=== PATIENT | female | born 1950 | race Caucasian/White ===

== ENCOUNTER 2016-11-13 12:29 | Inpatient (IN) | payer OTHER, SELFPAY ==
[~2016-11-13] VITALS: Ht 157.5 cm; Wt 51.4 kg
[2016-11-13] MEDS ORDERED: MIRALAX *UNIT DOSE* 17GM PACKET PO PRN (12:45)
[2016-11-13] MEDS ORDERED: FLEET ENEMA PR PRN (12:45)
[2016-11-13] MEDS ORDERED: MOM 30ML SUSPENSION UDC PO PRN (12:45)
[2016-11-13] MEDS ORDERED: MEROPENEM INJ 500 MG in D5W MINI-BAG PLUS 100 ML IV SCH (14:30)
[2016-11-13] MEDS ORDERED: ALBUTEROL SULFATE 2.5 MG/0.5 ML INH NEB SOLN NEB PRN (15:45)
[2016-11-13 15:50] VITALS: BP 108/61
[2016-11-13] MEDS ORDERED: POTASSIUM CHL PWD 20 MEQ PACKET PO SCH (16:00)
[2016-11-13 16:38] LABS: INR 1.35
[2016-11-13] MEDS ORDERED: WARFARIN SOD 3 MG TAB PO SCH (17:00)
[2016-11-13] MEDS ORDERED: WARFARIN SOD 5 MG TAB PO SCH (17:00)
[2016-11-13] MEDS: SODIUM CHLORIDE 0.9% INJ 10 ML SYR IV SCH (18:00)
[2016-11-13] MEDS ORDERED: WARF-58 PO (18:14)
[2016-11-13] MEDS ORDERED: TAPA5TAB PO (18:14)
[2016-11-13] MEDS ORDERED: TYLE325T5 PO (18:14)
[2016-11-13] MEDS ORDERED: HYDR12CA PO (18:14)
[2016-11-13] MEDS ORDERED: PROT40IN4 IV (18:14)
[2016-11-13] MEDS ORDERED: MERO1INJ IV (18:14)
[2016-11-13] MEDS ORDERED: IPRASOL4 INH (18:14)
[2016-11-13] MEDS ORDERED: ATOR40TA PO (18:14)
[2016-11-13] MEDS ORDERED: POTA20TA PO ×2 (18:14)
[2016-11-13] MEDS ORDERED: LISI10TA4 PO (18:14)
[2016-11-13] MEDS ORDERED: LIDO5DIS36 TOP (18:14)
[2016-11-13] MEDS ORDERED: AMLO10TA2 PO (18:14)
[2016-11-13] MEDS ORDERED: ENOX60IN3 SC (18:14)
[2016-11-13] MEDS ORDERED: META48.53 PO (18:14)
[2016-11-13] MEDS ORDERED: VANC1INJ38 IV (18:14)
[2016-11-13] MEDS ORDERED: QUET1TAB7 PO (18:14)
[2016-11-13] MEDS ORDERED: CARV25TA PO (18:14)
[2016-11-13] MEDS ORDERED: ALPR0.5T3 PO (18:16)
[2016-11-13] MEDS ORDERED: ACET30TAB PO (18:16)
[2016-11-13] MEDS: CARVedilol 12.5 MG TAB PO SCH (18:50)
[2016-11-13] MEDS: ACETAMINOPHEN TAB 650MG DOSE (2X325MG) PO PRN (19:56)
[2016-11-13 20:00] VITALS: BP 110/55
[2016-11-13] MEDS: MEROPENEM INJ 2 GM in NS 100 ML IV SCH (20:58)
[2016-11-13] MEDS: SODIUM CHLORIDE 0.9% INJ 10 ML SYR IV PRN (20:58)
[2016-11-13] MEDS: POTASSIUM CHL PWD 20 MEQ PACKET PO SCH (20:59)
[2016-11-13] MEDS: DOCUSATE SODIUM 100 MG CAP PO SCH (20:59)
[2016-11-13] MEDS: hydroCHLOROthiazide 12.5 MG CAPSULE PO SCH (20:59)
[2016-11-13] MEDS: traZODone 100 MG TAB PO SCH (20:59)
[2016-11-13] MEDS: **NOTE PATIENT COMMENT** MISC XX SCH (21:00)
--- NOTE | 2016-11-13 21:07 | PHACANCOPD ---
PHARMACY VANCOMYCIN DOSING Pt Demographics Demographics Patient Age:66 , Weight:51.700 , Gender: female Adjusted Body Weight Date: 11/13/16, Adjusted Body Weight: Kg Events Past 24 Hours Events Past 24 Hours: NO: Dialysis, Diuretic Therapy, Change in CrCl, Fever, Elevation in WBC, Pending Diagnostics, Pending Procedures, Other Vancomycin Vancomycin indication: meningitis Vancomycin Target Ranges: 15-20 mcg/ml Vancomycin Load Y/N: No Load Dose Date Time Vancomycin Load Dose: Date: Time: Vancomycin Dose Date: 11/13/16. Current Vancomycin Dose: [750mg iv q12h] Intermittent Dosing?: No Labs Labs 11/13 SCr = 0.7 per [facility] 11/12 trough @ 2300 = 16.3 per [facility] Creatinine Clearance Date:11/13/16. Creatinine Clearance: [38]. Assessment and Plan Maintaining Current Dose?: Yes Reason for dose change: No Dose Change Pharmacist Note Pharmacist Note Date: 11/13/16. Pharmacist note: Patient was previously established on 750 mg q12h @ [facility]. A therapeutic trough of 16.3 was drawn on 11/12. Continue current dosing and follow up with a trough 11/14 @ 2300. Monitor renal function and adjust dose as needed JARROD HILARIO PHARMACY November 13, 2016 21:07
[2016-11-13] MEDS ORDERED: D5W MINI IV SCH (22:30)
[2016-11-13] MEDS ORDERED: MEROPENEM IV SCH (22:30)
[2016-11-13] MEDS: IPRATROPIUM 0.5MG/ALBUTEROL 2.5MG INH SOL UD 3ML (DUONEB)(J7620) NEB SCH (23:09)
[2016-11-14] MEDS: VANCOMYCIN HCL 750 MG, VIAL MATE ADAPTER 1 EACH in D5W 250 ML IV SCH ×2 (00:08→12:02)
[2016-11-14] MEDS: SODIUM CHLORIDE 0.9% INJ 10 ML SYR IV PRN ×3 (00:12→21:03)
--- NOTE | 2016-11-14 00:48 | PMRHPE ---
DATE OF ADMISSION: 11/13/2016 CHIEF COMPLAINT: Intraventricular hemorrhage/cerebral vascular accident complicated by hydrocephalus and possible cerebral spinal fluid infection. HISTORY OF THE PRESENT ILLNESS: The patient is an 66-year-old white female, right-handed, who on 10/20/2016 was having what felt like gastrointestinal (GI) symptoms of nausea and vomiting in the evening. This continued to progress and patient was taken to [facility] where she was found to be unresponsive and dyspneic and treated with DuoNebs, Solu-Medrol, Narcan. Her blood pressure was 210/100 and she was also treated with labetalol intravenous (IV) and IV Lasix. CT of the head showed intraventricular hemorrhage and her INR was 2.0 and patient given vitamin K intramuscular (IM) and two units of fresh frozen plasma to try and stop the bleeding. She was transferred to [facility] for a higher level of care and neurosurgical management and was placed on nicardipine drip which reduced blood pressure systolically to less than 140. She was received in the emergency room at [facility] and began treatment there. Patient was further assessed and felt to be hyperthyroid and had her [place] Thyroid stopped and felt to have some hydrocephalus and a ventriculoperitoneal (FUR STORAGE CLERK) shunt was placed to decompress the ventricles by neurosurgery. This was removed after a few days but it was felt that the patient may have, based on spinal tap, an infection of the cerebrospinal fluid and she has gone through two course of IV antibiotics. She is currently on day 2 with vancomycin 750 mg every 12 hours and IV Merrem, though different levels of treatment have been reported in the records and by patient's daughter who is a nurse from this rehabilitation unit. The doses range from 500 mg every 8 hours to 2 grams every 8 hours IV through her peripherally inserted central catheter (PICC) line. Patient also was felt to have pulmonary edema complicating her chronic obstructive pulmonary disease (COPD). Patient has been stabilized and in the last 2 days has started to reverse the moderately dense quadriparesis and very dense aphasia, both expressive and receptive, now having a number of automatic speech phrases but not being particularly effective in speech and this is markedly making following directions in therapy difficult. However, patient has proceeded to the point that she is able to walk greater than 10 feet with assistance and feed herself with setup to moderate independence but tends to mod to max in most activities of daily living (ADLs) mobility which is an improvement in the last week from being essentially total assist in ADLs. Patient, therefore, is transferred to the acute rehabilitation unit for a trial of intensive neurorehabilitation of her cerebrovascular accident secondary to a cerebral hemorrhage of the ventricular system and hydrocephalus with possible infection of the cerebral spinal fluid including in the ventricular system. PAST MEDICAL HISTORY: Includes coronary artery disease with peripheral vascular disease, coronary hypertension, hyperlipidemia, congestive heart failure, carotid stenosis bilaterally, status post mitral valve replacement for valvular disease, along with now hemorrhagic stroke. Patient also with COPD, hyperthyroidism, also hypokalemia and new onset atrial fibrillation with rapid ventricular response and anemia secondary to blood loss. PAST SURGICAL HISTORY: Includes coronary artery bypass graft (CABG) plus mitral valve replacement, FUR STORAGE CLERK shunt placement and then removal. FAMILY HISTORY: Atherosclerotic cardiovascular disease including hypertension, hyperlipidemia, prior CVAs. SOCIAL HISTORY: Patient lives with her in [place], [place]. She has multiple daughters and other children living in the area including her daughter who is a nurse on the acute rehabilitation unit. Patient has never smoked, never used tobacco, is a non-drinker of alcohol and has no illicit drug use history and is not working. MEDICATIONS ON ADMISSION: - Protonix - multivitamin - amlodipine . - atorvastatin - hydrochlorothiazide - lisinopril - Tapazole - meropenem - Colace - K-Katy - Coreg - Coumadin - DuoNeb - potassium chloride - albuterol nebulizer - vancomycin 750 mg every 12 hours - MiraLAX - Fleets enema as needed - Milk of Magnesia as needed - Tylenol as needed - codeine for pain ALLERGIES: PROPOXYPHENE which was an adverse causing confusion. REVIEW OF SYSTEMS: Not obtainable from the patient tonight due to her dense aphasia. PHYSICAL EXAMINATION: The patient is a below average height, about 113 pound, late middle aged white female with a healing FUR STORAGE CLERK surgery shunt site to the slightly left of midline in the parietal region, who is alert and very aware of activity going on around her and appears to be in mild to very mild distress from her chronic back pain. Patient seen in bed after transferring here today. At the time of the examination patient was having dinner and only generated a few automatic speech phrases and showed marked difficulty understanding verbal commands and to some degree with physical demonstrations of activity. VITAL SIGNS: Temperature is 97.9, blood pressure 108/61 with pulse 74, respirations 18. Pulse oximetry 95% on room air. HEENT: Has an eschar over the incision site in the left upper parietal lobe and the very short hair cut of the entire head. There is no facial droop. Normal wrinkling is seen around the eyes and in the forehead. Muscles of facial expression are functioning well. Patient is conjugate and patient tracks in all edwards. Speech is clear without any dysarthria when it is generated. NECK: Shows some tender points but it is overall supple with no palpable masses and a midline normal thyroid. No goiter being perceived. Patient is able to move all four extremities and tone is within normal limits and appears to have functional range of motion on this brief exam. LUNGS: Clear in all edwards to auscultation. CORONARY: Showing a regular rate and rhythm with normal S1 and S2 and 2/4 radial pulses. No irregular beats, murmurs, or gallops were appreciated during the examination, though there is probably low grade click with mitral valve opening and closing. Profusion is good into the fingertips and legs. There is good limb warmth in bilateral upper and lower extremities. ABDOMEN: Benign with normal bowel sounds in all quadrants. NEUROLOGICALLY: Patient is as noted above. Light touch appears to be grossly intact, however, due to poor communication is not able to test it or vibration appropriately at this time and patient not gotten up and tried on balance or ambulation. These will be assessed with therapy tomorrow. No initial laboratory data is available. Please see chart for specifics on the anemia, hyperthyroidism, and cerebral spinal fluid analysis which does not show neutrophils but rather lymphocytes in the most recent one. Patient has brought her CT and MRI scans, and we will try and get these into the chart. ASSESSMENT/PLAN: 1. Rehabilitation of cerebrovascular accident secondary to intraventricular hemorrhage with blocking of cerebrospinal fluid (CSF) and secondary hydrocephalus, status post temporary FUR STORAGE CLERK shunt drainage with possible complication of infection of the cerebrospinal fluid of the ventricular system. Patient with reasonable endurance and alertness as shown, willingness and ability to participate and tolerate therapy, physical therapy, occupational therapy and speech therapy and is very far from her baseline and is likely to have significant improvement due to the pressure caused ischemia and damage with the cerebrovascular accident. Therefore, I do feel patient is likely to benefit to a trial of neurorehabilitation with physical, occupational, and speech therapy. She has made significant progress in swallowing and today was upgraded, per nursing report, by speech to mechanical soft with thin liquids from pureed with thickened liquids. 2. Atherosclerotic cardiovascular disease including coronary artery disease, status post CABG, congestive heart failure, hypertension, hyperlipidemia and arrhythmia in the form of atrial fibrillation with rapid ventricular response which is new for this patient. We will go ahead and continue her antihypertensive and rate control medications, as well as antilipid medications and continue to monitor vital signs. Medicine consult has been sent to assist with this management. 3. Deep venous thrombosis (DVT) prevention as well as embolic events from mechanical heart valve. Patient currently on Coumadin. We will go ahead and monitor prothrombin time, INR and continue the 3 mg of Coumadin per day along with Lovenox. However, it is unclear why patient was on a extremely high 60 mg every 12 hours of Lovenox. I will bring it back into our hospital normal range of 40 mg every 12 hours and have the patient use thromboembolism deterrent (ROBBIN) hose and focus on getting patient up and ambulatory to prevent DVT formation. 4. Anemia. We will go ahead and follow with CBCs and we will adjust nutrients as appropriate, starting with multivitamin. 5. Hyperthyroidism. We will go ahead and continue patient on the methimazole 5 mg daily and will get a thyroid panel and consider endocrine consultation depending on her results. However, will look mainly towards doing this as an outpatient if this appears stable during the acute rehabilitation admission. 6. COPD. We will go ahead and continue her with her DuoNebs and as needed albuterol nebulizer and monitor pulse oximetry and use oxygen as needed. However , at this time patient is doing well being 95% on room air with a respiratory rate of 18. 7. CSF infection. I have consulted Dr. Benoit who has already seen the patient and she will be conferring with her infectious disease counterpart down at [facility] to review and adjust medications as appropriate and also to direct an investigation as needed into to type and source of infection. POST-ADMISSION PHYSICIAN EVALUATION: Patient is doing as well or better than was evident in the pre-admission screen and appears to have reached a point where she is making significant response 20 some days after the insult by the bleed and development of hydrocephalus to recovering the cells of the central nervous system. This was showing up with increasing higher level function such as some speech and what appears to be better understanding than conveyed in the notes, as well as better strength and skills in mobility and ADLs in the most recent therapy notes. Therefore, I do see patient as benefiting from and is very likely to benefit from ongoing acute intensive rehabilitation including physical, occupational, and speech therapy. I do feel that she will be able to participate in at least 3 hours of therapy per day amongst these disciplines coming to the 3 hours per day in total. I anticipate that the patient with her supportive family will be able to transition to home with her and family support with transition then to home care or outpatient therapies. I feel her prognosis is fair to good. I estimate her length of stay to be 18-21 days, to be adjusted depending on level of progress in the various disciplines being monitored during team rounds. Time spent in chart review, history and physical and documentation was greater than 70 minutes. GUDELIA
[2016-11-14] MEDS: MEROPENEM INJ 2 GM in NS 100 ML IV SCH ×3 (04:41→20:02)
[2016-11-14] MEDS: SODIUM CHLORIDE 0.9% INJ 10 ML SYR IV SCH ×2 (05:31→17:39)
[2016-11-14 06:00] VITALS: BP 136/71
[2016-11-14] MEDS: ACETAMINOPHEN TAB 650MG DOSE (2X325MG) PO PRN ×2 (06:16→13:16)
[2016-11-14 06:51] LABS: BASO % 0.3 % (0.0-1.0); EOS # 0.2 K/mm3 (0.0-0.50); LARGE UNSTAINED CELL # 0.1 K/mm3 (0.0-0.4); LARGE UNSTAINED CELL % 1.5 % (0.0-4.0); LYMPH % 19.5 % (24.0-44.0); MEAN CORPUSCULAR HEMOGLOBIN 32.8 pg (27.0-33.0); MEAN CORPUSCULAR HGB CONC 32.2 g/dl (32.0-36.5); MEAN CORPUSCULAR VOLUME 101.7 fl (80.0-96.0); MONO # 0.3 K/mm3 (0.0-0.8); NEUTROPHILS # 3.5 K/mm3 (1.8-7.7); NEUTROPHILS % 68.7 % (36.0-66.0); PLATELET COUNT, AUTOMATED 150 k/mm3 (150-450); RED CELL DISTRIBUTION WIDTH 15.6 % (11.5-14.5); WHITE BLOOD COUNT 5.1 K/mm3 (4.0-10.0)
[2016-11-14 06:55] LABS: INR 1.41
[2016-11-14] MEDS: IPRATROPIUM 0.5MG/ALBUTEROL 2.5MG INH SOL UD 3ML (DUONEB)(J7620) NEB SCH ×3 (07:17→23:59)
[2016-11-14 07:20] LABS: ALBUMIN 2.5 GM/DL (3.2-5.2); ALBUMIN/GLOBULIN RATIO 0.63 (1.00-1.93); ALKALINE PHOSPHATASE 89 U/L (45-117); ALT/SGPT 24 U/L (12-78); ANION GAP 6 MEQ/L (8-16); AST/SGOT 20 U/L (15-37); BILIRUBIN,TOTAL 0.5 MG/DL (0.2-1.0); BLOOD UREA NITROGEN 19 MG/DL (7-18); CALCIUM LEVEL 8.9 MG/DL (8.8-10.2); CARBON DIOXIDE LEVEL 28 MEQ/L (21-32); CHLORIDE LEVEL 106 MEQ/L (98-107); GLOMERULAR FILTRATION RATE > 60.0 (>45); GLUCOSE, FASTING 94 MG/DL (80-110); POTASSIUM SERUM 4.2 MEQ/L (3.5-5.1); SODIUM LEVEL 140 MEQ/L (136-145); T UPTAKE 39 % (30-39); THYROXINE (T4) 10.6 UG/DL (4.5-12.0); TOTAL PROTEIN 6.5 GM/DL (6.4-8.2)
[2016-11-14] MEDS: LIDOCAINE 5% (LIDODERM) PATCH TD SCH (09:00)
[2016-11-14] MEDS ORDERED: CARVedilol 12.5 MG TAB PO SCH (09:00)
[2016-11-14] MEDS: POTASSIUM CHL PWD 20 MEQ PACKET PO SCH ×2 (09:41→20:02)
[2016-11-14] MEDS: CARVedilol 12.5 MG TAB PO SCH ×2 (09:41→17:37)
[2016-11-14] MEDS: DOCUSATE SODIUM 100 MG CAP PO SCH ×2 (09:42→20:02)
[2016-11-14] MEDS: MULTIVITAMINS/MINERALS THERAP 1 TAB PO SCH (09:43)
[2016-11-14] MEDS: PANTOPRAZOLE 40MG TAB (PROTONIX) PO SCH (09:43)
[2016-11-14] MEDS: amLODIPine 10 MG TAB PO SCH (09:44)
[2016-11-14] MEDS: LISINOPRIL 10 MG TAB PO SCH (09:44)
[2016-11-14] MEDS: ATORVASTATIN 20 MG TAB PO SCH (09:45)
--- NOTE | 2016-11-14 11:29 | IPNPDOC ---
File Conversion Operator Progress Note DATE OF SERVICE: 11/14/16 DATE OF ADMISSION: November 13, 2016 at 15:36 INPATIENT REHABILITATION ADMISSION DAY: #1 SUBJECTIVE: Patient is a 66-year-old white female with cerebrovascular accident with intraventricular hemorrhage, dense aphasia and quadriparesis. Patient remains fairly movement does not appear to be in significant distress. She does respond with some automatic phrases. ALLERGIES: See Below MEDICATIONS: Reviewed, see below. OBJECTIVE: VITAL SIGNS: Please see below. PHYSICAL EXAMINATION: GENERAL: Slightly overweight male aged white female with short cropped hair and a healing left parietal incision site that is noninflamed and not draining. HEENT: As above with normal facial symmetry. CARDIOVASCULAR: Regular rate and rhythm with normal S1-S2. LUNGS: I'll feels clear to auscultation. ABDOMEN: Mildly obese with normal bowel sounds in all quadrants and no significant tenderness. NEUROLOGICAL: Patient is alert but unable to come first other than the occasional phrase. Patient is using all extremities but if not propped tense to turn to the side in bed. SKIN: Grossly intact except for some ecchymoses from prior IV and blood draw sites as well as the TABLE GAMES MANAGER shunt site which has an escar. LABORATORY DATA: Reviewed. Please see below. MICROBIOLOGY: Please see below. IMAGING: No new imaging. DVT prophylaxis ordered?: Patient on Lovenox and Coumadin with INR today of 1.41 that is increased from arrival yesterday. I will order 3.75 mg at 1700 hrs. for 3 days and continue daily INRs. Hospitalist be called if INR exceeds 3.0 this week end. ASSESSMENT AND PLAN: 1. Rehabilitation of extensive CVA with interventricular hemorrhage: Patient starring evaluation with physical therapy occupational therapy and speech therapy today. Review of her records show an overall trend in the last 48 hours to some significant increase in function which we will get baseline on today and start to track as patient participates in therapies. We'll look to formalize discharge anticipated date when teammates on Thursday. For now I am anticipating an 18-21 day stay. 2. DVT prophylaxis: Progressing patient's gaiting is going to be one of the most beneficial treatments but for now we'll continue the Lovenox 40 mg every 12 and continue anticoagulation with Coumadin as well as use of ROBBIN hose. When INR reaches 2.0 then Lovenox should be discontinued. 3. Possible CSF infection: Patient under review by Dr. Benoit who will adjust medications and assess as appropriate. 4. Anemia: We'll continue to watch CBCs and blood pressure especially as patient is on both Lovenox and Coumadin. TIME SPENT: Chart Review, examination and documentation greater than 25 minutes. Allergies Coded Allergies: Propoxyphene (Verified Allergy, Unknown, 11/13/16) Vital Signs Vital Signs Date Time Temp Pulse Resp B/P (MAP) Pulse Ox O2 Delivery O2 Flow Rate FiO2 11/14/16 09:44 118/74 11/14/16 09:44 82 11/14/16 09:15 Room Air 11/14/16 06:00 98.0 18 96 Laboratory Data CBC/BMP Laboratory Tests 11/14/16 06:40 Red Blood Count 2.77 L, Mean Corpuscular Volume 101.7 H, Mean Corpuscular Hemoglobin 32.8, Mean Corpuscular Hemoglobin Concent 32.2, Red Cell Distribution Width 15.6 H, Neutrophils (%) (Auto) 68.7 H, Lymphocytes (%) (Auto ) 19.5 L, Monocytes (%) (Auto) 6.0 H, Eosinophils (%) (Auto) 4.0 H, Basophils (% ) (Auto) 0.3, Neutrophils # (Auto) 3.5, Lymphocytes # (Auto) 1.0 L, Monocytes # (Auto) 0.3, Eosinophils # (Auto) 0.2, Basophils # (Auto) 0.0, Calcium Level 8.9 , Aspartate Amino Transf (AST/SGOT) 20, Alanine Aminotransferase (ALT/SGPT) 24, Alkaline Phosphatase 89, Total Bilirubin 0.5, Total Protein 6.5, Albumin 2.5 L Labs 24H Laboratory Tests 2 11/13/16 16:20: Prothrombin Time 16.8H, Prothromb Time International Ratio 1.35 11/14/16 06:40: Prothrombin Time 17.4H, Prothromb Time International Ratio 1.41, White Blood Count 5.1, Red Blood Count 2.77L, Hemoglobin 9.1L, Hematocrit 28.2L, Mean Corpuscular Volume 101.7H, Mean Corpuscular Hemoglobin 32.8, Mean Corpuscular Hemoglobin Concent 32.2, Red Cell Distribution Width 15.6H, Platelet Count 150, Neutrophils (%) (Auto) 68.7H, Lymphocytes (%) (Auto) 19.5L, Monocytes (%) (Auto ) 6.0H, Eosinophils (%) (Auto) 4.0H, Basophils (%) (Auto) 0.3, Neutrophils # ( Auto) 3.5, Lymphocytes # (Auto) 1.0L, Monocytes # (Auto) 0.3, Eosinophils # ( Auto) 0.2, Basophils # (Auto) 0.0, Large Unclassified Cells % 1.5, Large Unclassified Cells # 0.1, Anion Gap 6L, Glomerular Filtration Rate > 60.0, Blood Urea Nitrogen 19H, Creatinine 0.80, Sodium Level 140, Potassium Level 4.2 , Chloride Level 106, Carbon Dioxide Level 28, Calcium Level 8.9, Aspartate Amino Transf (AST/SGOT) 20, Alanine Aminotransferase (ALT/SGPT) 24, Alkaline Phosphatase 89, Total Bilirubin 0.5, Total Protein 6.5, Albumin 2.5L, C- Reactive Protein, Quantitative 2.53H, Albumin/Globulin Ratio 0.63L, Thyroid Stimulating Hormone (TSH) < 0.005L, Free Thyroxine Index 4.1, Thyroxine (T4) 10.6, Triiodothyronine (T3) Uptake 39 Current Medications Current Medications Current Medications Acetaminophen (Tylenol Tab) 650 mg Q4HP PRN PO MILD PAIN (PS 1-4) Last administered on 11/14/16 06:16; Start 11/13/16 at 12:45; Stop 12/13/16 at 12:44 Albuterol Sulfate (Proventil Neb) 2.5 mg Q2HP PRN NEB SOB/WHEEZING; Start 11/13 at 15:45; Stop 12/13/16 at 15:44 Albuterol/ Ipratropium (Duoneb (Ipr 0.5mg/Alb 2.5mg)) 3 ml RQ8H NEB Last administered on 11/14/16 07:17; Start 11/13/16 at 16:00; Stop 12/13/16 at 15:59 Amlodipine Besylate (Norvasc) 10 mg DAILY PO Last administered on 11/14/16 09: 44; Start 11/14/16 at 09:00; Stop 12/14/16 at 08:59 Atorvastatin Calcium (Lipitor) 40 mg DAILY PO Last administered on 5/19/17at 09 :45; Start 11/14/16 at 09:00; Stop 12/14/16 at 08:59 Carvedilol (COReg) 25 mg BIDWM PO Last administered on 11/14/16 09:41; Start 11/13/16 at 18:00; Stop 12/14/16 at 08:59 Carvedilol (COReg) 25 mg DAILY PO ; Start 11/14/16 at 09:00; Stop 11/14/16 at 09 :00; Status DC Codeine Sulfate (Codeine Sulfate) 30 mg Q4HP PRN PO PAIN SCALE 6-10; Start at 17:00; Stop 11/20/16 at 16:59 Docusate Sodium (Colace) 100 mg BID PO Last administered on 11/14/16 09:42; Start 11/13/16 at 21:00; Stop 12/13/16 at 20:59 Heparin Sodium (Heparin (Flush)) 200 units ASDIRECTED PRN IV SEE LABEL COMMENTS Last administered on 11/14/16 00:12; Start 11/13/16 at 17:00; Stop at 16:59 Heparin Sodium (Heparin (Flush)) 200 units PICC IV Last administered on 05:31; Start 11/13/16 at 18:00; Stop 12/13/16 at 17:59 Home Med (Med Rec Complete!) ASDIRECTED XX ; Start 11/13/16 at 18:30; Stop at 18:30; Status DC Hydrochlorothiazide (Hydrodiuril) 12.5 mg DAILY@2100 PO Last administered on 20:59; Start 11/13/16 at 21:00; Stop 12/13/16 at 20:59 Lidocaine (Lidoderm Patch) 1 patch DAILY TD Last administered on 11/14/16 09: 00; Start 11/14/16 at 09:00; Stop 12/14/16 at 08:59 Lisinopril (Prinivil) 10 mg DAILY PO Last administered on 11/14/16 09:44; Start 11/14/16 at 09:00; Stop 12/14/16 at 08:59 Magnesium Hydroxide (Milk Of Magnesia) 30 ml DAILYPRN PRN PO CONSTIPATION; Start 11/13/16 at 12:45; Stop 12/13/16 at 12:44 Meropenem 1000 mg/ Dextrose 100 ml @ 200 mls/hr Q8H IV ; Start 11/13/16 at 22: 30; Stop 11/13/16 at 22:30; Status DC Meropenem 2 gm/ Sodium Chloride 100 ml @ 200 mls/hr Q8H IV Last administered on 11/14/16 04:41; Start 11/13/16 at 20:00; Stop 11/20/16 at 19:59 Meropenem 500 mg/ Dextrose 100 ml @ 200 mls/hr Q8H IV ; Start 11/13/16 at 14:30 ; Stop 11/13/16 at 16:07; Status DC Methimazole (Tapazole) 5 mg DAILY PO Last administered on 11/14/16 09:42; Start 11/14/16 at 09:00; Stop 12/14/16 at 08:59 Multivitamins (Theragram-M) 1 tab DAILY PO Last administered on 11/14/16 09:43 ; Start 11/14/16 at 09:00; Stop 12/14/16 at 08:59 Non-Formulary Medication ( See Comment Field Below ) REMOVE LIDODERM PATCH DAILY@21 XX ; Start 11/13/16 at 21:00; Stop 12/13/16 at 20:59 Pantoprazole Sodium (Protonix) 40 mg DAILY PO Last administered on 11/14/16 09 :43; Start 11/14/16 at 09:00; Stop 12/14/16 at 08:59 Polyethylene Glycol (Miralax) 1 pkt DAILY PRN PO CONSTIPATION; Start 11/13/16 at 12:45; Stop 12/13/16 at 12:44 Potassium Chloride (K-Katy 20 Meq Powder Packet) 20 meq BID PO Last administered on 11/14/16 09:41; Start 11/13/16 at 21:00; Stop 11/17/16 at 06:00 Potassium Chloride (K-Katy 20 Meq Powder Packet) 20 meq RQ8H PO ; Start 11/13/16 at 16:00; Stop 11/13/16 at 16:07; Status DC Sodium Biphosphate/ Sodium Phosphate (Fleet Enema) 1 ea DAILYPRN PRN DC CONSTIPATION; Start 11/13/16 at 12:45; Stop 12/13/16 at 12:44 Sodium Chloride (Saline Lock Flush) 10 ml ASDIRECTED PRN IV SEE LABEL COMMENTS Last administered on 11/14/16 00:12; Start 11/13/16 at 17:00; Stop 12/13/16 at 16:59 Sodium Chloride (Saline Lock Flush) 10 ml PICC IV Last administered on 05:31; Start 11/13/16 at 18:00; Stop 12/13/16 at 17:59 Trazodone HCl (Desyrel) 100 mg QHS PO Last administered on 11/13/16 20:59; Start 11/13/16 at 21:00; Stop 12/13/16 at 20:59 Vancomycin HCl 750 mg/IV Miscellaneous Supplies 1 each/ Dextrose 275 ml @ 275 mls/hr Q12H IV Last administered on 11/14/16 00:08; Start 11/14/16 at 00:00; Stop 11/21/16 at 00:00 Warfarin Sodium (Coumadin) 3 mg 1T@17 PO ; Start 11/13/16 at 17:00; Stop at 17:01; Status Cancel Warfarin Sodium (Coumadin) 3 mg DAILY@17 PO Last administered on 11/13/16 19: 56; Start 11/13/16 at 17:00; Stop 11/13/16 at 23:59; Status DC XIOMARA CAMARENA MD November 14, 2016 11:29
--- NOTE | 2016-11-14 11:30 | CR.PDOC ---
[facility] Consultation Consultation CONSULTATION REPORT FOR: Dr Sow REASON FOR CONSULTATION: Medical Management DATE OF VISIT: 11/14/16 ATTENDING: Dr. Macias PCP: Dr Jean HPI: 66year old F had been having N/V 10/20/16. She presented to [facility] and found to be unresponsive and dyspneic. CT indicated intraventricular hemorrhage. Initial BP 210/100. INR was noted to be 2.0. Pt was administered VitK, FFP and transferred to [facility]. Thyroid supplement was d/cd related to hyperthyroidism. ASSIGNMENT MANAGER shunt placement related to hydrocephalus as per Neurosurgery. Pt was also treated there for infection of CSF. Pt transferred to [facility] ARU 11/13/16 and noted to have residual quadriplegia and aphasia. No acute medical concerns today. Denies any fevers, chills, Headache, Chest Pain, Shortness of breath, cough, palpitations, abdominal pain, N/V/D or changes in bowel or bladder habits. PMHx: CAD/CABG x 1. Followed by [facility] cardiology VHD/MVR Mechanical [facility] #[id number]. Coumadin managed as oupt by PCP. COPD CHF. TTE per at [facility] Cardiology. H/O Pulm edema admission [facility] 10/13. hypothyroid PVD/B/L Carotid stenosis HTN HLD anemia secondary to blood loss Afib with RVR. (EKG [facility] Afib) depression anxiety OA/chronic LBP PSHX: CABG x 1/MVR 2007 ASSIGNMENT MANAGER shunt placement 10/21/16, removal of shunt 11/05/16 [facility] hysterectomy SOCHX: Resides in: [facility] Marital Status: Tobacco use: denies ETOH: denies Illicit Drugs: Denies FAMHX: Mother: heart disease Father: Lung CA Siblings: 1 brother MVA, 1 brother throat Ca Children: Alive, well Unexpected deaths due to medical reasons: None. ROS: Pt provided limited history but denies pain, CP, SOB, abdominal pain, urinary complaints. Most of history is provided by her . PE: GEN: 66yoF, appears stated age. No acute distress. Alert, responds to questions with shaking her head. HEENT: Normocephalic, atraumatic. Healing surgical site left side of head. Pupils are equal, round, and reactive to light. Extraocular movements are intact. No nystagmus appreciated. Sclera are nonicteric. Conjunctiva without injection. Nose midline. No facial asymmetry. Moist mucous membranes. Dentition fair. Pharynx pink and moist, no cobblestoning. Neck supple, trachea midline. No lymphadenopathy or thyromegaly appreciated. CHEST: Regular rate and rhythm, +S1, +S2. [place] prosthetic closure noted. LUNGS: Clear to auscultation bilaterally. No wheezes, rales, or rhonchi. Breathing appears symmetric and easy. No accessory muscle use. ABD: Round, soft, non-tender, non-distended. +Bowel sounds throughout. No rebound or guarding. No costovertebral angle tenderness. EXT: Pulses 2+ bilaterally dorsalis pedis and radial. No lower extremity edema appreciated. SKIN: Sigurd, dry, warm. Capillary refill <2sec. No rashes. NEURO: Alert, aphasic. Moving UEs and LEs, but difficulty following commands for strength testing. CT 11/09/16 [facility]. Stable appearance. CSF culture 10/26 no growth CSF from EVD no growth. LP 11/10 CSF no growth EEG 10/21, 10/30, 11/11 and EEG monitoring 10/31-11/02. Generalized slowing, no epileptiform activity. No antiepileptics. A&P:66year old F had been having N/V 10/20/16. She presented to [facility] and found to be unresponsive and dyspneic. CT indicated intraventricular hemorrhage. Initial BP 210/100. INR was noted to be 2.0. Pt was administered VitK, FFP and transferred to [facility]. Thyroid supplement was d/cd related to hyperthyroidism. ASSIGNMENT MANAGER shunt placement related to hydrocephalus as per Neurosurgery. Pt was also treated there for infection of CSF. Pt transferred to [facility] ARU 11/13/16 and noted to have residual quadriplegia and aphasia. Pt is admitted to ARU as per Dr Sow. 1. CVA secondary to intraventricular hemorrhage. ARU as per Dr Sow. PT/OT/ST as per Dr Sow. Mechanical soft diet. Pain control/Bowel care. Bleeding/Fall/ Aspiration precautions. Plan for F/U with Neurosurgery [facility] [address] prior. 2. Hydrocephalus/S/P temporary ASSIGNMENT MANAGER shunt. 3. Possible CSF infection. Treated with antibiotics at [facility] as per ID for possible ventriculitis. Afebrile/no leukocytosis. Dr Benoit consulted for further management and recommendations. IV Vanco dosing as per Pharmacy. IV Meropenem. CRP pending. 4. CAD/CABG x 1. Coreg 25mg BID. 5. HTN/CHF. BP 108-136. Lisinopril 10mg daily/Norvasc 10mg daily/HCTZ12.5mg daily/KCL. 6. VHD/MVR Mechanical. Coumadin 3 mg yesterday. INR 1.41. Continue with daily INR. Goal INR 2.5-3.5. Coumadin 3.75 mg daily. Lovenox bridging 50mg SQ Q12 until INR is therapeutic. 7. HLD. Lipitor. 8. Afib. Coreg for rate control. Coumadin, INR 1.41. Update EKG pending. 9. Blood loss anemia. Follow CBC. 10. Hyperthyroidism. supplement on hold. Currently on Methimazole. F/U TFTs requested. Plan for outpt f/u with Endocrine 4 wks with TFT prior. 12. COPD. Nebs as needed. DVT prophylaxis. Coumadin/Lovenox as above. Thank you for your consultation. We will continue to follow along with you. Vital Signs/I&O Vital Signs Date Time Temp Pulse Resp B/P (MAP) Pulse Ox O2 Delivery O2 Flow Rate FiO2 11/14/16 09:44 118/74 11/14/16 09:44 82 11/14/16 06:00 98.0 18 96 Room Air I&O- Last 24 Hours up to 6 AM 11/14/16 06:00 Intake Total 765 ml Output Total 0 ml Balance 765 ml Laboratory Data Labs 24H Laboratory Tests 2 11/13/16 16:20: Prothrombin Time 16.8H, Prothromb Time International Ratio 1.35 11/14/16 06:40: Prothrombin Time 17.4H, Prothromb Time International Ratio 1.41, White Blood Count 5.1, Red Blood Count 2.77L, Hemoglobin 9.1L, Hematocrit 28.2L, Mean Corpuscular Volume 101.7H, Mean Corpuscular Hemoglobin 32.8, Mean Corpuscular Hemoglobin Concent 32.2, Red Cell Distribution Width 15.6H, Platelet Count 150, Neutrophils (%) (Auto) 68.7H, Lymphocytes (%) (Auto) 19.5L, Monocytes (%) (Auto ) 6.0H, Eosinophils (%) (Auto) 4.0H, Basophils (%) (Auto) 0.3, Neutrophils # ( Auto) 3.5, Lymphocytes # (Auto) 1.0L, Monocytes # (Auto) 0.3, Eosinophils # ( Auto) 0.2, Basophils # (Auto) 0.0, Large Unclassified Cells % 1.5, Large Unclassified Cells # 0.1, Anion Gap 6L, Glomerular Filtration Rate > 60.0, Blood Urea Nitrogen 19H, Creatinine 0.80, Sodium Level 140, Potassium Level 4.2 , Chloride Level 106, Carbon Dioxide Level 28, Calcium Level 8.9, Aspartate Amino Transf (AST/SGOT) 20, Alanine Aminotransferase (ALT/SGPT) 24, Alkaline Phosphatase 89, Total Bilirubin 0.5, Total Protein 6.5, Albumin 2.5L, C- Reactive Protein, Quantitative 2.53H, Albumin/Globulin Ratio 0.63L, Thyroid Stimulating Hormone (TSH) < 0.005L, Free Thyroxine Index 4.1, Thyroxine (T4) 10.6, Triiodothyronine (T3) Uptake 39 CBC/BMP Laboratory Tests 11/14/16 06:40 Red Blood Count 2.77 L, Mean Corpuscular Volume 101.7 H, Mean Corpuscular Hemoglobin 32.8, Mean Corpuscular Hemoglobin Concent 32.2, Red Cell Distribution Width 15.6 H, Neutrophils (%) (Auto) 68.7 H, Lymphocytes (%) (Auto ) 19.5 L, Monocytes (%) (Auto) 6.0 H, Eosinophils (%) (Auto) 4.0 H, Basophils (% ) (Auto) 0.3, Neutrophils # (Auto) 3.5, Lymphocytes # (Auto) 1.0 L, Monocytes # (Auto) 0.3, Eosinophils # (Auto) 0.2, Basophils # (Auto) 0.0, Calcium Level 8.9 , Aspartate Amino Transf (AST/SGOT) 20, Alanine Aminotransferase (ALT/SGPT) 24, Alkaline Phosphatase 89, Total Bilirubin 0.5, Total Protein 6.5, Albumin 2.5 L Allergies Coded Allergies: Propoxyphene (Verified Allergy, Unknown, 11/13/16) Home Medications Scheduled (Vancomycin 750-0.9 mg/150Ml-%) 1 Inj Inj, 1 INJ IV DAILY, (Reported) Albuterol/Ipratropium (Ipratropium Vansant/Albut 0.5-2.5 (3) mg/3Ml) 1 Benjamín Benjamín, 1 BENJAMÍN INH Q8H, (Reported) Amlodipine Besylate (Amlodipine Besylate) 10 Mg Tab, 10 MG PO DAILY, (Reported) Atorvastatin Calcium (Atorvastatin Calcium) 40 Mg Tab, 40 MG PO DAILY, (Reported ) Carvedilol (Carvedilol) 25 Mg Tab, 25 MG PO BID, (Reported) Enoxaparin Sodium (Enoxaparin Sodium) 60 Mg/0.6 Ml Inj, 50 MG SC BID, (Reported) Hydrochlorothiazide (Hydrochlorothiazide) 12.5 Mg Cap, 12.5 MG PO QHS, (Reported ) Lidocaine (Lidoderm) 5 % Dis, 1 PATCH TOP DAILY, (Reported) Lisinopril (Lisinopril) 10 Mg Tab, 10 MG PO DAILY, (Reported) Meropenem (Meropenem) 1 Gm Inj, 2 GM IV Q8H, (Reported) Methimazole (Tapazole) 5 Mg Tab, 5 MG PO DAILY, (Reported) Pantoprazole Sodium (Protonix IV) 40 Mg Inj, 40 MG IV DAILY, (Reported) Potassium Chloride (Klor-Con M20) 20 Meq Tabcr, 40 MEQ PO DAILY, (Reported) Potassium Chloride (Klor-Con M20) 20 Meq Tabcr, 20 MEQ PO QHS, (Reported) Psyllium (Metamucil Original Textur) 48.57 % Pow, 1 PKT PO BID, (Reported) Quetiapine Fumerate (Quetiapine Fumarate) 25 Mg Tab, 25 MG PO QHS, (Reported) Warfarin Sod (Warfarin Sodium) 3 Mg Tab, 3 MG PO QPM, (Reported) Scheduled PRN Acetaminophen (Tylenol) 325 Mg Tab, 650 MG PO Q6H PRN for PAIN / FEVER, ( Reported) Acetaminophen/Codeine (Tylenol/Codeine #3) Tab, 2 TAB PO Q6H PRN for PAIN, ( Reported) Alprazolam (Alprazolam) 0.5 Mg Tab, 0.5 MG PO TID PRN for ANXIETY, (Reported) Sahra Sahu November 14, 2016 11:30
--- NOTE | 2016-11-14 12:20 | ECGEPIP ---
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
[2016-11-14] MEDS: ENOXAPARIN 60 MG/0.6 ML SYR (J1650) SC SCH ×2 (13:17→23:51)
[2016-11-14 14:15] VITALS: BP 105/55
--- NOTE | 2016-11-14 16:11 | CR ---
DATE OF CONSULTATION: 11/13/2016 REASON FOR CONSULTATION: Asked to consult by Dr. Sow for followup of hospital-acquired ventriculitis. Mrs. Dubon is a 66-year-old female who had an intraventricular hemorrhage on October 21, admitted to [facility] for management of intraparenchymal hemorrhage. The patient was transferred to us on November 13 for rehabilitation. She had a left frontal external ventricular drain (EVD) placed for secondary hydrocephalus. She developed fevers and was noted to have increased white cells and cerebrospinal (CSF) fluid and was treated with vancomycin and cefepime due to concern for ventriculitis. She had been on 2 weeks of that treatment, and then the plan was to remove the EVD, but they had repeated the tap to make sure that there was no more evidence of infection and evaluate the opening pressure. At that point the nucleated white cells in her CSF were 2476 with 16% lymphocytes, 21% monocytes, 12% neutrophils, and a total protein of 98, glucose of 63. CSF panel on November 10 was negative. The cultures were negative. Was switched from cefepime to meropenem in spite of negative culture, and the plan was to continue with post antibiotics for a total of 2 weeks with a start date being November 11. The patient seems to be doing well. She does not have any headache. She has significant expressive aphasia. Her daughter is an RN at the bedside. The patient has not had any recent fever. She denies any nausea, vomiting, or diarrhea. PAST MEDICAL HISTORY: Significant for: 1. Mitral valve replacement, a mechanical valve. 2. Congestive heart failure. 3. Atrial fibrillation. She is on chronic Coumadin. EKG shows left bundle branch block. Brain natriuretic peptide (BNP) was 139 at [facility]. 4. Hyperlipidemia. 5. Hemorrhagic stroke. 6. Hydrocephalus, status post external ventriculoperitoneal (NURSE PRACTITIONER ADULT) shunt, which was removed on November 11. 7. Hospital-acquired ventriculitis, on vancomycin and meropenem for total of 2 weeks, which should end on November 25. 6. Hyperthyroidism. PAST SURGICAL HISTORY: 1. Coronary artery bypass graft (CABG). 2. Mitral valve replacement. 3. NURSE PRACTITIONER ADULT shunt placement and removal. FAMILY HISTORY: Atherosclerotic heart disease, hypertension, prior cerebrovascular accident (CVA). SOCIAL HISTORY: She lives with her in [place], [place], [place]. She has six children. One of them is a nurse in acute rehabilitation. She never smoked. Does not drink or use drugs. MEDICATIONS: - Protonix 40 mg by mouth daily - multivitamin one by mouth tablet daily - Norvasc 10 mg by mouth daily - Lipitor 40 mg by mouth daily - lisinopril 10 mg daily - methimazole 5 mg by mouth daily - Lidoderm patch - vancomycin 750 mg every 12 hours - meropenem 2 grams IV every 8 hours - Colace 100 mg by mouth twice a day - hydrochlorothiazide 12.5 mg by mouth daily - potassium 20 mEq by mouth twice a day - trazodone 100 mg by mouth at bedtime - Coreg 25 mg twice a day - codeine 30 mg as needed for pain - albuterol nebulizers as needed - MiraLax one packet daily as needed for constipation. ALLERGIES: PROPOXYPHENE. LABORATORY DATA: White count 5.1, hemoglobin 9.1, hematocrit 28.2, MCV 101.7, platelets 150, 68% neutrophils, 19% lymphocytes, 6% monocytes. Sodium 140, potassium 4.2, chloride 106, bicarbonate 28, BUN 19, creatinine 0.8, glucose 94, calcium 8.9. AST 20, ALT 24, total protein 6.5, albumin 2.5. TSH less than 0.005 with a free T4 of 4.1 and a total T4 of 10.6. No imaging studies have been done recently. Review of previous imaging done in [place]: Chest x-ray shows persistent left lower lobe patchy opacities, likely secondary to air-space disease or atelectasis. CT scan shows the intraventricular hemorrhage and scattered subarachnoid hemorrhages. PHYSICAL EXAMINATION: Temperature is 97.9, pulse 108/61, oxygen saturation 95% on room air, pulse 74, respirations 18. HEAD: She has a small scab on top of her head. Very short hair. There is no facial droop. Patient is smiling, trying to talk. She is able to say a couple words, like "it's cold." NECK: Supple. No jugular venous distention (JVD). No bruits. LUNGS: Clear. No wheezes, rales, or rhonchi. HEART: Normal S1, S2 with a grade 2/6 systolic murmur. Click heard of prosthetic valve. ABDOMEN: Soft, nontender. No hepatosplenomegaly. EXTREMITIES: No clubbing, cyanosis, or edema. NEUROLOGIC: Not done. The patient has expressive aphasia. Seems to be able to move all extremities but with difficulty with some weakness. Extraocular movements are intact, and there is facial symmetry. SKIN: No rashes. Warm. IMPRESSION: This is a pleasant 66-year-old female with a history of atrial fibrillation, mitral valve replacement, on Coumadin, hyperlipidemia, congestive heart failure who had an intraventricular hemorrhage. Had a external ventriculoperitoneal (NURSE PRACTITIONER ADULT) shunt placed with [id number] ventriculitis. The patient had a course of vancomycin and cefepime, and the repeat cerebrospinal fluid (CSF) analysis, even though patient had been on antibiotics, did show increasing white cells with a total of 2476 white cells but predominance of lymphocytes. Cultures were negative. The patient was seen by infectious disease in [facility], Dr. Cheryl Walker, who recommended to treat her with another 2 weeks of vancomycin and meropenem. The patient will be continued on that regimen. PLAN: 1. Continue IV vancomycin 750 mg every 12 hours. Vancomycin level will be monitored by pharmacy. Keep vancomycin trough between 15-20. 2. Continue IV meropenem at the dose of 2 grams IV every 8 hours. Will monitor for fever. If there is fever or worsening headache, please obtain CT of the head.
[2016-11-14] MEDS: WARFARIN SOD 7.5 MG TAB PO SCH (17:38)
[2016-11-14 20:00] VITALS: BP 108/58
[2016-11-14] MEDS: hydroCHLOROthiazide 12.5 MG CAPSULE PO SCH (20:02)
[2016-11-14] MEDS: traZODone 100 MG TAB PO SCH (20:02)
[2016-11-14] MEDS: **NOTE PATIENT COMMENT** MISC XX SCH (20:02)
--- NOTE | 2016-11-14 23:50 | PHACANCOPD ---
PHARMACY VANCOMYCIN DOSING Pt Demographics Demographics Patient Age:66 , Weight:51.200 , Gender: female Adjusted Body Weight Vancomycin Vancomycin indication: meningitis Vancomycin Target Ranges: 15-20 mcg/ml Vancomycin Load Y/N: No Load Dose Date Time Vancomycin Load Dose: Date: Time: Vancomycin Dose Date: 11/14/16. CHANGE Current Vancomycin Dose TO : [750mg IV q18h START 6AM ] Intermittent Dosing?: No Labs Creatinine Clearance Date:11/14/16. Creatinine Clearance: [>40ml/min]. Assessment and Plan Maintaining Current Dose?: No Reason for dose change: Trough too high Pharmacist Note Pharmacist Note Date: 11/14/16. Pharm.D. note: Patient was previously established on 750 mg q12h @ [facility]. A therapeutic trough of 16.3 was drawn on 11/12. TODAY, FOLLOWING 2 DOSES OF VANCO AT [facility], HER TROUGH = 24.3 mcg/ml WE WILL REDUCE HER FREQUENCY TO 750MG VANCO IV Q18H STARTING AT 6AM 11/15/16 Crow[ROMULO, Pharm.D. [facility] November 14, 2016 23:50
[2016-11-15] MEDS: MEROPENEM INJ 2 GM in NS 100 ML IV SCH ×3 (03:31→20:59)
[2016-11-15] MEDS: SODIUM CHLORIDE 0.9% INJ 10 ML SYR IV PRN ×3 (04:30→21:58)
[2016-11-15] MEDS: VANCOMYCIN HCL 750 MG, VIAL MATE ADAPTER 1 EACH in D5W 250 ML IV SCH (05:38)
[2016-11-15 05:50] VITALS: BP 132/68
[2016-11-15 06:44] LABS: BASO % 0.3 % (0.0-1.0); EOS # 0.2 K/mm3 (0.0-0.50); EOS % 3.3 % (0.0-3.0); LARGE UNSTAINED CELL # 0.1 K/mm3 (0.0-0.4); LARGE UNSTAINED CELL % 1.6 % (0.0-4.0); LYMPH # 0.9 K/mm3 (1.5-4.5); LYMPH % 16.5 % (24.0-44.0); MEAN CORPUSCULAR HEMOGLOBIN 31.9 pg (27.0-33.0); MEAN CORPUSCULAR VOLUME 99.7 fl (80.0-96.0); MONO # 0.3 K/mm3 (0.0-0.8); MONO % 5.8 % (0.0-5.0); NEUTROPHILS # 3.7 K/mm3 (1.8-7.7); NEUTROPHILS % 72.4 % (36.0-66.0); PLATELET COUNT, AUTOMATED 155 k/mm3 (150-450); RED CELL DISTRIBUTION WIDTH 16.1 % (11.5-14.5); WHITE BLOOD COUNT 5.1 K/mm3 (4.0-10.0)
[2016-11-15 06:48] LABS: INR 1.62
[2016-11-15] MEDS: SODIUM CHLORIDE 0.9% INJ 10 ML SYR IV SCH ×2 (07:01→12:32)
[2016-11-15] MEDS: IPRATROPIUM 0.5MG/ALBUTEROL 2.5MG INH SOL UD 3ML (DUONEB)(J7620) NEB SCH ×2 (08:23→15:12)
[2016-11-15] MEDS: amLODIPine 10 MG TAB PO SCH (09:26)
[2016-11-15] MEDS: PANTOPRAZOLE 40MG TAB (PROTONIX) PO SCH (09:26)
[2016-11-15] MEDS: CARVedilol 12.5 MG TAB PO SCH ×2 (09:27→18:00)
[2016-11-15] MEDS: ATORVASTATIN 20 MG TAB PO SCH (09:27)
[2016-11-15] MEDS: MULTIVITAMINS/MINERALS THERAP 1 TAB PO SCH (09:27)
[2016-11-15] MEDS: POTASSIUM CHL PWD 20 MEQ PACKET PO SCH ×2 (09:28→20:57)
[2016-11-15] MEDS: LISINOPRIL 10 MG TAB PO SCH (09:28)
[2016-11-15] MEDS: DOCUSATE SODIUM 100 MG CAP PO SCH ×2 (09:28→20:59)
[2016-11-15] MEDS: ENOXAPARIN 60 MG/0.6 ML SYR (J1650) SC SCH ×2 (09:38→21:58)
[2016-11-15] MEDS: LIDOCAINE 5% (LIDODERM) PATCH TD SCH (09:38)
[2016-11-15 14:00] VITALS: BP 140/70
[2016-11-15] MEDS: WARFARIN SOD 7.5 MG TAB PO SCH (16:33)
[2016-11-15] MEDS: CODEINE SULFATE 30 MG TAB PO PRN (16:34)
[2016-11-15 20:26] VITALS: BP 122/78
[2016-11-15] MEDS: traZODone 100 MG TAB PO SCH (20:57)
[2016-11-15] MEDS: hydroCHLOROthiazide 12.5 MG CAPSULE PO SCH (20:57)
[2016-11-15] MEDS: **NOTE PATIENT COMMENT** MISC XX SCH (21:00)
[2016-11-16] MEDS: VANCOMYCIN HCL 750 MG, VIAL MATE ADAPTER 1 EACH in D5W 250 ML IV SCH ×2 (00:18→17:49)
[2016-11-16] MEDS: SODIUM CHLORIDE 0.9% INJ 10 ML SYR IV PRN ×2 (01:43→14:04)
[2016-11-16] MEDS: MEROPENEM INJ 2 GM in NS 100 ML IV SCH ×3 (04:42→19:42)
[2016-11-16] MEDS: SODIUM CHLORIDE 0.9% INJ 10 ML SYR IV SCH ×2 (04:43→17:49)
[2016-11-16 06:00] VITALS: BP 108/68
[2016-11-16 07:56] LABS: BASO % 0.3 % (0.0-1.0); EOS # 0.2 K/mm3 (0.0-0.50); EOS % 4.3 % (0.0-3.0); LARGE UNSTAINED CELL # 0.2 K/mm3 (0.0-0.4); LARGE UNSTAINED CELL % 3.1 % (0.0-4.0); LYMPH % 18.5 % (24.0-44.0); MEAN CORPUSCULAR HEMOGLOBIN 32.5 pg (27.0-33.0); MEAN CORPUSCULAR HGB CONC 32.1 g/dl (32.0-36.5); MEAN CORPUSCULAR VOLUME 101.3 fl (80.0-96.0); MONO # 0.4 K/mm3 (0.0-0.8); MONO % 7.9 % (0.0-5.0); NEUTROPHILS # 3.5 K/mm3 (1.8-7.7); NEUTROPHILS % 65.9 % (36.0-66.0); PLATELET COUNT, AUTOMATED 171 k/mm3 (150-450); RED CELL DISTRIBUTION WIDTH 15.7 % (11.5-14.5); WHITE BLOOD COUNT 5.3 K/mm3 (4.0-10.0)
[2016-11-16 08:04] LABS: INR 1.99
[2016-11-16] MEDS: CARVedilol 12.5 MG TAB PO SCH ×2 (08:33→18:00)
[2016-11-16] MEDS: IPRATROPIUM 0.5MG/ALBUTEROL 2.5MG INH SOL UD 3ML (DUONEB)(J7620) NEB SCH ×4 (08:40→22:31)
[2016-11-16] MEDS: ATORVASTATIN 20 MG TAB PO SCH (09:10)
[2016-11-16] MEDS: LIDOCAINE 5% (LIDODERM) PATCH TD SCH (09:11)
[2016-11-16] MEDS: PANTOPRAZOLE 40MG TAB (PROTONIX) PO SCH (09:11)
[2016-11-16] MEDS: DOCUSATE SODIUM 100 MG CAP PO SCH ×2 (09:11→20:00)
[2016-11-16] MEDS: POTASSIUM CHL PWD 20 MEQ PACKET PO SCH ×2 (09:11→20:00)
[2016-11-16] MEDS: MULTIVITAMINS/MINERALS THERAP 1 TAB PO SCH (09:11)
[2016-11-16] MEDS: LISINOPRIL 10 MG TAB PO SCH (09:12)
[2016-11-16] MEDS: amLODIPine 10 MG TAB PO SCH (09:12)
[2016-11-16] MEDS: ENOXAPARIN 60 MG/0.6 ML SYR (J1650) SC SCH (12:04)
[2016-11-16 14:00] VITALS: BP 98/50
[2016-11-16] MEDS: METOCLOPRAMIDE INJ 10MG/2ML VIAL (J2765) IV PRN (14:03)
[2016-11-16] MEDS: WARFARIN SOD 7.5 MG TAB PO SCH (17:46)
[2016-11-16] MEDS: hydroCHLOROthiazide 12.5 MG CAPSULE PO SCH (18:15)
[2016-11-16 20:00] VITALS: BP 123/57
[2016-11-16] MEDS: **NOTE PATIENT COMMENT** MISC XX SCH (20:00)
[2016-11-16] MEDS: traZODone 100 MG TAB PO SCH (20:00)
[2016-11-17] MEDS: MEROPENEM INJ 2 GM in NS 100 ML IV SCH ×3 (04:38→20:52)
[2016-11-17] MEDS: SODIUM CHLORIDE 0.9% INJ 10 ML SYR IV SCH ×2 (04:39→17:48)
[2016-11-17 06:00] VITALS: BP 126/69
[2016-11-17] MEDS: IPRATROPIUM 0.5MG/ALBUTEROL 2.5MG INH SOL UD 3ML (DUONEB)(J7620) NEB SCH ×3 (08:00→21:00)
[2016-11-17] MEDS: SODIUM CHLORIDE 0.9% INJ 10 ML SYR IV PRN ×3 (08:26→20:52)
[2016-11-17] MEDS: METOCLOPRAMIDE INJ 10MG/2ML VIAL (J2765) IV PRN (08:26)
[2016-11-17] MEDS: amLODIPine 10 MG TAB PO SCH (09:00)
[2016-11-17] MEDS: LISINOPRIL 10 MG TAB PO SCH (09:00)
[2016-11-17 09:30] LABS: INR 2.32
[2016-11-17] MEDS: LIDOCAINE 5% (LIDODERM) PATCH TD SCH (09:34)
[2016-11-17] MEDS: ATORVASTATIN 20 MG TAB PO SCH (09:36)
[2016-11-17] MEDS: CARVedilol 12.5 MG TAB PO SCH ×2 (09:36→17:45)
[2016-11-17] MEDS: DOCUSATE SODIUM 100 MG CAP PO SCH ×2 (09:37→21:29)
[2016-11-17] MEDS: PANTOPRAZOLE 40MG TAB (PROTONIX) PO SCH (09:38)
[2016-11-17] MEDS: MULTIVITAMINS/MINERALS THERAP 1 TAB PO SCH (09:39)
[2016-11-17 09:47] LABS: BASO % 0.3 % (0.0-1.0); EOS # 0.2 K/mm3 (0.0-0.50); EOS % 4.5 % (0.0-3.0); LARGE UNSTAINED CELL # 0.1 K/mm3 (0.0-0.4); LARGE UNSTAINED CELL % 2.6 % (0.0-4.0); LYMPH # 0.7 K/mm3 (1.5-4.5); LYMPH % 17.9 % (24.0-44.0); MEAN CORPUSCULAR HEMOGLOBIN 33.3 pg (27.0-33.0); MEAN CORPUSCULAR HGB CONC 33.1 g/dl (32.0-36.5); MEAN CORPUSCULAR VOLUME 100.4 fl (80.0-96.0); MONO # 0.3 K/mm3 (0.0-0.8); MONO % 7.4 % (0.0-5.0); NEUTROPHILS # 2.5 K/mm3 (1.8-7.7); NEUTROPHILS % 67.2 % (36.0-66.0); PLATELET COUNT, AUTOMATED 173 k/mm3 (150-450); RED CELL DISTRIBUTION WIDTH 15.8 % (11.5-14.5); WHITE BLOOD COUNT 3.7 K/mm3 (4.0-10.0)
--- NOTE | 2016-11-17 10:04 | IPNPDOC ---
[facility] Progress Note DATE OF SERVICE: 11/17/16 DATE OF ADMISSION: November 13, 2016 at 15:36 INPATIENT REHABILITATION ADMISSION DAY: #4 SUBJECTIVE: Patient is a 66-year-old white female with CVA/interventricular hemorrhage with left neglect, left hemiparesis, dense aphasia and multiple cardiac related conditions. Patient still under treatment for presumed intraventricular infection. Vancomycin has been adjusted to every 18 hours from every 12 patient doing better on trough levels. Patient unable to list her complaints says no to being asked about pain nausea and other problems. However patient with GI distress through the weekend has been started on IV Reglan. ALLERGIES: See Below MEDICATIONS: Reviewed, see below. OBJECTIVE: VITAL SIGNS: Please see below. PHYSICAL EXAMINATION: GENERAL: Short elderly white female is alert and only able to tell me that she is in a hospital beyond her name recognition. She is not oriented to time nor fully oriented to situation. She is trying to be compliant with the staff. However she also has trouble following gestures. I was able to get her to reach up and grab my fingers with her right arm but she could not process using her left arm to do the same. She does have a mild facial droop to the left. I am unable to get her to extend her tongue is see if it deviates. HEENT: Left upper parietal incision continues to heal without drainage or inflammation. CARDIOVASCULAR: Regular rate and rhythm with 2 out 4 radial pulses. LUNGS: All edwards are clear patient. ABDOMEN: Obese, nontender with normal bowel sounds in all quadrants. NEUROLOGICAL: As above able to follow some directions with right upper and lower extremity but much more difficulty using the left upper and lower extremity. She will track into all edwards with her extraocular motions intact. But tends to prefer straight ahead to right gaze though she will look to the left. SKIN: Prior IV and blood draw ecchymoses are clearing. [employer] shunt site is as described above. LABORATORY DATA: Reviewed. Please see below. MICROBIOLOGY: Please see below. IMAGING: No imaging done. DVT prophylaxis ordered?: Patient continues with Lovenox 15 mg every 12 hours and on Coumadin 3.75 mg at 5 PM. Her INR has been rising smoothly and is at 2.32 today. Target brain remains 2.5-3.5 due to mitral valve and multiple cardiac problems including first-degree heart block with left bundle branch block. ASSESSMENT AND PLAN: 1. CVA: Patient cooperative with therapies and tolerating 3 hours per day through the weekend. Communications remains a significant factor in training. Speech-language pathology to continue along with physical and occupational therapy. ELOS is 18 to 21 days. Patient with little progress this weekend, now needing more assist in feeding vs. prior reports of functional level. 2. Atherosclerotic cardiovascular disease including valve replacement: DVT prophylaxis and CVA prophylaxis continue with Lovenox bridging to Coumadin. In light of the smooth climb and INR on Coumadin 3.75 mg per day I will go ahead and continue this for the next few days while tracking INR levels. Of concern is a slight decrease in hemoglobin and hematocrit to a 8.6 and 26.9% yesterday. Today's results show 9.2 and 27.8%on CBC. We will need to continue to watch this moderate anemia as it does add stress to her congestive heart failure. Blood pressure however remains fairly well controlled. 3. Ventriculitis/meningitis: Patient continuing on IV antibiotics with Dr. Benoit to monitor and adjust as needed. C-reactive protein is elevated. TIME SPENT: Chart Review, examination and documentation greater than 35 minutes. Allergies Coded Allergies: Propoxyphene (Verified Allergy, Unknown, 11/13/16) Vital Signs Vital Signs Date Time Temp Pulse Resp B/P (MAP) Pulse Ox O2 Delivery O2 Flow Rate FiO2 11/17/16 09:36 78 112/72 11/17/16 06:00 98.1 20 96 Room Air Laboratory Data Labs 24H Laboratory Tests 2 11/17/16 08:50: Prothrombin Time 25.5H, Prothromb Time International Ratio 2.32 Current Medications Current Medications Current Medications Acetaminophen (Tylenol Tab) 650 mg Q4HP PRN PO MILD PAIN (PS 1-4) Last administered on 11/14/16 13:16; Start 11/13/16 at 12:45; Stop 12/13/16 at 12:44 Albuterol Sulfate (Proventil Neb) 2.5 mg Q2HP PRN NEB SOB/WHEEZING Last administered on 11/16/16 22:31; Start 11/13/16 at 15:45; Stop 12/13/16 at 15:44 Albuterol/ Ipratropium (Duoneb (Ipr 0.5mg/Alb 2.5mg)) 3 ml RQ8H NEB Last administered on 11/16/16 15:41; Start 11/13/16 at 16:00; Stop 12/13/16 at 15:59 Amlodipine Besylate (Norvasc) 10 mg DAILY PO Last administered on 11/16/16 09: 12; Start 11/14/16 at 09:00; Stop 12/14/16 at 08:59 Atorvastatin Calcium (Lipitor) 40 mg DAILY PO Last administered on 11/17/16 09 :36; Start 11/14/16 at 09:00; Stop 12/14/16 at 08:59 Carvedilol (COReg) 25 mg BIDWM PO Last administered on 11/17/16 09:36; Start 11/13/16 at 18:00; Stop 12/14/16 at 08:59 Carvedilol (COReg) 25 mg DAILY PO ; Start 11/14/16 at 09:00; Stop 11/14/16 at 09 :00; Status DC Codeine Sulfate (Codeine Sulfate) 30 mg Q4HP PRN PO PAIN SCALE 6-10 Last administered on 11/15/16 16:34; Start 11/13/16 at 17:00; Stop 11/20/16 at 16:59 Docusate Sodium (Colace) 100 mg BID PO Last administered on 11/17/16 09:37; Start 11/13/16 at 21:00; Stop 12/13/16 at 20:59 Enoxaparin Sodium (Lovenox) 50 mg Q12H SC Last administered on 11/17/16 00:00 ; Start 11/14/16 at 11:00; Stop 11/19/16 at 10:59 Heparin Sodium (Heparin (Flush)) 200 units ASDIRECTED PRN IV SEE LABEL COMMENTS Last administered on 11/17/16 08:37; Start 11/13/16 at 17:00; Stop at 16:59 Heparin Sodium (Heparin (Flush)) 200 units PICC IV Last administered on 04:38; Start 11/13/16 at 18:00; Stop 12/13/16 at 17:59 Home Med (Med Rec Complete!) ASDIRECTED XX ; Start 11/13/16 at 18:30; Stop at 18:30; Status DC Hydrochlorothiazide (Hydrodiuril) 12.5 mg DAILY@2100 PO Last administered on 20:57; Start 11/13/16 at 21:00; Stop 12/13/16 at 20:59 Lidocaine (Lidoderm Patch) 1 patch DAILY TD Last administered on 11/17/16 09: 34; Start 11/14/16 at 09:00; Stop 12/14/16 at 08:59 Lisinopril (Prinivil) 10 mg DAILY PO Last administered on 11/16/16 09:12; Start 11/14/16 at 09:00; Stop 12/14/16 at 08:59 Magnesium Hydroxide (Milk Of Magnesia) 30 ml DAILYPRN PRN PO CONSTIPATION Last administered on 11/15/16 16:33; Start 11/13/16 at 12:45; Stop 12/13/16 at 12:44 Meropenem 1000 mg/ Dextrose 100 ml @ 200 mls/hr Q8H IV ; Start 11/13/16 at 22: 30; Stop 11/13/16 at 22:30; Status DC Meropenem 2 gm/ Sodium Chloride 100 ml @ 200 mls/hr Q8H IV Last administered on 11/17/16 04:38; Start 11/13/16 at 20:00; Stop 11/20/16 at 19:59 Meropenem 500 mg/ Dextrose 100 ml @ 200 mls/hr Q8H IV ; Start 11/13/16 at 14:30 ; Stop 11/13/16 at 16:07; Status DC Methimazole (Tapazole) 5 mg DAILY PO Last administered on 11/17/16 09:39; Start 11/14/16 at 09:00; Stop 12/14/16 at 08:59 Metoclopramide HCl (REGLAN INJection) 10 mg Q6HP PRN IV NAUSEA OR VOMITING Last administered on 11/17/16 08:26; Start 11/16/16 at 13:00; Stop 12/16/16 at 12:59 Multivitamins (Theragram-M) 1 tab DAILY PO Last administered on 11/17/16 09:39 ; Start 11/14/16 at 09:00; Stop 12/14/16 at 08:59 Non-Formulary Medication ( See Comment Field Below ) REMOVE LIDODERM PATCH DAILY@21 XX Last administered on 11/16/16 20:00; Start 11/13/16 at 21:00; Stop 12/13/16 at 20:59 Pantoprazole Sodium (Protonix) 40 mg DAILY PO Last administered on 11/17/16 09 :38; Start 11/14/16 at 09:00; Stop 12/14/16 at 08:59 Polyethylene Glycol (Miralax) 1 pkt DAILY PRN PO CONSTIPATION; Start 11/13/16 at 12:45; Stop 12/13/16 at 12:44 Potassium Chloride (K-Katy 20 Meq Powder Packet) 20 meq BID PO Last administered on 11/16/16 20:00; Start 11/13/16 at 21:00; Stop 11/17/16 at 06:00 ; Status DC Potassium Chloride (K-Katy 20 Meq Powder Packet) 20 meq RQ8H PO ; Start 11/13/16 at 16:00; Stop 11/13/16 at 16:07; Status DC Sodium Biphosphate/ Sodium Phosphate (Fleet Enema) 1 ea DAILYPRN PRN [place] CONSTIPATION; Start 11/13/16 at 12:45; Stop 12/13/16 at 12:44 Sodium Chloride (Saline Lock Flush) 10 ml ASDIRECTED PRN IV SEE LABEL COMMENTS Last administered on 11/17/16 08:26; Start 11/13/16 at 17:00; Stop 12/13/16 at 16:59 Sodium Chloride (Saline Lock Flush) 10 ml PICC IV Last administered on 04:39; Start 11/13/16 at 18:00; Stop 12/13/16 at 17:59 Trazodone HCl (Desyrel) 100 mg QHS PO Last administered on 11/16/16 20:00; Start 11/13/16 at 21:00; Stop 12/13/16 at 20:59 Vancomycin HCl 750 mg/IV Miscellaneous Supplies 1 each/ Dextrose 275 ml @ 275 mls/hr Q12H IV Last administered on 11/14/16 12:02; Start 11/14/16 at 00:00; Stop 11/14/16 at 23:43; Status DC Vancomycin HCl 750 mg/IV Miscellaneous Supplies 1 each/ Dextrose 275 ml @ 275 mls/hr Q18H IV Last administered on 5/21/17at 17:49; Start 11/15/16 at 06:00; Stop 11/22/16 at 05:59 Warfarin Sodium (Coumadin) 3 mg 1T@17 PO ; Start 11/13/16 at 17:00; Stop at 17:01; Status Cancel Warfarin Sodium (Coumadin) 3 mg DAILY@17 PO Last administered on 11/13/16t 19: 56; Start 11/13/16 at 17:00; Stop 11/13/16 at 23:59; Status DC Warfarin Sodium (Coumadin) 3.75 mg DAILY@17 PO Last administered on 11/16/16t 17:46; Start 11/14/16 at 17:00; Stop 11/16/16 at 23:55; Status DC Warfarin Sodium (Coumadin) 3.75 mg DAILY@17 PO ; Start 11/17/16 at 17:00; Stop 11/20/16 at 06:00 XIOMARA CAMARENA MD November 17, 2016 10:04
[2016-11-17] MEDS: ENOXAPARIN 60 MG/0.6 ML SYR (J1650) SC SCH ×3 (11:58→22:13)
--- NOTE | 2016-11-17 12:02 | IPNPDOC ---
Subjective Date Seen The patient was seen on 11/17/16. Subjective Chief Complaint/HPI The patient is a 66-year-old female admitted with a reason for visit of ICH. Events since last encounter Pt is resting in bed. Denies pain, nausea, abdominal pain, CP, SOB. Reglan IV was ordered over W/E but Pt has not used this. Objective Physical Examination General Exam: Positive: Alert Eye Exam: Positive: PERRLA Chest Exam: Positive: Clear to auscultation, Normal air movement Heart Exam: Positive: Rate Normal, Regular Rhythm, Normal S1, Normal S2, Negative: Murmurs, Rubs Extremity Exam: Positive: Normal pulses, Negative: Clubbing, Cyanosis, Edema Skin Exam: Positive: Nl turgor and temperature Assessment /Plan Problems (1) CVA (cerebrovascular accident due to intracerebral hemorrhage) Status: Acute Problem Text: * ARU as per Dr Sow. PT/OT/ST as per Dr Sow. Mechanical soft diet. Pain control/Bowel care. Bleeding/Fall/Aspiration precautions. Plan for F/U with Neurosurgery [facility] [address] prior. * Possible CSF infection. Treated with antibiotics at [facility] as per ID for possible ventriculitis. Afebrile/no leukocytosis. Dr Benoit consulted for further management and recommendations. IV Vanco dosing as per Pharmacy. IV Meropenem. CRP 2.53. Dr Benoit following. (2) CAD (coronary artery disease) of artery bypass graft Status: Chronic Response to Treatment: Stable Problem Text: * Coreg/statin (3) Hyperthyroidism Status: Acute Problem Text: * Currently on Methimazole. * Plan for outpt f/u with Endocrine 4 wks with TFT prior. (4) Anemia Status: Acute Problem Text: * Hgb 9.2, trend upward. (5) S/P mitral valve replacement Status: Chronic Response to Treatment: Stable Problem Text: * Mechanical MVR * Coumadin 3.75mg daily. * INR 2.31, gradually increasing. Continue with daily INR. Goal INR 2.5-3.5. Coumadin 3.75 mg daily. Lovenox bridging 50mg SQ Q12 until INR is therapeutic. (6) Afib Status: Chronic Response to Treatment: Stable Problem Text: * EKG 11/14 SINUS RHYTHM WITH SINUS ARRHYTHMIA WITH FIRST DEGREE AV BLOCK MARKED LEFT AXIS DEVIATION LEFT BUNDLE BRANCH BLOCK NO PRIOR * Coreg 25mg BID. * Coumadin as above. (7) HTN (hypertension) Problem Text: * Lisinopril 10mg daily/Norvasc 10mg daily/HCTZ12.5mg daily/KCL. (8) HLD (hyperlipidemia) Problem Text: * Lipitor Plan/VTE VTE Prophylaxis Ordered?: Yes (on Coumadin/Lovenox) VS, I&O, 24H, Fishbone Vital Signs/I&O Vital Signs Date Time Temp Pulse Resp B/P (MAP) Pulse Ox O2 Delivery O2 Flow Rate FiO2 11/17/16 09:36 78 112/72 11/17/16 06:00 98.1 20 96 Room Air I&O- Last 24 Hours up to 6 AM 11/17/16 06:00 Intake Total 1140 ml Balance 1140 ml Laboratory Data 24H LABS Laboratory Tests 2 11/17/16 08:50: White Blood Count 3.7L, Red Blood Count 2.76L, Hemoglobin 9.2L, Hematocrit 27.8L , Mean Corpuscular Volume 100.4H, Mean Corpuscular Hemoglobin 33.3H, Mean Corpuscular Hemoglobin Concent 33.1, Red Cell Distribution Width 15.8H, Platelet Count 173, Neutrophils (%) (Auto) 67.2H, Lymphocytes (%) (Auto) 17.9L, Monocytes (%) (Auto) 7.4H, Eosinophils (%) (Auto) 4.5H, Basophils (%) (Auto) 0.3 , Neutrophils # (Auto) 2.5, Lymphocytes # (Auto) 0.7L, Monocytes # (Auto) 0.3, Eosinophils # (Auto) 0.2, Basophils # (Auto) 0.0, Large Unclassified Cells % 2.6 , Large Unclassified Cells # 0.1, Prothrombin Time 25.5H, Prothromb Time International Ratio 2.32 11/17/16 10:58: Vancomycin Level Trough 21.5H CBC/BMP Laboratory Tests 11/17/16 08:50 Red Blood Count 2.76 L, Mean Corpuscular Volume 100.4 H, Mean Corpuscular Hemoglobin 33.3 H, Mean Corpuscular Hemoglobin Concent 33.1, Red Cell Distribution Width 15.8 H, Neutrophils (%) (Auto) 67.2 H, Lymphocytes (%) (Auto ) 17.9 L, Monocytes (%) (Auto) 7.4 H, Eosinophils (%) (Auto) 4.5 H, Basophils (% ) (Auto) 0.3, Neutrophils # (Auto) 2.5, Lymphocytes # (Auto) 0.7 L, Monocytes # (Auto) 0.3, Eosinophils # (Auto) 0.2, Basophils # (Auto) 0.0 Sahra Sahu November 17, 2016 12:02
[2016-11-17 13:24] LABS: ANION GAP 8 MEQ/L (8-16); BLOOD UREA NITROGEN 22 MG/DL (7-18); CALCIUM LEVEL 8.9 MG/DL (8.8-10.2); CARBON DIOXIDE LEVEL 27 MEQ/L (21-32); CHLORIDE LEVEL 103 MEQ/L (98-107); CREATININE FOR GFR 0.92 MG/DL (0.55-1.02); GLOMERULAR FILTRATION RATE > 60.0 (>45); GLUCOSE, FASTING 100 MG/DL (80-110); POTASSIUM SERUM 3.7 MEQ/L (3.5-5.1); SODIUM LEVEL 138 MEQ/L (136-145)
[2016-11-17 14:00] VITALS: BP 96/72
--- NOTE | 2016-11-17 14:06 | PHACANCOPD ---
PHARMACY VANCOMYCIN DOSING Pt Demographics Demographics Patient Age:66 , Weight:51.500 , Gender: female Adjusted Body Weight Events Past 24 Hours Events Past 24 Hours: YES: Change in CrCl, NO: Dialysis, Diuretic Therapy, Fever, Elevation in WBC, Pending Diagnostics , Pending Procedures, Other Vancomycin Vancomycin indication: meningitis Vancomycin Target Ranges: 15-20 mcg/ml Vancomycin Load Y/N: No Load Dose Date Time Vancomycin Load Dose: Date: Time: Vancomycin Dose 11/17/16: Held noon dose, rescheduled 750mg IV q18h @1800 Date: 11/14/16. CHANGE Current Vancomycin Dose TO : [750mg IV q18h START 6AM ] Intermittent Dosing?: No Labs Labs Vital Signs Label Value Date Time Patient Temperature 98.0 degrees F 11/16/16 2000 Temperature Source Temporal 11/16/16 2000 Patient Temperature 98.1 degrees F 11/17/16 0600 Temperature Source Temporal 11/17/16 0600 Item Value Date Time White Blood Count 5.3 K/mm3 11/16/16 0748 White Blood Count 5.1 K/mm3 11/15/16 0617 White Blood Count 3.7 K/mm3 L 11/17/16 0850 Creatinine 0.80 MG/DL 11/14/16 0640 Creatinine 0.92 MG/DL 11/17/16 1058 Vancomycin Level Trough 24.3 UG/ML H 11/14/16 2301 Vancomycin Level Trough 21.5 UG/ML H 11/17/16 1058 Creatinine Clearance Date:11/14/16. Creatinine Clearance: [>40ml/min]. Assessment and Plan Maintaining Current Dose?: Yes Reason for dose change: Trough too high Pharmacist Note Pharmacist Note 11/17/16: Trough level =21.5 drawn @1100 before next dose due at noon. Patient's trough still elevated so noon dose held and will restart Vanco 750mg IV q18h @ 1800 which is 24 hrs since last dose given. Pt's Scr remains stable and we will continue to monitor Scr and troughs and adjust Vanco dose as needed. Date: 11/14/16. Pharm.D. note: Patient was previously established on 750 mg q12h @ [facility]. A therapeutic trough of 16.3 was drawn on 11/12. TODAY, FOLLOWING 2 DOSES OF VANCO AT [facility], HER TROUGH = 24.3 mcg/ml WE WILL REDUCE HER FREQUENCY TO 750MG VANCO IV Q18H STARTING AT 6AM 11/15/16 Crow[Ethan SEBASTIAN. MARCELINO [facility]ONE [facility] November 17, 2016 13:55
[2016-11-17] MEDS ORDERED: WARFARIN SOD 7.5 MG TAB PO SCH (17:00)
[2016-11-17] MEDS: VANCOMYCIN HCL 750 MG, VIAL MATE ADAPTER 1 EACH in D5W 250 ML IV SCH (17:43)
[2016-11-17 20:00] VITALS: BP 127/56
[2016-11-17 21:29] VITALS: BP 128/60
[2016-11-17] MEDS: hydroCHLOROthiazide 12.5 MG CAPSULE PO SCH (21:29)
[2016-11-17] MEDS: traZODone 100 MG TAB PO SCH (21:29)
[2016-11-17] MEDS: **NOTE PATIENT COMMENT** MISC XX SCH (21:35)
[2016-11-18] MEDS: MEROPENEM INJ 2 GM in NS 100 ML IV SCH ×3 (04:01→21:33)
[2016-11-18] MEDS: SODIUM CHLORIDE 0.9% INJ 10 ML SYR IV SCH ×2 (05:15→17:53)
[2016-11-18 06:00] VITALS: BP 135/68
[2016-11-18 07:31] LABS: MEAN CORPUSCULAR HEMOGLOBIN 32.1 pg (27.0-33.0); MEAN CORPUSCULAR HGB CONC 32.8 g/dl (32.0-36.5); MEAN CORPUSCULAR VOLUME 98.1 fl (80.0-96.0); RED CELL DISTRIBUTION WIDTH 16.3 % (11.5-14.5); WHITE BLOOD COUNT 3.6 K/mm3 (4.0-10.0)
[2016-11-18] MEDS: METOCLOPRAMIDE INJ 10MG/2ML VIAL (J2765) IV PRN ×2 (07:35→13:57)
[2016-11-18] MEDS: SODIUM CHLORIDE 0.9% INJ 10 ML SYR IV PRN ×2 (07:36→21:34)
[2016-11-18 07:39] LABS: INR 2.61
[2016-11-18 07:40] LABS: ALBUMIN 2.6 GM/DL (3.2-5.2); ALBUMIN/GLOBULIN RATIO 0.72 (1.00-1.93); ALKALINE PHOSPHATASE 94 U/L (45-117); ALT/SGPT 40 U/L (12-78); ANION GAP 7 MEQ/L (8-16); AST/SGOT 27 U/L (15-37); BILIRUBIN,TOTAL 0.4 MG/DL (0.2-1.0); BLOOD UREA NITROGEN 20 MG/DL (7-18); CALCIUM LEVEL 8.4 MG/DL (8.8-10.2); CARBON DIOXIDE LEVEL 29 MEQ/L (21-32); CHLORIDE LEVEL 102 MEQ/L (98-107); GLOMERULAR FILTRATION RATE > 60.0 (>45); GLUCOSE, FASTING 95 MG/DL (80-110); POTASSIUM SERUM 3.2 MEQ/L (3.5-5.1); SODIUM LEVEL 138 MEQ/L (136-145); TOTAL PROTEIN 6.2 GM/DL (6.4-8.2)
[2016-11-18] MEDS: LIDOCAINE 5% (LIDODERM) PATCH TD SCH (09:10)
[2016-11-18] MEDS: PANTOPRAZOLE 40MG TAB (PROTONIX) PO SCH (09:11)
[2016-11-18] MEDS: amLODIPine 10 MG TAB PO SCH (09:11)
[2016-11-18] MEDS: DOCUSATE SODIUM 100 MG CAP PO SCH ×2 (09:11→21:32)
[2016-11-18] MEDS: CARVedilol 12.5 MG TAB PO SCH ×2 (09:11→17:53)
[2016-11-18] MEDS: ATORVASTATIN 20 MG TAB PO SCH (09:11)
[2016-11-18] MEDS: MULTIVITAMINS/MINERALS THERAP 1 TAB PO SCH (09:11)
[2016-11-18] MEDS: LISINOPRIL 10 MG TAB PO SCH (09:12)
[2016-11-18] MEDS: IPRATROPIUM 0.5MG/ALBUTEROL 2.5MG INH SOL UD 3ML (DUONEB)(J7620) NEB SCH ×3 (09:25→23:12)
[2016-11-18 10:01] LABS: YEAST LIKE CELL URINE AUTO MODERATE
[2016-11-18] MEDS: hydroCHLOROthiazide 12.5 MG CAPSULE PO SCH (10:44)
--- NOTE | 2016-11-18 10:59 | IPNPDOC ---
Subjective Date Seen The patient was seen on 11/18/16. Subjective Chief Complaint/HPI The patient is a 66-year-old female admitted with a reason for visit of ICH. Events since last encounter Pt with some LBP. No LE pain. Pt with aphasia, limited hx. Pulmonary: Denies: Dyspnea, Cough, Pleuritic Chest Pain, Other Symptoms Cardiovascular: Denies: Chest Pain, Palpitations, Orthopnea, Paroxysmal Noc. Dyspnea, Lt Headedness Objective Physical Examination General Exam: Positive: Alert Eye Exam: Positive: PERRLA Chest Exam: Positive: Clear to auscultation, Normal air movement Heart Exam: Positive: Rate Normal, Regular Rhythm, Normal S1, Normal S2, Negative: Murmurs, Rubs Extremity Exam: Positive: Normal pulses, Negative: Clubbing, Cyanosis, Edema Skin Exam: Positive: Nl turgor and temperature Assessment /Plan Problems (1) CVA (cerebrovascular accident due to intracerebral hemorrhage) Status: Acute Problem Text: * ARU as per Dr Sow. PT/OT/ST as per Dr Sow. Mechanical soft diet. Pain control/Bowel care. Bleeding/Fall/Aspiration precautions. Plan for F/U with Neurosurgery [facility] [address]. * Possible CSF infection. Treated with antibiotics at [facility] as per ID for possible ventriculitis. Afebrile/no leukocytosis. Dr Benoit consulted for further management and recommendations. IV Vanco dosing as per Pharmacy. IV Meropenem. CRP 2.53. Dr Benoit following. (2) CAD (coronary artery disease) of artery bypass graft Status: Chronic Response to Treatment: Stable Problem Text: * Coreg/statin (3) Hyperthyroidism Status: Acute Problem Text: * Currently on Methimazole. * Plan for outpt f/u with Endocrine 4 wks with TFT prior. (4) Anemia Status: Acute Problem Text: * Hgb 8.6 * Add Fe studies, B12/folate to labs. (5) S/P mitral valve replacement Status: Chronic Response to Treatment: Stable Problem Text: * Mechanical MVR * Coumadin 3.75mg daily. * INR 2.61. Continue with daily INR. Goal INR 2.5-3.5. Coumadin 3 mg daily. * Lovenox bridging discontinued. * Monitor. (6) Afib Status: Chronic Response to Treatment: Stable Problem Text: * EKG 11/14 SINUS RHYTHM WITH SINUS ARRHYTHMIA WITH FIRST DEGREE AV BLOCK MARKED LEFT AXIS DEVIATION LEFT BUNDLE BRANCH BLOCK NO PRIOR * Coreg 25mg BID. * Coumadin as above. (7) HTN (hypertension) Problem Text: * Lisinopril 10mg daily/Norvasc 10mg daily/HCTZ12.5mg daily/KCL. * BP controlled. (8) HLD (hyperlipidemia) Problem Text: * Lipitor Plan/VTE VTE Prophylaxis Ordered?: Yes (on Coumadin/Lovenox) Disposition as per ARU VS, I&O, 24H, [facility] Vital Signs/I&O Vital Signs Date Time Temp Pulse Resp B/P (MAP) Pulse Ox O2 Delivery O2 Flow Rate FiO2 11/18/16 09:11 72 135/68 11/18/16 09:00 Room Air 11/18/16 06:00 98.9 18 97 I&O- Last 24 Hours up to 6 AM 11/18/16 06:00 Intake Total 760 ml Output Total 0 ml Balance 760 ml Laboratory Data 24H LABS Laboratory Tests 2 11/17/16 10:58: Anion Gap 8, Glomerular Filtration Rate > 60.0, Blood Urea Nitrogen 22H, Creatinine 0.92, Sodium Level 138, Potassium Level 3.7, Chloride Level 103, Carbon Dioxide Level 27, Calcium Level 8.9, Vancomycin Level Trough 21.5H 11/18/16 06:47: Anion Gap 7L, Glomerular Filtration Rate > 60.0, Blood Urea Nitrogen 20H, Creatinine 0.80, Sodium Level 138, Potassium Level 3.2L, Chloride Level 102, Carbon Dioxide Level 29, Calcium Level 8.4L, Prothrombin Time 28.0H, Prothromb Time International Ratio 2.61, Aspartate Amino Transf (AST/SGOT) 27, Alanine Aminotransferase (ALT/SGPT) 40, Alkaline Phosphatase 94, Total Bilirubin 0.4, Total Protein 6.2L, Albumin 2.6L, Albumin/Globulin Ratio 0.72L 11/18/16 09:18: Urine Appearance CLEAR, Urine Color YELLOW, Urine pH 7.0, Urine Specific [place] 1.011, Urine Protein 1+H, Urine Glucose (UA) NEGATIVE, Urine Ketones TRACEH, Urine Urobilinogen 0.2, Urine Bilirubin NEGATIVE, Urine Leukocyte Esterase NEGATIVE, Urine Blood NEGATIVE, Urine Nitrite NEGATIVE, Urine WBC (Auto ) 1, Urine RBC (Auto) 0, Urine Hyaline Casts (Auto) 0, Urine Bacteria (Auto) NEGATIVE, Urine Squamous Epithelial Cells 0, Urine Yeast-Like Cells (Auto) MODERATEH, Urine Sperm (Auto) CBC/BMP Laboratory Tests 11/17/16 10:58 Calcium Level 8.9 11/18/16 06:47 Calcium Level 8.4 L, Red Blood Count 2.67 L, Mean Corpuscular Volume 98.1 H, Mean Corpuscular Hemoglobin 32.1, Mean Corpuscular Hemoglobin Concent 32.8, Red Cell Distribution Width 16.3 H, Aspartate Amino Transf (AST/SGOT) 27, Alanine Aminotransferase (ALT/SGPT) 40, Alkaline Phosphatase 94, Total Bilirubin 0.4, Total Protein 6.2 L, Albumin 2.6 L Sahra Sahu November 18, 2016 10:58
--- NOTE | 2016-11-18 11:38 | IPNPDOC ---
Settlement Technician Progress Note DATE OF SERVICE: 11/18/16 DATE OF ADMISSION: November 13, 2016 at 15:36 INPATIENT REHABILITATION ADMISSION DAY: #5 SUBJECTIVE: Patient is a 66-year-old white female with intraventricular hemorrhage/CVA with hydrocephalus that has been treated with a temporary BOARDING KENNEL OR CATTERY OPERATOR shunt and possible ventriculitis/meningitis under treatment with vancomycin and Merren IV antibiotics. Patient was able to do small pills by mouth today but is not showing me automatic speech when I talked to her today. Patient having urinary incontinence that seems to worsen. ALLERGIES: See Below MEDICATIONS: Reviewed, see below. OBJECTIVE: VITAL SIGNS: Please see below. PHYSICAL EXAMINATION: GENERAL: Patient appears tired trying to fall back asleep not responding to my attempts to arouse other than to open her eyes and then try and go back to sleep. She is not generating a automatic speech today. While she participated in OT the therapist's notes and verbalizations were decreased. HEENT: Normocephalic/atraumatic with healing left parietal BOARDING KENNEL OR CATTERY OPERATOR shunt site with eschar over the wound. CARDIOVASCULAR: Regular rate and rhythm with normal S1 and S2 and 2 out 4 radial pulses. LUNGS: [place] are clear to auscultation. ABDOMEN: Mildly distended with the little gas but normal bowel sounds in all quadrants. NEUROLOGICAL: Patient not able to give any response to orientation questions or even to respond back with automatic speech as she has returned my of seen her before. She does continue to have good movement with all extremities spontaneously but difficulties under verbal direction. Toes are downgoing on plantar stimulation. SKIN: Ecchymoses are clearing and eschars continues to heal at satellite project site monitor. LABORATORY DATA: Reviewed. Please see below. MICROBIOLOGY: Please see below. IMAGING: No new imaging. DVT prophylaxis ordered?: INR 2.6 today so we will reduce Coumadin to 3 mg daily at 1700 hours and stop Lovenox. ASSESSMENT AND PLAN: 1. Rehabilitation of intraventricular hemorrhage/CVA: While patient did participate in morning therapy she is becoming less verbal and in light of also the amount of urinary incontinence I will be getting a CT of the brain to look at whether her hydrocephalus is reacumulating. 2. Possible UTI: UA shows only 1 white blood cell some yeast with some protein and ketones but no leukoesterase or bacteria. It does not appear the patient has a UTI and therefore the consideration of hydrocephalus causing the increasing urinary incontinence is most likely. 3. Ventriculitis: Patient continues on IV antibiotic regimen. CT head may show if a lesions are present. TIME SPENT: Chart Review, examination and documentation greater than 25 minutes. Allergies Coded Allergies: Propoxyphene (Verified Allergy, Unknown, 11/13/16) Vital Signs Vital Signs Date Time Temp Pulse Resp B/P (MAP) Pulse Ox O2 Delivery O2 Flow Rate FiO2 11/18/16 09:11 72 135/68 11/18/16 09:00 Room Air 11/18/16 06:00 98.9 18 97 Laboratory Data CBC/BMP Laboratory Tests 11/18/16 06:47 Red Blood Count 2.67 L, Mean Corpuscular Volume 98.1 H, Mean Corpuscular Hemoglobin 32.1, Mean Corpuscular Hemoglobin Concent 32.8, Red Cell Distribution Width 16.3 H, Calcium Level 8.4 L, Aspartate Amino Transf (AST/SGOT ) 27, Alanine Aminotransferase (ALT/SGPT) 40, Alkaline Phosphatase 94, Total Bilirubin 0.4, Total Protein 6.2 L, Albumin 2.6 L Labs 24H Laboratory Tests 2 11/18/16 06:47: Prothrombin Time 28.0H, Prothromb Time International Ratio 2.61, Anion Gap 7L, Glomerular Filtration Rate > 60.0, Blood Urea Nitrogen 20H, Creatinine 0.80, Sodium Level 138, Potassium Level 3.2L, Chloride Level 102, Carbon Dioxide Level 29, Calcium Level 8.4L, Aspartate Amino Transf (AST/SGOT) 27, Alanine Aminotransferase (ALT/SGPT) 40, Alkaline Phosphatase 94, Total Bilirubin 0.4, Total Protein 6.2L, Albumin 2.6L, Albumin/Globulin Ratio 0.72L 11/18/16 09:18: Urine Appearance CLEAR, Urine Color YELLOW, Urine pH 7.0, Urine Specific [place] 1.011, Urine Protein 1+H, Urine Glucose (UA) NEGATIVE, Urine Ketones TRACEH, Urine Urobilinogen 0.2, Urine Bilirubin NEGATIVE, Urine Leukocyte Esterase NEGATIVE, Urine Blood NEGATIVE, Urine Nitrite NEGATIVE, Urine WBC (Auto ) 1, Urine RBC (Auto) 0, Urine Hyaline Casts (Auto) 0, Urine Bacteria (Auto) NEGATIVE, Urine Squamous Epithelial Cells 0, Urine Yeast-Like Cells (Auto) MODERATEH, Urine Sperm (Auto) Current Medications Current Medications Current Medications Acetaminophen (Tylenol Tab) 650 mg Q4HP PRN PO MILD PAIN (PS 1-4) Last administered on 11/14/16 13:16; Start 11/13/16 at 12:45; Stop 12/13/16 at 12:44 Albuterol Sulfate (Proventil Neb) 2.5 mg Q2HP PRN NEB SOB/WHEEZING Last administered on 11/16/16 22:31; Start 11/13/16 at 15:45; Stop 12/13/16 at 15:44 Albuterol/ Ipratropium (Duoneb (Ipr 0.5mg/Alb 2.5mg)) 3 ml RQ8H NEB Last administered on 11/18/16 09:25; Start 11/13/16 at 16:00; Stop 12/13/16 at 15:59 Amlodipine Besylate (Norvasc) 10 mg DAILY PO Last administered on 11/18/16 09: 11; Start 11/14/16 at 09:00; Stop 12/14/16 at 08:59 Atorvastatin Calcium (Lipitor) 40 mg DAILY PO Last administered on 11/18/16 09 :11; Start 11/14/16 at 09:00; Stop 12/14/16 at 08:59 Carvedilol (COReg) 25 mg BIDWM PO Last administered on 11/18/16 09:11; Start 11/13/16 at 18:00; Stop 12/14/16 at 08:59 Carvedilol (COReg) 25 mg DAILY PO ; Start 11/14/16 at 09:00; Stop 11/14/16 at 09 :00; Status DC Codeine Sulfate (Codeine Sulfate) 30 mg Q4HP PRN PO PAIN SCALE 6-10 Last administered on 11/15/16 16:34; Start 11/13/16 at 17:00; Stop 11/20/16 at 16:59 Docusate Sodium (Colace) 100 mg BID PO Last administered on 11/18/16 09:11; Start 11/13/16 at 21:00; Stop 12/13/16 at 20:59 Enoxaparin Sodium (Lovenox) 50 mg Q12H SC Last administered on 11/17/16 22:13 ; Start 11/14/16 at 11:00; Stop 11/18/16 at 10:25; Status DC Heparin Sodium (Heparin (Flush)) 200 units ASDIRECTED PRN IV SEE LABEL COMMENTS Last administered on 11/18/16 07:36; Start 11/13/16 at 17:00; Stop at 16:59 Heparin Sodium (Heparin (Flush)) 200 units PICC IV Last administered on 05:15; Start 11/13/16 at 18:00; Stop 12/13/16 at 17:59 Home Med (Med Rec Complete!) ASDIRECTED XX ; Start 11/13/16 at 18:30; Stop at 18:30; Status DC Hydrochlorothiazide (Hydrodiuril) 12.5 mg DAILY PO Last administered on 10:44; Start 11/18/16 at 09:00; Stop 12/18/16 at 08:59 Hydrochlorothiazide (Hydrodiuril) 12.5 mg DAILY@2100 PO Last administered on 21:29; Start 11/13/16 at 21:00; Stop 11/18/16 at 10:28; Status DC Lidocaine (Lidoderm Patch) 1 patch DAILY TD Last administered on 11/18/16 09: 10; Start 11/14/16 at 09:00; Stop 12/14/16 at 08:59 Lisinopril (Prinivil) 10 mg DAILY PO Last administered on 11/18/16 09:12; Start 11/14/16 at 09:00; Stop 12/14/16 at 08:59 Magnesium Hydroxide (Milk Of Magnesia) 30 ml DAILYPRN PRN PO CONSTIPATION Last administered on 11/15/16 16:33; Start 11/13/16 at 12:45; Stop 12/13/16 at 12:44 Meropenem 1000 mg/ Dextrose 100 ml @ 200 mls/hr Q8H IV ; Start 11/13/16 at 22: 30; Stop 11/13/16 at 22:30; Status DC Meropenem 2 gm/ Sodium Chloride 100 ml @ 200 mls/hr Q8H IV Last administered on 11/18/16 04:01; Start 11/13/16 at 20:00; Stop 11/18/16 at 07:53; Status DC Meropenem 2 gm/ Sodium Chloride 100 ml @ 200 mls/hr Q8H IV ; Start 11/18/16 at 13:00; Stop 11/25/16 at 12:59 Meropenem 500 mg/ Dextrose 100 ml @ 200 mls/hr Q8H IV ; Start 11/13/16 at 14:30 ; Stop 11/13/16 at 16:07; Status DC Methimazole (Tapazole) 5 mg DAILY PO Last administered on 11/18/16 09:11; Start 11/14/16 at 09:00; Stop 12/14/16 at 08:59 Metoclopramide HCl (REGLAN INJection) 10 mg Q6HP PRN IV NAUSEA OR VOMITING Last administered on 11/18/16 07:35; Start 11/16/16 at 13:00; Stop 12/16/16 at 12:59 Multivitamins (Theragram-M) 1 tab DAILY PO Last administered on 11/18/16 09:11 ; Start 11/14/16 at 09:00; Stop 12/14/16 at 08:59 Non-Formulary Medication ( See Comment Field Below ) REMOVE LIDODERM PATCH DAILY@21 XX Last administered on 11/17/16 21:35; Start 11/13/16 at 21:00; Stop 12/13/16 at 20:59 Pantoprazole Sodium (Protonix) 40 mg DAILY PO Last administered on 11/18/16 09 :11; Start 11/14/16 at 09:00; Stop 12/14/16 at 08:59 Polyethylene Glycol (Miralax) 1 pkt DAILY PRN PO CONSTIPATION; Start 11/13/16 at 12:45; Stop 12/13/16 at 12:44 Potassium Chloride (K-Katy 20 Meq Powder Packet) 20 meq BID PO Last administered on 11/16/16 20:00; Start 11/13/16 at 21:00; Stop 11/17/16 at 06:00 ; Status DC Potassium Chloride (K-Katy 20 Meq Powder Packet) 20 meq RQ8H PO ; Start 11/13/16 at 16:00; Stop 11/13/16 at 16:07; Status DC Sodium Biphosphate/ Sodium Phosphate (Fleet Enema) 1 ea DAILYPRN PRN MA CONSTIPATION Last administered on 11/17/16 10:34; Start 11/13/16 at 12:45; Stop 12/13/16 at 12:44 Sodium Chloride (Saline Lock Flush) 10 ml ASDIRECTED PRN IV SEE LABEL COMMENTS Last administered on 11/18/16 07:36; Start 11/13/16 at 17:00; Stop 12/13/16 at 16:59 Sodium Chloride (Saline Lock Flush) 10 ml PICC IV Last administered on 05:15; Start 11/13/16 at 18:00; Stop 12/13/16 at 17:59 Trazodone HCl (Desyrel) 100 mg QHS PO Last administered on 11/17/16 21:29; Start 11/13/16 at 21:00; Stop 12/13/16 at 20:59 Vancomycin HCl 750 mg/IV Miscellaneous Supplies 1 each/ Dextrose 275 ml @ 275 mls/hr Q12H IV Last administered on 11/14/16 12:02; Start 11/14/16 at 00:00; Stop 11/14/16 at 23:43; Status DC Vancomycin HCl 750 mg/IV Miscellaneous Supplies 1 each/ Dextrose 275 ml @ 275 mls/hr Q18H IV Last administered on 11/16/16 17:49; Start 11/15/16 at 06:00; Stop 11/17/16 at 13:50; Status DC Vancomycin HCl 750 mg/IV Miscellaneous Supplies 1 each/ Dextrose 275 ml @ 275 mls/hr Q18H IV Last administered on 11/17/16 17:43; Start 11/17/16 at 18:00; Stop 11/24/16 at 17:59 Warfarin Sodium (Coumadin) 3 mg 1T@17 PO ; Start 11/13/16 at 17:00; Stop at 17:01; Status Cancel Warfarin Sodium (Coumadin) 3 mg DAILY@17 PO Last administered on 11/13/16 19: 56; Start 11/13/16 at 17:00; Stop 11/13/16 at 23:59; Status DC Warfarin Sodium (Coumadin) 3 mg DAILY@17 PO ; Start 11/18/16 at 17:00; Stop at 06:00 Warfarin Sodium (Coumadin) 3.75 mg DAILY@17 PO Last administered on 11/16/16 17:46; Start 11/14/16 at 17:00; Stop 11/16/16 at 23:55; Status DC Warfarin Sodium (Coumadin) 3.75 mg DAILY@17 PO Last administered on 11/17/16t 17:46; Start 11/17/16 at 17:00; Stop 11/18/16 at 10:25; Status DC XIOMARA CAMARENA MD November 18, 2016 11:38
[2016-11-18] MEDS: VANCOMYCIN HCL 750 MG, VIAL MATE ADAPTER 1 EACH in D5W 250 ML IV SCH (12:09)
[2016-11-18 12:46] LABS: PERCENT SATURATION 24.6 % (13.2-37.4)
[2016-11-18 12:47] LABS: FOLATE 13.1 NG/ML (>5.4)
[2016-11-18 14:00] VITALS: BP 103/55
--- NOTE | 2016-11-18 14:34 | REP ---
CT HEAD WITHOUT CONTRAST: HISTORY: Urinary incontinence. Comparison: 11/09/2016 Areas of decreased attenuation are present in the periventricular white matter. This represent small vessel ischemic disease. There is no intraparenchymal hemorrhage, mass or midline shift. There is moderate dilatation of the ventricular system that is slightly increased compared to the previous study. There is a decrease in the amount of intraventricular hemorrhage with a small amount remaining in the third ventricle. There is dilatation of the cortical sulci consistent with mild volume loss. There is no extracerebral collection. The visualized sinuses are clear. IMPRESSION: 1. Small vessel ischemic disease. 2. Moderate hydrocephalus slightly increased compared to the previous study. There has been a decrease in the amount of intraventricular hemorrhage with a small amount of residual hemorrhage present in the third ventricle. 3 Mild volume loss. Signed by Shade Li MD 11/18/2016 05:02 P
[2016-11-18] MEDS: CODEINE SULFATE 30 MG TAB PO PRN ×2 (15:36→21:33)
[2016-11-18] MEDS ORDERED: WARFARIN SOD 3 MG TAB PO SCH (17:00)
[2016-11-18 20:00] VITALS: BP 132/60
[2016-11-18] MEDS: **NOTE PATIENT COMMENT** MISC XX SCH (21:00)
[2016-11-18] MEDS: traZODone 100 MG TAB PO SCH (21:32)
[2016-11-19] MEDS: MEROPENEM INJ 2 GM in NS 100 ML IV SCH ×2 (05:20→13:13)
[2016-11-19 06:00] VITALS: BP 134/62
[2016-11-19] MEDS: VANCOMYCIN HCL 750 MG, VIAL MATE ADAPTER 1 EACH in D5W 250 ML IV SCH (06:35)
[2016-11-19] MEDS: SODIUM CHLORIDE 0.9% INJ 10 ML SYR IV SCH ×2 (06:35→17:30)
[2016-11-19 07:01] LABS: MEAN CORPUSCULAR HEMOGLOBIN 32.9 pg (27.0-33.0); MEAN CORPUSCULAR HGB CONC 33.8 g/dl (32.0-36.5); MEAN CORPUSCULAR VOLUME 97.5 fl (80.0-96.0); RED CELL DISTRIBUTION WIDTH 15.7 % (11.5-14.5); WHITE BLOOD COUNT 3.2 K/mm3 (4.0-10.0)
[2016-11-19 07:08] LABS: INR 2.39
[2016-11-19] MEDS: METOCLOPRAMIDE INJ 10MG/2ML VIAL (J2765) IV PRN (08:23)
[2016-11-19] MEDS: IPRATROPIUM 0.5MG/ALBUTEROL 2.5MG INH SOL UD 3ML (DUONEB)(J7620) NEB SCH ×2 (08:47→16:28)
[2016-11-19] MEDS ORDERED: ENOXAPARIN 100MG/1ML SYRINGE (J1650) SC SCH (09:00)
[2016-11-19] MEDS ORDERED: AcetaZOLAMIDE 250 MG TAB PO SCH (09:00)
[2016-11-19] MEDS: ATORVASTATIN 20 MG TAB PO SCH (09:11)
[2016-11-19] MEDS: PANTOPRAZOLE 40MG TAB (PROTONIX) PO SCH (09:13)
[2016-11-19] MEDS: MULTIVITAMINS/MINERALS THERAP 1 TAB PO SCH (09:13)
[2016-11-19] MEDS: amLODIPine 10 MG TAB PO SCH (09:13)
[2016-11-19] MEDS: LISINOPRIL 10 MG TAB PO SCH (09:14)
[2016-11-19] MEDS: hydroCHLOROthiazide 12.5 MG CAPSULE PO SCH (09:14)
[2016-11-19] MEDS: DOCUSATE SODIUM 100 MG CAP PO SCH (09:14)
[2016-11-19] MEDS: LIDOCAINE 5% (LIDODERM) PATCH TD SCH (09:15)
[2016-11-19] MEDS: CARVedilol 12.5 MG TAB PO SCH ×2 (09:15→17:29)
[2016-11-19 10:44] LABS: ANION GAP 7 MEQ/L (8-16); BLOOD UREA NITROGEN 18 MG/DL (7-18); CALCIUM LEVEL 8.7 MG/DL (8.8-10.2); CARBON DIOXIDE LEVEL 31 MEQ/L (21-32); CHLORIDE LEVEL 101 MEQ/L (98-107); CREATININE FOR GFR 0.75 MG/DL (0.55-1.02); GLOMERULAR FILTRATION RATE > 60.0 (>45); GLUCOSE, FASTING 93 MG/DL (80-110); POTASSIUM SERUM 3.1 MEQ/L (3.5-5.1); SODIUM LEVEL 139 MEQ/L (136-145)
--- NOTE | 2016-11-19 11:31 | IPNPDOC ---
Subjective Date Seen The patient was seen on 11/19/16. Subjective Chief Complaint/HPI The patient is a 66-year-old female admitted with a reason for visit of ICH. Events since last encounter Pt is less responsive to questions and has been noted to be more lethargic today. Had N/V x 2 this AM per dtr. Also was noted to have urinary incontinence. CT brain was requested and neurosurgical Clt requested. Pt not reliably answering questions at this time. Objective Physical Examination General Exam: Positive: Alert (opens eyes to voice. ) Eye Exam: Positive: PERRLA Chest Exam: Positive: Clear to auscultation, Normal air movement Heart Exam: Positive: Rate Normal, Regular Rhythm, Normal S1, Normal S2, Negative: Murmurs, Rubs Extremity Exam: Positive: Normal pulses, Negative: Clubbing, Cyanosis, Edema Skin Exam: Positive: Nl turgor and temperature Psych Exam: Positive: Other (Pt not answering questions today. Noted to be lethargic. ) Assessment /Plan Problems (1) CVA (cerebrovascular accident due to intracerebral hemorrhage) Status: Acute Problem Text: * ARU as per Dr Sow. PT/OT/ST as per Dr Sow. Mechanical soft diet. Pain control/Bowel care. Bleeding/Fall/Aspiration precautions. Plan for F/U with Neurosurgery [facility] [address]. * Possible CSF infection. Treated with antibiotics at [facility] as per ID for possible ventriculitis. Afebrile/no leukocytosis. Dr Benoit consulted for further management and recommendations. IV Vanco dosing as per Pharmacy. IV Meropenem. CRP 2.53. Dr Benoit following. CRP today pending. (2) CAD (coronary artery disease) of artery bypass graft Status: Chronic Response to Treatment: Stable Problem Text: * Coreg/statin (3) Hyperthyroidism Status: Acute Problem Text: * Currently on Methimazole. * Plan for outpt f/u with Endocrine 4 wks with TFT prior. (4) Anemia Status: Acute Problem Text: * Hgb 8.6 * Add Fe studies, B12/folate to labs. (5) S/P mitral valve replacement Status: Chronic Response to Treatment: Stable Problem Text: * Mechanical MVR * Coumadin held today. * INR 2.39. Continue with daily INR. Goal INR 2.5-3.5. Coumadin on hold. * Lovenox bridging restarted. * Monitor. (6) Afib Status: Chronic Response to Treatment: Stable Problem Text: * EKG 11/14 SINUS RHYTHM WITH SINUS ARRHYTHMIA WITH FIRST DEGREE AV BLOCK MARKED LEFT AXIS DEVIATION LEFT BUNDLE BRANCH BLOCK NO PRIOR * Coreg 25mg BID. * Coumadin as above. (7) HTN (hypertension) Problem Text: * Lisinopril 10mg daily/Norvasc 10mg daily/HCTZ12.5mg daily/KCL. * BP controlled. (8) HLD (hyperlipidemia) Problem Text: * Lipitor (9) Hypokalemia Problem Text: * KCL 40meq x 1 now. (10) Hydrocephalus Problem Text: * GAS DESULFURIZER shunt placement 10/21/16, removal of shunt 11/05/16 [facility] * CT Small vessel ischemic disease. Moderate hydrocephalus slightly increased compared to the previous study. There has been a decrease in the amount of intraventricular hemorrhage with a small amount of residual hemorrhage present in the third ventricle. Mild volume loss. * Neurosurgery Clt requested and planning to proceed with Spinal tap, Hold Coumadin, Lovenox bridging. * Pt with persistent N/V, (11) Cerebral ventriculitis Problem Text: * Pt is completing treatment for possible CSF infection. Treated with antibiotics at [facility] as per ID for possible ventriculitis. Afebrile/no leukocytosis. * Dr Benoit following for further management and recommendations. * IV Vanco dosing as per Pharmacy. IV Meropenem. * CRP 2.53. CRP today pending Plan/VTE VTE Prophylaxis Ordered?: Yes (on Coumadin/Lovenox) VS, I&O, 24H, Fishbone Vital Signs/I&O Vital Signs Date Time Temp Pulse Resp B/P (MAP) Pulse Ox O2 Delivery O2 Flow Rate FiO2 11/19/16 09:13 72 132/82 11/19/16 07:45 Room Air 11/19/16 06:00 98.4 18 94 I&O- Last 24 Hours up to 6 AM 11/19/16 06:00 Intake Total 500 ml Output Total 1060 ml Balance -560 ml Laboratory Data 24H LABS Laboratory Tests 2 11/18/16 11:32: Iron Level 61, Total Iron Binding Capacity 248L, Transferrin % Saturation 24.6, Ferritin 172, Vitamin B12 Level 437, Folate 13.1 11/19/16 06:29: Anion Gap 7L, Glomerular Filtration Rate > 60.0, Blood Urea Nitrogen 18, Creatinine 0.75, Sodium Level 139, Potassium Level 3.1L, Chloride Level 101, Carbon Dioxide Level 31, Calcium Level 8.7L 11/19/16 06:33: Prothrombin Time 26.1H, Prothromb Time International Ratio 2.39 CBC/BMP Laboratory Tests 11/19/16 06:29 Calcium Level 8.7 L 11/19/16 06:33 Red Blood Count 2.67 L, Mean Corpuscular Volume 97.5 H, Mean Corpuscular Hemoglobin 32.9, Mean Corpuscular Hemoglobin Concent 33.8, Red Cell Distribution Width 15.7 H Sahra Sahu November 19, 2016 11:31
[2016-11-19] MEDS ORDERED: POTASSIUM CHLORIDE 10 MEQ SR TABLET PO ONE (11:45)
[2016-11-19] MEDS ORDERED: KCL 10MEQ IN 100ML SWI (KRUN) 10 MEQ in APPROPRIATE DILUENT 1 EA IV ONE ×2 (11:45)
--- NOTE | 2016-11-19 13:10 | IPNPDOC ---
[employer] Progress Note DATE OF SERVICE: 11/19/16 DATE OF ADMISSION: November 13, 2016 at 15:36 INPATIENT REHABILITATION ADMISSION DAY: #6 SUBJECTIVE: Patient is a 66-year-old female with interventricular hemorrhage/ CVA complicated by hydrocephalus and possible ventriculitis under treatment with IV vancomycin and MERREN. Patient with nausea of this morning and one episode of emesis. She had been noted by nursing to still be at lower level of communications with them. Patient not able to give complaints. ALLERGIES: See Below MEDICATIONS: Reviewed, see below. OBJECTIVE: VITAL SIGNS: Please see below. PHYSICAL EXAMINATION: GENERAL: Showed elderly white female who is alert and oriented to person, all her children's names and being out of hospital. She is not able to specify town or which hospital. She is not able to choose it being the month of October out of 4 different months offered. Patient does appear bit nauseous but in no musculoskeletal distress. 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 CARDIOVASCULAR: Regular rate and rhythm with normal S1 and S2 and 2/4 bilateral radial pulses. LUNGS: All edwards clear to auscultation. ABDOMEN: Abdomen is nontender with normal bowel sounds in all quadrants. NEUROLOGICAL: Patient showing more spontaneous speech today then yesterday but not as much as several days ago. He continues to have more problems trying to follow commands with her left body then her right but still will gaze to all sides of the room. LABORATORY DATA: Reviewed. Please see below. MICROBIOLOGY: Please see below. IMAGING: CT scan shows mild increase in hydrocephalus compared to scans done at [facility]. DVT prophylaxis ordered?: INR 2.39 today. ASSESSMENT AND PLAN: 1. Rehabilitation of CVAs and interventricular hemorrhage: At this time I will continue physical, occupational and speech therapies but main concern is patient 's recent downturn and apparent increase in hydrocephalus. 2. Hydrocephalus: Dr. Noble has evaluated the patient and we will stop the Coumadin and bridge with Lovenox until a spinal tap can be done if the family is in agreement. At this time I will not be using a vitamin K treatment to reverse the Coumadin as patient following the spinal tap and possible replacement of the AIRCRAFT LANDING GEAR INSPECTOR shunt will need to be anticoagulated with Coumadin again due to her heart valves. So, and order for tonight has been canceled but we will continue to follow pro-time and INRs and restart Lovenox 1 mg/kg every 12 hours to bridge and coagulation until INR is sufficiently reduced to allow Dr. Noble to proceed with the family's consent in this patient who currently is not confident to understand and make medical decisions for herself with an orientation less than 2 and dense aphasia. 3. Ventriculitis: I discussed the above problems with Dr Lang Benoit. She feels that we need to complete the current course of antibiotics but she will be ordering some tests and cultures on the CSF fluid to look for alternative types of infection which may be going on. TIME SPENT: Chart Review, examination and documentation required greater than 25 minutes. Allergies Coded Allergies: Propoxyphene (Verified Allergy, Unknown, 11/13/16) Vital Signs Vital Signs Date Time Temp Pulse Resp B/P (MAP) Pulse Ox O2 Delivery O2 Flow Rate FiO2 11/19/16 09:13 72 132/82 11/19/16 07:45 Room Air 11/19/16 06:00 98.4 18 94 Laboratory Data CBC/BMP Laboratory Tests 11/19/16 06:29 Calcium Level 8.7 L 11/19/16 06:33 Red Blood Count 2.67 L, Mean Corpuscular Volume 97.5 H, Mean Corpuscular Hemoglobin 32.9, Mean Corpuscular Hemoglobin Concent 33.8, Red Cell Distribution Width 15.7 H Labs 24H Laboratory Tests 2 11/19/16 06:29: Anion Gap 7L, Glomerular Filtration Rate > 60.0, Blood Urea Nitrogen 18, Creatinine 0.75, Sodium Level 139, Potassium Level 3.1L, Chloride Level 101, Carbon Dioxide Level 31, Calcium Level 8.7L, C-Reactive Protein, Quantitative 0.31H 11/19/16 06:33: Prothrombin Time 26.1H, Prothromb Time International Ratio 2.39 Current Medications Current Medications Current Medications Acetaminophen (Tylenol Tab) 650 mg Q4HP PRN PO MILD PAIN (PS 1-4) Last administered on 11/14/16 13:16; Start 11/13/16 at 12:45; Stop 12/13/16 at 12:44 Albuterol Sulfate (Proventil Neb) 2.5 mg Q2HP PRN NEB SOB/WHEEZING Last administered on 11/16/16 22:31; Start 11/13/16 at 15:45; Stop 12/13/16 at 15:44 Albuterol/ Ipratropium (Duoneb (Ipr 0.5mg/Alb 2.5mg)) 3 ml RQ8H NEB Last administered on 11/19/16 08:47; Start 11/13/16 at 16:00; Stop 12/13/16 at 15:59 Amlodipine Besylate (Norvasc) 10 mg DAILY PO Last administered on 11/19/16 09: 13; Start 11/14/16 at 09:00; Stop 12/14/16 at 08:59 Atorvastatin Calcium (Lipitor) 40 mg DAILY PO Last administered on 11/19/16 09 :11; Start 11/14/16 at 09:00; Stop 12/14/16 at 08:59 Carvedilol (COReg) 25 mg BIDWM PO Last administered on 11/19/16 09:15; Start 11/13/16 at 18:00; Stop 12/14/16 at 08:59 Carvedilol (COReg) 25 mg DAILY PO ; Start 11/14/16 at 09:00; Stop 11/14/16 at 09 :00; Status DC Codeine Sulfate (Codeine Sulfate) 30 mg Q4HP PRN PO PAIN SCALE 6-10 Last administered on 11/18/16 21:33; Start 11/13/16 at 17:00; Stop 11/20/16 at 16:59 Docusate Sodium (Colace) 100 mg BID PO Last administered on 11/19/16 09:14; Start 11/13/16 at 21:00; Stop 12/13/16 at 20:59 Enoxaparin Sodium (Lovenox) 50 mg Q12H SC Last administered on 11/17/16 22:13 ; Start 11/14/16 at 11:00; Stop 11/18/16 at 10:25; Status DC Enoxaparin Sodium (Lovenox) 50 mg Q12H SC Last administered on 11/19/16 11:50 ; Start 11/19/16 at 09:00; Stop 11/24/16 at 08:59 Heparin Sodium (Heparin (Flush)) 200 units ASDIRECTED PRN IV SEE LABEL COMMENTS Last administered on 11/18/16 21:34; Start 11/13/16 at 17:00; Stop at 16:59 Heparin Sodium (Heparin (Flush)) 200 units PICC IV Last administered on 06:35; Start 11/13/16 at 18:00; Stop 12/13/16 at 17:59 Home Med (Med Rec Complete!) ASDIRECTED XX ; Start 11/13/16 at 18:30; Stop at 18:30; Status DC Hydrochlorothiazide (Hydrodiuril) 12.5 mg DAILY PO Last administered on 09:14; Start 11/18/16 at 09:00; Stop 12/18/16 at 08:59 Hydrochlorothiazide (Hydrodiuril) 12.5 mg DAILY@2100 PO Last administered on 21:29; Start 11/13/16 at 21:00; Stop 11/18/16 at 10:28; Status DC Lidocaine (Lidoderm Patch) 1 patch DAILY TD Last administered on 11/19/16 09: 15; Start 11/14/16 at 09:00; Stop 12/14/16 at 08:59 Lisinopril (Prinivil) 10 mg DAILY PO Last administered on 11/19/16 09:14; Start 11/14/16 at 09:00; Stop 12/14/16 at 08:59 Magnesium Hydroxide (Milk Of Magnesia) 30 ml DAILYPRN PRN PO CONSTIPATION Last administered on 11/15/16 16:33; Start 11/13/16 at 12:45; Stop 12/13/16 at 12:44 Meropenem 1000 mg/ Dextrose 100 ml @ 200 mls/hr Q8H IV ; Start 11/13/16 at 22: 30; Stop 11/13/16 at 22:30; Status DC Meropenem 2 gm/ Sodium Chloride 100 ml @ 200 mls/hr Q8H IV Last administered on 11/18/16 04:01; Start 11/13/16 at 20:00; Stop 11/18/16 at 07:53; Status DC Meropenem 2 gm/ Sodium Chloride 100 ml @ 200 mls/hr Q8H IV Last administered on 11/19/16 05:20; Start 11/18/16 at 13:00; Stop 11/25/16 at 12:59 Meropenem 500 mg/ Dextrose 100 ml @ 200 mls/hr Q8H IV ; Start 11/13/16 at 14:30 ; Stop 11/13/16 at 16:07; Status DC Methimazole (Tapazole) 5 mg DAILY PO Last administered on 11/19/16 09:13; Start 11/14/16 at 09:00; Stop 12/14/16 at 08:59 Metoclopramide HCl (REGLAN INJection) 10 mg Q6HP PRN IV NAUSEA OR VOMITING Last administered on 11/19/16 08:23; Start 11/16/16 at 13:00; Stop 12/16/16 at 12:59 Multivitamins (Theragram-M) 1 tab DAILY PO Last administered on 11/19/16 09:13 ; Start 11/14/16 at 09:00; Stop 12/14/16 at 08:59 Non-Formulary Medication ( See Comment Field Below ) REMOVE LIDODERM PATCH DAILY@21 XX Last administered on 11/18/16 21:00; Start 11/13/16 at 21:00; Stop 12/13/16 at 20:59 Pantoprazole Sodium (Protonix) 40 mg DAILY PO Last administered on 11/19/16 09 :13; Start 11/14/16 at 09:00; Stop 12/14/16 at 08:59 Polyethylene Glycol (Miralax) 1 pkt DAILY PRN PO CONSTIPATION; Start 11/13/16 at 12:45; Stop 12/13/16 at 12:44 Potassium Chloride (K-Katy 20 Meq Powder Packet) 20 meq BID PO Last administered on 11/16/16 20:00; Start 11/13/16 at 21:00; Stop 11/17/16 at 06:00 ; Status DC Potassium Chloride (K-Katy 20 Meq Powder Packet) 20 meq RQ8H PO ; Start 11/13/16 at 16:00; Stop 11/13/16 at 16:07; Status DC Sodium Biphosphate/ Sodium Phosphate (Fleet Enema) 1 ea DAILYPRN PRN MA CONSTIPATION Last administered on 11/17/16 10:34; Start 11/13/16 at 12:45; Stop 12/13/16 at 12:44 Sodium Chloride (Saline Lock Flush) 10 ml ASDIRECTED PRN IV SEE LABEL COMMENTS Last administered on 11/18/16 21:34; Start 11/13/16 at 17:00; Stop 12/13/16 at 16:59 Sodium Chloride (Saline Lock Flush) 10 ml PICC IV Last administered on 06:35; Start 11/13/16 at 18:00; Stop 12/13/16 at 17:59 Trazodone HCl (Desyrel) 100 mg QHS PO Last administered on 11/18/16 21:32; Start 11/13/16 at 21:00; Stop 12/13/16 at 20:59 Vancomycin HCl 750 mg/IV Miscellaneous Supplies 1 each/ Dextrose 275 ml @ 275 mls/hr Q12H IV Last administered on 11/14/16 12:02; Start 11/14/16 at 00:00; Stop 11/14/16 at 23:43; Status DC Vancomycin HCl 750 mg/IV Miscellaneous Supplies 1 each/ Dextrose 275 ml @ 275 mls/hr Q18H IV Last administered on 11/16/16 17:49; Start 11/15/16 at 06:00; Stop 11/17/16 at 13:50; Status DC Vancomycin HCl 750 mg/IV Miscellaneous Supplies 1 each/ Dextrose 275 ml @ 275 mls/hr Q18H IV Last administered on 11/19/16 06:35; Start 11/17/16 at 18:00; Stop 11/24/16 at 17:59 Warfarin Sodium (Coumadin) 3 mg 1T@17 PO ; Start 11/13/16 at 17:00; Stop at 17:01; Status Cancel Warfarin Sodium (Coumadin) 3 mg DAILY@17 PO Last administered on 11/13/16 19: 56; Start 11/13/16 at 17:00; Stop 11/13/16 at 23:59; Status DC Warfarin Sodium (Coumadin) 3 mg DAILY@17 PO Last administered on 11/18/16 17: 52; Start 11/18/16 at 17:00; Stop 11/19/16 at 10:15; Status DC Warfarin Sodium (Coumadin) 3.75 mg DAILY@17 PO Last administered on 11/16/16 17:46; Start 11/14/16 at 17:00; Stop 11/16/16 at 23:55; Status DC Warfarin Sodium (Coumadin) 3.75 mg DAILY@17 PO Last administered on 11/17/16t 17:46; Start 11/17/16 at 17:00; Stop 11/18/16 at 10:25; Status DC XIOMARA CAMARENA MD November 19, 2016 13:10
[2016-11-19] MEDS: SODIUM CHLORIDE 0.9% INJ 10 ML SYR IV PRN (13:14)
[2016-11-19 14:00] VITALS: BP 138/70
[2016-11-19] MEDS ORDERED: ONDANSETRON 4MG/2ML VIAL (J2405) IV PRN (14:30)
[2016-11-19 17:29] VITALS: BP 140/80
[2016-11-19] MEDS ORDERED: HEPARIN DRIP 25,000 UNITS in APPROPRIATE DILUENT 1 EA IV SCH (19:09)
[2016-11-19] MEDS ORDERED: HEPARIN SOD (PORCINE) 5000 UNITS/ML VIAL IV PRN (19:15)
--- NOTE | 2016-11-20 08:22 | PMRNOTEPD ---
PMR Note 11/20/16 Patient transferred last night to PCU for close monitoring due to recurrence of hydrocephalus. This is an interrupted stay for rehabilitation to address what appears to be a progressive collection of fluid in the ventricles. Patient with extensive cardiac disease including recently discovered atrial fibrillation with rapid ventricular response as well as mechanical heart valve needs to be transition carefully from Coumadin with heparin bridging to allow drainage of excess cerebral spinal fluid. XIOMARA CAMARENA MD November 20, 2016 08:22
--- NOTE | 2016-11-21 23:29 | PMRDS ---
DATE OF ADMISSION: 11/13/2016 DATE OF DISCHARGE: 11/19/2016 DISCHARGE DIAGNOSES: 1. Expanding hydrocephalus. 2. Rehabilitation of intraventricular hemorrhage/cerebrovascular accident (CVA) with secondary hydrocephalus and dense aphasia, left hemiparesis, left neglect and generalized weakness. 3. Atherosclerotic cardiovascular disease including coronary artery disease status post coronary artery bypass grafting. 4. Congestive heart failure. 5. Hypertension. 6. Hyperlipidemia. 7. Newly discovered atrial fibrillation with rapid ventricular response. 8. Anemia. 9. Hyperthyroidism. 10. Chronic obstructive pulmonary disease (COPD). 11. Suspected ventriculitis. Patient admitted to the rehabilitation unit on 11/13/2016 and started a program of physical, occupational, speech language pathology evaluations and treatment, along with rehabilitation nursing and physiatry, trying to increase patient's overall ability to communicate and perform activities of daily living (ADLs) and mobility safely; however, after initial improvements, patient started showing decreasing speech, having less frequent automatic speech and more lethargy. Also, developed nausea and had progression of urinary incontinence. CT scan was then performed to compare against prior CTs and it was interpreted as some increase in hydrocephalus and Dr. Noble, from neurosurgery, was consulted. After review between the medicine consult team, Dr. Ellen Benoit, patient's infectious disease consult, and physiatry, a course of treatment was laid out; however, patient was felt not to be doing well and was felt to be able to be better managed and more quickly have her anticoagulation due to the mechanical mitral valve and deep venous thrombosis (DVT) prophylaxis reversed, and was transferred to the progressive care unit (PCU) by Dr. Fung. DIAGNOSTIC DATA: Includes the CT head, noted above. LABORATORY DATA: Incudes the INR, which, going into discharge was at 2.39 and Coumadin was discontinued in preparation for tapping the hydrocephalus. MEDICATIONS AT TIME OF TRANSFER: - Zofran - Micro-K Extend Tab - Lovenox 50 mg every 12 hours - Diamox 500 mg twice a day - meropenem 2 grams every 8 hours for ventriculitis - hydrochlorothiazide 12.5 mg daily - vancomycin 750 mg every 18 hours - Reglan 10 mg IV as needed for nausea or vomiting - pantoprazole 40 mg by mouth daily - multivitamin one daily - Norvasc 10 mg by mouth daily - atorvastatin 40 mg by mouth daily - lisinopril 10 mg daily - Tapazole 5 mg daily - Lidoderm patch for low back pain 12 out of every 24 hours - Colace 100 mg twice a day - heparin flushes for the Peripherally inserted central catheter (PICC) line COMPLICATIONS: Progressive but low increase in hydrocephalus with increasing lethargy, nausea, vomiting, and decreasing communication to increasing aphasia. DISCHARGE PLAN: Patient discharged to progressive care unit (PCU) to be transitioned off of anticoagulants to allow for fluid drainage from the hydrocephalus and possible ventriculoperitoneal (CAR FERRY MASTER) shunt. TIME SPENT ON DISCHARGE: Less than 30 minutes.
== END 2016-11-19 19:15 | disposition short-term general hospital (02) | DRG 56 ==
LOC: M PM&R 15:36
PROVIDERS: ADMIT Physical Medicine & Rehabilitation; ATTEND Physical Medicine & Rehabilitation
DX: I69.154 Hemiplegia and hemiparesis following nontraumatic intracerebral hemorrhage affecting left non-dominant side (principal); G04.90 Encephalitis and encephalomyelitis, unspecified; D62 Acute posthemorrhagic anemia; G91.0 Communicating hydrocephalus; J81.1 Chronic pulmonary edema; I69.120 Aphasia following nontraumatic intracerebral hemorrhage; I25.10 Atherosclerotic heart disease of native coronary artery without angina pectoris; I73.9 Peripheral vascular disease, unspecified; I10 Essential (primary) hypertension; E78.5 Hyperlipidemia, unspecified; I50.9 Heart failure, unspecified; R32 Unspecified urinary incontinence; I65.23 Occlusion and stenosis of bilateral carotid arteries; J44.9 Chronic obstructive pulmonary disease, unspecified; E05.90 Thyrotoxicosis, unspecified without thyrotoxic crisis or storm; E66.9 Obesity, unspecified; E87.6 Hypokalemia; M54.5 Low back pain; I48.2 Chronic atrial fibrillation; Z95.1 Presence of aortocoronary bypass graft; Z95.2 Presence of prosthetic heart valve; Z79.01 Long term (current) use of anticoagulants; Z79.899 Other long term (current) drug therapy; Z88.8 Allergy status to other drugs, medicaments and biological substances

== ENCOUNTER 2016-11-19 18:26 | Inpatient (IN) | payer OTHER, MEDICAID, MEDICARE ==
[~2016-11-19] VITALS: Ht 157.5 cm; Wt 48.1 kg
[~2016-11-19 18:26] MED LIST: ACET30TAB PO; ALPR0.5T3 PO; AMLO10TA2 PO; ATOR40TA75 PO; CARV25TA PO; ENOX60IN3 SC; HYDR12CA PO; IPRASOL4 INH; LIDO5DIS41 TOP; LISI10TA4 PO; MERO1INJ IV; META48.53 PO; POTA20TA PO; PROT40IN4 IV; QUET1TAB7 PO; TAPA5TAB PO; TYLE325T5 PO; VANC1INJ38 IV; WARF-58 PO
[2016-11-19] MEDS ORDERED: MOM 30ML SUSPENSION UDC PO PRN (19:15)
[2016-11-19] MEDS ORDERED: ALBUTEROL SULFATE 2.5 MG/0.5 ML INH NEB SOLN INH PRN (19:15)
[2016-11-19 20:00] VITALS: BP 126/60
[2016-11-19] MEDS ORDERED: AcetaZOLAMIDE 500MG INJECTION (J1120) IV ONE (20:00)
[2016-11-19] MEDS: MEROPENEM INJ 2 GM in NS 100 ML IV SCH (20:56)
[2016-11-19 21:00] VITALS: BP 119/56
[2016-11-19] MEDS ORDERED: HEPARIN DRIP 25,000 UNITS in APPROPRIATE DILUENT 1 EA IV SCH (21:00)
[2016-11-19] MEDS: **NOTE PATIENT COMMENT** MISC XX SCH (21:00)
[2016-11-19] MEDS ORDERED: HEPARIN SOD (PORCINE) 5000 UNITS/ML VIAL IV PRN (21:00)
--- NOTE | 2016-11-19 21:16 | HPE ---
DATE OF ADMISSION: 11/19/2016 PROVIDERS: Dr. Noble, Dr. Jean, Dr. Sow, Dr. Benoit, and followed by [facility] Cardiology. SUMMARY OF PRESENTATION: This is a 66-year-old who presented to , was unresponsive and dyspneic at the end of September. Had a CT with anterior ventricular hemorrhage and transferred to [facility]. A PROGRESSIVE CARE MANAGER shunt was placed. It was thought to have been infected. It was removed. The patient was transferred to the [facility] acute rehabilitation unit on 11/13/2016. She was followed by Dr. Benoit. She was not having headaches. She was not having nausea and vomiting. Part of her initial presentation requiring the shunt was severe headache. She was seen by Dr. Noble today as she developed headache, nausea and vomiting. She had imaging studies done yesterday, which showed moderate hydrocephalus, increased compared with the previous study and some volume loss. Plan was to pursue a lumbar puncture for diagnostic and therapeutic purposed. Unfortunately, she has a mechanical valve and is anticoagulated. It was thought to be progression of her neurologic potential symptoms. It was such a pace that we could allow the INR to drift downward and do a lumbar puncture at that point. Unfortunately, the nausea and vomiting has increased and discussion over the course of the day today, Dr. Noble and I have come to the agreement that the patient should be transferred to the intensive care unit (ICU). The patient is currently being transferred to the ICU. PAST MEDICAL HISTORY: Notable for: 1. Mitral valve replacement of the mechanical valve. 2. Congestive heart failure. 3. Atrial fibrillation. 4. Left bundle branch block. 5. Hyperlipidemia. 6. History of hemorrhagic stroke. 7. Hydrocephalus status post external ventriculoperitoneal shunt, which was removed on 11/11/2016. 8. Hospital acquired ventriculitis, on vancomycin and meropenem. 9. Hypothyroidism. PAST SURGICAL HISTORY: Apart from previously stated is notable for: 1. Coronary artery bypass graft (CABG). 2. Mitral valve replacement. 3. PROGRESSIVE CARE MANAGER shunt placement and removal. FAMILY HISTORY: Notable for heart disease and hypertension. SOCIAL HISTORY: She lives with her in [place], [place]. She has six children, one is a nurse that I talked today at bedside. HOME MEDICATIONS: Not pertinent at this point. HOSPITAL MEDICATIONS: - Zofran - Lovenox full dose - Diamox 500 mg twice a day, which was started today - meropenem 2 grams IV every 8 hours - hydrochlorothiazide 12.5 mg daily - vancomycin 650 mg every 18 hours intravenously - Protonix 40 mg - multivitamin - Norvasc 10 mg by mouth daily - atorvastatin 40 mg daily - Lisinopril 10 mg by mouth daily - methimazole 5 mg by mouth daily - Lidocaine patch topically daily - Colace 100 mg by mouth twice a day - trazodone 100 mg by mouth at night - Lidoderm patch - Coreg 25 mg by mouth twice a day with meals - heparin through the IV for flushes - codeine as needed for pain - DuoNeb - albuterol - MiraLAX - Fleet enema - milk of magnesia - Tylenol REVIEW OF SYSTEMS: Not meaningfully obtainable from this patient. FAMILY HISTORY: Notable for her mother of heart disease, father of lung cancer. PHYSICAL EXAMINATION: Most recent temperature 98.6, pulse 68, respiratory rate 20, blood pressure 138/70, 94% on room air. She is awake, answering simple questions. She has a continuous sort of nodding motion to her head, coarse in nature. She knows that she is in the hospital. She seems to think that she is in [facility]. She knows the president is José Luis Diamond. She does not know the month or the year. Head is normocephalic. Pupils are equal, round and reactive, anicteric. Tympanic membranes not injected. Nasal septum is midline. Mucous membranes are moist. Tongue is midline. NECK: Supple. LUNGS: Breathing is symmetrical and rested. HEART: Distant sounding. There is a mechanical click. Radial pulses are 2+. Strength is 4+ on the right and 5+ on the left upper extremity. ABDOMEN: Soft, doughy, nontender. There are hyperactive bowel sounds. EXTREMITIES: No lower extremity edema. She is moving both legs. Strength appears grossly symmetrical. LABORATORY DATA: Most recent white count is 2.2, hemoglobin 8.8, platelets 191. INR is 2.39. Potassium is 3.1, creatinine 0.7. ASSESSMENT: As follows: This is a 66-year-old with complicated medical course who has developed hydrocephalus and will be transferred to the intensive care unit (ICU) for at least a two midnight hospital stay. PLAN: 1. The patient has had intracerebral hemorrhage and resulting CVA and neurologic deficits. She has never recovered her baseline. There is concern at this point that she is developing increasing intracranial pressure, would like to pursue a lumbar puncture. At the moment, we are going to wait for INR to trend downward. I will start her on heparin drip this evening, and I will hold her Coumadin. If necessary, we could reverse the Coumadin, but that comes with increased risk of stroke, which would further complicate the patient's course. 2. The patient has ventriculitis and is being followed by Dr. Benoit with meropenem and vancomycin. That will continue. Repeat a C-reactive protein. 3. The patient has a history of coronary artery disease, status post bypass grafting. 4. The patient has hypothyroidism, currently on methimazole. We will repeat thyroid function tests currently due to her change in status. 5. The patient has anemia. Hemoglobin and hematocrit are stable. We will follow clinically. 6. The patient is status post mitral valve replacement. INR is trending downward. 7. The patient has atrial fibrillation. We will continue with Coreg with old parameters. 8. The patient has hypertension. At this moment, we are going to hold Norvasc, Lisinopril, as we are switching to Diamox. 9. The patient has hyperlipidemia. Continue statin drug. 10. Deep vein thrombosis (DVT) prophylaxis at this point is full dose anticoagulation. Case was discussed with the patient's daughter at bedside, who is her healthcare proxy.
[2016-11-19 22:00] VITALS: BP 120/55
[2016-11-19 23:00] VITALS: BP 131/61
[2016-11-19] MEDS: IPRATROPIUM 0.5MG/ALBUTEROL 2.5MG INH SOL UD 3ML (DUONEB)(J7620) NEB SCH (23:21)
[2016-11-20] VITALS (7 sets, daily range): BP systolic 89–130; BP diastolic 47–60
[2016-11-20] MEDS: VANCOMYCIN HCL 750 MG, VIAL MATE ADAPTER 1 EACH in D5W 250 ML IV SCH ×2 (00:30→17:45)
--- NOTE | 2016-11-20 00:31 | PHACANCOPD ---
PHARMACY VANCOMYCIN DOSING Pt Demographics Demographics Patient Age:66 , Weight:51.400 , Gender: female Adjusted Body Weight Date: 11/20/16, Adjusted Body Weight: Kg Events Past 24 Hours Events Past 24 Hours: NO: Dialysis, Diuretic Therapy, Change in CrCl, Fever, Elevation in WBC, Pending Diagnostics, Pending Procedures, Other Vancomycin Vancomycin Target Ranges: 15-20 mcg/ml Vancomycin Load Y/N: No Load Dose Date Time Vancomycin Load Dose: Date: Time: Vancomycin Dose Date: 11/20/16. Current Vancomycin Dose: [750MG Q18H] Intermittent Dosing?: No Labs Labs Item Value Date Time Vancomycin Level Trough 20.1 UG/ML H 11/19/162322 Creatinine Clearance Date:11/20/16. Creatinine Clearance: [20.1]. Assessment and Plan Maintaining Current Dose?: Yes Reason for dose change: No Dose Change Pharmacist Note Pharmacist Note Date: 11/20/16. Pharmacist note:Trough of 20.1 is based on a 17 hour interval. Trough is acceptable. Will continue current dosing. Will continue to monitor and make adjustments as needed. ANA CRISTINA [facility] November 20, 2016 00:31
--- NOTE | 2016-11-20 01:13 | IPN ---
DATE: 11/19/2016 Nayla was getting more lethargic today. She was not following as much commands, and she was having a lot of vomiting. Head CT showed increased hydrocephalus. Dr. Noble was consulted, and he is planning to do a lumbar puncture to decompress and relieve some of the cerebrospinal fluid (CSF) fluid. There was question whether her antibiotics needed to be discontinued to see if she was still infected. The course of her treatment was supposed to be 14 days of intravenous (IV) antibiotic with end of therapy being September 26. I advised Dr. Sow that the antibiotic needed to be continued, and what we would follow would be her cell count and total protein. Cultures on November 11 from [facility] were negative anyway. Temperature is 97.4, pulse 65, respirations 20, blood pressure 126/60, oxygen saturation 95% on 2 liters. HEART: Normal S1, S2 with a mechanical valve with a prosthetic click heard. Systolic ejection murmur best heard at the right upper sternal border. LUNGS: Clear. No wheezes or rhonchi. ABDOMEN: Soft, nontender. EXTREMITIES: No edema. She is weak. She is not able to sit up on her own. She can answer yes and no appropriately and is able to verbalize some words. LABORATORY DATA: White count is 3.2, hemoglobin 8.8, hematocrit 26, platelets 191. Sodium 139, potassium 3.1, chloride 101, bicarbonate 31, BUN 18, creatinine 0.75, glucose 93, calcium 8.7, CRP 0.31. IMAGING STUDIES: Head CT shows a moderate hydrocephalus, right base, compared to previous study. There is a decrease in intraventricular hemorrhage with a small amount of residual hemorrhage present in the 3rd ventricle, mild volume loss, and small-vessel disease. IMPRESSION: 1. Intracerebral hemorrhage with secondary hydrocephalus, which has increased, and therefore patient probably will need a ventriculoperitoneal (GEOPHYSICAL OPERATOR) shunt or an external ventricular device. A lumbar puncture will be attempted once her INR has decreased. 2. Prosthetic mechanical valve, on anticoagulation. 3. Nosocomial ventriculitis, on IV vancomycin 750 mg every 24 hour and meropenem 2 grams IV every 8 hours with end of therapy being November 26. 4. Leukopenia should be monitored, as it probably is a side effect of meropenem. PLAN: Transfer to the intensive care unit (ICU) for better monitoring. Do not discontinue antibiotic until November 26. If not a lumbar puncture done, please send a cell count, Gram stain, culture, fungal smear and culture, total protein, and glucose.
[2016-11-20] MEDS: MEROPENEM INJ 2 GM in NS 100 ML IV SCH ×3 (05:07→21:20)
[2016-11-20 06:16] LABS: BASO % 0.6 % (0.0-1.0); EOS # 0.2 K/mm3 (0.0-0.50); EOS % 4.6 % (0.0-3.0); LARGE UNSTAINED CELL # 0.1 K/mm3 (0.0-0.4); LYMPH # 0.7 K/mm3 (1.5-4.5); LYMPH % 16.7 % (24.0-44.0); MEAN CORPUSCULAR HEMOGLOBIN 32.8 pg (27.0-33.0); MEAN CORPUSCULAR HGB CONC 32.9 g/dl (32.0-36.5); MEAN CORPUSCULAR VOLUME 99.7 fl (80.0-96.0); MONO # 0.3 K/mm3 (0.0-0.8); MONO % 8.1 % (0.0-5.0); NEUTROPHILS # 2.3 K/mm3 (1.8-7.7); PLATELET COUNT, AUTOMATED 214 k/mm3 (150-450); WHITE BLOOD COUNT 3.5 K/mm3 (4.0-10.0)
[2016-11-20 06:21] LABS: BLOOD UREA NITROGEN 15 MG/DL (7-18); CREATININE FOR GFR 0.78 MG/DL (0.55-1.02); GLOMERULAR FILTRATION RATE > 60.0 (>45); GLUCOSE, FASTING 96 MG/DL (80-110)
[2016-11-20 06:22] LABS: ALBUMIN 2.8 GM/DL (3.2-5.2); ALBUMIN/GLOBULIN RATIO 0.93 (1.00-1.93); ALKALINE PHOSPHATASE 89 U/L (45-117); ALT/SGPT 35 U/L (12-78); ANION GAP 7 MEQ/L (8-16); AST/SGOT 24 U/L (15-37); BILIRUBIN,TOTAL 0.3 MG/DL (0.2-1.0); CALCIUM LEVEL 8.6 MG/DL (8.8-10.2); CARBON DIOXIDE LEVEL 28 MEQ/L (21-32); CHLORIDE LEVEL 102 MEQ/L (98-107); POTASSIUM SERUM 2.9 MEQ/L (3.5-5.1); SODIUM LEVEL 137 MEQ/L (136-145); TOTAL PROTEIN 5.8 GM/DL (6.4-8.2)
[2016-11-20 06:25] LABS: INR 2.76
[2016-11-20] MEDS ORDERED: POTASSIUM CHLORIDE 10% LIQ 20 MEQ/15 ML UDC PO ONE (07:30)
[2016-11-20] MEDS: IPRATROPIUM 0.5MG/ALBUTEROL 2.5MG INH SOL UD 3ML (DUONEB)(J7620) NEB SCH ×4 (07:38→19:32)
--- NOTE | 2016-11-20 08:21 | PMRNOTEPD ---
PMR Note 11/20/16 Patient transferred last night to PCU for close monitoring due to recurrence of hydrocephalus. This is an interrupted stay for rehabilitation to address what appears to be a progressive collection of fluid in the ventricles. Patient with extensive cardiac disease including recently discovered atrial fibrillation with rapid ventricular response as well as mechanical heart valve needs to be transition carefully from Coumadin with heparin bridging to allow drainage of excess cerebral spinal fluid. XIOMARA CAMARENA MD November 20, 2016 08:21
[2016-11-20] MEDS: PANTOPRAZOLE 40MG TAB (PROTONIX) PO SCH (08:30)
[2016-11-20] MEDS: LIDOCAINE 5% (LIDODERM) PATCH TD SCH (08:31)
[2016-11-20] MEDS: AcetaZOLAMIDE 250 MG TAB PO SCH ×2 (08:31→21:21)
[2016-11-20 11:21] LABS: FREE T4 1.58 NG/DL (0.76-1.46)
--- NOTE | 2016-11-20 14:41 | ECGEPIP ---
Stationary ECG Study [facility] Test Date: 2016-11-20 Pat Name: MELLY DEL RIO Department: Room: [place] [address] Gender: F Glass Breaker: PRISCILA : 1950 Requested By: MARY ANN Go Order Number: [id number] Reading MD: Riaz Coello Measurements Intervals [place] Rate: 65 P: 74 GA: 218 QRS: -48 QRSD: 169 T: -28 QT: 451 QTc: 472 Interpretive Statements SINUS RHYTHM WITH FIRST DEGREE AV BLOCK LA conduction disturbance MARKED LEFT AXIS DEVIATION LEFT BUNDLE BRANCH BLOCK Probable LVH No change from 11/14/16. Electronically Signed On 11-20-2016 14:41:32 EDT by Riaz Coello
--- NOTE | 2016-11-20 17:19 | IPNPDOC ---
Subjective Date Seen The patient was seen on 11/20/16. Subjective Chief Complaint/HPI The patient is a 66-year-old female admitted with a reason for visit of ICH. Events since last encounter Patient not incredibly interactive- no issues noted by staff overnight, tolerating diet, no vomiting Has been following commands Not able to recall the President's name General: Reports: ROS Unobtainable Objective Physical Examination General Exam: Positive: Alert, No Acute Distress Eye Exam: Negative: Sclera icteric Chest Exam: Positive: Diminished, Negative: Rales, Rhonchi, Wheezing Heart Exam: Positive: Rate Normal, Normal S1, Normal S2 Abdomen Exam: Positive: Normal bowel sounds, Soft, Negative: Tenderness Assessment /Plan Problems (1) Hydrocephalus Status: Acute Problem Specific Plan: Consult Specialist Problem Text: I discussed in person with Dr. Noble. Appreciate his note and management Plan to let inr drift down as able, although inr increased today- will bridge with heparin depending on clinical course, may need to reverse prior to LP (2) Cerebral ventriculitis Status: Acute Problem Specific Plan: Consult Specialist Problem Text: Being followed by Dr. Benoit, s/p healthcare associated infection (3) Hydrocephalus Status: Acute (4) CAD (coronary artery disease) of artery bypass graft Status: Chronic (5) Hyperthyroidism Status: Acute Problem Text: repeat TFTs still suggest hyperthyroidism continue tapazole (6) Anemia Status: Acute (7) DVT prophylaxis (8) S/P mitral valve replacement Status: Chronic (9) HTN (hypertension) Status: Chronic (10) HLD (hyperlipidemia) Status: Chronic (11) Afib Status: Chronic Plan/VTE VTE Prophylaxis Ordered?: Yes VS, I&O, 24H, [facility] Vital Signs/I&O Vital Signs Date Time Temp Pulse Resp B/P (MAP) Pulse Ox O2 Delivery O2 Flow Rate FiO2 11/20/16 07:59 95 Room Air 11/20/16 07:23 1.0 11/20/16 04:00 98.6 69 20 130/59 (82) I&O- Last 24 Hours up to 6 AM 11/20/16 06:00 Intake Total 474 ml Output Total 0 ml Balance 474 ml Laboratory Data 24H LABS Laboratory Tests 2 11/19/16 23:23: Vancomycin Level Trough 20.1H 11/20/16 02:03: Prothrombin Time 29.2H, Prothromb Time International Ratio 2.76, Activated Partial Thromboplast Time 188.4*H 11/20/16 05:22: White Blood Count 3.5L, Red Blood Count 2.80L, Hemoglobin 9.2L, Hematocrit 27.9L , Mean Corpuscular Volume 99.7H, Mean Corpuscular Hemoglobin 32.8, Mean Corpuscular Hemoglobin Concent 32.9, Red Cell Distribution Width 16.0H, Platelet Count 214, Neutrophils (%) (Auto) 67.0H, Lymphocytes (%) (Auto) 16.7L, Monocytes (%) (Auto) 8.1H, Eosinophils (%) (Auto) 4.6H, Basophils (%) (Auto) 0.6 , Neutrophils # (Auto) 2.3, Lymphocytes # (Auto) 0.7L, Monocytes # (Auto) 0.3, Eosinophils # (Auto) 0.2, Basophils # (Auto) 0.0, Large Unclassified Cells % 3.0 , Large Unclassified Cells # 0.1, Anion Gap 7L, Glomerular Filtration Rate > 60.0, Blood Urea Nitrogen 15, Creatinine 0.78, Sodium Level 137, Potassium Level 2.9*L, Chloride Level 102, Carbon Dioxide Level 28, Calcium Level 8.6L, Aspartate Amino Transf (AST/SGOT) 24, Alanine Aminotransferase (ALT/SGPT) 35, Alkaline Phosphatase 89, Total Bilirubin 0.3, Total Protein 5.8L, Albumin 2.8L, C-Reactive Protein, Quantitative < 0.30, Albumin/Globulin Ratio 0.93L, Prealbumin 17.7L 11/20/16 10:24: Thyroid Stimulating Hormone (TSH) < 0.005L, Free Thyroxine 1.58H 11/20/16 10:30: Activated Partial Thromboplast Time 71.0H CBC/BMP Laboratory Tests 11/20/16 05:22 Red Blood Count 2.80 L, Mean Corpuscular Volume 99.7 H, Mean Corpuscular Hemoglobin 32.8, Mean Corpuscular Hemoglobin Concent 32.9, Red Cell Distribution Width 16.0 H, Neutrophils (%) (Auto) 67.0 H, Lymphocytes (%) (Auto ) 16.7 L, Monocytes (%) (Auto) 8.1 H, Eosinophils (%) (Auto) 4.6 H, Basophils (% ) (Auto) 0.6, Neutrophils # (Auto) 2.3, Lymphocytes # (Auto) 0.7 L, Monocytes # (Auto) 0.3, Eosinophils # (Auto) 0.2, Basophils # (Auto) 0.0, Calcium Level 8.6 L, Aspartate Amino Transf (AST/SGOT) 24, Alanine Aminotransferase (ALT/SGPT) 35 , Alkaline Phosphatase 89, Total Bilirubin 0.3, Total Protein 5.8 L, Albumin 2.8 L MARY ANN GONZALEZ MD November 20, 2016 17:19
--- NOTE | 2016-11-20 20:18 | IPN ---
DATE: 11/20/2016 Nayla was seen in the ICU today. She is not as interactive as she had been in rehabilitation unit. She is afebrile. Temperature is 98.6, pulse 69, respirations 20 blood pressure 130/59, oxygen saturation 95% on room air. Heart: Normal S1, S2 with a click. Prosthetic valve. Systolic ejection murmur 2/6. Lungs are clear. No wheezes, rales or rhonchi. Abdomen is soft, nontender. Extremities: No edema. The patient is not able to sit on her own. She has weak upper and lower extremities. She does not follow commands and she does answer yes or no appropriately, but has not said anything else. IMPRESSION: 1. Worsening hydrocephalus. The patient is scheduled to have a lumbar puncture after INR is less than 2 to decrease the hydrocephalus. Whether the patient could have a permanent ventriculoperitoneal (MANAGER EXPORT) shunt will depend on results of cell count and culture. Hospital-acquired ventriculitis based on white cell count was over 2000, predominance of lymphocytes, cultures have always been negative. I have gotten the records from [facility] and no culture has ever been positive. The patient is on IV meropenem and vancomycin until 11/26/2016, with the end of therapy date. 2. Hyperthyroidism, recently diagnosed, on methimazole. PLAN: Continue IV antibiotics until 11/26/2016. Monitor complete blood count (CBC). The patient has mild leukopenia on meropenem and the patient will be scheduled for lumbar puncture when her INR is less than 2. Please send for cell count, total protein, glucose, bacterial culture as well as fungal smear and culture. LABORATORY DATA: White count is 3.5, hemoglobin 9.2, hematocrit 27.9, platelets 214. Sodium 137, potassium 2.9, chloride 102, bicarbonate 28, BUN 15, creatinine 0.78, AST 24, ALT 35, CRP less than 0.3, total protein 5.8, albumin 2.8, TSH less than 0.005 and free T4 1.58.
[2016-11-20] MEDS: **NOTE PATIENT COMMENT** MISC XX SCH (21:00)
[2016-11-20] MEDS: ATORVASTATIN 20 MG TAB PO SCH (21:21)
[2016-11-21] VITALS (32 sets, daily range): BP systolic 90–160; BP diastolic 49–74
[2016-11-21 04:57] LABS: BASO % 0.4 % (0.0-1.0); EOS # 0.2 K/mm3 (0.0-0.50); EOS % 4.7 % (0.0-3.0); LARGE UNSTAINED CELL # 0.1 K/mm3 (0.0-0.4); LARGE UNSTAINED CELL % 3.1 % (0.0-4.0); LYMPH # 0.8 K/mm3 (1.5-4.5); LYMPH % 18.6 % (24.0-44.0); MEAN CORPUSCULAR HEMOGLOBIN 33.1 pg (27.0-33.0); MEAN CORPUSCULAR HGB CONC 33.2 g/dl (32.0-36.5); MEAN CORPUSCULAR VOLUME 99.9 fl (80.0-96.0); MONO # 0.3 K/mm3 (0.0-0.8); MONO % 8.1 % (0.0-5.0); NEUTROPHILS # 2.3 K/mm3 (1.8-7.7); NEUTROPHILS % 65.1 % (36.0-66.0); PLATELET COUNT, AUTOMATED 212 k/mm3 (150-450); RED CELL DISTRIBUTION WIDTH 16.3 % (11.5-14.5); WHITE BLOOD COUNT 3.5 K/mm3 (4.0-10.0)
[2016-11-21] MEDS: MEROPENEM INJ 2 GM in NS 100 ML IV SCH ×3 (04:57→22:33)
[2016-11-21 05:03] LABS: INR 2.58
[2016-11-21 05:16] LABS: ALBUMIN 2.5 GM/DL (3.2-5.2); ALBUMIN/GLOBULIN RATIO 0.74 (1.00-1.93); ALKALINE PHOSPHATASE 88 U/L (45-117); ALT/SGPT 31 U/L (12-78); ANION GAP 8 MEQ/L (8-16); AST/SGOT 19 U/L (15-37); BILIRUBIN,TOTAL 0.3 MG/DL (0.2-1.0); BLOOD UREA NITROGEN 18 MG/DL (7-18); CALCIUM LEVEL 8.7 MG/DL (8.8-10.2); CARBON DIOXIDE LEVEL 24 MEQ/L (21-32); CHLORIDE LEVEL 107 MEQ/L (98-107); CREATININE FOR GFR 0.86 MG/DL (0.55-1.02); GLOMERULAR FILTRATION RATE > 60.0 (>45); GLUCOSE, FASTING 94 MG/DL (80-110); POTASSIUM SERUM 3.2 MEQ/L (3.5-5.1); SODIUM LEVEL 139 MEQ/L (136-145); TOTAL PROTEIN 5.9 GM/DL (6.4-8.2)
[2016-11-21] MEDS: IPRATROPIUM 0.5MG/ALBUTEROL 2.5MG INH SOL UD 3ML (DUONEB)(J7620) NEB SCH ×4 (07:26→19:31)
[2016-11-21] MEDS: LIDOCAINE 5% (LIDODERM) PATCH TD SCH (08:45)
[2016-11-21] MEDS: PANTOPRAZOLE 40MG TAB (PROTONIX) PO SCH (08:46)
[2016-11-21] MEDS: AcetaZOLAMIDE 250 MG TAB PO SCH ×2 (08:46→21:00)
--- NOTE | 2016-11-21 08:57 | PHACANCOPD ---
PHARMACY VANCOMYCIN DOSING Pt Demographics Demographics Patient Age:66 , Weight:53.000 , Gender: female Adjusted Body Weight Date: 11/20/16, Adjusted Body Weight: Kg Vancomycin Vancomycin Target Ranges: 15-20 mcg/ml Vancomycin Load Y/N: No Load Dose Date Time Vancomycin Load Dose: Date: Time: Vancomycin Dose Date: 11/20/16. Current Vancomycin Dose: [750MG Q18H] Intermittent Dosing?: No Labs Creatinine Clearance Date:11/20/16. Creatinine Clearance: [20.1]. Assessment and Plan Maintaining Current Dose?: Yes Reason for dose change: No Dose Change Pharmacist Note Pharmacist Note 11/21/16: A vancomycin trough has been scheduled for tomorrow, 11/22/16, at 0500. Scr is stable. We will continue to monitor and make further adjustments if needed. Date: 11/20/16. Pharmacist note:Trough of 20.1 is based on a 17 hour interval. Trough is acceptable. Will continue current dosing. Will continue to monitor and make adjustments as needed. CONSUELO SOUSA PHARMACY November 21, 2016 08:57
[2016-11-21] MEDS: VANCOMYCIN HCL 750 MG, VIAL MATE ADAPTER 1 EACH in D5W 250 ML IV SCH (11:21)
--- NOTE | 2016-11-21 13:17 | IPN ---
DATE: 11/21/2016 Ms. Dubon seems to be doing well. She is stable. She is in the intensive care unit (ICU). She is scheduled for lumbar puncture today. She remains afebrile. She is able to repeat after me whatever I ask her to repeat but she is not able to read on her own, "Get Well Soon" from her mathis, but she will repeat it. She is able to elevate her arms when I show her how to do it but then not follow commands spontaneously. LABORATORY DATA White count is 3.5, hemoglobin 9.3, hematocrit 28.1, platelets 212, 65% neutrophils. Sodium 139, potassium 3.2, chloride 107, bicarbonate 24, BUN 18, creatinine 0.86, glucose 94, calcium 8.7. Liver profile normal. Albumin 2.5. Vancomycin trough on 11/19 was 20.1. PHYSICAL EXAMINATION: HEART: Normal S1, S2 with a systolic ejection murmur, click of the valve was unchanged. LUNGS: Clear. No wheezes or rhonchi. ABDOMEN: Soft, nontender. EXTREMITIES: No edema. The patient is able to elevate her arms. Weakness. She has expressive aphasia. She is alert. She can repeat [facility] after me but is not able to tell me where she is. VITAL SIGNS: Temperature is 97.8, pulse 65, respirations 16. IMPRESSION: 1. 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 Cultures were negative at [facility]. We will continue treatment course based on [facility] recommendations. 2. Worsening hydrocephalus. Lumbar puncture will be done today. INR is 2.58. Please send for cell count, total protein glucose, and fungal.
--- NOTE | 2016-11-21 15:51 | IPNPDOC ---
Subjective Date Seen The patient was seen on 11/21/16. Subjective Chief Complaint/HPI The patient is a 66-year-old female admitted with a reason for visit of ICH. Events since last encounter Not particularly verbal this am- does not know president, not sure where she is , no complaint of pain, has taken some diet General: Reports: ROS Unobtainable Objective Physical Examination General Exam: Positive: No Acute Distress Eye Exam: Negative: Sclera icteric Chest Exam: Positive: Diminished, Negative: Rales, Rhonchi, Wheezing Heart Exam: Positive: Rate Normal, Normal S1, Normal S2 Abdomen Exam: Positive: Normal bowel sounds, Soft, Negative: Tenderness Assessment /Plan Problems (1) Hydrocephalus Status: Acute Problem Specific Plan: Consult Specialist Problem Text: I discussed with Dr. Noble. tau amyloid ordered Appreciate his note and management We are going to reverse inr today with ffp, and pursue LP as her mental status has trended downward. Will remove a goal of 40 ml of csf, goal closing pressure of 10. I also discussed with Dr. Gonzalez who will be our proceduralist. I discussed last evening the risks and benefits of LP with daughter/hcp. (2) Cerebral ventriculitis Status: Acute Problem Specific Plan: Consult Specialist Problem Text: Being followed by Dr. Benoit. We discussed in person today, CSF tests ordered per her advice s/p healthcare associated infection (3) Hydrocephalus Status: Acute (4) CAD (coronary artery disease) of artery bypass graft Status: Chronic (5) Hyperthyroidism Status: Acute Problem Text: repeat TFTs still suggest hyperthyroidism continue tapazole could be affecting her mental status (6) Anemia Status: Acute (7) DVT prophylaxis (8) S/P mitral valve replacement Status: Chronic Problem Text: reversing inr, will start heparin or lovenox after procedure (9) HTN (hypertension) Status: Chronic (10) HLD (hyperlipidemia) Status: Chronic (11) Afib Status: Chronic Plan/VTE VTE Prophylaxis Ordered?: Yes VS, I&O, 24H, Fishbone Vital Signs/I&O Vital Signs Date Time Temp Pulse Resp B/P (MAP) Pulse Ox O2 Delivery O2 Flow Rate FiO2 11/21/16 15:15 97.0 76 16 130/63 (85) 96 Room Air 11/20/16 07:23 1.0 I&O- Last 24 Hours up to 6 AM 11/21/16 06:00 Intake Total 1256 ml Balance 1256 ml Laboratory Data 24H LABS Laboratory Tests 2 11/21/16 04:45: White Blood Count 3.5L, Red Blood Count 2.81L, Hemoglobin 9.3L, Hematocrit 28.1L , Mean Corpuscular Volume 99.9H, Mean Corpuscular Hemoglobin 33.1H, Mean Corpuscular Hemoglobin Concent 33.2, Red Cell Distribution Width 16.3H, Platelet Count 212, Neutrophils (%) (Auto) 65.1, Lymphocytes (%) (Auto) 18.6L, Monocytes (%) (Auto) 8.1H, Eosinophils (%) (Auto) 4.7H, Basophils (%) (Auto) 0.4 , Neutrophils # (Auto) 2.3, Lymphocytes # (Auto) 0.8L, Monocytes # (Auto) 0.3, Eosinophils # (Auto) 0.2, Basophils # (Auto) 0.0, Large Unclassified Cells % 3.1 , Large Unclassified Cells # 0.1, Prothrombin Time 27.7H, Prothromb Time International Ratio 2.58, Anion Gap 8, Glomerular Filtration Rate > 60.0, Blood Urea Nitrogen 18, Creatinine 0.86, Sodium Level 139, Potassium Level 3.2L, Chloride Level 107, Carbon Dioxide Level 24, Calcium Level 8.7L, Aspartate Amino Transf (AST/SGOT) 19, Alanine Aminotransferase (ALT/SGPT) 31, Alkaline Phosphatase 88, Total Bilirubin 0.3, Total Protein 5.9L, Albumin 2.5L, Albumin/ Globulin Ratio 0.74L CBC/BMP Laboratory Tests 11/21/16 04:45 Red Blood Count 2.81 L, Mean Corpuscular Volume 99.9 H, Mean Corpuscular Hemoglobin 33.1 H, Mean Corpuscular Hemoglobin Concent 33.2, Red Cell Distribution Width 16.3 H, Neutrophils (%) (Auto) 65.1, Lymphocytes (%) (Auto) 18.6 L, Monocytes (%) (Auto) 8.1 H, Eosinophils (%) (Auto) 4.7 H, Basophils (%) (Auto) 0.4, Neutrophils # (Auto) 2.3, Lymphocytes # (Auto) 0.8 L, Monocytes # ( Auto) 0.3, Eosinophils # (Auto) 0.2, Basophils # (Auto) 0.0, Calcium Level 8.7 L , Aspartate Amino Transf (AST/SGOT) 19, Alanine Aminotransferase (ALT/SGPT) 31, Alkaline Phosphatase 88, Total Bilirubin 0.3, Total Protein 5.9 L, Albumin 2.5 L MARY ANN GONZALEZ MD November 21, 2016 15:51
[2016-11-21 17:44] LABS: INR 1.56
[2016-11-21] MEDS ORDERED: LORazepam 2 MG/ML VIAL (J2060) As Ordered ONE (18:14)
--- NOTE | 2016-11-21 18:29 | EEG ---
DATE OF PROCEDURE: 11/20/2016 REFERRING PHYSICIAN: Dr. Fausto Fung DIAGNOSIS: Intracerebral hemorrhage. EEG# [id number]. INTERPRETATION: The patient was noted to be in mostly drowsy states during this EEG. Background rhythm consisted of 5-6 Hz, theta activity measuring 15-40 microvolts in amplitude. Left greater than right temporal and frontal delta activity was noted. No clear sleep stages were identified. Hyperventilation could not be performed. Photic stimulation remained unremarkable. EKG revealed normal sinus rhythm. No clear epileptiform abnormalities were seen. No clinical or electrographic seizures were recorded. CONCLUSION: This EEG in drowsy state is abnormal due to presence of generalized slowing and disorganization consistent with nonspecific diffuse cerebral dysfunction such as seen in encephalopathy due to multiple potential causes including toxic, metabolic, infectious, autoimmune, or multifocal structural abnormalities. Left greater than right temporal and frontal delta activity was noted consistent with focal cortical structural or functional abnormality. No epileptiform abnormalities were seen. Clinical correlation is recommended.
[2016-11-21] MEDS ORDERED: LORazepam 2 MG/ML VIAL (J2060) IV STA (18:43)
[2016-11-21] MEDS ORDERED: HEPARIN SOD (PORCINE) 5000 UNITS/ML VIAL IV PRN (19:15)
[2016-11-21 19:27] LABS: RBC CSF AUTO 441 /mm3 (0-0); WBC CSF AUTO 23 /mm3 (0-10)
[2016-11-21 19:28] LABS: RBC CSF AUTO 145 /mm3 (0-0); WBC CSF AUTO 20 /mm3 (0-10)
[2016-11-21 19:29] LABS: APPEARANCE, CSF CLEAR (CLEAR); COLOR, CSF PINK (COLORLESS); CSF TUBE# CELL CNT TUBE 1
[2016-11-21 19:30] LABS: APPEARANCE, CSF CLEAR (CLEAR); COLOR, CSF PINK (COLORLESS); CSF DIFF IF INDICATED? YES (NO); CSF TUBE# CELL CNT TUBE 4
[2016-11-21 19:30] LABS: CSF DIFF IF INDICATED? YES (NO)
[2016-11-21 19:31] LABS: CSF DILUENT LOT # 6621
[2016-11-21 19:31] LABS: CSF DILUENT LOT # 6221
[2016-11-21 19:36] LABS: GLUCOSE CSF 56 MG/DL (40-75)
[2016-11-21] MEDS: HEPARIN DRIP 25,000 UNITS in APPROPRIATE DILUENT 1 EA IV SCH (19:49)
[2016-11-21] MEDS: **NOTE PATIENT COMMENT** MISC XX SCH (21:00)
[2016-11-21] MEDS: ATORVASTATIN 20 MG TAB PO SCH (21:00)
[2016-11-21] MEDS ORDERED: WARFARIN SOD 4 MG TAB PO ONE (21:00)
--- NOTE | 2016-11-21 22:40 | REPUSA ---
CT of the head Clinical history: mental status changes. Protocol: Multiple axial CT images obtained with 5 mm slice thickness were obtained through the head without administration of contrast. Comparison: 11/18/2016. Findings: The ventricles and sulci are symmetric but prominent in size bilaterally. There are periven tricular areas of low attenuation throughout the deep white matter. There is no evidence of acute hem orrhage or infarct. There is no midline shift, mass effect, or extra-axial fluid collection. The osse ous structures are unremarkable. The visualized paranasal sinuses and mastoid air cells are clear. Impression: No acute hemorrhage or infarct. Findings are consistent with moderate age-related atrophy and chronic small vessel ischemic disease.
--- NOTE | 2016-11-21 23:25 | RO ---
DATE OF PROCEDURE: 11/21/2016 PREPROCEDURE DIAGNOSIS: Hydrocephalus, nausea and headache. POSTPROCEDURE DIAGNOSIS: Hydrocephalus, nausea, vomiting and headache. PROCEDURE: Diagnostic lumbar puncture. SURGEON/PHYSICIAN PERFORMING PROCEDURE: Dr. Maria A Gonzalez GRAD[employer] 7 AND 8 TEACHER: Dr. Beckie Pearce ANESTHESIA: 1% local lidocaine. SEDATION: 2 mg IV of Ativan VENTILATION: Oxygen via nasal cannula. ESTIMATED BLOOD LOSS: Minimal. The patient was given two units of fresh frozen plasma; international normalized ratio (INR) was measured to be 1.56 prior to the procedure. DESCRIPTION OF PROCEDURE: Patient was placed in the left lateral decubitus position with knees bent toward the abdomen and neck flexion towards the chest in position. Spinous process between L4-L5 was palpated and site was cleaned with Betadine three times, covered in the sterile usual manner. 1% local lidocaine was first given superficial, then deep. 2 mg of Ativan IV push was also given. A 20-gauge needle, which is smaller than the usually 18-gauge needle, was used checking for cerebrospinal fluid (CSF) return every millimeter, the needle was advanced slowly and CSF fluid was obtained. Opening pressure was measured at 11 cm, fluid was obtained measuring for CSF pressure after every tube of fluids, a total of around 7-8 milliliters of CSF fluids was taken. Closing pressure measured between 6-7 cm of water. Needle was removed. Given the low CSF pressure, no further fluid removal was obtained. Needle was removed, dressing was placed. The patient tolerated the procedure with no complications. During the process, Dr. Pearce was holding the pipette for measuring CSF fluid pressure.
[2016-11-22] VITALS (15 sets, daily range): BP systolic 94–148; BP diastolic 51–89
[2016-11-22] MEDS: MEROPENEM INJ 2 GM in NS 100 ML IV SCH ×3 (05:00→20:10)
[2016-11-22 05:21] LABS: BASO % 0.6 % (0.0-1.0); EOS # 0.2 K/mm3 (0.0-0.50); EOS % 4.8 % (0.0-3.0); LARGE UNSTAINED CELL # 0.1 K/mm3 (0.0-0.4); LARGE UNSTAINED CELL % 2.9 % (0.0-4.0); LYMPH # 0.6 K/mm3 (1.5-4.5); LYMPH % 16.7 % (24.0-44.0); MEAN CORPUSCULAR HEMOGLOBIN 32.8 pg (27.0-33.0); MEAN CORPUSCULAR VOLUME 99.4 fl (80.0-96.0); MONO # 0.3 K/mm3 (0.0-0.8); MONO % 7.2 % (0.0-5.0); NEUTROPHILS # 2.4 K/mm3 (1.8-7.7); NEUTROPHILS % 67.8 % (36.0-66.0); PLATELET COUNT, AUTOMATED 209 k/mm3 (150-450); RED CELL DISTRIBUTION WIDTH 16.2 % (11.5-14.5); WHITE BLOOD COUNT 3.5 K/mm3 (4.0-10.0)
[2016-11-22 05:33] LABS: INR 1.6
[2016-11-22 05:36] LABS: ALBUMIN 2.8 GM/DL (3.2-5.2); ALBUMIN/GLOBULIN RATIO 0.82 (1.00-1.93); ALKALINE PHOSPHATASE 91 U/L (45-117); ALT/SGPT 28 U/L (12-78); ANION GAP 8 MEQ/L (8-16); AST/SGOT 18 U/L (15-37); BILIRUBIN,TOTAL 0.4 MG/DL (0.2-1.0); BLOOD UREA NITROGEN 16 MG/DL (7-18); CALCIUM LEVEL 8.5 MG/DL (8.8-10.2); CARBON DIOXIDE LEVEL 25 MEQ/L (21-32); CHLORIDE LEVEL 108 MEQ/L (98-107); CREATININE FOR GFR 0.73 MG/DL (0.55-1.02); GLOMERULAR FILTRATION RATE > 60.0 (>45); GLUCOSE, FASTING 90 MG/DL (80-110); POTASSIUM SERUM 2.8 MEQ/L (3.5-5.1); SODIUM LEVEL 141 MEQ/L (136-145); TOTAL PROTEIN 6.2 GM/DL (6.4-8.2)
[2016-11-22] MEDS: VANCOMYCIN HCL 750 MG, VIAL MATE ADAPTER 1 EACH in D5W 250 ML IV SCH ×2 (06:00→08:17)
--- NOTE | 2016-11-22 06:16 | PHACANCOPD ---
PHARMACY VANCOMYCIN DOSING Pt Demographics Demographics Patient Age:66 , Weight:52.500 , Gender: female Adjusted Body Weight Date: 11/20/16, Adjusted Body Weight: Kg Events Past 24 Hours Events Past 24 Hours: NO: Dialysis, Diuretic Therapy, Change in CrCl, Fever, Elevation in WBC, Pending Diagnostics, Pending Procedures, Other Vancomycin Vancomycin Target Ranges: 15-20 mcg/ml Vancomycin Load Y/N: No Load Dose Date Time Vancomycin Load Dose: Date: Time: Vancomycin Dose Date: 11/22/16. Current Vancomycin Dose: [750MG Q24H] Intermittent Dosing?: No Labs Labs Item Value Date Time White Blood Count 3.5 K/mm3 L 11/22/16 0506 Creatinine 0.73 MG/DL 11/22/16 0506 Vancomycin Level Trough 21.8 UG/ML H 11/22/16 0506 Vital Signs Label Value Date Time Patient Temperature 98.8 degrees F 11/22/16 0401 Temperature Source Temporal 11/22/16 0401 Micro Microbiology 11/21/16 Fungal Smear, Received Pending 11/21/16 Fungal Culture, Received Pending 11/21/16 Gram Stain - Preliminary, Resulted 11/21/16 CSF Culture, Resulted Pending Creatinine Clearance Date:11/22/16. Creatinine Clearance: [37]. Pending Labs Trough - @0800 Assessment and Plan Maintaining Current Dose?: No Reason for dose change: Trough too high Pharmacist Note Pharmacist Note Date: 11/22/16. Pharmacist note:Trough of 21.8 is above target range. Dose reduced to 750mg q24h (0900). Trough ordered for 11/24 @0800. Will continue to monitor and make adjustments as needed. ANA CRISTINA HILL PHARMAC[facility] November 22, 2016 06:16
[2016-11-22] MEDS: KCL 20MEQ IN 100ML SWI (KRUN) 20 MEQ in APPROPRIATE DILUENT 1 EA IV SCH ×8 (06:18→22:33)
[2016-11-22] MEDS: IPRATROPIUM 0.5MG/ALBUTEROL 2.5MG INH SOL UD 3ML (DUONEB)(J7620) NEB SCH ×4 (07:33→19:17)
[2016-11-22] MEDS: AcetaZOLAMIDE 250 MG TAB PO SCH ×2 (08:16→20:09)
[2016-11-22] MEDS: LIDOCAINE 5% (LIDODERM) PATCH TD SCH (08:16)
[2016-11-22] MEDS: PANTOPRAZOLE 40MG TAB (PROTONIX) PO SCH (08:16)
[2016-11-22] MEDS: ACETAMINOPHEN TAB 650MG DOSE (2X325MG) PO PRN (10:37)
--- NOTE | 2016-11-22 10:52 | IPNPDOC ---
Subjective Date Seen The patient was seen on 11/22/16. Subjective Chief Complaint/HPI The patient is a 66-year-old female admitted with a reason for visit of ICH. Events since last encounter somewhat interactive - the president today is "[place]". No complaints of pain, nurses point out rash that developed overnight- have not note itching, facial swelling or breathing troubles General: Reports: ROS Unobtainable Objective Physical Examination General Exam: Positive: Cooperative, No Acute Distress Eye Exam: Negative: Sclera icteric ENT Exam: Positive: Mucous membr. moist/pink Chest Exam: Positive: Diminished, Negative: Rales, Rhonchi, Wheezing Heart Exam: Positive: Rate Normal, Normal S1, Normal S2 Abdomen Exam: Positive: Normal bowel sounds, Soft, Negative: Tenderness Skin Exam: Positive: Rash (faintly red, blanching, truncal, sparing palms and soles, not raised) Assessment /Plan Problems (1) Hydrocephalus Status: Acute Problem Specific Plan: Consult Specialist Problem Text: I discussed with Dr. Noble. unable to obtain tau amyloid due to small volume of fluid obtained Appreciate his note and management LP consistent with resolving infection, await cultures (2) Cerebral ventriculitis Status: Acute Problem Specific Plan: Consult Specialist Problem Text: Being followed by Dr. Benoit. We discussed in today, CSF tests ordered per her advice s/p healthcare associated infection Has rash- will use benadryl, before using steroids, rash is not petechial, platelet level normal I discussed with daughter at bedside (3) Hydrocephalus Status: Acute (4) CAD (coronary artery disease) of artery bypass graft Status: Chronic (5) Hyperthyroidism Status: Acute Problem Text: repeat TFTs still suggest hyperthyroidism continue tapazole could be affecting her mental status (6) Anemia Status: Acute (7) DVT prophylaxis (8) S/P mitral valve replacement Status: Chronic Problem Text: restarted coumadin, on heparin drip inr sub-therapeutic (9) HTN (hypertension) Status: Chronic (10) HLD (hyperlipidemia) Status: Chronic (11) Afib Status: Chronic Plan/VTE VTE Prophylaxis Ordered?: Yes VS, I&O, 24H, Fishbone Vital Signs/I&O Vital Signs Date Time Temp Pulse Resp B/P (MAP) Pulse Ox O2 Delivery O2 Flow Rate FiO2 11/22/16 08:01 98.7 83 18 146/82 (103) 96 Room Air 11/20/16 07:23 1.0 I&O- Last 24 Hours up to 6 AM 11/22/16 06:00 Intake Total 1427 ml Balance 1427 ml Laboratory Data 24H LABS Laboratory Tests 2 11/21/16 16:52: Prothrombin Time 18.8H, Prothromb Time International Ratio 1.56, Activated Partial Thromboplast Time 37.7H 11/21/16 18:44: CSF Appearance CLEAR, CSF Color PINKH, CSF WBC 20H, CSF RBC 145H, CSF Cell Count Tube # TUBE 4, CSF Neutrophils % 1.0H, CSF Lymphocytes % 92.0H, CSF Monocytes % 6.0H, CSF Eosinophils % 1.0H 11/21/16 18:46: CSF Appearance CLEAR, CSF Color PINKH, CSF WBC 23H, CSF RBC 441H, CSF Cell Count Tube # TUBE 1, CSF Neutrophils % 6.0H, CSF Lymphocytes % 86.0H, CSF Monocytes % 8.0H, CSF Eosinophils % 0.0, CSF Glucose (Tube 1) TUBE 2, CSF Total Protein (Tube 1) TUBE 2, CSF Glucose 56, CSF Total Protein 51.4H 11/22/16 00:58: Activated Partial Thromboplast Time 58.2H 11/22/16 05:05: Prothrombin Time 19.1H, Prothromb Time International Ratio 1.60, Activated Partial Thromboplast Time 73.0H 11/22/16 05:06: White Blood Count 3.5L, Red Blood Count 2.70L, Hemoglobin 8.8L, Hematocrit 26.8L , Mean Corpuscular Volume 99.4H, Mean Corpuscular Hemoglobin 32.8, Mean Corpuscular Hemoglobin Concent 33.0, Red Cell Distribution Width 16.2H, Platelet Count 209, Neutrophils (%) (Auto) 67.8H, Lymphocytes (%) (Auto) 16.7L, Monocytes (%) (Auto) 7.2H, Eosinophils (%) (Auto) 4.8H, Basophils (%) (Auto) 0.6 , Neutrophils # (Auto) 2.4, Lymphocytes # (Auto) 0.6L, Monocytes # (Auto) 0.3, Eosinophils # (Auto) 0.2, Basophils # (Auto) 0.0, Large Unclassified Cells % 2.9 , Large Unclassified Cells # 0.1, Anion Gap 8, Glomerular Filtration Rate > 60.0 , Blood Urea Nitrogen 16, Creatinine 0.73, Sodium Level 141, Potassium Level 2.8 *L, Chloride Level 108H, Carbon Dioxide Level 25, Calcium Level 8.5L, Aspartate Amino Transf (AST/SGOT) 18, Alanine Aminotransferase (ALT/SGPT) 28, Alkaline Phosphatase 91, Total Bilirubin 0.4, Total Protein 6.2L, Albumin 2.8L, Magnesium Level 2.0, Albumin/Globulin Ratio 0.82L, Vancomycin Level Trough 21.8H CBC/BMP Laboratory Tests 11/22/16 05:06 Red Blood Count 2.70 L, Mean Corpuscular Volume 99.4 H, Mean Corpuscular Hemoglobin 32.8, Mean Corpuscular Hemoglobin Concent 33.0, Red Cell Distribution Width 16.2 H, Neutrophils (%) (Auto) 67.8 H, Lymphocytes (%) (Auto ) 16.7 L, Monocytes (%) (Auto) 7.2 H, Eosinophils (%) (Auto) 4.8 H, Basophils (% ) (Auto) 0.6, Neutrophils # (Auto) 2.4, Lymphocytes # (Auto) 0.6 L, Monocytes # (Auto) 0.3, Eosinophils # (Auto) 0.2, Basophils # (Auto) 0.0, Calcium Level 8.5 L, Aspartate Amino Transf (AST/SGOT) 18, Alanine Aminotransferase (ALT/SGPT) 28 , Alkaline Phosphatase 91, Total Bilirubin 0.4, Total Protein 6.2 L, Albumin 2.8 L Microbiology Microbiology 11/21/16 Fungal Smear, Received Pending 11/21/16 Fungal Culture, Received Pending 11/21/16 Gram Stain - Preliminary, Resulted 11/21/16 CSF Culture, Resulted Pending MARY ANN GONZALEZ MD November 22, 2016 10:52
[2016-11-22] MEDS: diphenhydrAMINE INJ 50MG/ML VIAL (J1200) IV PRN ×2 (11:16→20:14)
[2016-11-22 13:11] LABS: INR 1.63
[2016-11-22] MEDS ORDERED: WARFARIN SOD 4 MG TAB PO SCH (17:00)
[2016-11-22] MEDS: ATORVASTATIN 20 MG TAB PO SCH (20:09)
[2016-11-22 20:40] LABS: ALBUMIN 2.8 GM/DL (3.2-5.2); ALKALINE PHOSPHATASE 92 U/L (45-117); ALT/SGPT 32 U/L (12-78); ANION GAP 7 MEQ/L (8-16); AST/SGOT 16 U/L (15-37); BILIRUBIN,TOTAL 0.4 MG/DL (0.2-1.0); BLOOD UREA NITROGEN 21 MG/DL (7-18); CALCIUM LEVEL 8.3 MG/DL (8.8-10.2); CARBON DIOXIDE LEVEL 24 MEQ/L (21-32); CHLORIDE LEVEL 110 MEQ/L (98-107); CREATININE FOR GFR 0.82 MG/DL (0.55-1.02); GLOMERULAR FILTRATION RATE > 60.0 (>45); GLUCOSE, FASTING 104 MG/DL (80-110); POTASSIUM SERUM 3.1 MEQ/L (3.5-5.1); SODIUM LEVEL 141 MEQ/L (136-145); TOTAL PROTEIN 5.9 GM/DL (6.4-8.2)
[2016-11-22] MEDS: **NOTE PATIENT COMMENT** MISC XX SCH (21:00)
[2016-11-23] VITALS: BP 117/59
[2016-11-23 02:00] VITALS: BP 147/75
[2016-11-23 03:50] LABS: BASO % 0.5 % (0.0-1.0); EOS # 0.2 K/mm3 (0.0-0.50); EOS % 3.4 % (0.0-3.0); LARGE UNSTAINED CELL # 0.1 K/mm3 (0.0-0.4); LARGE UNSTAINED CELL % 2.1 % (0.0-4.0); LYMPH # 0.9 K/mm3 (1.5-4.5); LYMPH % 14.7 % (24.0-44.0); MEAN CORPUSCULAR HEMOGLOBIN 32.8 pg (27.0-33.0); MEAN CORPUSCULAR HGB CONC 32.7 g/dl (32.0-36.5); MEAN CORPUSCULAR VOLUME 100.1 fl (80.0-96.0); MONO # 0.3 K/mm3 (0.0-0.8); MONO % 5.5 % (0.0-5.0); NEUTROPHILS # 3.8 K/mm3 (1.8-7.7); NEUTROPHILS % 73.8 % (36.0-66.0); PLATELET COUNT, AUTOMATED 212 k/mm3 (150-450); RED CELL DISTRIBUTION WIDTH 16.8 % (11.5-14.5); WHITE BLOOD COUNT 5.1 K/mm3 (4.0-10.0)
[2016-11-23 04:00] VITALS: BP 139/60
[2016-11-23 04:09] LABS: ALBUMIN 2.9 GM/DL (3.2-5.2); ALBUMIN/GLOBULIN RATIO 0.81 (1.00-1.93); ALKALINE PHOSPHATASE 90 U/L (45-117); ALT/SGPT 25 U/L (12-78); ANION GAP 6 MEQ/L (8-16); AST/SGOT 16 U/L (15-37); BILIRUBIN,TOTAL 0.5 MG/DL (0.2-1.0); BLOOD UREA NITROGEN 17 MG/DL (7-18); CALCIUM LEVEL 8.8 MG/DL (8.8-10.2); CARBON DIOXIDE LEVEL 23 MEQ/L (21-32); CHLORIDE LEVEL 112 MEQ/L (98-107); CREATININE FOR GFR 0.72 MG/DL (0.55-1.02); GLOMERULAR FILTRATION RATE > 60.0 (>45); GLUCOSE, FASTING 93 MG/DL (80-110); POTASSIUM SERUM 3.8 MEQ/L (3.5-5.1); SODIUM LEVEL 141 MEQ/L (136-145); TOTAL PROTEIN 6.5 GM/DL (6.4-8.2)
[2016-11-23 04:13] LABS: INR 1.5
[2016-11-23] MEDS: MEROPENEM INJ 2 GM in NS 100 ML IV SCH ×3 (04:54→21:19)
[2016-11-23] MEDS: IPRATROPIUM 0.5MG/ALBUTEROL 2.5MG INH SOL UD 3ML (DUONEB)(J7620) NEB SCH ×4 (07:09→19:28)
[2016-11-23 08:00] VITALS: BP 125/58
[2016-11-23] MEDS: LIDOCAINE 5% (LIDODERM) PATCH TD SCH (08:39)
[2016-11-23] MEDS: AcetaZOLAMIDE 250 MG TAB PO SCH ×2 (08:40→21:38)
[2016-11-23] MEDS: PANTOPRAZOLE 40MG TAB (PROTONIX) PO SCH (08:40)
[2016-11-23] MEDS: VANCOMYCIN HCL 750 MG, VIAL MATE ADAPTER 1 EACH in D5W 250 ML IV SCH (08:40)
[2016-11-23] MEDS: HEPARIN DRIP 25,000 UNITS in APPROPRIATE DILUENT 1 EA IV SCH (08:43)
--- NOTE | 2016-11-23 09:34 | IPNPDOC ---
Subjective Date Seen The patient was seen on 11/23/16. Subjective Chief Complaint/HPI The patient is a 66-year-old female admitted with a reason for visit of ICH. Events since last encounter Patient not particularly interact this morning - has waxing and waning verbal periods, no complaint of pain, has been taking some diet with assist General: Reports: ROS Unobtainable Objective Physical Examination General Exam: Positive: Cooperative, No Acute Distress Eye Exam: Negative: Sclera icteric ENT Exam: Positive: Mucous membr. moist/pink Chest Exam: Positive: Diminished, Negative: Wheezing Heart Exam: Positive: Rate Normal, Normal S1, Normal S2 Abdomen Exam: Positive: Normal bowel sounds, Soft, Negative: Tenderness Skin Exam: Positive: Rash (fading red, blanching, truncal, sparing palms and soles, not raised) Assessment /Plan Problems (1) Hydrocephalus Status: Acute Problem Specific Plan: Consult Specialist Problem Text: I discussed with Dr. Noble 11/22/16. unable to obtain tau amyloid due to small volume of fluid obtained Appreciate his management LP consistent with resolving infection, culture negative Will decrease frequency of neuro checks (2) Cerebral ventriculitis Status: Acute Problem Specific Plan: Consult Specialist Problem Text: Being followed by Dr. Benoit. We discussed in today, CSF tests ordered per her advice s/p healthcare associated infection Has rash- will use benadryl, before using steroids, rash is not petechial, platelet level normal- and improving I discussed with daughter at bedside 11/22/16 (3) Hydrocephalus Status: Acute Problem Specific Plan: Monitor Clinically (4) CAD (coronary artery disease) of artery bypass graft Status: Chronic (5) Hyperthyroidism Status: Acute Problem Text: repeat TFTs still suggest hyperthyroidism continue tapazole could be affecting her mental status (6) Anemia Status: Acute (7) DVT prophylaxis (8) S/P mitral valve replacement Status: Chronic Problem Text: restarted coumadin, on heparin drip inr sub-therapeutic (9) HTN (hypertension) Status: Chronic (10) HLD (hyperlipidemia) Status: Chronic (11) Afib Status: Chronic Plan/VTE VTE Prophylaxis Ordered?: Yes VS, I&O, 24H, Fishbone Vital Signs/I&O Vital Signs Date Time Temp Pulse Resp B/P (MAP) Pulse Ox O2 Delivery O2 Flow Rate FiO2 11/23/16 04:00 100.0 89 18 139/60 (86) 95 Room Air 11/20/16 07:23 1.0 I&O- Last 24 Hours up to 6 AM 11/23/16 05:59 Intake Total 1573 ml Balance 1573 ml Laboratory Data 24H LABS Laboratory Tests 2 11/22/16 12:53: Prothrombin Time 19.4H, Prothromb Time International Ratio 1.63, Activated Partial Thromboplast Time 48.2H 11/22/16 19:31: Activated Partial Thromboplast Time 171.1*H, Anion Gap 7L, Glomerular Filtration Rate > 60.0, Blood Urea Nitrogen 21H, Creatinine 0.82, Sodium Level 141, Potassium Level 3.1L, Chloride Level 110H, Carbon Dioxide Level 24, Calcium Level 8.3L, Aspartate Amino Transf (AST/SGOT) 16, Alanine Aminotransferase (ALT/SGPT) 32, Alkaline Phosphatase 92, Total Bilirubin 0.4, Total Protein 5.9L, Albumin 2.8L, Albumin/Globulin Ratio 0.90L 11/22/16 21:01: Activated Partial Thromboplast Time 137.9*H 11/23/16 03:34: Prothrombin Time 18.2H, Prothromb Time International Ratio 1.50, Activated Partial Thromboplast Time 71.1H, Anion Gap 6L, Glomerular Filtration Rate > 60.0 , Blood Urea Nitrogen 17, Creatinine 0.72, Sodium Level 141, Potassium Level 3.8 #, Chloride Level 112H, Carbon Dioxide Level 23, Calcium Level 8.8, Aspartate Amino Transf (AST/SGOT) 16, Alanine Aminotransferase (ALT/SGPT) 25, Alkaline Phosphatase 90, Total Bilirubin 0.5, Total Protein 6.5, Albumin 2.9L, Albumin/ Globulin Ratio 0.81L, White Blood Count 5.1, Red Blood Count 2.74L, Hemoglobin 9.0L, Hematocrit 27.5L, Mean Corpuscular Volume 100.1H, Mean Corpuscular Hemoglobin 32.8, Mean Corpuscular Hemoglobin Concent 32.7, Red Cell Distribution Width 16.8H, Platelet Count 212, Neutrophils (%) (Auto) 73.8H, Lymphocytes (%) (Auto) 14.7L, Monocytes (%) (Auto) 5.5H, Eosinophils (%) (Auto) 3.4H, Basophils (%) (Auto) 0.5, Neutrophils # (Auto) 3.8, Lymphocytes # (Auto) 0.9L, Monocytes # (Auto) 0.3, Eosinophils # (Auto) 0.2, Basophils # (Auto) 0.0, Large Unclassified Cells % 2.1, Large Unclassified Cells # 0.1 CBC/BMP Laboratory Tests 11/22/16 19:31 Calcium Level 8.3 L, Aspartate Amino Transf (AST/SGOT) 16, Alanine Aminotransferase (ALT/SGPT) 32, Alkaline Phosphatase 92, Total Bilirubin 0.4, Total Protein 5.9 L, Albumin 2.8 L 11/23/16 03:34 Calcium Level 8.8, Aspartate Amino Transf (AST/SGOT) 16, Alanine Aminotransferase (ALT/SGPT) 25, Alkaline Phosphatase 90, Total Bilirubin 0.5, Total Protein 6.5, Albumin 2.9 L, Red Blood Count 2.74 L, Mean Corpuscular Volume 100.1 H, Mean Corpuscular Hemoglobin 32.8, Mean Corpuscular Hemoglobin Concent 32.7, Red Cell Distribution Width 16.8 H, Neutrophils (%) (Auto) 73.8 H , Lymphocytes (%) (Auto) 14.7 L, Monocytes (%) (Auto) 5.5 H, Eosinophils (%) ( Auto) 3.4 H, Basophils (%) (Auto) 0.5, Neutrophils # (Auto) 3.8, Lymphocytes # ( Auto) 0.9 L, Monocytes # (Auto) 0.3, Eosinophils # (Auto) 0.2, Basophils # (Auto ) 0.0 Microbiology Microbiology 11/21/16 Fungal Smear, Received Pending 11/21/16 Fungal Culture, Received Pending 11/21/16 Gram Stain - Preliminary, Resulted 11/21/16 CSF Culture - Final, Resulted MARY ANN GONZALEZ MD November 23, 2016 09:34
[2016-11-23 12:00] VITALS: BP 107/56
[2016-11-23] MEDS ORDERED: LORazepam 2 MG/ML VIAL (J2060) IV STA (15:23)
[2016-11-23] MEDS: WARFARIN SOD 3 MG TAB PO SCH (17:59)
[2016-11-23 20:00] VITALS: BP 117/58
[2016-11-23] MEDS: **NOTE PATIENT COMMENT** MISC XX SCH (21:00)
[2016-11-23] MEDS: ATORVASTATIN 20 MG TAB PO SCH (21:39)
[2016-11-24] VITALS: BP 138/63
[2016-11-24 04:00] VITALS: BP 119/56
[2016-11-24 04:35] LABS: BASO % 0.7 % (0.0-1.0); EOS # 0.1 K/mm3 (0.0-0.50); EOS % 3.9 % (0.0-3.0); LARGE UNSTAINED CELL # 0.1 K/mm3 (0.0-0.4); LARGE UNSTAINED CELL % 3.6 % (0.0-4.0); LYMPH # 0.7 K/mm3 (1.5-4.5); LYMPH % 17.4 % (24.0-44.0); MEAN CORPUSCULAR HEMOGLOBIN 32.7 pg (27.0-33.0); MEAN CORPUSCULAR HGB CONC 32.5 g/dl (32.0-36.5); MEAN CORPUSCULAR VOLUME 100.7 fl (80.0-96.0); MONO # 0.2 K/mm3 (0.0-0.8); MONO % 7.1 % (0.0-5.0); NEUTROPHILS # 2.3 K/mm3 (1.8-7.7); NEUTROPHILS % 67.2 % (36.0-66.0); PLATELET COUNT, AUTOMATED 184 k/mm3 (150-450); RED CELL DISTRIBUTION WIDTH 17.1 % (11.5-14.5); WHITE BLOOD COUNT 3.4 K/mm3 (4.0-10.0)
[2016-11-24 04:41] LABS: INR 1.86
[2016-11-24 04:56] LABS: ALBUMIN 2.5 GM/DL (3.2-5.2); ALBUMIN/GLOBULIN RATIO 0.74 (1.00-1.93); ALKALINE PHOSPHATASE 82 U/L (45-117); ALT/SGPT 19 U/L (12-78); ANION GAP 7 MEQ/L (8-16); AST/SGOT 13 U/L (15-37); BILIRUBIN,TOTAL 0.4 MG/DL (0.2-1.0); BLOOD UREA NITROGEN 15 MG/DL (7-18); CALCIUM LEVEL 8.3 MG/DL (8.8-10.2); CARBON DIOXIDE LEVEL 23 MEQ/L (21-32); CHLORIDE LEVEL 112 MEQ/L (98-107); CREATININE FOR GFR 0.71 MG/DL (0.55-1.02); GLOMERULAR FILTRATION RATE > 60.0 (>45); GLUCOSE, FASTING 95 MG/DL (80-110); POTASSIUM SERUM 3.1 MEQ/L (3.5-5.1); SODIUM LEVEL 142 MEQ/L (136-145); TOTAL PROTEIN 5.9 GM/DL (6.4-8.2)
[2016-11-24] MEDS: MEROPENEM INJ 2 GM in NS 100 ML IV SCH ×3 (05:10→21:15)
[2016-11-24] MEDS: IPRATROPIUM 0.5MG/ALBUTEROL 2.5MG INH SOL UD 3ML (DUONEB)(J7620) NEB SCH ×4 (07:24→19:10)
[2016-11-24 08:00] VITALS: BP 127/60
[2016-11-24] MEDS ORDERED: KCL 20MEQ IN 100ML SWI (KRUN) 20 MEQ in APPROPRIATE DILUENT 1 EA IV ONE ×2 (08:00)
[2016-11-24] MEDS: LIDOCAINE 5% (LIDODERM) PATCH TD SCH (08:02)
[2016-11-24] MEDS: AcetaZOLAMIDE 250 MG TAB PO SCH ×2 (08:05→21:15)
[2016-11-24] MEDS: PANTOPRAZOLE 40MG TAB (PROTONIX) PO SCH (08:05)
[2016-11-24] MEDS: VANCOMYCIN HCL 750 MG, VIAL MATE ADAPTER 1 EACH in D5W 250 ML IV SCH (08:05)
[2016-11-24 12:00] VITALS: BP 119/56
--- NOTE | 2016-11-24 14:44 | IPNPDOC ---
Subjective Date Seen The patient was seen on 11/24/16. Subjective Chief Complaint/HPI The patient is a 66-year-old female admitted with a reason for visit of ICH. Events since last encounter waxing and waning mental status Intermittently aware of who the president is, tolerates diet with assistance no obvious distress or change according to staff General: Reports: ROS Unobtainable Objective Physical Examination General Exam: Positive: Cooperative, No Acute Distress, Negative: Alert Eye Exam: Negative: Sclera icteric ENT Exam: Positive: Mucous membr. moist/pink Chest Exam: Positive: Diminished, Negative: Wheezing Heart Exam: Positive: Rate Normal, Normal S1, Normal S2 Abdomen Exam: Positive: Normal bowel sounds, Soft, Negative: Tenderness Skin Exam: Negative: Rash Assessment /Plan Problems (1) Hydrocephalus Status: Acute Problem Specific Plan: Consult Specialist Problem Text: I discussed with Dr. Nolbe 11/22/16. unable to obtain tau amyloid due to small volume of fluid obtained Appreciate his management LP consistent with resolving infection, culture negative Will decrease frequency of neuro checks I discussed with Dr. Mclain, who will see in consult (2) Cerebral ventriculitis Status: Acute Problem Specific Plan: Consult Specialist Problem Text: Being followed by Dr. Benoit. We discussed in today, CSF tests ordered per her advice s/p healthcare associated infection Has rash- will use benadryl, before using steroids, rash is not petechial, platelet level normal- and improving I discussed with daughter in person 11/24/16 (3) Hydrocephalus Status: Acute Problem Specific Plan: Monitor Clinically (4) CAD (coronary artery disease) of artery bypass graft Status: Chronic (5) Hyperthyroidism Status: Acute Problem Text: repeat TFTs still suggest hyperthyroidism continue tapazole could be affecting her mental status (6) Anemia Status: Acute Problem Specific Plan: Repeat Labs Problem Text: developing, repeat labs (7) DVT prophylaxis (8) S/P mitral valve replacement Status: Chronic Problem Text: restarted coumadin at increased dosed from baseline, on heparin drip inr sub-therapeutic (9) HTN (hypertension) Status: Chronic (10) HLD (hyperlipidemia) Status: Chronic (11) Afib Status: Chronic Plan/VTE VTE Prophylaxis Ordered?: Yes VS, I&O, 24H, Fishbone Vital Signs/I&O Vital Signs Date Time Temp Pulse Resp B/P (MAP) Pulse Ox O2 Delivery O2 Flow Rate FiO2 11/24/16 12:00 98.5 82 18 119/56 (77) 98 Room Air 11/20/16 07:23 1.0 I&O- Last 24 Hours up to 6 AM 11/24/16 06:00 Intake Total 1041 ml Output Total 0 ml Balance 1041 ml Laboratory Data 24H LABS Laboratory Tests 2 11/24/16 04:10: White Blood Count 3.4L, Red Blood Count 2.43L, Hemoglobin 8.0L, Hematocrit 24.5L , Mean Corpuscular Volume 100.7H, Mean Corpuscular Hemoglobin 32.7, Mean Corpuscular Hemoglobin Concent 32.5, Red Cell Distribution Width 17.1H, Platelet Count 184, Neutrophils (%) (Auto) 67.2H, Lymphocytes (%) (Auto) 17.4L, Monocytes (%) (Auto) 7.1H, Eosinophils (%) (Auto) 3.9H, Basophils (%) (Auto) 0.7 , Neutrophils # (Auto) 2.3, Lymphocytes # (Auto) 0.7L, Monocytes # (Auto) 0.2, Eosinophils # (Auto) 0.1, Basophils # (Auto) 0.0, Large Unclassified Cells % 3.6 , Large Unclassified Cells # 0.1, Prothrombin Time 21.5H, Prothromb Time International Ratio 1.86, Activated Partial Thromboplast Time 131.3*H, Anion Gap 7L, Glomerular Filtration Rate > 60.0, Blood Urea Nitrogen 15, Creatinine 0.71, Sodium Level 142, Potassium Level 3.1L, Chloride Level 112H, Carbon Dioxide Level 23, Calcium Level 8.3L, Aspartate Amino Transf (AST/SGOT) 13L, Alanine Aminotransferase (ALT/SGPT) 19, Alkaline Phosphatase 82, Total Bilirubin 0.4, Total Protein 5.9L, Albumin 2.5L, Albumin/Globulin Ratio 0.74L 11/24/16 07:48: Vancomycin Level Trough 15.8 11/24/16 13:09: Activated Partial Thromboplast Time 67.6H CBC/BMP Laboratory Tests 11/24/16 04:10 Red Blood Count 2.43 L, Mean Corpuscular Volume 100.7 H, Mean Corpuscular Hemoglobin 32.7, Mean Corpuscular Hemoglobin Concent 32.5, Red Cell Distribution Width 17.1 H, Neutrophils (%) (Auto) 67.2 H, Lymphocytes (%) (Auto ) 17.4 L, Monocytes (%) (Auto) 7.1 H, Eosinophils (%) (Auto) 3.9 H, Basophils (% ) (Auto) 0.7, Neutrophils # (Auto) 2.3, Lymphocytes # (Auto) 0.7 L, Monocytes # (Auto) 0.2, Eosinophils # (Auto) 0.1, Basophils # (Auto) 0.0, Calcium Level 8.3 L, Aspartate Amino Transf (AST/SGOT) 13 L, Alanine Aminotransferase (ALT/SGPT) 19, Alkaline Phosphatase 82, Total Bilirubin 0.4, Total Protein 5.9 L, Albumin 2.5 L Microbiology Microbiology 11/21/16 Fungal Smear, Received Pending 11/21/16 Fungal Culture, Received Pending 11/21/16 Gram Stain - Final, Complete 11/21/16 CSF Culture - Final, Complete 11/23/16 Stool Occult Blood (PAPI) - Final, Complete MARY ANN GONZALEZ MD November 24, 2016 14:44
[2016-11-24 16:00] VITALS: BP 130/60
[2016-11-24] MEDS: WARFARIN SOD 3 MG TAB PO SCH (16:52)
[2016-11-24 20:00] VITALS: BP 118/59
[2016-11-24] MEDS: **NOTE PATIENT COMMENT** MISC XX SCH (21:00)
--- NOTE | 2016-11-24 21:12 | IPN ---
DATE: 11/24/2016 The patient is seen in the intensive care unit (ICU). She is more alert and at times would follow one step commands with confusion, would verbalize in one word phrases. Continues to show subtle right hemiparesis and her global aphasia continues to fluctuate. She has been afebrile. Laboratories noted. There are no new recommendations at this point. She remains borderline candidate for CSF diversion surgery once CSF remains sterile when she is off antibiotic for at least 72 hours, though preferably for a week.
[2016-11-24] MEDS: levETIRAcetam ORAL SOLUTION 500 MG/5 ML UDC PO SCH (21:15)
[2016-11-24] MEDS: ATORVASTATIN 20 MG TAB PO SCH (21:15)
[2016-11-25] VITALS (10 sets, daily range): BP systolic 105–135; BP diastolic 52–81
--- NOTE | 2016-11-25 00:11 | CR ---
DATE OF CONSULTATION: 11/24/2016 REQUESTING PROVIDER: Dr. Fausto Fung. REASON FOR CONSULTATION: Episodes of language dysfunction after intraventricular hemorrhage status post external ventricular drain (EVD) placement with infection and ventriculitis The patient is a 66-year-old female who initially presented to [facility] with unresponsiveness, found to have intraventricular extension, transferred to [facility] where she had a extraventricular drain placed. In the interval, the hemorrhage did resolve. The patient was found to have ventriculitis and was treated for an intraventricular infection. She remains on meropenem and vancomycin. She was at the rehabilitation floor at [facility] where she was having episodes of headache and nausea, vomiting. During the hospital stay the patient had cerebrospinal fluid (CSF) findings suggestive of improving and resolving intracerebral hemorrhage. The patient had a MRI of the brain without evidence of any ischemic stroke on 11/02/2016. Electroencephalogram (EEG) on 11/21/2016 revealed diffuse encephalopathy. The patient has significant atrophy of the brain as well as ventriculomegaly. The patient has not had any fluctuations in cognitive status over the last few days. For the most part, the patient is able to cooperate during examination, though she does appear to not follow commands at times. She sometimes stops responding to questions. She has waxing and waning cognitive functioning. She likely has an underlying baseline dementia. Her baseline cognitive status unknown at this time. The patient was thought to possibly be having seizures by treating neurosurgeon, Dr. Juanita Noble. Empirically, Keppra was started 500 mg by mouth twice a day. While on Keppra, there has been no change in her cognitive status. EEG is planned for tomorrow. Presently, the patient does not demonstrate any signs of an ongoing infection and will continue antibiotics at the discretion of infectious disease. The patient herself denies any headache, nausea, vomiting at present time. She denies any focal weakness of the arms or legs. After the EVD was placed, the patient was documented to have right-sided hemiparesis with dysphasia. PAST MEDICAL HISTORY: 1. Mitral valve replacement. 2. Congestive heart failure. 3. Atrial fibrillation on Coumadin. 4. Left bundle branch block. 5. Hyperlipidemia. 6. History of intraventricular hemorrhage. 7. Hydrocephalus status post external ventricular peritoneal shunt, removed on 11/11/2016. 8. Hospital-acquired ventriculitis, on vancomycin and hypothyroidism. 9. Hypothyroidism. PAST SURGICAL HISTORY: 1. Mitral valve replacement. 2. Ventriculoperitoneal shunt placement. 3. Removal of coronary artery bypass graft. FAMILY HISTORY: Noncontributory. SOCIAL HISTORY: The patient lives with her in [place], [place]. She has six children. She does not smoke or use illicit drugs. MEDICATIONS DURING THIS ADMISSION: - Diamox 500 mg by mouth twice a day - meropenem 2 grams IV every 8 hours - vancomycin 650 mg every 18 hours - Zofran - hydrochlorothiazide 12.5 mg - Protonix 40 mg by mouth daily - multivitamin by mouth daily - Norvasc 10 mg by mouth daily - atorvastatin 40 mg by mouth daily - lisinopril 10 mg by mouth daily - methimazole 5 mg by mouth daily - Lidocaine patch topically daily - Colace 100 mg by mouth twice a day - trazodone 100 mg by mouth at bedtime - Lidoderm patch - Coreg 25 mg by mouth twice a day - heparin through IV flush - codeine for pain as needed - DuoNeb - albuterol - MiraLax - Fleet enema - Milk of Magnesia - Tylenol as needed REVIEW OF SYSTEMS: A 14-point review of systems obtained is negative except as per history of present illness (HPI), although limited due to the patient's current cognitive status. FAMILY HISTORY: Noncontributory. PHYSICAL EXAMINATION: Temperature 98.9 degrees Fahrenheit, oxygenation 98% on room air, pulse rate 83, respiratory rate is 20, blood pressure 130/60. The patient is oriented to her name and hospital, but cannot state which particular hospital she is in. Pupils are 2.5 mm round, reactive to light. Extraocular movements are observed to be intact in all directions. Sensation V1, V2, V3 is intact to light touch. Facial symmetry is preserved on activation. Tongue is midline. Hearing subjectively equal to finger rub. Palate elevates symmetrically. Patient does not fully cooperate for coordination testing or strength testing, but she demonstrates equal movements of the arms and legs with adequate, at minimum, 4+ strength bilaterally. Deep tendon reflexes are 3 throughout with 4 at the left ankle, with nonsustained clonus. Babinski signs are absent. Positive Cui sign. Negative jaw jerk. Sensory is intact to light touch in all four extremities. Gait deferred. Patient demonstrates restlessness with constant movements of the upper extremities with repetitive deep breaths at times. This could be described as fidgeting. She is able to suppress the abnormal movements which resemble tics. ASSESSMENT: A 66-year-old female with probable baseline dementia with inability to speak fluently, often answering questions with one-word answers with preserved repetition. The patient is less likely to be having intermittent seizures, provoking her episodes of speech arrest. At times, she is able to repeat full sentences and answer questions describing names of objects and their function appropriately, and at time, she silently looks blankly at me after asking questions. As per nursing staff and treating physicians, this has been her baseline state since she has been in the intensive care unit (ICU). It is unclear if these findings are a result of the external ventricular drain (EVD) placement, which was placed in the left cerebral hemisphere. PLAN: 1. Continue with Keppra 500 mg liquid formation by mouth twice a day. 2. Obtain an electroencephalogram (EEG). 3. Continue treatment for ventriculitis as per infectious disease. 4. Recommend to have the patient speak and answer questions during the EEG ascertain any correlation with seizures and speech arrest.
[2016-11-25] MEDS ORDERED: HEPARIN 25,000 UNITS/250 ML D5W BAG (100 UNITS/ML) As Ordered ONE (03:49)
[2016-11-25] MEDS: HEPARIN DRIP 25,000 UNITS in APPROPRIATE DILUENT 1 EA IV SCH (03:55)
[2016-11-25 04:58] LABS: BASO % 0.7 % (0.0-1.0); EOS # 0.1 K/mm3 (0.0-0.50); EOS % 4.8 % (0.0-3.0); LARGE UNSTAINED CELL # 0.1 K/mm3 (0.0-0.4); LARGE UNSTAINED CELL % 3.7 % (0.0-4.0); LYMPH # 0.7 K/mm3 (1.5-4.5); LYMPH % 19.9 % (24.0-44.0); MEAN CORPUSCULAR HEMOGLOBIN 33.4 pg (27.0-33.0); MEAN CORPUSCULAR HGB CONC 33.3 g/dl (32.0-36.5); MEAN CORPUSCULAR VOLUME 100.2 fl (80.0-96.0); MONO # 0.2 K/mm3 (0.0-0.8); NEUTROPHILS # 1.9 K/mm3 (1.8-7.7); NEUTROPHILS % 63.9 % (36.0-66.0); PLATELET COUNT, AUTOMATED 183 k/mm3 (150-450); RED CELL DISTRIBUTION WIDTH 16.9 % (11.5-14.5)
[2016-11-25 05:06] LABS: INR 3.09
[2016-11-25] MEDS: MEROPENEM INJ 2 GM in NS 100 ML IV SCH ×3 (05:11→21:14)
[2016-11-25 05:16] LABS: ALBUMIN 2.5 GM/DL (3.2-5.2); ALBUMIN/GLOBULIN RATIO 0.76 (1.00-1.93); ALKALINE PHOSPHATASE 79 U/L (45-117); ALT/SGPT 20 U/L (12-78); ANION GAP 7 MEQ/L (8-16); AST/SGOT 13 U/L (15-37); BILIRUBIN,TOTAL 0.4 MG/DL (0.2-1.0); BLOOD UREA NITROGEN 17 MG/DL (7-18); CALCIUM LEVEL 8.5 MG/DL (8.8-10.2); CARBON DIOXIDE LEVEL 23 MEQ/L (21-32); CHLORIDE LEVEL 114 MEQ/L (98-107); CREATININE FOR GFR 0.68 MG/DL (0.55-1.02); GLOMERULAR FILTRATION RATE > 60.0 (>45); GLUCOSE, FASTING 95 MG/DL (80-110); POTASSIUM SERUM 3.2 MEQ/L (3.5-5.1); SODIUM LEVEL 144 MEQ/L (136-145); TOTAL PROTEIN 5.8 GM/DL (6.4-8.2)
[2016-11-25] MEDS: IPRATROPIUM 0.5MG/ALBUTEROL 2.5MG INH SOL UD 3ML (DUONEB)(J7620) NEB SCH ×4 (07:25→19:28)
[2016-11-25] MEDS ORDERED: POTASSIUM CHLORIDE 10 MEQ SR TABLET PO ONE (08:15)
[2016-11-25] MEDS: AcetaZOLAMIDE 250 MG TAB PO SCH ×2 (09:15→21:14)
[2016-11-25] MEDS: PANTOPRAZOLE 40MG TAB (PROTONIX) PO SCH (09:16)
[2016-11-25] MEDS: levETIRAcetam ORAL SOLUTION 500 MG/5 ML UDC PO SCH ×2 (09:16→21:14)
[2016-11-25] MEDS: VANCOMYCIN HCL 750 MG, VIAL MATE ADAPTER 1 EACH in D5W 250 ML IV SCH (09:16)
[2016-11-25] MEDS: LIDOCAINE 5% (LIDODERM) PATCH TD SCH (09:17)
--- NOTE | 2016-11-25 09:21 | REP ---
MR BRAIN WITHOUT CONTRAST: HISTORY: Mental status change. COMPARISON: CT 11/21/2016 The examination is incomplete as only axial T2-weighted images were obtained. Small areas of increased signal intensity on T2-weighted images are present in the cerebellum. These represent old infarctions. Areas of increased signal intensity on T2-weighted images are present in the periventricular and subcortical white matter. This represents small vessel ischemic disease. There is no intraparenchymal hemorrhage, mass or midline shift. There is dilatation of the ventricular system consistent with moderate hydrocephalus unchanged compared to the previous study. There is dilatation of the cortical sulci consistent with mild volume loss. There is no extracerebral collection. IMPRESSION: Incomplete examination demonstrating no intraparenchymal hemorrhage, mass, or midline shift. There is moderate hydrocephalus. An addendum will be added if the patient returns to complete the examination. Signed by Shade Li MD 11/25/2016 09:27 A
[2016-11-25] MEDS: PANTOPRAZOLE 40MG INJ (PROTONIX) (C9113) IV SCH (11:55)
--- NOTE | 2016-11-25 14:48 | IPNPDOC ---
Subjective Date Seen The patient was seen on 11/25/16. Subjective Chief Complaint/HPI The patient is a 66-year-old female admitted with a reason for visit of ICH. Other systems Unable to obtain 2/ patient's clinical condition Objective Physical Examination General Exam: Positive: Cooperative, No Acute Distress, Negative: Alert Eye Exam: Negative: Sclera icteric ENT Exam: Positive: Mucous membr. moist/pink Chest Exam: Positive: Diminished, Negative: Wheezing Heart Exam: Positive: Rate Normal, Normal S1, Normal S2 Abdomen Exam: Positive: Normal bowel sounds, Soft, Negative: Tenderness Skin Exam: Negative: Rash Assessment /Plan Problems (1) Hydrocephalus Status: Acute Response to Treatment: Stable Problem Specific Plan: Consult Specialist Problem Text: Patient's mentation, neurologic status has remained stable over the weekend as per reports from bedside nursing MRI of the Brain unable to be obtained over the weekend 07/31 patient's clinical condition I discussed with Dr. Noble 11/25/16--We will attempt to drain 30-40 cc's of CSF later this week LP consistent with resolving infection, culture negative-->Discussed with Dr. Benoit of ID, the patient is set to complete 14 days of IV Abx therapy tonight Dr. Mclain of neurology on board--appreciate his input Will follow up with Recommendations from [facility] pending LP drainage of 30-40cc' s and CSF studies later this week (2) Cerebral ventriculitis Status: Acute Response to Treatment: Improving Problem Specific Plan: Consult Specialist Problem Text: Being followed by Dr. Benoit-->We discussed the case today, patient set to complete 14 day trial of Vanco/Meropenem today Patient has been afebrile, with a normal WBC here (3) Hydrocephalus Status: Acute Problem Specific Plan: Monitor Clinically Problem Text: Will follow up with [facility] for possible CSF diversion procedure in the future pending clinical improvement. (4) CAD (coronary artery disease) of artery bypass graft Status: Chronic (5) Hyperthyroidism Status: Acute Problem Text: Continue Methimazole (6) Anemia Status: Acute Problem Specific Plan: Repeat Labs Problem Text: 1 Unit of PRBC's ordered Stool occult negative No overt source of bleeding identified (7) S/P mitral valve replacement Status: Chronic Problem Text: INR therapeutic, Cont Coumadin (8) HTN (hypertension) Status: Chronic (9) HLD (hyperlipidemia) Status: Chronic Problem Text: Cont Statin (10) Afib Status: Chronic Problem Text: Rate controlled, cont Coumadin (11) DVT prophylaxis Response to Treatment: Stable Problem Text: On Coumadin Plan/VTE VTE Prophylaxis Ordered?: Yes VS, I&O, 24H, Fishbone Vital Signs/I&O Vital Signs Date Time Temp Pulse Resp B/P (MAP) Pulse Ox O2 Delivery O2 Flow Rate FiO2 11/25/16 13:00 74 127/58 (81) 98 11/25/16 11:40 98.4 20 Room Air 11/20/16 07:23 1.0 I&O- Last 24 Hours up to 6 AM 11/25/16 06:00 Intake Total 709 ml Balance 709 ml Laboratory Data 24H LABS Laboratory Tests 2 11/24/16 19:12: Activated Partial Thromboplast Time 62.1H 11/25/16 02:31: Activated Partial Thromboplast Time 105.1H 11/25/16 04:42: White Blood Count 3.0L, Red Blood Count 2.44L, Hemoglobin 8.1L, Hematocrit 24.4L , Mean Corpuscular Volume 100.2H, Mean Corpuscular Hemoglobin 33.4H, Mean Corpuscular Hemoglobin Concent 33.3, Red Cell Distribution Width 16.9H, Platelet Count 183, Neutrophils (%) (Auto) 63.9, Lymphocytes (%) (Auto) 19.9L, Monocytes (%) (Auto) 7.0H, Eosinophils (%) (Auto) 4.8H, Basophils (%) (Auto) 0.7 , Neutrophils # (Auto) 1.9, Lymphocytes # (Auto) 0.7L, Monocytes # (Auto) 0.2, Eosinophils # (Auto) 0.1, Basophils # (Auto) 0.0, Large Unclassified Cells % 3.7 , Large Unclassified Cells # 0.1, Prothrombin Time 31.9H, Prothromb Time International Ratio 3.09, Anion Gap 7L, Glomerular Filtration Rate > 60.0, Blood Urea Nitrogen 17, Creatinine 0.68, Sodium Level 144, Potassium Level 3.2L , Chloride Level 114H, Carbon Dioxide Level 23, Calcium Level 8.5L, Aspartate Amino Transf (AST/SGOT) 13L, Alanine Aminotransferase (ALT/SGPT) 20, Alkaline Phosphatase 79, Total Bilirubin 0.4, Total Protein 5.8L, Albumin 2.5L, Albumin/ Globulin Ratio 0.76L 11/25/16 08:51: Activated Partial Thromboplast Time 60.4H CBC/BMP Laboratory Tests 11/25/16 04:42 Red Blood Count 2.44 L, Mean Corpuscular Volume 100.2 H, Mean Corpuscular Hemoglobin 33.4 H, Mean Corpuscular Hemoglobin Concent 33.3, Red Cell Distribution Width 16.9 H, Neutrophils (%) (Auto) 63.9, Lymphocytes (%) (Auto) 19.9 L, Monocytes (%) (Auto) 7.0 H, Eosinophils (%) (Auto) 4.8 H, Basophils (%) (Auto) 0.7, Neutrophils # (Auto) 1.9, Lymphocytes # (Auto) 0.7 L, Monocytes # ( Auto) 0.2, Eosinophils # (Auto) 0.1, Basophils # (Auto) 0.0, Calcium Level 8.5 L , Aspartate Amino Transf (AST/SGOT) 13 L, Alanine Aminotransferase (ALT/SGPT) 20 , Alkaline Phosphatase 79, Total Bilirubin 0.4, Total Protein 5.8 L, Albumin 2.5 L Microbiology Microbiology 11/21/16 Fungal Smear, Received Pending 11/21/16 Fungal Culture, Received Pending 11/21/16 Gram Stain - Final, Complete 11/21/16 CSF Culture - Final, Complete 11/23/16 Stool Occult Blood (PAPI) - Final, Complete ISABELLA KAY MD November 25, 2016 14:48
[2016-11-25] MEDS ORDERED: WARFARIN SOD 3 MG TAB PO SCH (17:00)
--- NOTE | 2016-11-25 17:54 | IPN ---
DATE: 11/25/2016 Nayla is still in the ICU. She is doing fairly well. She has a low grade temperature on 11/23/2016 of 100, but since then she has been afebrile. She has had no nausea, vomiting, diarrhea, headache. She is not very verbal but is able to say yes and no when asked questions. LABORATORY DATA: White count is 3, hemoglobin 8.1, hematocrit 24.4, platelets 183. Sodium 144, potassium 3.2, chloride 114, bicarbonate 23, BUN 17, creatinine 0.68, glucose 95, AST 13, ALT 20, albumin 2.5. Lumbar puncture done on 11/21/2016, had only 23 white cells, 441 red cells with 86% lymphocytes, 8% monocyte and total protein of 51, this is a marked improvement compared to lumbar puncture done in [place] on 11/11/2016. Cerebrospinal (CSF) Gram stain and culture were negative. Fungal smear and culture are pending. IMPRESSION: 1. Hospital-acquired ventriculitis status post external ventricular device that has been removed. The patient is supposed to finish treatment with IV vancomycin and meropenem on 11/25/2016, which tonight would be her last dose, these could be discontinued tomorrow. 2. 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 If the patient needs a ventriculoperitoneal (BEEF BONER) shunt would repeat lumbar puncture later this week, by Thursday or next Thursday, and if cerebrospinal (CSF) cell count continues to decrease and total protein is improved and culture is negative off antibiotics for 72 hours then the patient could have a BEEF BONER shunt.
[2016-11-25 19:15] LABS: MEAN CORPUSCULAR HEMOGLOBIN 32.5 pg (27.0-33.0); MEAN CORPUSCULAR HGB CONC 33.4 g/dl (32.0-36.5); MEAN CORPUSCULAR VOLUME 97.2 fl (80.0-96.0); RED CELL DISTRIBUTION WIDTH 16.8 % (11.5-14.5); WHITE BLOOD COUNT 3.4 K/mm3 (4.0-10.0)
[2016-11-25] MEDS: ACETAMINOPHEN TAB 650MG DOSE (2X325MG) PO PRN (19:20)
[2016-11-25] MEDS: **NOTE PATIENT COMMENT** MISC XX SCH (21:00)
[2016-11-25] MEDS: ATORVASTATIN 20 MG TAB PO SCH (21:14)
[2016-11-26] VITALS (32 sets, daily range): BP systolic 62–187; BP diastolic 39–81
[2016-11-26 04:43] LABS: BASO % 0.9 % (0.0-1.0); EOS # 0.2 K/mm3 (0.0-0.50); EOS % 5.6 % (0.0-3.0); LARGE UNSTAINED CELL # 0.1 K/mm3 (0.0-0.4); LARGE UNSTAINED CELL % 3.6 % (0.0-4.0); LYMPH # 0.7 K/mm3 (1.5-4.5); LYMPH % 19.8 % (24.0-44.0); MEAN CORPUSCULAR HGB CONC 32.8 g/dl (32.0-36.5); MEAN CORPUSCULAR VOLUME 97.6 fl (80.0-96.0); MONO # 0.2 K/mm3 (0.0-0.8); NEUTROPHILS # 1.8 K/mm3 (1.8-7.7); NEUTROPHILS % 62.1 % (36.0-66.0); PLATELET COUNT, AUTOMATED 165 k/mm3 (150-450); RED CELL DISTRIBUTION WIDTH 16.9 % (11.5-14.5)
[2016-11-26 04:44] LABS: ADD MORPHOLOGY? NO
[2016-11-26 04:46] LABS: INR 3.69
[2016-11-26 05:01] LABS: ALBUMIN 2.5 GM/DL (3.2-5.2); ALBUMIN/GLOBULIN RATIO 0.76 (1.00-1.93); ALKALINE PHOSPHATASE 88 U/L (45-117); ALT/SGPT 19 U/L (12-78); ANION GAP 9 MEQ/L (8-16); AST/SGOT 12 U/L (15-37); BILIRUBIN,TOTAL 0.5 MG/DL (0.2-1.0); BLOOD UREA NITROGEN 14 MG/DL (7-18); CALCIUM LEVEL 8.2 MG/DL (8.8-10.2); CARBON DIOXIDE LEVEL 20 MEQ/L (21-32); CHLORIDE LEVEL 116 MEQ/L (98-107); CREATININE FOR GFR 0.72 MG/DL (0.55-1.02); GLOMERULAR FILTRATION RATE > 60.0 (>45); GLUCOSE, FASTING 95 MG/DL (80-110); POTASSIUM SERUM 3.4 MEQ/L (3.5-5.1); SODIUM LEVEL 145 MEQ/L (136-145); TOTAL PROTEIN 5.8 GM/DL (6.4-8.2)
[2016-11-26] MEDS ORDERED: POTASSIUM CHLORIDE 10 MEQ SR TABLET PO ONE (07:30)
[2016-11-26] MEDS: levETIRAcetam ORAL SOLUTION 500 MG/5 ML UDC PO SCH ×2 (07:51→21:12)
[2016-11-26] MEDS: PANTOPRAZOLE 40MG INJ (PROTONIX) (C9113) IV SCH (07:51)
[2016-11-26] MEDS: AcetaZOLAMIDE 250 MG TAB PO SCH (07:52)
[2016-11-26] MEDS: LIDOCAINE 5% (LIDODERM) PATCH TD SCH (07:53)
[2016-11-26] MEDS: IPRATROPIUM 0.5MG/ALBUTEROL 2.5MG INH SOL UD 3ML (DUONEB)(J7620) NEB SCH ×4 (08:00→19:22)
[2016-11-26] MEDS ORDERED: PHYTONADIONE INJection 5 MG in NS 50 ML IV ONE ×2 (11:30→13:00)
--- NOTE | 2016-11-26 11:42 | IPNPDOC ---
Subjective Date Seen The patient was seen on 11/26/16. Subjective Chief Complaint/HPI The patient is a 66-year-old female admitted with a reason for visit of ICH. Other systems Unable to reliably assess secondary to patient's clinical condition. However denies any acute complaints at this time. Objective Physical Examination General Exam: Positive: Cooperative, No Acute Distress, Negative: Alert Eye Exam: Negative: Sclera icteric ENT Exam: Positive: Mucous membr. moist/pink Chest Exam: Positive: Diminished, Negative: Wheezing Heart Exam: Positive: Rate Normal, Normal S1, Normal S2 Abdomen Exam: Positive: Normal bowel sounds, Soft, Negative: Tenderness Extremity Exam: Negative: Tenderness, Swelling Skin Exam: Negative: Rash Assessment /Plan Problems (1) Hydrocephalus Status: Acute Response to Treatment: Stable Problem Specific Plan: Consult Specialist Problem Text: Patient's mentation, neurologic status has remained stable, and the patient is able to answer questions such as orientation to person, place, and date at this time MRI of the Brain unable to be fully obtained over the weekend 07/31 patient's clinical condition I discussed with Dr. Noble 11/25/16--We will attempt to drain 30-40 cc's of CSF on Thursday11/28/16 while the patient is off antibiotics LP consistent with resolving infection, culture negative from 11/21-->Discussed with Dr. Benoit of ID, the patient has completed 14 days of IV Abx therapy, will f /u CSF studies Dr. Steel of neurology on board--appreciate his input Will follow up with Recommendations from [facility] for possible CSF Diversion pending LP drainage of 30-40cc's and CSF studies later this week (2) Cerebral ventriculitis Status: Acute Response to Treatment: Improving Problem Specific Plan: Consult Specialist Problem Text: s/p completion of 14 days of IV Abx therapy Patient has been afebrile, with a normal WBC here Will repeat CSF studies on 11/28/16 ID on board (3) CAD (coronary artery disease) of artery bypass graft Status: Chronic (4) Hyperthyroidism Status: Acute Problem Text: Continue Methimazole (5) Anemia Status: Chronic Response to Treatment: Stable Problem Specific Plan: Repeat Labs Problem Text: s/p 1 Unit of PRBC's transfusion on 11/25/16 Stool occult negative No overt source of bleeding identified (6) S/P mitral valve replacement Status: Chronic Problem Text: INR supra-therapeutic at 3.7 today, Coumadin held Vitamin K ordered to reduce INR to below 2 to have procedure done on Tuesday 11/28 (7) HTN (hypertension) Status: Chronic (8) HLD (hyperlipidemia) Status: Chronic Problem Text: Cont Statin (9) Afib Status: Chronic Problem Text: Rate controlled, on Coumadin (INR supratherapeutic at this time, patient will be receiving Vit K today to reverse INR to <2 in order to have LP done on 11/28) (10) DVT prophylaxis Response to Treatment: Stable Problem Text: On Coumadin with INR supratherapeutic at this time Plan/VTE VTE Prophylaxis Ordered?: Yes VS, I&O, 24H, Fishbone Vital Signs/I&O Vital Signs Date Time Temp Pulse Resp B/P (MAP) Pulse Ox O2 Delivery O2 Flow Rate FiO2 11/26/16 11:12 76 11/26/16 08:00 98.7 18 127/67 (87) 96 Room Air 11/20/16 07:23 1.0 I&O- Last 24 Hours up to 6 AM 11/26/16 06:00 Intake Total 555 ml Output Total 0 ml Balance 555 ml Laboratory Data 24H LABS Laboratory Tests 2 11/26/16 04:24: White Blood Count 3.0L, Red Blood Count 3.10L, Hemoglobin 9.9L, Hematocrit 30.2L , Mean Corpuscular Volume 97.6H, Mean Corpuscular Hemoglobin 32.0, Mean Corpuscular Hemoglobin Concent 32.8, Red Cell Distribution Width 16.9H, Platelet Count 165, Neutrophils (%) (Auto) 62.1, Lymphocytes (%) (Auto) 19.8L, Monocytes (%) (Auto) 8.0H, Eosinophils (%) (Auto) 5.6H, Basophils (%) (Auto) 0.9 , Neutrophils # (Auto) 1.8, Lymphocytes # (Auto) 0.7L, Monocytes # (Auto) 0.2, Eosinophils # (Auto) 0.2, Basophils # (Auto) 0.0, Large Unclassified Cells % 3.6 , Large Unclassified Cells # 0.1, Prothrombin Time 36.6H, Prothromb Time International Ratio 3.69, Anion Gap 9, Glomerular Filtration Rate > 60.0, Blood Urea Nitrogen 14, Creatinine 0.72, Sodium Level 145, Potassium Level 3.4L, Chloride Level 116H, Carbon Dioxide Level 20L, Calcium Level 8.2L, Aspartate Amino Transf (AST/SGOT) 12L, Alanine Aminotransferase (ALT/SGPT) 19, Alkaline Phosphatase 88, Total Bilirubin 0.5, Total Protein 5.8L, Albumin 2.5L, Albumin/ Globulin Ratio 0.76L CBC/BMP Laboratory Tests 11/25/16 18:57 Red Blood Count 3.06 L, Mean Corpuscular Volume 97.2 H, Mean Corpuscular Hemoglobin 32.5, Mean Corpuscular Hemoglobin Concent 33.4, Red Cell Distribution Width 16.8 H 11/26/16 04:24 Red Blood Count 3.10 L, Mean Corpuscular Volume 97.6 H, Mean Corpuscular Hemoglobin 32.0, Mean Corpuscular Hemoglobin Concent 32.8, Red Cell Distribution Width 16.9 H, Neutrophils (%) (Auto) 62.1, Lymphocytes (%) (Auto) 19.8 L, Monocytes (%) (Auto) 8.0 H, Eosinophils (%) (Auto) 5.6 H, Basophils (%) (Auto) 0.9, Neutrophils # (Auto) 1.8, Lymphocytes # (Auto) 0.7 L, Monocytes # ( Auto) 0.2, Eosinophils # (Auto) 0.2, Basophils # (Auto) 0.0, Calcium Level 8.2 L , Aspartate Amino Transf (AST/SGOT) 12 L, Alanine Aminotransferase (ALT/SGPT) 19 , Alkaline Phosphatase 88, Total Bilirubin 0.5, Total Protein 5.8 L, Albumin 2.5 L Microbiology Microbiology 11/21/16 Fungal Smear, Received Pending 11/21/16 Fungal Culture, Received Pending 11/21/16 Gram Stain - Final, Complete 11/21/16 CSF Culture - Final, Complete 11/23/16 Stool Occult Blood (PAPI) - Final, Complete ISABELLA KAY MD November 26, 2016 11:42
[2016-11-26 13:44] LABS: ABG BASE EXCESS -10.6 (-2.0-2.0); ABG DEVICE NONREBREATH; ABG PARTIAL PRESSURE CO2 37.9 mmHg (35.0-45.0); ABG PARTIAL PRESSURE O2 365.2 mmHg (75.0-100.0); ABG TOTAL CO2 17.1 MEQ/L (23.0-31.0)
[2016-11-26] MEDS ORDERED: NOREPINEPHRINE 4 MG/4 ML AMP As Ordered ONE (13:46)
[2016-11-26 13:47] LABS: ABG pH (ARTERIAL) 7.242 UNITS (7.350-7.450)
[2016-11-26] MEDS ORDERED: NOREPINEPHRINE BITARTRATE 16 MG in D5W 500 ML IV SCH (14:15)
[2016-11-26] MEDS ORDERED: ATROPINE SULF 1MG/10ML SYRINGE (J0461) IV STA (14:16)
[2016-11-26] MEDS ORDERED: NOREPINEPHRINE BITARTRATE 8 MG in D5W 500 ML IV SCH ×2 (14:30→14:45)
--- NOTE | 2016-11-26 14:48 | IPNPDOC ---
Text Note Date of Service The patient was seen on 11/26/16. NOTE Max Cart Called at Approximately 1:06 pm The patient was noted to become unresponsive, bradycardic with a heart rate in the 40s, and hypoxic with an O2 Saturation in the 80s by the bedside nursing staff. The patient was found to be pulseless with electrical activity (Sinus Bradycardia), and ACLS protocol was initiated. The patient was given 1 round of Epinephrine and 2 doses of Atropine total and the patient did have a return of spontaneous circulation and breathing. The code lasted approximately 4 minutes. Please refer to the code sheet for further details. The patient did open her eyes and track with verbal stimuli, however did not follow any commands and remained non-verbal. The patient was given IVF Hydration and started on Levophed to achieve hemodynamic stability as the patient's blood pressures were recorded to be low. We will get a CT Scan of the Head to evaluate for any neurologic etiology as the patient does have a recent history of Intracranial Ventricular Hemorrhage, Hydrocephalus and is currently on Coumadin for a Mechanical Mitral Valve. I did update Dr. Noble about the aforementioned events, and he agrees with a CT Scan of the Head at this time. The patient's and daughter were updated in the waiting area by myself. VS,Harman, I+O VS, Harman, I+O Laboratory Tests 11/25/16 18:57 Red Blood Count 3.06 L, Mean Corpuscular Volume 97.2 H, Mean Corpuscular Hemoglobin 32.5, Mean Corpuscular Hemoglobin Concent 33.4, Red Cell Distribution Width 16.8 H 11/26/16 04:24 Red Blood Count 3.10 L, Mean Corpuscular Volume 97.6 H, Mean Corpuscular Hemoglobin 32.0, Mean Corpuscular Hemoglobin Concent 32.8, Red Cell Distribution Width 16.9 H, Neutrophils (%) (Auto) 62.1, Lymphocytes (%) (Auto) 19.8 L, Monocytes (%) (Auto) 8.0 H, Eosinophils (%) (Auto) 5.6 H, Basophils (%) (Auto) 0.9, Neutrophils # (Auto) 1.8, Lymphocytes # (Auto) 0.7 L, Monocytes # ( Auto) 0.2, Eosinophils # (Auto) 0.2, Basophils # (Auto) 0.0, Calcium Level 8.2 L , Aspartate Amino Transf (AST/SGOT) 12 L, Alanine Aminotransferase (ALT/SGPT) 19 , Alkaline Phosphatase 88, Total Bilirubin 0.5, Total Protein 5.8 L, Albumin 2.5 L Vital Signs Date Time Temp Pulse Resp B/P (MAP) Pulse Ox O2 Delivery O2 Flow Rate FiO2 11/26/16 11:47 97.8 77 18 118/72 (87) 98 Room Air 11/20/16 07:23 1.0 I&O- Last 24 Hours up to 6 AM 11/26/16 06:00 Intake Total 555 ml Output Total 0 ml Balance 555 ml ISABELLA KAY MD November 26, 2016 14:48
--- NOTE | 2016-11-26 15:06 | REP ---
CT HEAD WITHOUT CONTRAST: HISTORY: Intracranial hemorrhage. COMPARISON: 11/23/2016 Areas of decreased attentuation are present in the periventricular white matter. This represents small vessel ischemic disease. There is no intraparenchymal hemorrhage, mass, or midline shift. There is dilatation of the ventricular system consistent with moderate hydrocephalus, unchanged compared to the previous study. There is dilatation of the cortical sulci, consistent with mild volume loss. There is no extracerebral collection. The visualized sinuses are clear. IMPRESSION: 1. Small vessel ischemic disease. 2. Moderate hydrocephalus, unchanged compared to the previous study. 3. Mild volume loss. Signed by Shade Li MD 11/26/2016 03:19 P
--- NOTE | 2016-11-26 15:23 | REP ---
PORTABLE CHEST, ONE VIEW: HISTORY: Chest compression. COMPARISON: 11/02/2016 A diffuse increase in interstitial markings is present in the lungs. The cardiac silhouette is upper limits of normal in size. The pulmonary vasculature is normal in appearance. A PICC line is present in the superior vena cava. IMPRESSION: There is a diffuse increase in interstitial markings in the lungs. This may represent chronic interstitial fibrosis, however, interstitial edema or pneumonia cannot be excluded. Signed by Shade Li MD 11/26/2016 03:24 P
[2016-11-26 15:49] LABS: MEAN CORPUSCULAR HEMOGLOBIN 32.6 pg (27.0-33.0); MEAN CORPUSCULAR HGB CONC 33.1 g/dl (32.0-36.5); MEAN CORPUSCULAR VOLUME 98.4 fl (80.0-96.0); RED CELL DISTRIBUTION WIDTH 17.2 % (11.5-14.5); WHITE BLOOD COUNT 5.4 K/mm3 (4.0-10.0)
[2016-11-26 16:20] LABS: ALBUMIN 2.8 GM/DL (3.2-5.2); ALBUMIN/GLOBULIN RATIO 0.82 (1.00-1.93); ALKALINE PHOSPHATASE 136 U/L (45-117); ALT/SGPT 33 U/L (12-78); ANION GAP 9 MEQ/L (8-16); AST/SGOT 36 U/L (15-37); BILIRUBIN,TOTAL 0.5 MG/DL (0.2-1.0); BLOOD UREA NITROGEN 18 MG/DL (7-18); CARBON DIOXIDE LEVEL 18 MEQ/L (21-32); CHLORIDE LEVEL 118 MEQ/L (98-107); CREATININE FOR GFR 0.89 MG/DL (0.55-1.02); GLOMERULAR FILTRATION RATE > 60.0 (>45); GLUCOSE, FASTING 166 MG/DL (80-110); POTASSIUM SERUM 3.8 MEQ/L (3.5-5.1); SODIUM LEVEL 145 MEQ/L (136-145); TOTAL PROTEIN 6.2 GM/DL (6.4-8.2)
[2016-11-26] MEDS: ACETAMINOPHEN TAB 650MG DOSE (2X325MG) PO PRN (18:27)
[2016-11-26] MEDS: **NOTE PATIENT COMMENT** MISC XX SCH (21:00)
[2016-11-26] MEDS: ATORVASTATIN 20 MG TAB PO SCH (21:12)
--- NOTE | 2016-11-26 22:00 | IPN ---
DATE: 11/26/2016 Ms. Dubon was found to be unresponsive, bradycardic with a heart rate of 40 and hypoxic. She had pulseless electrical activity. Acute coronary syndrome (ACS) protocol was called at 1 o'clock this afternoon. When I saw her this afternoon she was awake, coughing, but not responsive. She would open her eyes. Her family is at the bedside, daughter and . Antibiotics were discontinued yesterday. Temperature was 97.8, pulse 77, respirations 18, blood pressure 118/72, oxygen saturation 98% on room air. Heart: Normal S1, S2, tachycardiac. Currently heart rate is 110. Holosystolic murmur, 3/6, at the left upper sternal border and diffusely. Abdomen is soft, nontender. Extremities: No edema. The patient opens her eyes when called by name but otherwise not responding. LABORATORY DATA: White count is 5.4, hemoglobin 10.5, hematocrit 31.8, platelets 156. Sodium 145, potassium 3.8, chloride 118, bicarbonate 18, BUN 18, creatinine 0.9, glucose 166. Heparin-induced antibodies are 0.318. Antibiotics were discontinued yesterday. She has finished a 14-day course of intravenous (IV) vancomycin and meropenem. IMPRESSION: 1. Nosocomial ventriculitis status post 2 weeks of IV vancomycin and meropenem. Repeat lumbar puncture (LP) was done on November 21. White count was 23 and total protein was 51, which is great improvement compared to a lumbar puncture done 10 days ago. 2. Communicating hydrocephalus. The patient had CT today that shows moderate hydrocephalus, unchanged from previous study. 3. Pulseless electrical activity. The patient coded today. Head CT does not show any change. I would obtain a followup echocardiogram, as I can hear her heart murmur seems to be louder. PLAN: Infectious disease will be signing off lumbar puncture. Followup for hydrocephalus and to make sure that ventriculitis has resolved. Could be done at a later time, maybe Thursday or next Thursday. The patient should be at least 3 days off antibiotics.
[2016-11-27] VITALS (17 sets, daily range): BP systolic 119–159; BP diastolic 56–74
[2016-11-27] MEDS ORDERED: EPINEPHrine 1MG/10ML SYRINGE 1.5IN ONE (01:20)
[2016-11-27] MEDS ORDERED: ATROPINE SULF 1MG/10ML SYRINGE (J0461) ONE (01:20)
[2016-11-27] MEDS ORDERED: NOREPINEPHRINE BITARTRATE 8 MG in D5W 500 ML IV SCH (03:00)
[2016-11-27] MEDS: NOREPINEPHRINE BITARTRATE 8 MG in D5W 500 ML IV SCH ×2 (03:00→16:20)
[2016-11-27 04:53] LABS: INR 1.66
[2016-11-27 05:03] LABS: ANION GAP 10 MEQ/L (8-16); BLOOD UREA NITROGEN 19 MG/DL (7-18); CALCIUM LEVEL 8.3 MG/DL (8.8-10.2); CARBON DIOXIDE LEVEL 20 MEQ/L (21-32); CHLORIDE LEVEL 118 MEQ/L (98-107); CREATININE FOR GFR 0.77 MG/DL (0.55-1.02); GLOMERULAR FILTRATION RATE > 60.0 (>45); GLUCOSE, FASTING 96 MG/DL (80-110); POTASSIUM SERUM 3.6 MEQ/L (3.5-5.1); SODIUM LEVEL 148 MEQ/L (136-145)
[2016-11-27 05:24] LABS: MEAN CORPUSCULAR HEMOGLOBIN 32.5 pg (27.0-33.0); MEAN CORPUSCULAR HGB CONC 32.5 g/dl (32.0-36.5); MEAN CORPUSCULAR VOLUME 99.8 fl (80.0-96.0); RED CELL DISTRIBUTION WIDTH 16.7 % (11.5-14.5); WHITE BLOOD COUNT 4.4 K/mm3 (4.0-10.0)
[2016-11-27] MEDS ORDERED: HEPARIN SOD (PORCINE) 5000 UNITS/ML VIAL IV PRN (07:45)
[2016-11-27] MEDS ORDERED: HEPARIN SOD (PORCINE) 5000 UNITS/ML VIAL IV ONE (07:45)
[2016-11-27] MEDS ORDERED: POTASSIUM CHLORIDE 10% LIQ 20 MEQ/15 ML UDC PO ONE (07:45)
--- NOTE | 2016-11-27 08:00 | IPN ---
DATE: 11/27/2016 Mrs. Dubon had, yesterday, a bradycardic event. Apparently, she just completed infusion of IV vitamin K when her called that she had a rash on her chest that was not obviously visible and there was some change in her breathing pattern and she became unresponsive and stopped breathing. Simultaneously she bradied down with heart rate into 30s and then had brief episodes of AV block. Very short cardiopulmonary resuscitation (CPR), she will promptly recovered and has not had any arrhythmias since. This morning she is somnolent but arousable. I was not able to establish any communication. Blood pressure 140/60, heart rate mostly in 70s and 80s. She is afebrile. Saturation 97% on room air. Her fluid balance yesterday was documented about a liter positive. There is no good documentation of output. Weight is 50.1 kg. She is somnolent but arousable. I was not able to establish any purposeful communication. Jugular venous pulse (JVP) is not elevated. Lungs are clear to auscultation with good air movement. Heart exam reveals regular rhythm with paradoxically splitting second heart sound. There are intact metallic sounds best heard in the apical position. There is a systolic ejection murmur heard over the base and there is also holosystolic murmur heard toward the apex not very loud. Abdomen is soft, nontender. There is no peripheral edema. I do not appreciate any skin lesions. LABORATORY: Hemoglobin 9.6, hematocrit 29, platelet count 157,000. Basic metabolic panel potassium 3.6, BUN 19, creatinine 0.8 and glucose 96. She had three sets of cardiac enzymes that have been essentially negative with minimal troponin elevation 0.16, 0.19 and 0.14 and her coagulation, her INR this morning is 1.7. ECG performed yesterday after the event reveals sinus rhythm with first-degree AV block and left bundle branch block which is known to be chronic. ASSESSMENT: Mrs. Dubon is a 66-year-old female who was admitted with infected ventricle peritoneal shunt that was eventually removed and has been receiving antibiotics. She was admitted for changes in mental status. It is not completely clear to me from the documentation as to why we think that this has occurred. As a complicating event, she had a brief episode of what was documented as pauses in electrical activity with associated bradycardia. She promptly recovered and has not had any episodes since. I am not certain how to explain the even. Bradycardic events often are not primary cardiac but rather either central, which is more likely in this setting or due to respiratory suppression. At this point, there has not been any recurrence overnight and consequently, I do not believe that it is a clear-cut indication for pacemaker placement as yet. Will continue monitoring the patient and will see how her situation evolves. If there should be another episode of bradycardia, then the pacemaker can be considered. Her echocardiogram is pending. She has a history of mitral valve replacement and supposedly coronary artery bypass surgery. Unfortunately, I do not have any records but by physical exam I suspect that there is going to be some degree of perivalvular insufficiency. I cannot imagine how it would be related to the event yesterday though.
[2016-11-27 08:11] LABS: MAGNESIUM LEVEL 2.2 MG/DL (1.8-2.4)
[2016-11-27] MEDS: IPRATROPIUM 0.5MG/ALBUTEROL 2.5MG INH SOL UD 3ML (DUONEB)(J7620) NEB SCH ×4 (08:11→19:13)
[2016-11-27] MEDS: PANTOPRAZOLE 40MG INJ (PROTONIX) (C9113) IV SCH (09:00)
[2016-11-27] MEDS: levETIRAcetam ORAL SOLUTION 500 MG/5 ML UDC PO SCH ×2 (09:05→20:24)
[2016-11-27] MEDS: LIDOCAINE 5% (LIDODERM) PATCH TD SCH (09:09)
[2016-11-27] MEDS: HEPARIN DRIP 25,000 UNITS in APPROPRIATE DILUENT 1 EA IV SCH (09:15)
--- NOTE | 2016-11-27 12:45 | IPNPDOC ---
Subjective Date Seen The patient was seen on 11/27/16. Subjective Chief Complaint/HPI The patient is a 66-year-old female admitted with a reason for visit of ICH. Other systems Unable to reliably obtain 2/2 baseline clinical condition Objective Physical Examination General Exam: Positive: Cooperative, No Acute Distress, Other (Patient able to recite name, birthdate, place, names of family members. Follows commands to move all extremities. Not conversational. Denies any acute complaints), Negative: Alert Eye Exam: Negative: Sclera icteric ENT Exam: Positive: Mucous membr. moist/pink Chest Exam: Positive: Diminished, Negative: Wheezing Heart Exam: Positive: Rate Normal, Normal S1, Normal S2 Abdomen Exam: Positive: Normal bowel sounds, Soft, Negative: Tenderness Extremity Exam: Negative: Tenderness, Swelling Skin Exam: Negative: Rash Assessment /Plan Plan/VTE VTE Prophylaxis Ordered?: Yes Plan s/p PEA Cardiac Arrest on 11/26 Preceding rhythm notable for PVC's and Bradycardia with a HR in 40s Code lasted ~4 mins, and patient received 1 dose of Epinephrine, 2 doses of Atropine and subsequently achieved ROSC CT Scan of the Head with no acute changes EKG with baseline Type 1 AV Block, LBBB No bradycardic events noted from overnight 2D ECHO pending PEA Cardiac Arrest of unclear Etiology, we have consulted Cardiology and I have discussed the case with Dr. Patel this morning The patient remains hemodynamically stable at this time We will continue to monitor on Telemetry for any further events Hydrocephalus Patient's mentation/neurologic status has returned back to its baseline prior to the PEA Cardiac Arrest event yesterday I discussed the above event with Dr. Noble yesterday--At this time we will hold off on obtaining an Lumbar Puncture until Thursday12/01/16 at which time we will attempt to drain 30-40 cc's of CSF, and send for Cell Count and studies. Will follow up with Recommendations from [facility] for possible CSF Diversion pending results of LP drainage of 30-40cc's and CSF studies next week Cerebral ventriculitis s/p completion of a total of 28 days of IV Abx therapy Patient has been afebrile, with a normal WBC here Will repeat CSF studies on 12/01/16 ID on board Hx of CAD (coronary artery disease) of artery bypass graft, Mitral and Aortic Mechanical Valve Replacement Coumadin on hold for now Will continue the patient on a Heparin gtt Hyperthyroidism Continue Methimazole Anemia, Stable s/p 1 Unit of PRBC's transfusion on 11/25/16 Stool occult negative No overt source of bleeding identified HTN, stable Not on any meds Hyperlipidemia Cont Statin DVT prophylaxis On Heparin gtt for now Disposition- patient hemodynamically stable, with no acute events noted overnight on telemetry. The patient's neurological status has returned back to its baseline prior to yesterday's unfortunate event. We will continue to monitor the patient on telemetry for now. Continue functional optimization with PT/OT. Repeat lumbar puncture with CSF studies tentatively rescheduled for . VS, I&O, 24H, Fishbone Vital Signs/I&O Vital Signs Date Time Temp Pulse Resp B/P (MAP) Pulse Ox O2 Delivery O2 Flow Rate FiO2 11/27/16 11:00 83 18 140/64 (89) 98 Room Air 11/27/16 08:00 98.6 11/27/16 03:00 2.0 100 I&O- Last 24 Hours up to 6 AM 11/27/16 06:00 Intake Total 1136.1 ml Balance 1136.1 ml Laboratory Data 24H LABS Laboratory Tests 2 11/26/16 13:42: Blood Gas Bicarbonate Standard 16.0L, Arterial Blood pH 7.242*L, Arterial Blood Partial Pressure CO2 37.9, Arterial Blood Partial Pressure O2 365.2H, Arterial Blood Total CO2 17.1L, Arterial Blood HCO3 16.0L, Arterial Blood Base Excess - 10.6L, Arterial Blood Oxygen Saturation 99.7H, Arterial Blood Gas Liter Flow 100 , Oxygen Delivery Device NONREBREATH 11/26/16 15:41: Anion Gap 9, Glomerular Filtration Rate > 60.0, Blood Urea Nitrogen 18, Creatinine 0.89, Sodium Level 145, Potassium Level 3.8, Chloride Level 118H, Carbon Dioxide Level 18L, Calcium Level 8.0L, Aspartate Amino Transf (AST/SGOT) 36, Alanine Aminotransferase (ALT/SGPT) 33, Total Creatine Kinase 38, Alkaline Phosphatase 136H, Total Bilirubin 0.5, Total Protein 6.2L, Albumin 2.8L, Creatine Kinase MB 1.5, Creatine Kinase MB Relative Index 3.94, Troponin I 0.16H , Albumin/Globulin Ratio 0.82L 11/26/16 21:39: Total Creatine Kinase 33, Creatine Kinase MB 2.1, Creatine Kinase MB Relative Index 6.36H, Troponin I 0.19H 11/27/16 04:30: Anion Gap 10, Glomerular Filtration Rate > 60.0, Blood Urea Nitrogen 19H, Creatinine 0.77, Sodium Level 148H, Potassium Level 3.6, Chloride Level 118H, Carbon Dioxide Level 20L, Calcium Level 8.3L, Total Creatine Kinase 30, Creatine Kinase MB 2.0, Creatine Kinase MB Relative Index 6.66H, Troponin I 0.14 #H, Prothrombin Time 19.7H, Prothromb Time International Ratio 1.66, Magnesium Level 2.2 CBC/BMP Laboratory Tests 11/26/16 15:41 Red Blood Count 3.23 L, Mean Corpuscular Volume 98.4 H, Mean Corpuscular Hemoglobin 32.6, Mean Corpuscular Hemoglobin Concent 33.1, Red Cell Distribution Width 17.2 H, Calcium Level 8.0 L, Aspartate Amino Transf (AST/SGOT ) 36, Alanine Aminotransferase (ALT/SGPT) 33, Total Creatine Kinase 38, Alkaline Phosphatase 136 H, Total Bilirubin 0.5, Total Protein 6.2 L, Albumin 2.8 L 11/27/16 04:30 Red Blood Count 2.96 L, Mean Corpuscular Volume 99.8 H, Mean Corpuscular Hemoglobin 32.5, Mean Corpuscular Hemoglobin Concent 32.5, Red Cell Distribution Width 16.7 H, Calcium Level 8.3 L, Total Creatine Kinase 30 Microbiology Microbiology 11/21/16 Fungal Smear, Received Pending 11/21/16 Fungal Culture, Received Pending 11/21/16 Gram Stain - Final, Complete 11/21/16 CSF Culture - Final, Complete 11/23/16 Stool Occult Blood (PAPI) - Final, Complete ISABELLA KAY MD Nov 27, 2016 12:45
[2016-11-27] MEDS: ACETAMINOPHEN TAB 650MG DOSE (2X325MG) PO PRN (16:14)
[2016-11-27] MEDS: SODIUM CHLORIDE 0.9% INJ 10 ML SYR IV SCH (18:00)
--- NOTE | 2016-11-27 20:14 | ECHO ---
DATE OF PROCEDURE: 11/27/2016 REFERRING PHYSICIAN: Dr. Bob INDICATION: Aortic, mitral valve replacement, cardiac arrest. The patient measures 158 cm and weighs 50 kg. DIMENSIONS: IVS: 1.1 LV: 5.1 LVPW: 1.1 LA: 3.6 Aorta: 3.3 FINDINGS: The study is of good technical quality. The patient was in sinus rhythm and has underlying left bundle branch block. Left ventricle is of normal size. It appears mildly hypokinetic, and there is septal wall motion abnormality consistent with left bundle branch block. I estimate overall ejection fraction (EF) around 50%. Right ventricle is not enlarged. There are mechanical prostheses in aortic and mitral positions, neither valve is particularly well seen but no obvious abnormality is appreciated on 2D imaging. Tricuspid valve appears normal. Pulmonic valve also appears normal. No pericardial effusion is noted. Left atrium is probably severely enlarged. Right atrium is likely normal size. Inferior vena cava is dilated but appropriately collapses with respiration, indicative of mildly elevated central venous pressure. Aortic root is normal. Aortic arch and abdominal aorta were not well seen. Doppler interrogation of aortic valve reveals peak gradient across the valve 26, mean gradient 13 mmHg. There is mild perivalvular insufficiency. Mitral valve exhibits peak gradient 13 and mean gradient 9 with no visible perivalvular insufficiency. There is mild tricuspid insufficiency. Pulmonary artery pressure is at least in low 50s, corresponding to at minimum moderate pulmonary hypertension. Pulmonic valve also exhibits mild insufficiency. Mitral inflow pattern and tissue Doppler imaging of mitral annulus revealed grade 2 diastolic dysfunction. CONCLUSIONS: 1. The study is of good technical quality. 2. Normal left ventricular (LV) size with septal wall motion abnormality, consistent with left bundle branch block and mild global hypokinesis and overall estimated left ventricular ejection fraction (LVEF) approximately 50%. 3. #21 [employer] mechanical prosthesis in aortic position with no stenosis and mild perivalvular insufficiency. 4. #25 [employer] mechanical prosthesis in mitral position with mean gradient 9 mmHg and no visible insufficiency. 5. Mild tricuspid insufficiency. 6. Mild pulmonic insufficiency. 7. At least moderate pulmonary hypertension. 8. Grade 2 diastolic dysfunction. 9. Mildly elevated central venous pressure (CVP). COMMENTS: Subacute bacterial endocarditis (SBE) prophylaxis is not recommended.
[2016-11-27] MEDS: ATORVASTATIN 20 MG TAB PO SCH (20:24)
--- NOTE | 2016-11-27 20:44 | ECGEPIP ---
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
[2016-11-27] MEDS: **NOTE PATIENT COMMENT** MISC XX SCH (21:00)
--- NOTE | 2016-11-27 22:29 | CR ---
DATE OF CONSULTATION: 11/26/2016 REFERRING PROVIDER: Dr. Dangelo Bob REASON FOR CONSULT: Pulseless electrical activity. HISTORY OF PRESENT ILLNESS: A 66-year-old woman with a long history of heart disease, with coronary artery disease (CAD) and coronary artery bypass graft (CABG), valvular heart disease with a mechanical mitral valve and a bioprosthetic aortic valve, paroxysmal atrial fibrillation, hypertension, hyperlipidemia, abnormal electrocardiogram (EKG), manifested by left bundle branch block, hypothyroidism, was admitted here on 11/19/2016 because she had developed increasing hydrocephalus and she was symptomatic. She needed lumbar puncture and the plan was to proceed with that this coming 11/28/2016. For some reason, she was getting IV vitamin K and she developed pulseless electrical activity with marked bradycardia. She was given one dose of epinephrine and two doses of atropine. The overall process lasted about four minutes, from 13:09 hours up to 13:12 hours and at the end, her pulse was reported to be 48 bpm with a blood pressure of 148/69. Patient was not intubated because it seemed that during the process, food was coming from her throat. Cardiology consult was called after the event. Mrs. Nayla Dubon has been stable from a cardiologic point of view given the above history until 10/21/2016, when she was found to be unresponsive at home and she was brought to [facility] and she was found to have a blood pressure of about 210/100. Another time, her INR was 2.0. She has been on Coumadin because of the mechanical mitral valve and history of paroxysmal atrial fibrillation. CT of the head revealed intracranial bleed, ventricular and anteriorly. She then was transferred to [facility], where a ventriculoperitoneal (DANCE PROFESSOR) shunt was placed. This was found to be infected and she was treated with IV antibiotics and she was seen here after she was admitted to rehabilitation on 11/13/2016, by infectious disease (ID), Dr. Ellen Benoit. She was on the rehabilitation floor from 11/13/2016 up until 11/19/2016, when she started developing nausea and vomiting. Unclear whether she was having headache or not, but imaging study of the brain revealed worsening of the hydrocephalus and, as mentioned above, she was admitted to intensive care unit (ICU) for further management and monitoring on 11/19/2016. When I saw Mrs. Nayla Dubon this evening, she was lying supine, in no acute distress at rest. She appears to be uncomfortable, but no orthopnea or paroxysmal nocturnal dyspnea. No palpitations. She has a low grade fever. Her nurse was at bedside. Since her event last month, her mental status been deteriorating. She also was seen, during this hospitalization, by neurology and she has been treated for seizures. There are no new focal manifestations. Patient is unable to answer, to respond adequately to questions and as such she did not respond to any questions and she has been like that, according to her nurse. CURRENT MEDICATIONS: - pantoprazole 40 mg IV daily - Keppra 500 mg by mouth twice a day - Benadryl 25 mg every 6 hours IV as needed - atorvastatin 40 mg by mouth at bedtime - Tapazole 5 mg by mouth daily - Lidocaine patch applied daily - DuoNeb one nebulizer four times a day - ondansetron 4 mg IV every 6 hours as needed for nausea or vomiting - milk of magnesia 30 mL daily as needed for constipation - Tylenol 650 mg every 4 hours as needed for pain or fever - Proventil nebulizer every 2 hours as needed for shortness of breath and wheezing She has been on Coumadin and it was stopped yesterday, 11/25/2016. Prior to this hospitalization, patient was also on: - lisinopril 10 mg by mouth daily - Norvasc 10 mg by mouth daily - Coreg 25 mg by mouth twice a day - hydrochlorothiazide 12.5 mg by mouth daily FAMILY HISTORY: Positive for heart disease. Her father from lung cancer. SOCIAL HISTORY: Prior to that event, patient was living with her . She has children in the area and one of them is a nurse and she works here, at [employer]. She never smoked. She does not drink alcohol and there is no illicit drug history. ALLERGIES PRIOR TO COMING TO THE HOSPITAL: PROPOXYPHENE, and that caused confusion. ADVANCE DIRECTIVES: Unknown at the present time. PAST SURGICAL HISTORY: Positive for: 1. Open heart surgery with probably a coronary artery bypass graft, but she has a mechanical mitral valve and a bioprosthetic aortic valve. 2. Ventriculoperitoneal (DANCE PROFESSOR) shunt placement last month at [facility], then it was removed. PHYSICAL EXAMINATION: Patient is alert and awake, in no urgent distress, but does not appear to be oriented. VITAL SIGNS: Blood pressure 134/73, pulse 98, respirations 16, maximum temperature 97.7 degrees Fahrenheit, with an oxygen saturation of 96% on room air. EXAMINATION OF THE HEAD: Atraumatic. NECK: Supple. I could not appreciate any jugular venous distention (JVD). The lungs, in limited examination, reveal no wheezing or crackles. The heart examination revealed normal S1 and S2 without gallops. The point of maximal impulse (PMI) is slightly displaced inferiorly. There is no rub. There is a systolic murmur over the precordium ladder at the base of the apex with radiation to the neck and also heard at the left sternal border and at the apex, minimal addition to the axilla. Abdomen is soft and nontender. Bowel sounds are present. Extremities reveal no pitting edema. No cyanosis noted. Neurological examination was limited. I could not appreciate any focal deficit. LABORATORY DATA: CBC done at about 3:41 this afternoon reveal a WBC 5.4, hemoglobin 10.5, hematocrit 31.8, platelets 156,000. BMP at that time revealed sodium 145, potassium 3.8, chloride 118, CO2 18, BUN 18, creatinine 0.89, GFR more than 60, fasting glucose 166, calcium 8.0. Liver enzymes reveal total bilirubin 0.5, AST 36, ALT 33, alkaline phosphatase 136, total protein 6.2, albumin 2.8. Troponin 1.6, number one. PT today was 36.6 with an INR of 3.69. Chest x-ray done this afternoon revealed diffuse increased interstitial markings in the lungs that may represent chronic interstitial fibrosis versus interstitial pulmonary edema or pneumonia. CT of the head done this afternoon revealed small vessel ischemic disease, moderate hydrocephalus unchanged from prior study, unchanged from the last study on 11/07/2916, mild volume loss. Electrocardiogram on 11/19/2016 revealed normal sinus rhythm with a left bundle branch block pattern, left axis deviation, first degree atrioventricular (AV) block. Electrocardiogram done this afternoon at 1326 hours revealed sinus bradycardia at 53 beats per minute, first degree AV block and the DC interval seems to be longer when compared with EKG. Otherwise, no other changes. Telemetry strips are reviewed. IMPRESSION: 1. Pulseless electrical activity in this 66-year-old woman with the above medical problems. Patient, at that time, was just started on IV vitamin K because her INR was not supratherapeutic and the plan was to proceed with a lumbar puncture in two days. Unclear whether the patient had a vagovagal reaction at the time, and this could be the etiology. Also, I think this could be a reaction from the intravenous vitamin K. She is not on any atrioventricular (AV) blocking agents at the present time. Her EKG revealed normal sinus rhythm with first degree AV block and underlying left bundle branch block. Otherwise, normal beats to AV block or no 2 to 1 AV block or complete block. I will continue to follow her serum troponin along with her. Please do not hesitate to call if any questions or any changes. She is scheduled to have an echocardiogram. It will be reviewed, then further recommendations will be given. Otherwise, no other recommendation at this present time. It was a pleasure to participate in the care of Mrs. Nayla Dubon for her underlying cardiac condition. I will continue to monitor along with you while in the hospital. Tomorrow, I will ask Dr. Patel to see her in the morning. GUDELIA
[2016-11-28] VITALS (15 sets, daily range): BP systolic 131–172; BP diastolic 64–97; O2SAT 96
[2016-11-28] MEDS: ACETAMINOPHEN TAB 650MG DOSE (2X325MG) PO PRN (02:04)
[2016-11-28 05:14] LABS: MEAN CORPUSCULAR HEMOGLOBIN 33.5 pg (27.0-33.0); MEAN CORPUSCULAR HGB CONC 33.9 g/dl (32.0-36.5); MEAN CORPUSCULAR VOLUME 99.1 fl (80.0-96.0); RED CELL DISTRIBUTION WIDTH 16.6 % (11.5-14.5); WHITE BLOOD COUNT 5.5 K/mm3 (4.0-10.0)
[2016-11-28] MEDS: NOREPINEPHRINE BITARTRATE 8 MG in D5W 500 ML IV SCH (05:15)
[2016-11-28 05:21] LABS: INR 1.55
[2016-11-28 05:31] LABS: ANION GAP 8 MEQ/L (8-16); BLOOD UREA NITROGEN 23 MG/DL (7-18); CALCIUM LEVEL 8.8 MG/DL (8.8-10.2); CARBON DIOXIDE LEVEL 21 MEQ/L (21-32); CHLORIDE LEVEL 116 MEQ/L (98-107); CREATININE FOR GFR 0.68 MG/DL (0.55-1.02); GLOMERULAR FILTRATION RATE > 60.0 (>45); GLUCOSE, FASTING 94 MG/DL (80-110); POTASSIUM SERUM 3.9 MEQ/L (3.5-5.1); SODIUM LEVEL 145 MEQ/L (136-145)
[2016-11-28] MEDS: SODIUM CHLORIDE 0.9% INJ 10 ML SYR IV SCH ×2 (06:34→17:23)
[2016-11-28] MEDS: LIDOCAINE 5% (LIDODERM) PATCH TD SCH (08:12)
[2016-11-28] MEDS: levETIRAcetam ORAL SOLUTION 500 MG/5 ML UDC PO SCH ×2 (08:12→21:13)
[2016-11-28] MEDS: PANTOPRAZOLE 40MG INJ (PROTONIX) (C9113) IV SCH (08:13)
--- NOTE | 2016-11-28 08:16 | IPN ---
DATE: 11/28/2016 Mrs. Dubon had an uneventful night. This morning, she is like a different person. I am able to communicate with her and she answers most questions appropriately. She denies any chest pain or shortness of breath. She does say that she has a back pain though. Denies headache as such. She is alert and oriented times three. We also received records from [facility], it confirmed that she has a history of aortic and mitral valve replacement with mechanical prosthesis together with single bypass graft to obtuse marginal artery in 2007. 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 She had an echocardiogram yesterday that basically showed the same findings. There is a small amount of perivalvular insufficiency of the aortic prosthesis. Vital Signs: Blood pressure 171/77, but during the night her blood pressure was in 130s to 160s. Heart rate is in the 80s. She is afebrile. Saturation is 93% on room air. Fluid balance yesterday was documented positive because of poorly documented output. Weight has not been documented this morning as yet. Her lungs are clear to auscultation. Heart exam reveals intact metallic sounds of the valves. There is a murmur over the aortic valve radiating to her carotids about 2/6. There is also a diastolic murmur best heard over the right sternal border. Abdomen is soft and nontender. There is no peripheral edema. I did not do any formal neurologic testing, but she freely moves all four extremities and is clearly appropriate this morning, even though her answers are very deliberate and slow. Laboratory [facility], her CBC revealed a hemoglobin 10.0, hematocrit 29 and platelet count 151,000. Basic metabolic panel is revealing essentially normal values with potassium 3.9, BUN 23, creatinine 0.7 and glucose 94. Her INR is 1.6. ASSESSMENT/PLAN: Mrs. Dubon is a 66-year-old female who has history of aortic and mitral valve replacement with mechanical prostheses together with single vessel bypass to obtuse marginal artery in 2007. Cardiology service was involved because the day before yesterday she had some form of event when she developed bradycardia and her heart rate was as low as in the 30s and there was a transient high degree AV block that was documented by telemetry. Simultaneously, she stopped breathing and it was felt to be consistent with pulseless electrical activity. She was bagged for a brief period of time, CPR was performed and she got epinephrine and atropine and the condition quickly resolved. There has not been any recurrence now for 2 days and there is no obvious sequelae. It is difficult to explain what exactly happened from my perspective. I suspect that it was most likely either central respiratory event and less likely vagal response. Apparently, she was at that point receiving intravenous vitamin K and there was some form of flushing preceding the incident. I am afraid that in retrospect we will probably never be able to answer that with certainty. I still would monitor the patient on telemetry for at least one more day, but there was not even a hint of any problems since. The remaining issue remains with the primary team. I am somewhat concerned about the lack of anticoagulation. If procedure needs to be done, I would do it quickly and restart the anticoagulation as soon as possible. She has two mechanical prostheses and consequently thrombotic risk is quite high. Also, she is hypertensive, I do think that it is a concern in somebody who suffered intracranial hemorrhage. I will start her on low-dose CHANO inhibitor with an attempt to bring her blood pressure a little bit lower, even though the numbers are not dramatic, in the long run it would be a problem.
[2016-11-28] MEDS ORDERED: LISINOPRIL 10 MG TAB PO SCH (09:00)
[2016-11-28] MEDS: IPRATROPIUM 0.5MG/ALBUTEROL 2.5MG INH SOL UD 3ML (DUONEB)(J7620) NEB SCH ×4 (09:10→19:48)
[2016-11-28] MEDS: ONDANSETRON 4MG/2ML VIAL (J2405) IV PRN (10:43)
--- NOTE | 2016-11-28 14:19 | IPNPDOC ---
Subjective Date Seen The patient was seen on 11/28/16. Subjective Chief Complaint/HPI The patient is a 66-year-old female admitted with a reason for visit of [facility]. General: Denies: Chills, Night Sweats Constitutional: Denies: Chills, Fever Eyes: Denies: Pain, Vision change ENT: Denies: Head Aches, Ear Pain Skin: Denies: Rash, Lesions Pulmonary: Denies: Dyspnea, Cough Cardiovascular: Denies: Chest Pain, Palpitations Gastrointestinal: Denies: Nausea, Vomiting, Abdominal Pain Genitourinary: Denies: Dysuria, Frequency Hematologic: Denies: Bruising, Bleeding Excessively Objective Physical Examination General Exam: Positive: Alert, Cooperative, No Acute Distress, Other (Much more awake, alert, and oriented today) Eye Exam: Negative: Sclera icteric ENT Exam: Positive: Mucous membr. moist/pink Chest Exam: Positive: Diminished, Negative: Wheezing Heart Exam: Positive: Rate Normal, Normal S1, Normal S2 Abdomen Exam: Positive: Normal bowel sounds, Soft, Negative: Tenderness Extremity Exam: Negative: Tenderness, Swelling Skin Exam: Negative: Rash Psych Exam: Positive: Oriented x 3 Assessment /Plan Plan/VTE VTE Prophylaxis Ordered?: Yes Plan s/p PEA Cardiac Arrest on 11/26 Preceding rhythm notable for PVC's and Bradycardia with a HR in 40s Code lasted ~4 mins, and patient received 1 dose of Epinephrine, 2 doses of Atropine and subsequently achieved ROSC CT Scan of the Head with no acute changes EKG with baseline Type 1 AV Block, LBBB No bradycardic events noted from since initial event 2D ECHO noted with EF of 50%, mild perivalvular insufficiency of of mechanical AV, Mechanical MV noted, and Grade 2 DD also evident PEA Cardiac Arrest of unclear Etiology, we have consulted Cardiology and I have discussed the case with Dr. Patel, his input has been appreciated The patient remains hemodynamically stable at this time We will continue to monitor on Telemetry for any further events Hydrocephalus Patient's mentation/neurologic status has returned back to its baseline prior to the PEA Cardiac Arrest event yesterday I discussed the above event with Dr. Noble--At this time we will hold off on obtaining an Lumbar Puncture until Thursday12/01/16 at which time we will attempt to drain 30-40 cc's of CSF, and send for Cell Count and studies. Will follow up with Recommendations from [facility] for possible CSF Diversion pending results of LP drainage of 30-40cc's and CSF studies next week Cerebral ventriculitis s/p completion of a total of 28 days of IV Abx therapy Patient has been afebrile, with a normal WBC here Will repeat CSF studies on 12/01/16 ID on board Hx of CAD (coronary artery disease) of artery bypass graft, Mitral and Aortic Mechanical Valve Replacement Coumadin on hold for now Will continue the patient on a Heparin gtt ECHO as noted above Hypertension Low Dose Lisinopril started Hyperthyroidism Continue Methimazole Anemia, Stable s/p 1 Unit of PRBC's transfusion on 11/25/16 Stool occult negative No overt source of bleeding identified HTN, stable Not on any meds Hyperlipidemia Cont Statin DVT prophylaxis On Heparin gtt for now Disposition- patient hemodynamically stable, with no acute events since initial event of PEA arrest. Continue functional optimization with PT/OT. Repeat lumbar puncture with CSF studies tentatively rescheduled for 12/01/16. VS, I&O, 24H, [facility] Vital Signs/I&O Vital Signs Date Time Temp Pulse Resp B/P (MAP) Pulse Ox O2 Delivery O2 Flow Rate FiO2 11/28/16 12:00 98.8 95 18 163/86 (111) 96 Room Air 11/27/16 03:00 2.0 100 I&O- Last 24 Hours up to 6 AM 11/28/16 06:00 Intake Total 1430 ml Balance 1430 ml Laboratory Data 24H LABS Laboratory Tests 2 11/27/16 15:26: Activated Partial Thromboplast Time 202.4*H 11/27/16 22:10: Activated Partial Thromboplast Time 38.8H 11/28/16 04:49: Activated Partial Thromboplast Time 58.2H, Prothrombin Time 18.7H, Prothromb Time International Ratio 1.55, Anion Gap 8, Glomerular Filtration Rate > 60.0, Blood Urea Nitrogen 23H, Creatinine 0.68, Sodium Level 145, Potassium Level 3.9 , Chloride Level 116H, Carbon Dioxide Level 21, Calcium Level 8.8 11/28/16 10:54: Activated Partial Thromboplast Time 100.9H CBC/BMP Laboratory Tests 11/28/16 04:49 Red Blood Count 2.98 L, Mean Corpuscular Volume 99.1 H, Mean Corpuscular Hemoglobin 33.5 H, Mean Corpuscular Hemoglobin Concent 33.9, Red Cell Distribution Width 16.6 H, Calcium Level 8.8 Microbiology Microbiology 11/21/16 Fungal Smear, Received Pending 11/21/16 Fungal Culture, Received Pending 11/21/16 Gram Stain - Final, Complete 11/21/16 CSF Culture - Final, Complete 11/28/16 Stool Occult Blood (PAPI) - Final, Complete 11/23/16 Stool Occult Blood (PAPI) - Final, Complete ISABELLA KAY MD Nov 28, 2016 14:19
[2016-11-28] MEDS: **NOTE PATIENT COMMENT** MISC XX SCH (21:00)
[2016-11-28] MEDS: ATORVASTATIN 20 MG TAB PO SCH (21:13)
[2016-11-29] VITALS (8 sets, daily range): BP systolic 114–158; BP diastolic 57–77; O2SAT 95–99
[2016-11-29] MEDS: HEPARIN DRIP 25,000 UNITS in APPROPRIATE DILUENT 1 EA IV SCH (04:14)
[2016-11-29 04:44] LABS: MEAN CORPUSCULAR HEMOGLOBIN 32.9 pg (27.0-33.0); MEAN CORPUSCULAR HGB CONC 33.6 g/dl (32.0-36.5); MEAN CORPUSCULAR VOLUME 97.8 fl (80.0-96.0); RED CELL DISTRIBUTION WIDTH 16.2 % (11.5-14.5); WHITE BLOOD COUNT 4.8 K/mm3 (4.0-10.0)
[2016-11-29 04:50] LABS: INR 1.46
[2016-11-29 04:56] LABS: ANION GAP 7 MEQ/L (8-16); BLOOD UREA NITROGEN 20 MG/DL (7-18); CALCIUM LEVEL 8.4 MG/DL (8.8-10.2); CARBON DIOXIDE LEVEL 23 MEQ/L (21-32); CHLORIDE LEVEL 111 MEQ/L (98-107); GLOMERULAR FILTRATION RATE > 60.0 (>45); GLUCOSE, FASTING 100 MG/DL (80-110); POTASSIUM SERUM 3.6 MEQ/L (3.5-5.1); SODIUM LEVEL 141 MEQ/L (136-145)
[2016-11-29] MEDS: SODIUM CHLORIDE 0.9% INJ 10 ML SYR IV SCH ×2 (06:26→18:19)
[2016-11-29] MEDS: IPRATROPIUM 0.5MG/ALBUTEROL 2.5MG INH SOL UD 3ML (DUONEB)(J7620) NEB SCH ×4 (08:21→20:30)
[2016-11-29] MEDS: LIDOCAINE 5% (LIDODERM) PATCH TD SCH (08:30)
[2016-11-29] MEDS: LISINOPRIL 10 MG TAB PO SCH (08:31)
[2016-11-29] MEDS: PANTOPRAZOLE 40MG INJ (PROTONIX) (C9113) IV SCH (08:31)
[2016-11-29] MEDS: levETIRAcetam ORAL SOLUTION 500 MG/5 ML UDC PO SCH ×2 (08:32→21:25)
--- NOTE | 2016-11-29 10:04 | IPNPDOC ---
Subjective Date Seen The patient was seen on 11/29/16. Subjective Chief Complaint/HPI The patient is a 66-year-old female admitted with a reason for visit of [facility]. General: Denies: Chills, Night Sweats Constitutional: Denies: Chills, Fever Eyes: Denies: Pain, Vision change ENT: Denies: Head Aches, Ear Pain Skin: Denies: Rash, Lesions Pulmonary: Denies: Dyspnea, Cough Cardiovascular: Denies: Chest Pain, Palpitations Gastrointestinal: Denies: Nausea, Vomiting Genitourinary: Denies: Dysuria, Frequency Hematologic: Denies: Bruising, Bleeding Excessively Objective Physical Examination General Exam: Positive: Alert, Cooperative, No Acute Distress, Other ( Continues to be much more awake, alert, and oriented today) Eye Exam: Negative: Sclera icteric ENT Exam: Positive: Mucous membr. moist/pink Chest Exam: Positive: Diminished, Negative: Wheezing Heart Exam: Positive: Rate Normal, Normal S1, Normal S2 Abdomen Exam: Positive: Normal bowel sounds, Soft, Negative: Tenderness Extremity Exam: Negative: Tenderness, Swelling Skin Exam: Negative: Rash Psych Exam: Positive: Oriented x 3 Assessment /Plan Plan/VTE VTE Prophylaxis Ordered?: Yes Plan Hydrocephalus Patient's mentation/neurologic status has returned back to its baseline prior to the PEA Cardiac Arrest event on 11/26 I discussed the above with Dr. Noble--We will be obtaining a Lumbar Puncture on Thursday12/01/16 at which time we will attempt to drain 30-40 cc's of CSF, and send for Cell Count and studies. Will follow up with Recommendations from [facility] for possible CSF Diversion pending results of LP drainage of 30-40cc's and CSF studies next week s/p PEA Cardiac Arrest on 11/26 Preceding rhythm notable for PVC's and Bradycardia with a HR in 40s Code lasted ~4 mins, and patient received 1 dose of Epinephrine, 2 doses of Atropine and subsequently achieved ROSC CT Scan of the Head with no acute changes EKG with baseline Type 1 AV Block, LBBB No bradycardic events noted from since initial event 2D ECHO noted with EF of 50%, mild perivalvular insufficiency of of mechanical AV, Mechanical MV noted, and Grade 2 DD also evident PEA Cardiac Arrest of unclear Etiology, we have consulted Cardiology and I have discussed the case with Dr. Patel, his input has been appreciated The patient remains hemodynamically stable at this time We will continue to monitor on Telemetry for any further events Cerebral ventriculitis s/p completion of a total of 28 days of IV Abx therapy Patient has been afebrile, with a normal WBC here Will repeat CSF studies on 12/01/16 ID on board Hx of CAD (coronary artery disease) of artery bypass graft, Mitral and Aortic Mechanical Valve Replacement Coumadin on hold for now Will continue the patient on a Heparin gtt ECHO as noted above Hypertension The patient's blood pressure has been elevated in the AM We have titrated up the patient's Lisinopril this morning We will continue to monitor Hyperthyroidism Continue Methimazole Anemia, Stable s/p 1 Unit of PRBC's transfusion on 11/25/16 Stool occult negative No overt source of bleeding identified HTN, stable Not on any meds Hyperlipidemia Cont Statin DVT prophylaxis On Heparin gtt for now Disposition- patient hemodynamically stable, with no acute events since initial event of PEA arrest. Continue functional optimization with PT/OT. Repeat lumbar puncture with CSF studies tentatively rescheduled for 12/01/16. VS, I&O, 24H, [facility] Vital Signs/I&O Vital Signs Date Time Temp Pulse Resp B/P (MAP) Pulse Ox O2 Delivery O2 Flow Rate FiO2 11/29/16 08:31 158/77 11/29/16 08:22 99 Nasal Cannula 1.0 11/29/16 08:22 87 11/29/16 08:00 99.4 24 11/27/16 03:00 100 I&O- Last 24 Hours up to 6 AM 11/29/16 06:00 Intake Total 654 ml Balance 654 ml Laboratory Data 24H LABS Laboratory Tests 2 11/28/16 10:54: Activated Partial Thromboplast Time 100.9H 11/28/16 16:54: Activated Partial Thromboplast Time 73.6H 11/29/16 04:10: Activated Partial Thromboplast Time 75.0H, Prothrombin Time 17.8H, Prothromb Time International Ratio 1.46, Anion Gap 7L, Glomerular Filtration Rate > 60.0, Blood Urea Nitrogen 20H, Creatinine 0.60, Sodium Level 141, Potassium Level 3.6 , Chloride Level 111H, Carbon Dioxide Level 23, Calcium Level 8.4L CBC/BMP Laboratory Tests 11/29/16 04:10 Red Blood Count 2.78 L, Mean Corpuscular Volume 97.8 H, Mean Corpuscular Hemoglobin 32.9, Mean Corpuscular Hemoglobin Concent 33.6, Red Cell Distribution Width 16.2 H, Calcium Level 8.4 L Microbiology Microbiology 11/21/16 Fungal Smear, Received Pending 11/21/16 Fungal Culture, Received Pending 11/21/16 Gram Stain - Final, Complete 11/21/16 CSF Culture - Final, Complete 11/29/16 Stool Occult Blood (PAPI) - Final, Complete 11/28/16 Stool Occult Blood (PAPI) - Final, Complete 11/23/16 Stool Occult Blood (PAPI) - Final, Complete ISABELLA KAY MD Nov 29, 2016 10:04
--- NOTE | 2016-11-29 11:07 | IPN ---
DATE: 11/29/2016 Mrs. Dubon has been doing well from my perspective since presentation with the bradycardic arrest. She has not had any arrhythmias or any hemodynamic instability. During my rounds, she is arousable but surprisingly today I have a really hard time establishing any communication. It is similar to her behavior 2 days ago as opposed yesterday she was completely alert and oriented and appropriate. She moves all four extremities. Blood pressure 150/77. Heart rate has been in 70s and 80s. She is afebrile. Saturation is 99% on 1 liter of oxygen. Lungs are clear. Heart exam reveals intact metallic sounds. There is systolic murmur over the aortic valve. There is also diastolic murmur best heard to right from her sternum. Abdomen is soft and nontender. There is no peripheral edema. Neurologic status as above. Laboratory stinson: Normal basic metabolic panel. CBC reveals WBC count 4.8, hemoglobin 9.1, hematocrit 28, platelet count 141,000, and INR is 1.5 but therapeutic PTT. ASSESSMENT AND PLAN: Mrs. Dubon is a 66-year-old female who has a history of aortic and mitral valve prosthesis with mechanical valves in 2007, together with single vessel bypass to obtuse marginal. She presented with intracranial infection and has been receiving antibiotics. During administration of vitamin K IV developed some bradycardia and lost her blood pressure but promptly responded to administration of atropine and epinephrine. She has not had any problems since. There has not been any significant troponin elevation. I am going to sign off her care. 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
[2016-11-29] MEDS: **NOTE PATIENT COMMENT** MISC XX SCH (21:00)
[2016-11-29] MEDS: ATORVASTATIN 20 MG TAB PO SCH (21:25)
[2016-11-30] VITALS: BP 141/69
[2016-11-30] MEDS: SODIUM CHLORIDE 0.9% INJ 10 ML SYR IV SCH ×2 (05:52→18:02)
[2016-11-30 06:12] LABS: MEAN CORPUSCULAR HEMOGLOBIN 32.2 pg (27.0-33.0); MEAN CORPUSCULAR HGB CONC 32.9 g/dl (32.0-36.5); MEAN CORPUSCULAR VOLUME 97.8 fl (80.0-96.0); RED CELL DISTRIBUTION WIDTH 16.1 % (11.5-14.5); WHITE BLOOD COUNT 3.4 K/mm3 (4.0-10.0)
[2016-11-30 06:17] LABS: INR 1.37
[2016-11-30 06:35] LABS: ANION GAP 6 MEQ/L (8-16); BLOOD UREA NITROGEN 20 MG/DL (7-18); CALCIUM LEVEL 8.7 MG/DL (8.8-10.2); CARBON DIOXIDE LEVEL 27 MEQ/L (21-32); CHLORIDE LEVEL 108 MEQ/L (98-107); CREATININE FOR GFR 0.62 MG/DL (0.55-1.02); GLOMERULAR FILTRATION RATE > 60.0 (>45); GLUCOSE, FASTING 100 MG/DL (80-110); POTASSIUM SERUM 3.5 MEQ/L (3.5-5.1); SODIUM LEVEL 141 MEQ/L (136-145)
[2016-11-30] MEDS ORDERED: POTASSIUM CHLORIDE 10 MEQ SR TABLET PO ONE (07:45)
[2016-11-30 08:00] VITALS: BP 148/70
[2016-11-30] MEDS: IPRATROPIUM 0.5MG/ALBUTEROL 2.5MG INH SOL UD 3ML (DUONEB)(J7620) NEB SCH ×4 (08:00→20:15)
[2016-11-30] MEDS: LISINOPRIL 10 MG TAB PO SCH (08:45)
[2016-11-30] MEDS: levETIRAcetam ORAL SOLUTION 500 MG/5 ML UDC PO SCH ×2 (08:45→20:45)
[2016-11-30] MEDS: LIDOCAINE 5% (LIDODERM) PATCH TD SCH (08:46)
[2016-11-30] MEDS: PANTOPRAZOLE 40MG INJ (PROTONIX) (C9113) IV SCH (08:46)
[2016-11-30 12:00] VITALS: BP 129/62
--- NOTE | 2016-11-30 12:16 | IPNPDOC ---
Subjective Date Seen The patient was seen on 11/30/16. Subjective Chief Complaint/HPI The patient is a 66-year-old female admitted with a reason for visit of [facility]. General: Denies: Chills, Night Sweats Constitutional: Denies: Chills, Fever Eyes: Denies: Pain, Vision change ENT: Denies: Head Aches, Ear Pain Skin: Denies: Rash, Lesions Pulmonary: Denies: Dyspnea, Cough Cardiovascular: Denies: Chest Pain, Palpitations Gastrointestinal: Denies: Nausea, Vomiting Genitourinary: Denies: Dysuria, Frequency Hematologic: Denies: Bruising, Bleeding Excessively Objective Physical Examination General Exam: Positive: Alert, Cooperative, No Acute Distress, Other ( Continues to be much more awake, alert, and oriented today) Eye Exam: Negative: Sclera icteric ENT Exam: Positive: Mucous membr. moist/pink Chest Exam: Positive: Diminished, Negative: Wheezing Heart Exam: Positive: Rate Normal, Normal S1, Normal S2 Abdomen Exam: Positive: Normal bowel sounds, Soft, Negative: Tenderness Extremity Exam: Negative: Tenderness, Swelling Skin Exam: Negative: Rash Psych Exam: Positive: Oriented x 3 Assessment /Plan Plan/VTE VTE Prophylaxis Ordered?: Yes Plan Hydrocephalus Patient's mentation/neurologic status has returned back to its baseline prior to the PEA Cardiac Arrest event on 11/26 I discussed the above with Dr. Noble--We will be obtaining a Lumbar Puncture on Thursday12/01/16 at which time we will attempt to drain 30-40 cc's of CSF, and send for Cell Count and studies. Will follow up with Recommendations from [facility] for possible CSF Diversion pending results of LP drainage of 30-40cc's and CSF studies next week s/p PEA Cardiac Arrest on 11/26 Preceding rhythm notable for PVC's and Bradycardia with a HR in 40s Code lasted ~4 mins, and patient received 1 dose of Epinephrine, 2 doses of Atropine and subsequently achieved ROSC CT Scan of the Head with no acute changes EKG with baseline Type 1 AV Block, LBBB No bradycardic events noted from since initial event 2D ECHO noted with EF of 50%, mild perivalvular insufficiency of of mechanical AV, Mechanical MV noted, and Grade 2 DD also evident PEA Cardiac Arrest of unclear Etiology, we have consulted Cardiology and I have discussed the case with Dr. Patel, his input has been appreciated The patient remains hemodynamically stable at this time We will continue to monitor on Telemetry for any further events Hx of ICH s/p EVD complicated by Cerebral ventriculitis External Ventricular Drain removed at [facility] s/p completion of a total of 28 days of IV Abx therapy Patient has been afebrile, with a normal WBC here Will repeat CSF studies on 12/01/16 ID on board Hx of CAD (coronary artery disease) of artery bypass graft, Mitral and Aortic Mechanical Valve Replacement Coumadin on hold for now Will continue the patient on a Heparin gtt ECHO as noted above Hypertension The patient's blood pressure has been stable on current regimen Cont Lisinopril We will continue to monitor Hyperthyroidism Continue Methimazole Anemia, Stable s/p 1 Unit of PRBC's transfusion on 11/25/16 Stool occult negative No overt source of bleeding identified HTN, stable Not on any meds Hyperlipidemia Cont Statin DVT prophylaxis On Heparin gtt for now Disposition- patient hemodynamically stable, with no acute events since initial event of PEA arrest. Continue functional optimization with PT/OT. Repeat lumbar puncture with CSF studies tentatively rescheduled for 12/01/16. VS, I&O, 24H, [facility] Vital Signs/I&O Vital Signs Date Time Temp Pulse Resp B/P (MAP) Pulse Ox O2 Delivery O2 Flow Rate FiO2 11/30/16 08:45 148/70 11/30/16 08:01 86 11/30/16 08:00 Room Air 11/30/16 08:00 98.2 20 96 11/30/16 04:00 1.0 11/27/16 03:00 100 I&O- Last 24 Hours up to 6 AM 11/30/16 06:00 Intake Total 480 ml Balance 480 ml Laboratory Data 24H LABS Laboratory Tests 2 11/30/16 05:58: Prothrombin Time 17.0H, Prothromb Time International Ratio 1.37, Activated Partial Thromboplast Time 99.3H, Anion Gap 6L, Glomerular Filtration Rate > 60.0 , Blood Urea Nitrogen 20H, Creatinine 0.62, Sodium Level 141, Potassium Level 3.5, Chloride Level 108H, Carbon Dioxide Level 27, Calcium Level 8.7L CBC/BMP Laboratory Tests 11/30/16 05:58 Red Blood Count 2.64 L, Mean Corpuscular Volume 97.8 H, Mean Corpuscular Hemoglobin 32.2, Mean Corpuscular Hemoglobin Concent 32.9, Red Cell Distribution Width 16.1 H, Calcium Level 8.7 L Microbiology Microbiology 11/21/16 Fungal Smear, Received Pending 11/21/16 Fungal Culture, Received Pending 11/21/16 Gram Stain - Final, Complete 11/21/16 CSF Culture - Final, Complete 11/30/16 Stool Occult Blood (PAPI) - Final, Complete 11/29/16 Stool Occult Blood (PAPI) - Final, Complete 11/28/16 Stool Occult Blood (PAPI) - Final, Complete 11/23/16 Stool Occult Blood (PAPI) - Final, Complete ISABELLA KAY MD Nov 30, 2016 12:16
[2016-11-30 20:00] VITALS: BP 141/70
[2016-11-30] MEDS: ATORVASTATIN 20 MG TAB PO SCH (20:45)
[2016-11-30] MEDS: **NOTE PATIENT COMMENT** MISC XX SCH (21:00)
[2016-11-30] MEDS: HEPARIN DRIP 25,000 UNITS in APPROPRIATE DILUENT 1 EA IV SCH (21:09)
[2016-12-01] VITALS (8 sets, daily range): BP systolic 130–165; BP diastolic 60–77
[2016-12-01] MEDS: SODIUM CHLORIDE 0.9% INJ 10 ML SYR IV SCH ×2 (06:01→17:58)
[2016-12-01 06:19] LABS: MEAN CORPUSCULAR HEMOGLOBIN 32.4 pg (27.0-33.0); MEAN CORPUSCULAR HGB CONC 33.1 g/dl (32.0-36.5); MEAN CORPUSCULAR VOLUME 97.7 fl (80.0-96.0); RED CELL DISTRIBUTION WIDTH 16.2 % (11.5-14.5)
[2016-12-01 06:30] LABS: ANION GAP 5 MEQ/L (8-16); BLOOD UREA NITROGEN 21 MG/DL (7-18); CALCIUM LEVEL 9.1 MG/DL (8.8-10.2); CARBON DIOXIDE LEVEL 27 MEQ/L (21-32); CHLORIDE LEVEL 108 MEQ/L (98-107); CREATININE FOR GFR 0.58 MG/DL (0.55-1.02); GLOMERULAR FILTRATION RATE > 60.0 (>45); GLUCOSE, FASTING 103 MG/DL (80-110); POTASSIUM SERUM 4.1 MEQ/L (3.5-5.1); SODIUM LEVEL 140 MEQ/L (136-145)
[2016-12-01 06:58] LABS: INR 1.18
[2016-12-01] MEDS: IPRATROPIUM 0.5MG/ALBUTEROL 2.5MG INH SOL UD 3ML (DUONEB)(J7620) NEB SCH ×4 (07:12→19:48)
[2016-12-01] MEDS: levETIRAcetam ORAL SOLUTION 500 MG/5 ML UDC PO SCH ×2 (08:41→22:01)
[2016-12-01] MEDS: ONDANSETRON 4MG/2ML VIAL (J2405) IV PRN (08:41)
[2016-12-01] MEDS: PANTOPRAZOLE 40MG INJ (PROTONIX) (C9113) IV SCH (08:41)
[2016-12-01] MEDS: LISINOPRIL 10 MG TAB PO SCH (08:41)
[2016-12-01] MEDS: LIDOCAINE 5% (LIDODERM) PATCH TD SCH (08:42)
[2016-12-01] MEDS ORDERED: ALPRAZolam 0.25 MG TAB PO ONE (10:00)
[2016-12-01 11:57] LABS: RBC CSF AUTO 3 /mm3 (0-0); WBC CSF AUTO 4 /mm3 (0-10)
[2016-12-01 11:59] LABS: APPEARANCE, CSF CLEAR (CLEAR); COLOR, CSF COLORLESS (COLORLESS); CSF DIFF IF INDICATED? NO (NO); CSF TUBE# CELL CNT TUBE 1
[2016-12-01 12:00] LABS: CSF DILUENT LOT # 6221
[2016-12-01 12:07] LABS: GLUCOSE CSF 54 MG/DL (40-75)
[2016-12-01] MEDS ORDERED: HEPARIN SOD (PORCINE) 5000 UNITS/ML VIAL IV PRN (13:45)
--- NOTE | 2016-12-01 13:46 | IPNPDOC ---
Subjective Date Seen The patient was seen on 12/01/16. Subjective Chief Complaint/HPI The patient is a 66-year-old female admitted with a reason for visit of [facility]. General: Denies: Chills, Night Sweats Constitutional: Denies: Chills, Fever Eyes: Denies: Pain, Vision change ENT: Denies: Head Aches, Ear Pain Skin: Denies: Rash, Lesions Pulmonary: Denies: Dyspnea, Cough Cardiovascular: Denies: Chest Pain, Palpitations Gastrointestinal: Denies: Nausea, Vomiting Genitourinary: Denies: Dysuria, Frequency Hematologic: Denies: Bruising, Bleeding Excessively Musculoskeletal: Denies: Neck Pain, Back Pain Objective Physical Examination General Exam: Positive: Alert, Cooperative, No Acute Distress, Other ( Continues to be much more awake, alert, and oriented today) Eye Exam: Negative: Sclera icteric ENT Exam: Positive: Mucous membr. moist/pink Chest Exam: Positive: Diminished, Negative: Wheezing Heart Exam: Positive: Rate Normal, Normal S1, Normal S2 Abdomen Exam: Positive: Normal bowel sounds, Soft, Negative: Tenderness Extremity Exam: Negative: Tenderness, Swelling Skin Exam: Negative: Rash Psych Exam: Positive: Oriented x 3 Assessment /Plan Plan/VTE VTE Prophylaxis Ordered?: Yes Plan Hydrocephalus Patient's mentation/neurologic status has returned back to its baseline prior to the PEA Cardiac Arrest event on 11/26 I discussed the above with Dr. Noble--We will be obtaining a Lumbar Puncture today at which time we will attempt to drain 30-40 cc's of CSF, and send for Cell Count and studies. Will follow up with Recommendations from [facility] for possible CSF Diversion pending results of LP drainage of 30-40cc's and CSF studies later this week Patient downgraded to PCU s/p PEA Cardiac Arrest on 11/26 Preceding rhythm notable for PVC's and Bradycardia with a HR in 40s Code lasted ~4 mins, and patient received 1 dose of Epinephrine, 2 doses of Atropine and subsequently achieved ROSC CT Scan of the Head with no acute changes EKG with baseline Type 1 AV Block, LBBB No bradycardic events noted since initial event 2D ECHO noted with EF of 50%, mild perivalvular insufficiency of of mechanical AV, Mechanical MV noted, and Grade 2 DD also evident PEA Cardiac Arrest of unclear Etiology, we have consulted Cardiology and I have discussed the case with Dr. Patel, his input has been appreciated The patient remains hemodynamically stable at this time We will continue to monitor on Telemetry for any further events Hx of ICH s/p EVD complicated by Cerebral ventriculitis External Ventricular Drain removed at [facility] s/p completion of a total of 28 days of IV Abx therapy Patient has been afebrile, with a normal WBC here Will repeat CSF studies on 12/01/16 ID on board Hx of CAD (coronary artery disease) of artery bypass graft, Mitral and Aortic Mechanical Valve Replacement Coumadin on hold for now Will continue the patient on a Heparin gtt ECHO as noted above Hypertension The patient's blood pressure has been stable on current regimen Cont Lisinopril We will continue to monitor Hyperthyroidism Continue Methimazole Anemia, Stable s/p 1 Unit of PRBC's transfusion on 11/25/16 Stool occult negative No overt source of bleeding identified HTN, stable Not on any meds Hyperlipidemia Cont Statin DVT prophylaxis On Heparin gtt for now Disposition- patient hemodynamically stable, with no acute events since initial event of PEA arrest. Continue functional optimization with PT/OT. Repeat lumbar puncture with CSF studies tentatively rescheduled for today. VS, I&O, 24H, [facility] Vital Signs/I&O Vital Signs Date Time Temp Pulse Resp B/P (MAP) Pulse Ox O2 Delivery O2 Flow Rate FiO2 12/01/16 08:41 165/77 12/01/16 08:00 99.3 93 20 94 Room Air 11/30/16 04:00 1.0 11/27/16 03:00 100 I&O- Last 24 Hours up to 6 AM 12/01/16 05:59 Intake Total 1266 ml Output Total 0 ml Balance 1266 ml Laboratory Data 24H LABS Laboratory Tests 2 12/01/16 05:58: Prothrombin Time 15.1H, Prothromb Time International Ratio 1.18, Activated Partial Thromboplast Time 40.5H, Anion Gap 5L, Glomerular Filtration Rate > 60.0 , Blood Urea Nitrogen 21H, Creatinine 0.58, Sodium Level 140, Potassium Level 4.1, Chloride Level 108H, Carbon Dioxide Level 27, Calcium Level 9.1 12/01/16 10:52: CSF Appearance CLEAR, CSF Color COLORLESS, CSF WBC (Auto) 4, CSF RBC (Auto) 3H, CSF Glucose (Tube 1) TUBE 1, CSF Total Protein (Tube 1) TUBE 1, CSF Cell Count Tube # TUBE 1, CSF Glucose 54, CSF Total Protein 57.5H CBC/BMP Laboratory Tests 11/30/16 14:18 12/01/16 05:58 Red Blood Count 2.76 L, Mean Corpuscular Volume 97.7 H, Mean Corpuscular Hemoglobin 32.4, Mean Corpuscular Hemoglobin Concent 33.1, Red Cell Distribution Width 16.2 H, Calcium Level 9.1 Microbiology Microbiology 12/01/16 Gram Stain - Final, Resulted 12/01/16 CSF Culture, Resulted Pending 11/21/16 Fungal Smear, Received Pending 11/21/16 Fungal Culture, Received Pending 11/21/16 Gram Stain - Final, Complete 11/21/16 CSF Culture - Final, Complete 11/30/16 Stool Occult Blood (PAPI) - Final, Complete 11/29/16 Stool Occult Blood (PAPI) - Final, Complete 11/28/16 Stool Occult Blood (PAPI) - Final, Complete 11/23/16 Stool Occult Blood (PAPI) - Final, Complete ISABELLA KAY MD Dec 01, 2016 13:46
--- NOTE | 2016-12-01 15:49 | REP ---
CT HEAD WITHOUT CONTRAST: HISTORY: Trauma. COMPARISON: 11/26/2016 Areas of decreased attenuation are present in the periventricular white matter. This represents small vessel ischemic disease. There is no intraparenchymal hemorrhage, mass or midline shift. There is dilatation of the ventricular system consistent with moderate hydrocephalus. There is dilatation of the cortical sulci consistent with mild volume loss. There is no extracerebral collection. The visualized sinuses are clear. IMPRESSION: 1. Small vessel ischemic disease. 2. Moderate hydrocephalus, unchanged compared to the previous study. 3. Mild volume loss. Signed by Shade Li MD 12/01/2016 04:14 P
[2016-12-01 16:04] LABS: INR 1.19
--- NOTE | 2016-12-01 16:53 | REP ---
Procedure: For guidance for lumbar puncture. History: Mental status change The procedure was performed under the direct supervision of Dr. Muniz. The risks and benefits of the procedure were explained air and informed consent was obtained by the health care proxy. The L3-4 interspace was localized using fluoroscopic guidance. The skin was prepped and draped in a sterile fashion. 1% lidocaine was used as a local anesthetic. Using fluoroscopic guidance a 22-gauge spinal needle was inserted and advanced into the thecal sac. 30 ml of spinal fluid was withdrawn and sent to lab. The the patient tolerated the procedure well and there were no immediate complications. 20 seconds of fluoro time was utilized for this procedure. Reviewed by JERALD Irby 12/01/2016 03:24 PSigned by Beto Muniz MD 12/01/2016 04:43 P
[2016-12-01] MEDS: HEPARIN DRIP 25,000 UNITS in APPROPRIATE DILUENT 1 EA IV SCH (17:57)
[2016-12-01] MEDS: ACETAMINOPHEN TAB 650MG DOSE (2X325MG) PO PRN (19:31)
[2016-12-01] MEDS: **NOTE PATIENT COMMENT** MISC XX SCH (21:00)
[2016-12-01] MEDS: ATORVASTATIN 20 MG TAB PO SCH (21:59)
[2016-12-01] MEDS: amLODIPine 5 MG TAB PO SCH (22:00)
[2016-12-02] VITALS (7 sets, daily range): BP systolic 101–163; BP diastolic 49–74
[2016-12-02] MEDS: SODIUM CHLORIDE 0.9% INJ 10 ML SYR IV SCH ×2 (05:37→17:37)
[2016-12-02 06:50] LABS: MEAN CORPUSCULAR HEMOGLOBIN 33.2 pg (27.0-33.0); MEAN CORPUSCULAR HGB CONC 33.4 g/dl (32.0-36.5); MEAN CORPUSCULAR VOLUME 99.5 fl (80.0-96.0); WHITE BLOOD COUNT 3.5 K/mm3 (4.0-10.0)
[2016-12-02 06:53] LABS: INR 1.2
[2016-12-02 06:59] LABS: ANION GAP 4 MEQ/L (8-16); BLOOD UREA NITROGEN 22 MG/DL (7-18); CALCIUM LEVEL 8.8 MG/DL (8.8-10.2); CARBON DIOXIDE LEVEL 29 MEQ/L (21-32); CHLORIDE LEVEL 108 MEQ/L (98-107); CREATININE FOR GFR 0.69 MG/DL (0.55-1.02); GLOMERULAR FILTRATION RATE > 60.0 (>45); GLUCOSE, FASTING 99 MG/DL (80-110); POTASSIUM SERUM 3.8 MEQ/L (3.5-5.1); SODIUM LEVEL 141 MEQ/L (136-145)
[2016-12-02] MEDS: IPRATROPIUM 0.5MG/ALBUTEROL 2.5MG INH SOL UD 3ML (DUONEB)(J7620) NEB SCH ×4 (07:35→20:00)
[2016-12-02] MEDS: PANTOPRAZOLE 40MG INJ (PROTONIX) (C9113) IV SCH (09:00)
[2016-12-02] MEDS: levETIRAcetam ORAL SOLUTION 500 MG/5 ML UDC PO SCH ×2 (09:00→21:52)
[2016-12-02] MEDS: LISINOPRIL 10 MG TAB PO SCH (09:01)
[2016-12-02] MEDS: LIDOCAINE 5% (LIDODERM) PATCH TD SCH (09:01)
--- NOTE | 2016-12-02 11:17 | IPNPDOC ---
Subjective Date Seen The patient was seen on 12/02/16. Subjective Chief Complaint/HPI The patient is a 66-year-old female admitted with a reason for visit of ICH. Events since last encounter Knows the president is "José Luis Diamond". Not answering any other question, no issues noted by night staff at bedside. General: Reports: ROS Unobtainable Objective Physical Examination General Exam: Positive: Alert, Cooperative, No Acute Distress, Other ( Continues to be much more awake, alert, and oriented today) Eye Exam: Negative: Sclera icteric Chest Exam: Positive: Diminished, Negative: Rales, Rhonchi, Wheezing Heart Exam: Positive: Rate Normal, Normal S1, Normal S2 Telemetry: Positive: No significant arrhythmia Abdomen Exam: Positive: Normal bowel sounds, Soft, Negative: Tenderness Extremity Exam: Negative: Tenderness Psych Exam: Positive: Oriented x 3 Assessment /Plan Problems (1) Hydrocephalus Status: Acute Response to Treatment: Stable Problem Specific Plan: Consult Specialist Problem Text: Patient's mentation, neurologic status has remained stable, waxing and waning over the last week Dr. Noble following- perhaps considering procedure (2) Cerebral ventriculitis Status: Acute Response to Treatment: Improving Problem Specific Plan: Consult Specialist Problem Text: s/p completion of IV Abx therapy Repeat LP done 12/01/16 (3) CAD (coronary artery disease) of artery bypass graft Status: Chronic (4) Hyperthyroidism Status: Acute Problem Text: Continue Methimazole (5) Anemia Status: Chronic Response to Treatment: Stable Problem Specific Plan: Repeat Labs Problem Text: s/p 1 Unit of PRBC's transfusion on 11/25/16 Stool occult negative x4 No overt source of bleeding identified (6) S/P mitral valve replacement Status: Chronic Problem Text: INR supra-therapeutic at 3.7 today, Coumadin held Vitamin K ordered to reduce INR to below 2 to have procedure done on Tuesday 11/28 (7) HTN (hypertension) Status: Chronic Problem Text: on norvasc, michelle inhibitor (8) HLD (hyperlipidemia) Status: Chronic Problem Text: Cont Statin (9) Afib Status: Chronic Problem Text: Rate controlled, restarting Coumadin (INR subtherapeutic at this time) On heparin drip (10) DVT prophylaxis Response to Treatment: Stable Problem Text: heparin drip (11) Diastolic CHF Problem Text: grade II, compensated (12) PEA (Pulseless electrical activity) Problem Text: s/p PEA arrest, associated with use of IV vitamin k Was seen by cardiology during her stay No significant ongoing issues Plan/VTE VTE Prophylaxis Ordered?: Yes VS, I&O, 24H, Fishbone Vital Signs/I&O Vital Signs Date Time Temp Pulse Resp B/P (MAP) Pulse Ox O2 Delivery O2 Flow Rate FiO2 12/02/16 09:01 137/63 12/02/16 08:00 99.6 70 20 91 Room Air 12/02/16 04:00 2.0 11/27/16 03:00 100 I&O- Last 24 Hours up to 6 AM 12/02/16 06:00 Intake Total 420 ml Output Total 0 ml Balance 420 ml Laboratory Data 24H LABS Laboratory Tests 2 12/01/16 15:24: Prothrombin Time 15.2H, Prothromb Time International Ratio 1.19, Activated Partial Thromboplast Time 37.8H 12/02/16 00:23: Activated Partial Thromboplast Time 70.7H 12/02/16 06:19: Prothrombin Time 15.3H, Prothromb Time International Ratio 1.20, Activated Partial Thromboplast Time 67.2H, Anion Gap 4L, Glomerular Filtration Rate > 60.0 , Blood Urea Nitrogen 22H, Creatinine 0.69, Sodium Level 141, Potassium Level 3.8, Chloride Level 108H, Carbon Dioxide Level 29, Calcium Level 8.8 CBC/BMP Laboratory Tests 12/02/16 06:19 Red Blood Count 2.73 L, Mean Corpuscular Volume 99.5 H, Mean Corpuscular Hemoglobin 33.2 H, Mean Corpuscular Hemoglobin Concent 33.4, Red Cell Distribution Width 16.0 H, Calcium Level 8.8 Microbiology Microbiology 12/01/16 Gram Stain - Final, Resulted 12/01/16 CSF Culture, Resulted Pending 11/30/16 Stool Occult Blood (PAPI) - Final, Complete 11/29/16 Stool Occult Blood (PAPI) - Final, Complete 11/28/16 Stool Occult Blood (PAPI) - Final, Complete 11/23/16 Stool Occult Blood (PAPI) - Final, Complete MARY ANN GONZALEZ MD Dec 02, 2016 11:17
[2016-12-02] MEDS: ATORVASTATIN 20 MG TAB PO SCH (21:52)
[2016-12-02] MEDS: **NOTE PATIENT COMMENT** MISC XX SCH (21:53)
[2016-12-02] MEDS: amLODIPine 5 MG TAB PO SCH (21:53)
[2016-12-03] VITALS (8 sets, daily range): BP systolic 125–157; BP diastolic 59–96
[2016-12-03 06:01] LABS: MEAN CORPUSCULAR HEMOGLOBIN 31.9 pg (27.0-33.0); MEAN CORPUSCULAR HGB CONC 32.4 g/dl (32.0-36.5); MEAN CORPUSCULAR VOLUME 98.4 fl (80.0-96.0); WHITE BLOOD COUNT 3.8 K/mm3 (4.0-10.0)
[2016-12-03 06:07] LABS: INR 1.1
[2016-12-03 06:22] LABS: ANION GAP 5 MEQ/L (8-16); BLOOD UREA NITROGEN 18 MG/DL (7-18); CARBON DIOXIDE LEVEL 29 MEQ/L (21-32); CHLORIDE LEVEL 106 MEQ/L (98-107); GLOMERULAR FILTRATION RATE > 60.0 (>45); GLUCOSE, FASTING 106 MG/DL (80-110); POTASSIUM SERUM 3.9 MEQ/L (3.5-5.1); SODIUM LEVEL 140 MEQ/L (136-145)
[2016-12-03] MEDS: SODIUM CHLORIDE 0.9% INJ 10 ML SYR IV SCH ×2 (06:34→17:30)
[2016-12-03] MEDS: IPRATROPIUM 0.5MG/ALBUTEROL 2.5MG INH SOL UD 3ML (DUONEB)(J7620) NEB SCH ×4 (07:37→21:22)
[2016-12-03] MEDS: levETIRAcetam ORAL SOLUTION 500 MG/5 ML UDC PO SCH ×2 (08:56→21:47)
[2016-12-03] MEDS: LIDOCAINE 5% (LIDODERM) PATCH TD SCH (08:56)
[2016-12-03] MEDS: LISINOPRIL 10 MG TAB PO SCH (08:56)
[2016-12-03] MEDS: PANTOPRAZOLE 40MG INJ (PROTONIX) (C9113) IV SCH (08:56)
[2016-12-03] MEDS: HEPARIN DRIP 25,000 UNITS in APPROPRIATE DILUENT 1 EA IV SCH (08:58)
[2016-12-03] MEDS: ONDANSETRON 4MG/2ML VIAL (J2405) IV PRN (12:49)
--- NOTE | 2016-12-03 13:57 | IPNPDOC ---
Subjective Date Seen The patient was seen on 12/03/16. Subjective Chief Complaint/HPI The patient is a 66-year-old female admitted with a reason for visit of ICH. Events since last encounter Less interactive for staff overnight Is able to tell me that she is in hospital, does not know which hospital, does not know date/month/year, does know president Does not complain of pain, or shortness of breath staff does not note a change in cough with diet General: Denies: ROS Unobtainable Objective Physical Examination General Exam: Positive: Alert, No Acute Distress, Other (Continues to be much more awake, alert, and oriented today) Eye Exam: Negative: Sclera icteric ENT Exam: Positive: Mucous membr. moist/pink Chest Exam: Positive: Diminished, Other (cough- sounds to involve upper airway) , Negative: Rales, Rhonchi, Wheezing Heart Exam: Positive: Rate Normal, Normal S1, Normal S2 Telemetry: Positive: No significant arrhythmia Abdomen Exam: Positive: Normal bowel sounds, Soft, Negative: Tenderness Extremity Exam: Negative: Tenderness Psych Exam: Positive: Oriented x 3 Assessment /Plan Problems (1) Hydrocephalus Status: Acute Response to Treatment: Stable Problem Specific Plan: Consult Specialist Problem Text: Patient's mentation, neurologic status has remained stable, waxing and waning over the last week 12/03/16 exam was better than average based on my observations Dr. Noble following- perhaps considering procedure (2) Cerebral ventriculitis Status: Acute Response to Treatment: Improving Problem Specific Plan: Consult Specialist Problem Text: s/p completion of IV Abx therapy Repeat LP done 12/01/16 (3) CAD (coronary artery disease) of artery bypass graft Status: Chronic (4) Hyperthyroidism Status: Acute Problem Text: Continue Methimazole (5) Anemia Status: Chronic Response to Treatment: Stable Problem Specific Plan: Repeat Labs Problem Text: s/p 1 Unit of PRBC's transfusion on 11/25/16 Stool occult negative x4 No overt source of bleeding identified (6) S/P mitral valve replacement Status: Chronic Problem Text: INR subtherapeutic off Coumadin Vitamin K was ordered to reduce INR to below 2 to have procedure done on Tuesday 11/28 (7) HTN (hypertension) Status: Chronic Problem Text: on norvasc, michelle inhibitor (8) HLD (hyperlipidemia) Status: Chronic Problem Text: Cont Statin (9) Afib Status: Chronic Problem Text: Rate controlled, restarting Coumadin (INR subtherapeutic at this time) On heparin drip (10) DVT prophylaxis Response to Treatment: Stable Problem Text: heparin drip (11) Diastolic CHF Problem Text: grade II, compensated (12) PEA (Pulseless electrical activity) Problem Text: s/p PEA arrest, associated with use of IV vitamin k Was seen by cardiology during her stay No significant ongoing issues Plan/VTE VTE Prophylaxis Ordered?: Yes VS, I&O, 24H, Fishbone Vital Signs/I&O Vital Signs Date Time Temp Pulse Resp B/P (MAP) Pulse Ox O2 Delivery O2 Flow Rate FiO2 12/03/16 13:25 Room Air 12/03/16 11:55 99.6 89 16 130/96 (107) 94 12/03/16 06:00 2.0 11/27/16 03:00 100 I&O- Last 24 Hours up to 6 AM 12/03/16 06:00 Intake Total 1292 ml Output Total 0 ml Balance 1292 ml Laboratory Data 24H LABS Laboratory Tests 2 12/03/16 05:50: Prothrombin Time 14.3, Prothromb Time International Ratio 1.10, Activated Partial Thromboplast Time 56.4H, Anion Gap 5L, Glomerular Filtration Rate > 60.0 , Blood Urea Nitrogen 18, Creatinine 0.70, Sodium Level 140, Potassium Level 3.9 , Chloride Level 106, Carbon Dioxide Level 29, Calcium Level 9.0 12/03/16 11:40: Activated Partial Thromboplast Time 48.8H CBC/BMP Laboratory Tests 12/03/16 05:50 Red Blood Count 2.70 L, Mean Corpuscular Volume 98.4 H, Mean Corpuscular Hemoglobin 31.9, Mean Corpuscular Hemoglobin Concent 32.4, Red Cell Distribution Width 16.0 H, Calcium Level 9.0 Microbiology Microbiology 12/01/16 Gram Stain - Final, Complete 12/01/16 CSF Culture - Final, Complete 11/30/16 Stool Occult Blood (PAPI) - Final, Complete 11/29/16 Stool Occult Blood (PAPI) - Final, Complete 11/28/16 Stool Occult Blood (PAPI) - Final, Complete 11/23/16 Stool Occult Blood (PAPI) - Final, Complete MARY ANN GONZALEZ MD Dec 03, 2016 13:57
--- NOTE | 2016-12-03 15:07 | REP ---
Portable chest x-ray: Sitting AP view. History: Cough. Comparison chest x-ray November 26, 2016. Findings: A right-sided PICC line is seen in place as before. The patient is status post prior median sternotomy and aortic valve replacement. EKG electrodes are seen. There is diffuse osteoporosis. Mild linear fibrosis is seen in the left lower lobe and some interstitial fibrosis is seen in both bases. No acute infiltrate is seen. Mildly prominent heart is again seen unchanged. Impression: No new infiltrate. Linear fibrosis left base. Mild bibasilar interstitial fibrosis. Prior sternotomy and aorta valve replacement. Signed by Beto Muniz MD 12/03/2016 04:31 P
[2016-12-03] MEDS: ATORVASTATIN 20 MG TAB PO SCH (21:00)
[2016-12-03] MEDS: **NOTE PATIENT COMMENT** MISC XX SCH (21:00)
[2016-12-03] MEDS: amLODIPine 5 MG TAB PO SCH (21:00)
[2016-12-04 04:00] VITALS: BP 110/69
[2016-12-04 04:12] LABS: MEAN CORPUSCULAR HEMOGLOBIN 32.7 pg (27.0-33.0); MEAN CORPUSCULAR HGB CONC 33.3 g/dl (32.0-36.5); MEAN CORPUSCULAR VOLUME 98.3 fl (80.0-96.0); RED CELL DISTRIBUTION WIDTH 15.9 % (11.5-14.5); WHITE BLOOD COUNT 4.2 K/mm3 (4.0-10.0)
[2016-12-04 05:05] LABS: ANION GAP 5 MEQ/L (8-16); BLOOD UREA NITROGEN 15 MG/DL (7-18); CARBON DIOXIDE LEVEL 30 MEQ/L (21-32); CHLORIDE LEVEL 105 MEQ/L (98-107); CREATININE FOR GFR 0.66 MG/DL (0.55-1.02); GLOMERULAR FILTRATION RATE > 60.0 (>45); GLUCOSE, FASTING 102 MG/DL (80-110); POTASSIUM SERUM 3.6 MEQ/L (3.5-5.1); SODIUM LEVEL 140 MEQ/L (136-145)
[2016-12-04] MEDS: SODIUM CHLORIDE 0.9% INJ 10 ML SYR IV SCH ×2 (05:59→17:10)
[2016-12-04] MEDS: IPRATROPIUM 0.5MG/ALBUTEROL 2.5MG INH SOL UD 3ML (DUONEB)(J7620) NEB SCH ×4 (07:09→20:27)
[2016-12-04 07:45] VITALS: BP 140/67
--- NOTE | 2016-12-04 08:55 | REP ---
Clinical: Altered mental status. Comparison: 11/18/2016. Findings: Age-related atrophy and microvascular ischemic changes are appreciated. The ventricles and sulci are symmetric. Dillon-white differentiation is maintained. There is no evidence for acute intracranial hemorrhage, mass/mass effect, pathology or infarction. No extra-axial fluid collection. Calvarium is intact. Paranasal sinuses and mastoid air cells are clear. Impression: Age related atrophy and microvascular ischemic changes. No acute intracranial hemorrhage, infarction, or mass/mass effect. No significant change from prior examination. Signed by Tu Singh MD 11/23/2016 04:17 P
[2016-12-04] MEDS: levETIRAcetam ORAL SOLUTION 500 MG/5 ML UDC PO SCH ×2 (09:25→20:12)
[2016-12-04] MEDS: PANTOPRAZOLE 40MG INJ (PROTONIX) (C9113) IV SCH (09:25)
[2016-12-04] MEDS: LIDOCAINE 5% (LIDODERM) PATCH TD SCH (09:25)
[2016-12-04] MEDS: LISINOPRIL 10 MG TAB PO SCH (09:26)
--- NOTE | 2016-12-04 10:38 | IPNPDOC ---
Subjective Date Seen The patient was seen on 12/04/16. Subjective Chief Complaint/HPI The patient is a 66-year-old female admitted with a reason for visit of ICH. Events since last encounter No complaint, no issues noted by staff, patient not particularly interactive this morning General: Reports: ROS Unobtainable Objective Physical Examination General Exam: Positive: No Acute Distress, Other (Continues to be much more awake, alert, and oriented today) Eye Exam: Negative: Sclera icteric ENT Exam: Positive: Mucous membr. moist/pink Chest Exam: Positive: Diminished, Other (no cough today), Negative: Rales, Rhonchi, Wheezing Heart Exam: Positive: Rate Normal, Normal S1, Normal S2 Telemetry: Positive: No significant arrhythmia Abdomen Exam: Positive: Normal bowel sounds, Soft, Negative: Tenderness Extremity Exam: Negative: Tenderness Psych Exam: Positive: Oriented x 3 Assessment /Plan Problems (1) Hydrocephalus Status: Acute Response to Treatment: Stable Problem Specific Plan: Consult Specialist Problem Text: Patient's mentation, neurologic status has remained stable, waxing and waning over the last week Dr. Noble following- perhaps considering procedure but only upon normalization of csf which may take some time (2) Cerebral ventriculitis Status: Acute Response to Treatment: Improving Problem Specific Plan: Consult Specialist Problem Text: s/p completion of IV Abx therapy Repeat LP done 12/01/16 (3) CAD (coronary artery disease) of artery bypass graft Status: Chronic (4) Hyperthyroidism Status: Acute Problem Specific Plan: Monitor Clinically Problem Text: Continue Methimazole (5) Anemia Status: Chronic Response to Treatment: Stable Problem Specific Plan: Repeat Labs Problem Text: s/p 1 Unit of PRBC's transfusion on 11/25/16 Stool occult negative x4 No overt source of bleeding identified (6) S/P mitral valve replacement Status: Chronic Problem Text: INR subtherapeutic Vitamin K was ordered to reduce INR to below 2 to have procedure done on Tuesday 11/28 restart coumadin- as no procedure likely in near future (7) HTN (hypertension) Status: Chronic Problem Text: on norvasc, michelle inhibitor (8) HLD (hyperlipidemia) Status: Chronic Problem Text: Cont Statin (9) Afib Status: Chronic Problem Text: Rate controlled, restarted Coumadin 12/04/16 (INR subtherapeutic at this time) On heparin drip (10) DVT prophylaxis Response to Treatment: Stable Problem Text: heparin drip (11) Diastolic CHF Problem Specific Plan: Monitor Clinically Problem Text: grade II, compensated (12) PEA (Pulseless electrical activity) Problem Text: s/p PEA arrest, associated with use of IV vitamin k Was seen by cardiology during her stay No significant ongoing issues Plan/VTE VTE Prophylaxis Ordered?: Yes VS, I&O, 24H, Fishbone Vital Signs/I&O Vital Signs Date Time Temp Pulse Resp B/P (MAP) Pulse Ox O2 Delivery O2 Flow Rate FiO2 12/04/16 07:45 98.0 85 20 140/67 (91) 97 Nasal Cannula 2.0 I&O- Last 24 Hours up to 6 AM 12/04/16 05:59 Intake Total 311 ml Output Total 0 ml Balance 311 ml Laboratory Data 24H LABS Laboratory Tests 2 12/03/16 11:40: Activated Partial Thromboplast Time 48.8H 12/03/16 19:28: Activated Partial Thromboplast Time 72.9H 12/04/16 04:05: Activated Partial Thromboplast Time 80.3H, Anion Gap 5L, Glomerular Filtration Rate > 60.0, Blood Urea Nitrogen 15, Creatinine 0.66, Sodium Level 140, Potassium Level 3.6, Chloride Level 105, Carbon Dioxide Level 30, Calcium Level 9.0 CBC/BMP Laboratory Tests 12/04/16 04:05 Red Blood Count 2.78 L, Mean Corpuscular Volume 98.3 H, Mean Corpuscular Hemoglobin 32.7, Mean Corpuscular Hemoglobin Concent 33.3, Red Cell Distribution Width 15.9 H, Calcium Level 9.0 Microbiology Microbiology 12/01/16 Gram Stain - Final, Complete 12/01/16 CSF Culture - Final, Complete 11/30/16 Stool Occult Blood (PAPI) - Final, Complete 11/29/16 Stool Occult Blood (PAPI) - Final, Complete 11/28/16 Stool Occult Blood (PAPI) - Final, Complete MARY ANN GONZALEZ MD Dec 04, 2016 10:38
[2016-12-04 12:00] VITALS: BP 122/60
[2016-12-04] MEDS: HEPARIN DRIP 25,000 UNITS in APPROPRIATE DILUENT 1 EA IV SCH (14:29)
[2016-12-04 15:30] VITALS: BP 144/67
[2016-12-04] MEDS: WARFARIN SOD 5 MG TAB PO SCH (17:09)
[2016-12-04 20:00] VITALS: BP 115/53
[2016-12-04] MEDS: **NOTE PATIENT COMMENT** MISC XX SCH (20:13)
[2016-12-04] MEDS: amLODIPine 5 MG TAB PO SCH (20:13)
[2016-12-04] MEDS: ATORVASTATIN 20 MG TAB PO SCH (20:13)
[2016-12-05] VITALS: BP 130/69
[2016-12-05 04:00] VITALS: BP 114/56
[2016-12-05 05:40] LABS: MEAN CORPUSCULAR HGB CONC 33.4 g/dl (32.0-36.5); MEAN CORPUSCULAR VOLUME 98.9 fl (80.0-96.0); RED CELL DISTRIBUTION WIDTH 15.6 % (11.5-14.5)
[2016-12-05 05:49] LABS: INR 1.27
[2016-12-05] MEDS: SODIUM CHLORIDE 0.9% INJ 10 ML SYR IV SCH ×2 (05:49→17:43)
[2016-12-05 05:50] LABS: ANION GAP 7 MEQ/L (8-16); BLOOD UREA NITROGEN 16 MG/DL (7-18); CARBON DIOXIDE LEVEL 30 MEQ/L (21-32); CHLORIDE LEVEL 103 MEQ/L (98-107); CREATININE FOR GFR 0.64 MG/DL (0.55-1.02); GLOMERULAR FILTRATION RATE > 60.0 (>45); GLUCOSE, FASTING 106 MG/DL (80-110); POTASSIUM SERUM 3.9 MEQ/L (3.5-5.1); SODIUM LEVEL 140 MEQ/L (136-145)
[2016-12-05] MEDS: IPRATROPIUM 0.5MG/ALBUTEROL 2.5MG INH SOL UD 3ML (DUONEB)(J7620) NEB SCH ×4 (07:52→20:02)
[2016-12-05 08:00] VITALS: BP 137/82
[2016-12-05] MEDS: ONDANSETRON 4MG/2ML VIAL (J2405) IV PRN (08:01)
[2016-12-05] MEDS: PANTOPRAZOLE 40MG INJ (PROTONIX) (C9113) IV SCH (08:01)
[2016-12-05] MEDS: SODIUM CHLORIDE 0.9% INJ 10 ML SYR IV PRN (08:02)
[2016-12-05] MEDS: LIDOCAINE 5% (LIDODERM) PATCH TD SCH (08:02)
[2016-12-05] MEDS: levETIRAcetam ORAL SOLUTION 500 MG/5 ML UDC PO SCH ×2 (09:26→20:52)
[2016-12-05] MEDS: LISINOPRIL 10 MG TAB PO SCH (09:27)
--- NOTE | 2016-12-05 11:46 | IPNPDOC ---
Subjective Date Seen The patient was seen on 12/05/16. Subjective Chief Complaint/HPI The patient is a 66-year-old female admitted with a reason for visit of ICH. Events since last encounter Not as interactive this morning, no issues noted by staff, thinks she is about the same as previous encounters. No complaint of pain. Taking diet General: Reports: ROS Unobtainable Objective Physical Examination General Exam: Positive: No Acute Distress Eye Exam: Negative: Sclera icteric ENT Exam: Positive: Mucous membr. moist/pink Chest Exam: Positive: Diminished, Other (no cough today), Negative: Rales, Rhonchi, Wheezing Heart Exam: Positive: Rate Normal, Normal S1, Normal S2 Telemetry: Positive: No significant arrhythmia Abdomen Exam: Positive: Normal bowel sounds, Soft, Negative: Tenderness Extremity Exam: Negative: Tenderness Assessment /Plan Problems (1) Hydrocephalus Status: Acute Response to Treatment: Stable Problem Specific Plan: Consult Specialist Problem Text: Patient's mentation, neurologic status has remained stable, waxing and waning over the last week I discussed with patient's at bedside Dr. Noble following- perhaps considering procedure but only upon normalization of csf which may take some time (2) Cerebral ventriculitis Status: Acute Response to Treatment: Improving Problem Specific Plan: Consult Specialist Problem Text: s/p completion of IV Abx therapy Repeat LP done 12/01/16 (3) CAD (coronary artery disease) of artery bypass graft Status: Chronic Problem Specific Plan: Monitor Clinically (4) Hyperthyroidism Status: Acute Problem Specific Plan: Monitor Clinically Problem Text: Continue Methimazole Repeat labs 12/08/16 (5) Anemia Status: Chronic Response to Treatment: Stable Problem Specific Plan: Repeat Labs Problem Text: s/p 1 Unit of PRBC's transfusion on 11/25/16 Stool occult negative x4 No overt source of bleeding identified (6) S/P mitral valve replacement Status: Chronic Problem Text: INR subtherapeutic Vitamin K was ordered to reduce INR to below 2 to have procedure done on Tuesday 11/28 restarted coumadin- as no procedure likely in near future (7) HTN (hypertension) Status: Chronic Problem Text: on norvasc, michelle inhibitor (8) HLD (hyperlipidemia) Status: Chronic Problem Text: Cont Statin (9) Afib Status: Chronic Problem Text: Rate controlled, restarted Coumadin 12/04/16 (INR subtherapeutic at this time) On heparin drip (10) DVT prophylaxis Response to Treatment: Stable Problem Text: heparin drip (11) Diastolic CHF Problem Specific Plan: Monitor Clinically Problem Text: grade II, compensated (12) PEA (Pulseless electrical activity) Problem Text: s/p PEA arrest, associated with use of IV vitamin k Was seen by cardiology during her stay No significant ongoing issues No need for continuing telemetry Plan/VTE VTE Prophylaxis Ordered?: Yes VS, I&O, 24H, Fishbone Vital Signs/I&O Vital Signs Date Time Temp Pulse Resp B/P (MAP) Pulse Ox O2 Delivery O2 Flow Rate FiO2 12/05/16 09:27 137/82 12/05/16 08:00 97.8 83 18 97 Nasal Cannula 2.0 I&O- Last 24 Hours up to 6 AM 12/05/16 06:00 Intake Total 624 ml Balance 624 ml Laboratory Data 24H LABS Laboratory Tests 2 12/05/16 05:14: Prothrombin Time 16.0H, Prothromb Time International Ratio 1.27, Activated Partial Thromboplast Time 93.1H, Anion Gap 7L, Glomerular Filtration Rate > 60.0 , Blood Urea Nitrogen 16, Creatinine 0.64, Sodium Level 140, Potassium Level 3.9 , Chloride Level 103, Carbon Dioxide Level 30, Calcium Level 9.0 CBC/BMP Laboratory Tests 12/05/16 05:14 Red Blood Count 2.60 L, Mean Corpuscular Volume 98.9 H, Mean Corpuscular Hemoglobin 33.0, Mean Corpuscular Hemoglobin Concent 33.4, Red Cell Distribution Width 15.6 H, Calcium Level 9.0 Microbiology Microbiology 12/01/16 Gram Stain - Final, Complete 12/01/16 CSF Culture - Final, Complete 11/30/16 Stool Occult Blood (PAPI) - Final, Complete 11/29/16 Stool Occult Blood (PAPI) - Final, Complete 11/28/16 Stool Occult Blood (PAPI) - Final, Complete MARY ANN GONZALEZ MD Dec 05, 2016 11:46
[2016-12-05] MEDS: WARFARIN SOD 5 MG TAB PO SCH (17:43)
[2016-12-05] MEDS: ATORVASTATIN 20 MG TAB PO SCH (20:51)
[2016-12-05] MEDS: **NOTE PATIENT COMMENT** MISC XX SCH (20:52)
[2016-12-05] MEDS: amLODIPine 5 MG TAB PO SCH (20:52)
[2016-12-05 22:00] VITALS: BP 112/75
[2016-12-05] MEDS: HEPARIN DRIP 25,000 UNITS in APPROPRIATE DILUENT 1 EA IV SCH (23:26)
[2016-12-05 23:59] VITALS: BP 149/72
[2016-12-06] MEDS: SODIUM CHLORIDE 0.9% INJ 10 ML SYR IV SCH ×2 (05:55→17:21)
[2016-12-06 06:00] VITALS: BP 133/62
[2016-12-06 06:14] LABS: MEAN CORPUSCULAR HEMOGLOBIN 33.1 pg (27.0-33.0); MEAN CORPUSCULAR HGB CONC 33.2 g/dl (32.0-36.5); MEAN CORPUSCULAR VOLUME 99.6 fl (80.0-96.0); RED CELL DISTRIBUTION WIDTH 15.8 % (11.5-14.5); WHITE BLOOD COUNT 3.6 K/mm3 (4.0-10.0)
[2016-12-06 06:43] LABS: ANION GAP 8 MEQ/L (8-16); BLOOD UREA NITROGEN 17 MG/DL (7-18); CALCIUM LEVEL 8.7 MG/DL (8.8-10.2); CARBON DIOXIDE LEVEL 29 MEQ/L (21-32); CHLORIDE LEVEL 103 MEQ/L (98-107); CREATININE FOR GFR 0.64 MG/DL (0.55-1.02); GLOMERULAR FILTRATION RATE > 60.0 (>45); GLUCOSE, FASTING 97 MG/DL (80-110); POTASSIUM SERUM 3.6 MEQ/L (3.5-5.1); SODIUM LEVEL 140 MEQ/L (136-145)
[2016-12-06 07:26] VITALS: O2SAT 96
[2016-12-06] MEDS: IPRATROPIUM 0.5MG/ALBUTEROL 2.5MG INH SOL UD 3ML (DUONEB)(J7620) NEB SCH (07:26)
[2016-12-06 08:24] LABS: INR 1.25
[2016-12-06] MEDS: levETIRAcetam ORAL SOLUTION 500 MG/5 ML UDC PO SCH ×2 (10:12→20:29)
[2016-12-06] MEDS: PANTOPRAZOLE 40MG INJ (PROTONIX) (C9113) IV SCH (10:14)
[2016-12-06] MEDS: LIDOCAINE 5% (LIDODERM) PATCH TD SCH (10:14)
[2016-12-06] MEDS: LISINOPRIL 10 MG TAB PO SCH (10:14)
--- NOTE | 2016-12-06 13:15 | IPNPDOC ---
Subjective Date Seen The patient was seen on 12/06/16. Subjective Chief Complaint/HPI The patient is a 66-year-old female admitted with a reason for visit of ICH. Events since last encounter Tells me that Damon is president, and then laughs, seeming intentionally. Not a reasonable historian, no issues noted by staff, family at bedside concerned about rehab, range of motion, and risk of recurrent arrhythmia General: Reports: ROS Unobtainable Objective Physical Examination General Exam: Positive: Alert, No Acute Distress Eye Exam: Negative: Sclera icteric ENT Exam: Positive: Mucous membr. moist/pink Chest Exam: Positive: Diminished, Other (no cough today), Negative: Rales, Rhonchi, Wheezing Heart Exam: Positive: Rate Normal, Normal S1, Normal S2 Telemetry: Positive: No significant arrhythmia Abdomen Exam: Positive: Normal bowel sounds, Soft, Negative: Tenderness Extremity Exam: Negative: Edema, Tenderness Assessment /Plan Problems (1) Hydrocephalus Status: Acute Response to Treatment: Stable Problem Specific Plan: Consult Specialist Problem Text: Patient's mentation, neurologic status has remained stable, waxing and waning over the last week I discussed with patient's and daughter at bedside They are concerned about increasing range of motion Dr. Noble following- perhaps considering procedure but only upon normalization of csf which may take some time (2) Cerebral ventriculitis Status: Acute Response to Treatment: Improving Problem Specific Plan: Consult Specialist Problem Text: s/p completion of IV Abx therapy Repeat LP done 12/01/16 (3) CAD (coronary artery disease) of artery bypass graft Status: Chronic Problem Specific Plan: Monitor Clinically (4) Hyperthyroidism Status: Acute Problem Specific Plan: Monitor Clinically Problem Text: Continue Methimazole Repeat labs 12/08/16 (5) Anemia Status: Chronic Response to Treatment: Stable Problem Specific Plan: Repeat Labs Problem Text: s/p 1 Unit of PRBC's transfusion on 11/25/16 Stool occult negative x4 No overt source of bleeding identified (6) S/P mitral valve replacement Status: Chronic Problem Text: INR subtherapeutic Vitamin K was ordered to reduce INR to below 2 to have procedure done on Tuesday 11/28 restarted coumadin- as no procedure likely in near future (7) HTN (hypertension) Status: Chronic Problem Text: on norvasc, michelle inhibitor bp reasonably controlled for current setting (8) HLD (hyperlipidemia) Status: Chronic Problem Text: Cont Statin (9) Afib Status: Chronic Problem Text: Rate controlled, restarted Coumadin 12/04/16 (INR subtherapeutic at this time) On heparin drip (10) DVT prophylaxis Response to Treatment: Stable Problem Text: heparin drip (11) Diastolic CHF Problem Specific Plan: Monitor Clinically Problem Text: grade II, compensated (12) PEA (Pulseless electrical activity) Problem Text: s/p PEA arrest, associated with use of IV vitamin k Was seen by cardiology during her stay No significant ongoing issues No need for continuing telemetry Plan/VTE VTE Prophylaxis Ordered?: Yes VS, I&O, 24H, Fishbone Vital Signs/I&O Vital Signs Date Time Temp Pulse Resp B/P (MAP) Pulse Ox O2 Delivery O2 Flow Rate FiO2 12/06/16 10:14 122/70 12/06/16 07:26 96 Nasal Cannula 1.0 12/06/16 06:00 97.8 83 17 I&O- Last 24 Hours up to 6 AM 12/06/16 06:00 Intake Total 390 ml Output Total 1 ml Balance 389 ml Laboratory Data 24H LABS Laboratory Tests 2 12/06/16 05:46: Activated Partial Thromboplast Time 75.3H 12/06/16 05:52: Anion Gap 8, Glomerular Filtration Rate > 60.0, Blood Urea Nitrogen 17, Creatinine 0.64, Sodium Level 140, Potassium Level 3.6, Chloride Level 103, Carbon Dioxide Level 29, Calcium Level 8.7L 12/06/16 08:03: Prothrombin Time 15.8H, Prothromb Time International Ratio 1.25 CBC/BMP Laboratory Tests 12/06/16 05:52 Red Blood Count 2.86 L, Mean Corpuscular Volume 99.6 H, Mean Corpuscular Hemoglobin 33.1 H, Mean Corpuscular Hemoglobin Concent 33.2, Red Cell Distribution Width 15.8 H, Calcium Level 8.7 L Microbiology Microbiology 12/01/16 Gram Stain - Final, Complete 12/01/16 CSF Culture - Final, Complete 11/30/16 Stool Occult Blood (PAPI) - Final, Complete 11/29/16 Stool Occult Blood (PAPI) - Final, Complete 11/28/16 Stool Occult Blood (PAPI) - Final, Complete MARY ANN GONZALEZ MD Dec 06, 2016 13:15
[2016-12-06 14:00] VITALS: BP 118/68
[2016-12-06] MEDS: WARFARIN SOD 5 MG TAB PO SCH (17:21)
[2016-12-06] MEDS: **NOTE PATIENT COMMENT** MISC XX SCH (20:29)
[2016-12-06] MEDS: ATORVASTATIN 20 MG TAB PO SCH (20:29)
[2016-12-06] MEDS: amLODIPine 5 MG TAB PO SCH (20:29)
[2016-12-06 22:00] VITALS: BP 132/63
[2016-12-07] MEDS: SODIUM CHLORIDE 0.9% INJ 10 ML SYR IV SCH ×2 (05:12→16:42)
[2016-12-07 06:00] VITALS: BP 116/58
[2016-12-07 06:27] LABS: MEAN CORPUSCULAR HGB CONC 34.9 g/dl (32.0-36.5); MEAN CORPUSCULAR VOLUME 97.6 fl (80.0-96.0); RED CELL DISTRIBUTION WIDTH 15.4 % (11.5-14.5); WHITE BLOOD COUNT 3.6 K/mm3 (4.0-10.0)
[2016-12-07 06:32] LABS: INR 1.53
[2016-12-07 06:40] LABS: ANION GAP 8 MEQ/L (8-16); BLOOD UREA NITROGEN 16 MG/DL (7-18); CALCIUM LEVEL 8.8 MG/DL (8.8-10.2); CARBON DIOXIDE LEVEL 31 MEQ/L (21-32); CHLORIDE LEVEL 102 MEQ/L (98-107); CREATININE FOR GFR 0.59 MG/DL (0.55-1.02); GLOMERULAR FILTRATION RATE > 60.0 (>45); GLUCOSE, FASTING 102 MG/DL (80-110); POTASSIUM SERUM 3.4 MEQ/L (3.5-5.1); SODIUM LEVEL 141 MEQ/L (136-145)
[2016-12-07] MEDS ORDERED: POTASSIUM CHLORIDE 10 MEQ SR TABLET PO ONE (08:00)
[2016-12-07] MEDS: ONDANSETRON 4MG/2ML VIAL (J2405) IV PRN (08:07)
[2016-12-07] MEDS ORDERED: KCL 20MEQ IN 100ML SWI (KRUN) 20 MEQ in APPROPRIATE DILUENT 1 EA IV SCH ×2 (08:30)
[2016-12-07] MEDS: HEPARIN DRIP 25,000 UNITS in APPROPRIATE DILUENT 1 EA IV SCH (08:38)
--- NOTE | 2016-12-07 09:57 | IPNPDOC ---
Subjective Date Seen The patient was seen on 12/07/16. Subjective Chief Complaint/HPI The patient is a 66-year-old female admitted with a reason for visit of [facility]. Events since last encounter Patient more interactive, does not remember poking fun at me yesterday, but quite engaged in our discussion, answering more questions, no pain, no chest pain, no abd pain, not hungry, without current nausea General: Reports: ROS Unobtainable Objective Physical Examination General Exam: Positive: Alert, Cooperative, No Acute Distress Eye Exam: Negative: Sclera icteric Chest Exam: Positive: Diminished, Other (no cough), Negative: Rales, Rhonchi, Wheezing Heart Exam: Positive: Rate Normal, Normal S1, Normal S2 Telemetry: Positive: No significant arrhythmia Abdomen Exam: Positive: Normal bowel sounds, Soft, Negative: Tenderness Extremity Exam: Negative: Edema, Tenderness Assessment /Plan Problems (1) Hydrocephalus Status: Acute Response to Treatment: Stable Problem Specific Plan: Consult Specialist Problem Text: Mentation on am 12/07/16- the best that I have seen in two weeks- she knew she was in hospital, thought Lobo zaragoza is president, answering yes-no questions appropriately Patient's mentation, neurologic status has remained stable, waxing and waning over the last week I discussed with patient's and daughter at bedside 12/06/16 They are concerned about increasing range of motion- patient was moved closer to the nursing station yesterday Dr. Noble following- perhaps considering procedure but only upon normalization of csf which may take some time (2) Cerebral ventriculitis Status: Acute Response to Treatment: Improving Problem Specific Plan: Consult Specialist Problem Text: s/p completion of IV Abx therapy Repeat LP done 12/01/16 (3) CAD (coronary artery disease) of artery bypass graft Status: Chronic Problem Specific Plan: Monitor Clinically (4) Hyperthyroidism Status: Acute Problem Specific Plan: Monitor Clinically Problem Text: Continue Methimazole Repeat labs 12/08/16 (5) Anemia Status: Chronic Response to Treatment: Stable Problem Specific Plan: Repeat Labs Problem Text: s/p 1 Unit of PRBC's transfusion on 11/25/16 Stool occult negative x4 No overt source of bleeding identified (6) S/P mitral valve replacement Status: Chronic Problem Text: INR subtherapeutic Vitamin K was ordered to reduce INR to below 2 to have procedure done on Tuesday 11/28 restarted coumadin- as no procedure likely in near future (7) HTN (hypertension) Status: Chronic Problem Text: on norvasc, michelle inhibitor bp reasonably controlled for current setting (8) HLD (hyperlipidemia) Status: Chronic Problem Text: Cont Statin (9) Afib Status: Chronic Problem Text: Rate controlled, restarted Coumadin 12/04/16 (INR subtherapeutic at this time) On heparin drip (10) DVT prophylaxis Response to Treatment: Stable Problem Text: heparin drip (11) Diastolic CHF Problem Specific Plan: Monitor Clinically Problem Text: grade II, compensated (12) PEA (Pulseless electrical activity) Problem Text: s/p PEA arrest, associated with use of IV vitamin k Was seen by cardiology during her stay No significant ongoing issues No need for continuing telemetry (13) Impaired swallowing Problem Text: Has impaired swallow Has had episodes of vomiting possibly related to swallow dysfunction, no abd pain/distention May benefit from repeat swallow eval Plan/VTE VTE Prophylaxis Ordered?: Yes VS, I&O, 24H, [facility] Vital Signs/I&O Vital Signs Date Time Temp Pulse Resp B/P (MAP) Pulse Ox O2 Delivery O2 Flow Rate FiO2 12/07/16 06:00 98.0 88 18 116/58 (77) 95 Nasal Cannula 1.0 I&O- Last 24 Hours up to 6 AM 12/07/16 06:00 Intake Total 336 ml Output Total 0 ml Balance 336 ml Laboratory Data 24H LABS Laboratory Tests 2 12/07/16 05:36: Prothrombin Time 18.5H, Prothromb Time International Ratio 1.53, Activated Partial Thromboplast Time 102.2H, Anion Gap 8, Glomerular Filtration Rate > 60.0 , Blood Urea Nitrogen 16, Creatinine 0.59, Sodium Level 141, Potassium Level 3.4L, Chloride Level 102, Carbon Dioxide Level 31, Calcium Level 8.8 CBC/BMP Laboratory Tests 12/07/16 05:36 Red Blood Count 2.67 L, Mean Corpuscular Volume 97.6 H, Mean Corpuscular Hemoglobin 34.0 H, Mean Corpuscular Hemoglobin Concent 34.9, Red Cell Distribution Width 15.4 H, Calcium Level 8.8 Microbiology Microbiology 12/01/16 Gram Stain - Final, Complete 12/01/16 CSF Culture - Final, Complete 11/30/16 Stool Occult Blood (PAPI) - Final, Complete 11/29/16 Stool Occult Blood (PAPI) - Final, Complete 11/28/16 Stool Occult Blood (PAPI) - Final, Complete MARY ANN GONZALEZ MD Dec 07, 2016 09:57
[2016-12-07] MEDS: KCL 10MEQ IN 100ML SWI (KRUN) 100 ML IV SCH ×4 (10:48→15:05)
[2016-12-07] MEDS: LISINOPRIL 10 MG TAB PO SCH ×2 (10:48→14:50)
[2016-12-07] MEDS: levETIRAcetam ORAL SOLUTION 500 MG/5 ML UDC PO SCH ×4 (10:48→21:00)
[2016-12-07] MEDS: LIDOCAINE 5% (LIDODERM) PATCH TD SCH (10:49)
[2016-12-07] MEDS: PANTOPRAZOLE 40MG INJ (PROTONIX) (C9113) IV SCH (10:49)
[2016-12-07 11:30] LABS: ALBUMIN 2.9 GM/DL (3.2-5.2); ALBUMIN/GLOBULIN RATIO 0.85 (1.00-1.93); ALKALINE PHOSPHATASE 103 U/L (45-117); ALT/SGPT 22 U/L (12-78); AST/SGOT 19 U/L (15-37); BILIRUBIN,DIRECT < 0.1 MG/DL (0.0-0.2); BILIRUBIN,TOTAL 0.4 MG/DL (0.2-1.0); TOTAL PROTEIN 6.3 GM/DL (6.4-8.2)
[2016-12-07] MEDS: PROMETHAZINE INJ 25 MG/ML VIAL (J2550) IV PRN (11:30)
[2016-12-07] MEDS ORDERED: BISACODYL 10 MG SUPP PR ONE (12:45)
[2016-12-07] MEDS: MOM 30ML SUSPENSION UDC PO ONE ×2 (12:45→14:06)
--- NOTE | 2016-12-07 12:47 | REP ---
[facility] CT abdomen and pelvis without IV or bowel contrast: The the patient is tilted scanning gantry this is performed with arms over the abdomen resulting in significant beam-hardening artifact. There is dependent atelectasis in the lower lung edwards. The unenhanced hepatic parenchyma, gallbladder are unremarkable. There are pancreatic calcifications and this could be atheroma in the splenic artery or from prior pancreatitis. The spleen is normal size and unremarkable. The adrenals, kidneys are unremarkable. There is no abdominal aortic aneurysm maximally measuring 3.2 cm. No periaortic hematoma. There is calcified vascular atheroma in the aorta. There is no bowel distension or obstruction. Pelvis: There are a few diverticula in the descending colon. There is no evidence of diverticulitis. There is a large fecal bolus in the rectal ampulla, possibly an impaction. However, there is no bowel obstruction. There is no ascites or adenopathy. There is degenerative disc disease in the lumbar spine L5 S1. Impression: Abdominal aortic aneurysm. No bowel distension or obstruction. Pancreatic calcifications. No ascites or adenopathy. Results are discussed out in the box with the attending physician, Dr. Fung. Signed by Yash Nortno MD 12/07/2016 12:39 P
[2016-12-07 14:00] VITALS: BP 133/61
[2016-12-07] MEDS: WARFARIN SOD 5 MG TAB PO SCH (14:56)
[2016-12-07] MEDS: **NOTE PATIENT COMMENT** MISC XX SCH (20:31)
[2016-12-07] MEDS: ACETAMINOPHEN TAB 650MG DOSE (2X325MG) PO PRN (20:31)
[2016-12-07] MEDS: ATORVASTATIN 20 MG TAB PO SCH ×2 (20:31→21:00)
[2016-12-07] MEDS: amLODIPine 5 MG TAB PO SCH (21:00)
[2016-12-07 21:38] VITALS: BP 100/55
[2016-12-07 21:50] VITALS: BP 115/68
[2016-12-07] MEDS ORDERED: BISACODYL 10 MG SUPP PR PRN (22:30)
[2016-12-08] MEDS: SODIUM CHLORIDE 0.9% INJ 10 ML SYR IV SCH ×2 (05:43→18:46)
[2016-12-08 06:00] VITALS: BP 123/58
[2016-12-08] MEDS: LIDOCAINE 5% (LIDODERM) PATCH TD SCH (09:45)
[2016-12-08] MEDS: levETIRAcetam ORAL SOLUTION 500 MG/5 ML UDC PO SCH ×3 (09:45→21:17)
[2016-12-08] MEDS: PANTOPRAZOLE 40MG INJ (PROTONIX) (C9113) IV SCH (09:45)
[2016-12-08] MEDS: LISINOPRIL 10 MG TAB PO SCH (09:51)
[2016-12-08] MEDS: SODIUM CHLORIDE 0.9% INJ 10 ML SYR IV PRN (09:51)
[2016-12-08 11:07] LABS: MEAN CORPUSCULAR HEMOGLOBIN 33.6 pg (27.0-33.0); MEAN CORPUSCULAR HGB CONC 34.2 g/dl (32.0-36.5); MEAN CORPUSCULAR VOLUME 98.5 fl (80.0-96.0); RED CELL DISTRIBUTION WIDTH 15.5 % (11.5-14.5); WHITE BLOOD COUNT 3.4 K/mm3 (4.0-10.0)
[2016-12-08 11:31] LABS: INR 2.08
[2016-12-08 11:59] LABS: ANION GAP 7 MEQ/L (8-16); BLOOD UREA NITROGEN 15 MG/DL (7-18); CALCIUM LEVEL 9.3 MG/DL (8.8-10.2); CARBON DIOXIDE LEVEL 30 MEQ/L (21-32); CHLORIDE LEVEL 105 MEQ/L (98-107); CREATININE FOR GFR 0.76 MG/DL (0.55-1.02); GLOMERULAR FILTRATION RATE > 60.0 (>45); GLUCOSE, FASTING 100 MG/DL (80-110); POTASSIUM SERUM 4.1 MEQ/L (3.5-5.1); SODIUM LEVEL 142 MEQ/L (136-145); T UPTAKE 41 % (30-39); THYROXINE (T4) 13.1 UG/DL (4.5-12.0)
--- NOTE | 2016-12-08 13:05 | IPNPDOC ---
Subjective Date Seen The patient was seen on 12/08/16. Subjective Chief Complaint/HPI The patient is a 66-year-old female admitted with a reason for visit of [facility]. Events since last encounter No issues noted, no vomiting, had bms, no complaint of pain, no obvious discomfort General: Reports: ROS Unobtainable Objective Physical Examination General Exam: Positive: Alert, Cooperative, No Acute Distress ENT Exam: Positive: Mucous membr. moist/pink Chest Exam: Positive: Diminished, Other (no cough), Negative: Rales, Rhonchi, Wheezing Heart Exam: Positive: Rate Normal, Normal S1, Normal S2 Abdomen Exam: Positive: Normal bowel sounds, Soft, Negative: Tenderness Extremity Exam: Negative: Edema, Tenderness Assessment /Plan Problems (1) Hydrocephalus Status: Acute Response to Treatment: Stable Problem Specific Plan: Consult Specialist Problem Text: Mentation on am 12/07/16- the best that I have seen in two weeks- she knew she was in hospital, thought Lobo zaragoza is president, answering yes-no questions appropriately On 12/08/16 more back to baseline Patient's mentation, neurologic status has remained stable, waxing and waning over the last week I discussed with patient's and daughter at bedside 12/06/16 They are concerned about increasing range of motion- patient was moved closer to the nursing station yesterday Dr. Noble following- perhaps considering procedure but only upon normalization of csf which may take some time (2) Cerebral ventriculitis Status: Acute Response to Treatment: Improving Problem Specific Plan: Consult Specialist Problem Text: s/p completion of IV Abx therapy Repeat LP done 12/01/16 (3) CAD (coronary artery disease) of artery bypass graft Status: Chronic Problem Specific Plan: Monitor Clinically (4) Hyperthyroidism Status: Acute Problem Specific Plan: Monitor Clinically Problem Text: Continue Methimazole with increased dose TFTs not improved as of 12/08/16 (5) Anemia Status: Chronic Response to Treatment: Stable Problem Specific Plan: Repeat Labs Problem Text: s/p 1 Unit of PRBC's transfusion on 11/25/16 Stool occult negative x4 No overt source of bleeding identified (6) S/P mitral valve replacement Status: Chronic Problem Text: INR subtherapeutic on heparin drip Vitamin K was ordered to reduce INR to below 2 to have procedure done on [place] 6/2 restarted coumadin- as no procedure likely in near future (7) HTN (hypertension) Status: Chronic Problem Text: on norvasc, michelle inhibitor bp reasonably controlled for current setting (8) HLD (hyperlipidemia) Status: Chronic Problem Text: Cont Statin (9) Afib Status: Chronic Problem Text: Rate controlled, restarted Coumadin 12/04/16 (INR subtherapeutic at this time) On heparin drip (10) DVT prophylaxis Response to Treatment: Stable Problem Text: heparin drip (11) Diastolic CHF Problem Specific Plan: Monitor Clinically Problem Text: grade II, compensated (12) PEA (Pulseless electrical activity) Problem Text: s/p PEA arrest, associated with use of IV vitamin k Was seen by cardiology during her stay No significant ongoing issues No need for continuing telemetry (13) Impaired swallowing Problem Text: Has impaired swallow Has had episodes of vomiting possibly related to swallow dysfunction, no abd pain/distention May benefit from repeat swallow eval- ordered for 12/08/16 Plan/VTE VTE Prophylaxis Ordered?: Yes VS, I&O, [facility] Vital Signs/I&O Vital Signs Date Time Temp Pulse Resp B/P (MAP) Pulse Ox O2 Delivery O2 Flow Rate FiO2 12/08/16 09:51 134/62 12/08/16 06:00 97.7 68 18 95 Nasal Cannula 1.0 I&O- Last 24 Hours up to 6 AM 12/08/16 06:00 Intake Total 597 ml Balance 597 ml Laboratory Data 24H LABS Laboratory Tests 2 12/07/16 15:03: Activated Partial Thromboplast Time 68.9H 12/07/16 21:02: Activated Partial Thromboplast Time 88.0H 12/08/16 10:56: Activated Partial Thromboplast Time 154.7*H, Prothrombin Time 23.5H, Prothromb Time International Ratio 2.08, Anion Gap 7L, Glomerular Filtration Rate > 60.0, Blood Urea Nitrogen 15, Creatinine 0.76, Sodium Level 142, Potassium Level 4.1# , Chloride Level 105, Carbon Dioxide Level 30, Calcium Level 9.3, Prealbumin 12.4L, Thyroid Stimulating Hormone (TSH) < 0.005L, Free Thyroxine Index 5.4H, Thyroxine (T4) 13.1H, Triiodothyronine (T3) Uptake 41H CBC/BMP Laboratory Tests 12/08/16 10:56 Red Blood Count 2.83 L, Mean Corpuscular Volume 98.5 H, Mean Corpuscular Hemoglobin 33.6 H, Mean Corpuscular Hemoglobin Concent 34.2, Red Cell Distribution Width 15.5 H, Calcium Level 9.3 Microbiology Microbiology 12/01/16 Gram Stain - Final, Complete 12/01/16 CSF Culture - Final, Complete 12/08/16 Stool Occult Blood (PAPI) - Final, Complete 11/30/16 Stool Occult Blood (PAPI) - Final, Complete 11/29/16 Stool Occult Blood (PAPI) - Final, Complete 11/28/16 Stool Occult Blood (PAPI) - Final, Complete MARY ANN GONZALEZ MD Dec 08, 2016 13:05
[2016-12-08 14:00] VITALS: BP 134/63
[2016-12-08] MEDS: WARFARIN SOD 5 MG TAB PO SCH (18:45)
[2016-12-08] MEDS: **NOTE PATIENT COMMENT** MISC XX SCH (21:00)
[2016-12-08] MEDS: ATORVASTATIN 20 MG TAB PO SCH (21:17)
[2016-12-08] MEDS: amLODIPine 5 MG TAB PO SCH (21:18)
[2016-12-08] MEDS: HEPARIN DRIP 25,000 UNITS in APPROPRIATE DILUENT 1 EA IV SCH (21:36)
[2016-12-08 22:00] VITALS: BP 138/61
[2016-12-09] MEDS: SODIUM CHLORIDE 0.9% INJ 10 ML SYR IV SCH ×2 (05:55→17:14)
[2016-12-09 06:00] VITALS: BP 127/61
[2016-12-09 06:51] LABS: MEAN CORPUSCULAR HEMOGLOBIN 33.7 pg (27.0-33.0); MEAN CORPUSCULAR HGB CONC 34.3 g/dl (32.0-36.5); MEAN CORPUSCULAR VOLUME 98.4 fl (80.0-96.0); RED CELL DISTRIBUTION WIDTH 15.3 % (11.5-14.5); WHITE BLOOD COUNT 3.7 K/mm3 (4.0-10.0)
[2016-12-09 06:53] LABS: INR 2.43
[2016-12-09 08:07] LABS: ANION GAP 10 MEQ/L (8-16); BLOOD UREA NITROGEN 18 MG/DL (7-18); CARBON DIOXIDE LEVEL 27 MEQ/L (21-32); CHLORIDE LEVEL 101 MEQ/L (98-107); CHOLESTEROL LEVEL 107 MG/DL (<200); CREATININE FOR GFR 0.63 MG/DL (0.55-1.02); GLOMERULAR FILTRATION RATE > 60.0 (>45); GLUCOSE, FASTING 91 MG/DL (80-110); POTASSIUM SERUM 3.7 MEQ/L (3.5-5.1); SODIUM LEVEL 138 MEQ/L (136-145); TRIGLYCERIDES LEVEL 145 MG/DL (<150)
[2016-12-09] MEDS: PANTOPRAZOLE 40MG INJ (PROTONIX) (C9113) IV SCH (08:59)
[2016-12-09] MEDS: levETIRAcetam ORAL SOLUTION 500 MG/5 ML UDC PO SCH ×2 (08:59→21:32)
[2016-12-09] MEDS: LISINOPRIL 10 MG TAB PO SCH (09:01)
[2016-12-09] MEDS: LIDOCAINE 5% (LIDODERM) PATCH TD SCH (09:02)
--- NOTE | 2016-12-09 12:40 | IPNPDOC ---
Subjective Date Seen The patient was seen on 12/09/16. Subjective Chief Complaint/HPI The patient is a 66-year-old female admitted with a reason for visit of [facility]. General: Denies: ROS Unobtainable, Chills, Night Sweats, Fatigue, Malaise, Normal Appetite, Other Symptoms Constitutional: Denies: Chills, Fever, Malaise, Night Sweats, Weakness, Fatigue , Weight Loss, Lethargy, Other Eyes: Denies: Pain, Vision change, Conjunctivae inflammation, Eyelid inflammation, Redness, Other ENT: Denies: Head Aches, Ear Pain, Dysphagia, Sinus Congestion, Post Nasal Drip , Sore Throat, Epistaxis, Other Symptoms Skin: Denies: Rash, Lesions, Jaundice, Bruising, Itching, Dry, Breakdown, Nail Changes, Other Pulmonary: Denies: Dyspnea, Cough, Pleuritic Chest Pain, Other Symptoms Cardiovascular: Denies: Chest Pain, Palpitations, Orthopnea, Paroxysmal Noc. Dyspnea, Edema, Lt Headedness, Other Symptoms Gastrointestinal: Denies: Nausea, Vomiting, Abdominal Pain, Diarrhea, Constipation, Melena, Hematochezia, Other Symptoms Objective Physical Examination General Exam: Positive: Alert, Cooperative, No Acute Distress ENT Exam: Positive: Mucous membr. moist/pink Chest Exam: Positive: Diminished, Negative: Rales, Rhonchi, Wheezing Heart Exam: Positive: Rate Normal, Normal S1, Normal S2 Abdomen Exam: Positive: Normal bowel sounds, Soft, Negative: Tenderness Extremity Exam: Negative: Edema, Tenderness Psych Exam: Positive: Oriented x 3 (Oriented to person and place) Assessment /Plan Problems (1) Hydrocephalus Status: Acute Response to Treatment: Stable Problem Specific Plan: Consult Specialist Problem Text: Mentation on am 12/07/16- the best that I have seen in two weeks- she knew she was in hospital, thought mila Lobo is president, answering yes-no questions appropriately On 12/08/16 more back to baseline Patient's mentation, neurologic status has remained stable, waxing and waning over the last week I discussed with patient's and daughter at bedside 12/06/16 They are concerned about increasing range of motion- patient was moved closer to the nursing station yesterday Dr. Noble following- perhaps considering procedure but only upon normalization of csf which may take some time Mentation today 12/09/16 appears to be at baseline. Further recs as per neurosurgery. (2) Cerebral ventriculitis Status: Acute Response to Treatment: Improving Problem Specific Plan: Consult Specialist Problem Text: s/p completion of IV Abx therapy Repeat LP done 12/01/16 Further recs as per neurosurgery. (3) CAD (coronary artery disease) of artery bypass graft Status: Chronic Problem Specific Plan: Monitor Clinically (4) Hyperthyroidism Status: Acute Problem Specific Plan: Monitor Clinically Problem Text: Continue Methimazole with increased dose TFTs not improved as of 12/08/16 (5) Anemia Status: Chronic Response to Treatment: Stable Problem Specific Plan: Repeat Labs Problem Text: s/p 1 Unit of PRBC's transfusion on 11/25/16 Stool occult negative x4 No overt source of bleeding identified (6) S/P mitral valve replacement Status: Chronic Problem Text: INR almost therapeutic at 2.4 - on heparin drip Vitamin K was ordered to reduce INR to below 2 to have procedure done on Tuesday 11/28 restarted coumadin- as no procedure likely in near future Anticipating d/c heparin tomorrow with therapeutic INR. No med rec available to resume home dosage of warfarin. (7) HTN (hypertension) Status: Chronic Problem Text: on norvasc, michelle inhibitor bp reasonably controlled for current setting (8) HLD (hyperlipidemia) Status: Chronic Problem Text: Cont Statin (9) Afib Status: Chronic Problem Text: Rate controlled, restarted Coumadin 12/04/16 (INR therapeutic for afib) (10) DVT prophylaxis Response to Treatment: Stable Problem Text: heparin drip (11) Diastolic CHF Problem Specific Plan: Monitor Clinically Problem Text: grade II, compensated (12) PEA (Pulseless electrical activity) Problem Text: s/p PEA arrest, associated with use of IV vitamin k Was seen by cardiology during her stay No significant ongoing issues No need for continuing telemetry (13) Impaired swallowing Problem Text: Has impaired swallow Has had episodes of vomiting possibly related to swallow dysfunction, no abd pain/distention May benefit from repeat swallow eval- ordered for 12/08/16 Plan/VTE VTE Prophylaxis Ordered?: Yes Plan Diet: Continue Current Diagnostics: Repeat Labs in AM Anticipating therapeutic INR tomorrow, and can then d/c heparin gtt. VS, I&O, 24H, Fishbone Vital Signs/I&O Vital Signs Date Time Temp Pulse Resp B/P (MAP) Pulse Ox O2 Delivery O2 Flow Rate FiO2 12/09/16 09:01 130/59 12/09/16 08:00 Room Air 12/09/16 06:00 98.1 97 17 95 12/08/16 06:00 1.0 I&O- Last 24 Hours up to 6 AM 12/09/16 06:00 Intake Total 90 ml Balance 90 ml Laboratory Data 24H LABS Laboratory Tests 2 12/08/16 19:28: Activated Partial Thromboplast Time 93.8H 12/09/16 01:38: Activated Partial Thromboplast Time 99.0H 12/09/16 06:36: Activated Partial Thromboplast Time 120.7*H, Prothrombin Time 26.5H, Prothromb Time International Ratio 2.43, Anion Gap 10, Glomerular Filtration Rate > 60.0, Calcium Level 9.0, Triglycerides Level 145, LDL Cholesterol 34.0, Total Cholesterol 107, Non-HDL Cholesterol (LDL + VLDL) 63, Total HDL Cholesterol 44, Cholesterol/HDL Ratio 2.431 CBC/BMP Laboratory Tests 12/09/16 06:36 Red Blood Count 2.84 L, Mean Corpuscular Volume 98.4 H, Mean Corpuscular Hemoglobin 33.7 H, Mean Corpuscular Hemoglobin Concent 34.3, Red Cell Distribution Width 15.3 H Microbiology Microbiology 12/01/16 Gram Stain - Final, Complete 12/01/16 CSF Culture - Final, Complete 12/08/16 Stool Occult Blood (PAPI) - Final, Complete 11/30/16 Stool Occult Blood (PAPI) - Final, Complete 11/29/16 Stool Occult Blood (PAPI) - Final, Complete XIOMARA DAWSON MD Dec 09, 2016 12:40
[2016-12-09] MEDS: ONDANSETRON 4MG/2ML VIAL (J2405) IV PRN ×2 (13:45→21:56)
[2016-12-09] MEDS: ACETAMINOPHEN TAB 650MG DOSE (2X325MG) PO PRN (13:46)
[2016-12-09] MEDS: SODIUM CHLORIDE 0.9% INJ 10 ML SYR IV PRN ×2 (13:49→21:57)
[2016-12-09 14:00] VITALS: BP 143/64
[2016-12-09] MEDS: WARFARIN SOD 5 MG TAB PO SCH (17:14)
[2016-12-09] MEDS: ATORVASTATIN 20 MG TAB PO SCH (21:32)
[2016-12-09] MEDS: **NOTE PATIENT COMMENT** MISC XX SCH (21:35)
[2016-12-09] MEDS: amLODIPine 5 MG TAB PO SCH (21:35)
[2016-12-09 22:00] VITALS: BP 138/65
[2016-12-10] MEDS: SODIUM CHLORIDE 0.9% INJ 10 ML SYR IV SCH ×2 (05:26→17:46)
[2016-12-10 05:59] LABS: MEAN CORPUSCULAR HEMOGLOBIN 33.9 pg (27.0-33.0); MEAN CORPUSCULAR HGB CONC 34.2 g/dl (32.0-36.5); MEAN CORPUSCULAR VOLUME 99.1 fl (80.0-96.0); RED CELL DISTRIBUTION WIDTH 15.3 % (11.5-14.5); WHITE BLOOD COUNT 3.6 K/mm3 (4.0-10.0)
[2016-12-10 06:00] VITALS: BP 109/53
[2016-12-10 06:10] LABS: INR 3.54
[2016-12-10 06:26] LABS: ANION GAP 5 MEQ/L (8-16); BLOOD UREA NITROGEN 19 MG/DL (7-18); CARBON DIOXIDE LEVEL 31 MEQ/L (21-32); CHLORIDE LEVEL 101 MEQ/L (98-107); GLOMERULAR FILTRATION RATE > 60.0 (>45); GLUCOSE, FASTING 101 MG/DL (80-110); POTASSIUM SERUM 3.5 MEQ/L (3.5-5.1); SODIUM LEVEL 137 MEQ/L (136-145)
[2016-12-10] MEDS: HEPARIN DRIP 25,000 UNITS in APPROPRIATE DILUENT 1 EA IV SCH (06:32)
[2016-12-10 08:30] VITALS: BP 136/80
[2016-12-10] MEDS: levETIRAcetam ORAL SOLUTION 500 MG/5 ML UDC PO SCH ×2 (09:15→21:53)
[2016-12-10] MEDS: PANTOPRAZOLE 40MG INJ (PROTONIX) (C9113) IV SCH (09:15)
[2016-12-10] MEDS: LISINOPRIL 10 MG TAB PO SCH (09:16)
[2016-12-10] MEDS: LIDOCAINE 5% (LIDODERM) PATCH TD SCH (09:17)
--- NOTE | 2016-12-10 10:49 | IPNPDOC ---
Subjective Date Seen The patient was seen on 12/10/16. Subjective Chief Complaint/HPI The patient is a 66-year-old female admitted with a reason for visit of [facility]. General: Denies: ROS Unobtainable, Chills, Night Sweats, Fatigue, Malaise, Normal Appetite, Other Symptoms Constitutional: Denies: Chills, Fever, Malaise, Night Sweats, Weakness, Fatigue , Weight Loss, Lethargy, Other Eyes: Denies: Pain, Vision change, Conjunctivae inflammation, Eyelid inflammation, Redness, Other ENT: Denies: Head Aches, Ear Pain, Dysphagia, Sinus Congestion, Post Nasal Drip , Sore Throat, Epistaxis, Other Symptoms Skin: Denies: Rash, Lesions, Jaundice, Bruising, Itching, Dry, Breakdown, Nail Changes, Other Pulmonary: Denies: Dyspnea, Cough, Pleuritic Chest Pain, Other Symptoms Cardiovascular: Denies: Chest Pain, Palpitations, Orthopnea, Paroxysmal Noc. Dyspnea, Edema, Lt Headedness, Other Symptoms Gastrointestinal: Denies: Nausea, Vomiting, Abdominal Pain, Diarrhea, Constipation, Melena, Hematochezia, Other Symptoms Objective Physical Examination General Exam: Positive: Alert, Cooperative, No Acute Distress ENT Exam: Positive: Mucous membr. moist/pink Chest Exam: Positive: Diminished, Negative: Rales, Rhonchi, Wheezing Heart Exam: Positive: Rate Normal, Normal S1, Normal S2 Abdomen Exam: Positive: Normal bowel sounds, Soft, Negative: Tenderness Extremity Exam: Negative: Edema, Tenderness Psych Exam: Positive: Oriented x 3 (Oriented to person and place) Assessment /Plan Problems (1) Hydrocephalus Status: Acute Response to Treatment: Stable Problem Specific Plan: Consult Specialist Problem Text: Mentation on am 12/07/16- the best that I have seen in two weeks- she knew she was in hospital, thought Lobo zaragoza is president, answering yes-no questions appropriately On 12/08/16 more back to baseline Patient's mentation, neurologic status has remained stable, waxing and waning over the last week I discussed with patient's and daughter at bedside 12/06/16 They are concerned about increasing range of motion- patient was moved closer to the nursing station yesterday Dr. Noble following- perhaps considering procedure but only upon normalization of csf which may take some time Mentation appears to be at baseline. Further recs as per neurosurgery. (2) Cerebral ventriculitis Status: Acute Response to Treatment: Improving Problem Specific Plan: Consult Specialist Problem Text: s/p completion of IV Abx therapy Repeat LP done 12/01/16 Further recs as per neurosurgery. (3) CAD (coronary artery disease) of artery bypass graft Status: Chronic Problem Specific Plan: Monitor Clinically (4) Hyperthyroidism Status: Acute Problem Specific Plan: Monitor Clinically Problem Text: Continue Methimazole with increased dose TFTs not improved as of 12/08/16 (5) Anemia Status: Chronic Response to Treatment: Stable Problem Specific Plan: Repeat Labs Problem Text: s/p 1 Unit of PRBC's transfusion on 11/25/16 Stool occult negative x4 No overt source of bleeding identified (6) S/P mitral valve replacement Status: Chronic Problem Text: INR therapeutic at 3.5 - heparin drip discontinued Vitamin K was ordered to reduce INR to below 2 to have procedure done on Tuesday 11/28 restarted coumadin- as no procedure likely in near future Hold warfarin today Resume 2.5 mg daily dose tomorrow (7) HTN (hypertension) Status: Chronic Problem Text: on norvasc, michelle inhibitor bp reasonably controlled for current setting (8) HLD (hyperlipidemia) Status: Chronic Problem Text: Cont Statin (9) Afib Status: Chronic Problem Text: Rate controlled, restarted Coumadin 12/04/16 (INR therapeutic for afib) (10) DVT prophylaxis Response to Treatment: Stable Problem Text: heparin drip (11) Diastolic CHF Problem Specific Plan: Monitor Clinically Problem Text: grade II, compensated (12) PEA (Pulseless electrical activity) Problem Text: s/p PEA arrest, associated with use of IV vitamin k Was seen by cardiology during her stay No significant ongoing issues No need for continuing telemetry (13) Impaired swallowing Problem Text: Has impaired swallow Has had episodes of vomiting possibly related to swallow dysfunction, no abd pain/distention May benefit from repeat swallow eval- ordered for 12/08/16 Plan/VTE VTE Prophylaxis Ordered?: Yes Plan Diet: Continue Current Diagnostics: Repeat Labs in AM Likely will need placement for rehab. VS, I&O, 24H, Fishbone Vital Signs/I&O Vital Signs Date Time Temp Pulse Resp B/P (MAP) Pulse Ox O2 Delivery O2 Flow Rate FiO2 12/10/16 09:40 Room Air 6/14/17 09:16 136/80 12/10/16 06:00 97.5 84 17 95 1.0 I&O- Last 24 Hours up to 6 AM 12/10/16 06:00 Intake Total 417 ml Output Total 0 ml Balance 417 ml Laboratory Data 24H LABS Laboratory Tests 2 12/09/16 15:25: Activated Partial Thromboplast Time 67.0H 12/09/16 23:03: Activated Partial Thromboplast Time 98.2H 12/10/16 05:49: Activated Partial Thromboplast Time 115.8H, Prothrombin Time 35.4H, Prothromb Time International Ratio 3.54, Anion Gap 5L, Glomerular Filtration Rate > 60.0, Blood Urea Nitrogen 19H, Creatinine 0.70, Sodium Level 137, Potassium Level 3.5 , Chloride Level 101, Carbon Dioxide Level 31, Calcium Level 9.0 CBC/BMP Laboratory Tests 12/10/16 05:49 Red Blood Count 2.85 L, Mean Corpuscular Volume 99.1 H, Mean Corpuscular Hemoglobin 33.9 H, Mean Corpuscular Hemoglobin Concent 34.2, Red Cell Distribution Width 15.3 H, Calcium Level 9.0 Microbiology Microbiology 12/01/16 Gram Stain - Final, Complete 12/01/16 CSF Culture - Final, Complete 12/08/16 Stool Occult Blood (PAPI) - Final, Complete 11/30/16 Stool Occult Blood (PAPI) - Final, Complete XIOMARA DAWSON MD Dec 10, 2016 10:49
[2016-12-10 13:50] VITALS: BP 98/78
[2016-12-10 14:00] VITALS: BP 84/68
[2016-12-10] MEDS: **NOTE PATIENT COMMENT** MISC XX SCH (21:00)
[2016-12-10] MEDS: amLODIPine 5 MG TAB PO SCH (21:53)
[2016-12-10] MEDS: ATORVASTATIN 20 MG TAB PO SCH (21:53)
[2016-12-10 22:00] VITALS: BP 113/53
[2016-12-11] MEDS: SODIUM CHLORIDE 0.9% INJ 10 ML SYR IV SCH ×3 (05:08→17:58)
[2016-12-11 06:00] VITALS: BP 145/63
[2016-12-11 07:11] LABS: INR 2.58
[2016-12-11] MEDS: LISINOPRIL 10 MG TAB PO SCH (08:01)
[2016-12-11] MEDS: PANTOPRAZOLE 40MG INJ (PROTONIX) (C9113) IV SCH (08:01)
[2016-12-11] MEDS: levETIRAcetam ORAL SOLUTION 500 MG/5 ML UDC PO SCH ×3 (08:02→21:25)
[2016-12-11] MEDS: LIDOCAINE 5% (LIDODERM) PATCH TD SCH (08:02)
--- NOTE | 2016-12-11 11:07 | IPNPDOC ---
Subjective Date Seen The patient was seen on 12/11/16. Subjective Chief Complaint/HPI The patient is a 66-year-old female admitted with a reason for visit of [facility]. General: Denies: ROS Unobtainable, Chills, Night Sweats, Fatigue, Malaise, Normal Appetite, Other Symptoms Constitutional: Denies: Chills, Fever, Malaise, Night Sweats, Weakness, Fatigue , Weight Loss, Lethargy, Other Eyes: Denies: Pain, Vision change, Conjunctivae inflammation, Eyelid inflammation, Redness, Other ENT: Denies: Head Aches, Ear Pain, Dysphagia, Sinus Congestion, Post Nasal Drip , Sore Throat, Epistaxis, Other Symptoms Skin: Denies: Rash, Lesions, Jaundice, Bruising, Itching, Dry, Breakdown, Nail Changes, Other Pulmonary: Denies: Dyspnea, Cough, Pleuritic Chest Pain, Other Symptoms Cardiovascular: Denies: Chest Pain, Palpitations, Orthopnea, Paroxysmal Noc. Dyspnea, Edema, Lt Headedness, Other Symptoms Gastrointestinal: Denies: Nausea, Vomiting, Abdominal Pain, Diarrhea, Constipation, Melena, Hematochezia, Other Symptoms Objective Physical Examination General Exam: Positive: Alert, Cooperative, No Acute Distress ENT Exam: Positive: Mucous membr. moist/pink Chest Exam: Positive: Diminished, Negative: Rales, Rhonchi, Wheezing Heart Exam: Positive: Rate Normal, Normal S1, Normal S2 Abdomen Exam: Positive: Normal bowel sounds, Soft, Negative: Tenderness Extremity Exam: Negative: Edema, Tenderness Psych Exam: Positive: Oriented x 3 (Oriented to person and place) Assessment /Plan Problems (1) Hydrocephalus Status: Acute Response to Treatment: Stable Problem Specific Plan: Consult Specialist Problem Text: Mentation on am 12/07/16- the best that I have seen in two weeks- she knew she was in hospital, thought Lobo zaragoza is president, answering yes-no questions appropriately On 12/08/16 more back to baseline Patient's mentation, neurologic status has remained stable, waxing and waning over the last week I discussed with patient's and daughter at bedside 12/06/16 They are concerned about increasing range of motion- patient was moved closer to the nursing station yesterday Dr. Noble following- perhaps considering procedure but only upon normalization of csf which may take some time Mentation appears to be at baseline. Further recs as per neurosurgery. (2) Cerebral ventriculitis Status: Acute Response to Treatment: Improving Problem Specific Plan: Consult Specialist Problem Text: s/p completion of IV Abx therapy Repeat LP done 12/01/16 Further recs as per neurosurgery. (3) CAD (coronary artery disease) of artery bypass graft Status: Chronic Problem Specific Plan: Monitor Clinically (4) Hyperthyroidism Status: Acute Problem Specific Plan: Monitor Clinically Problem Text: Continue Methimazole with increased dose TFTs not improved as of 12/08/16 (5) Anemia Status: Chronic Response to Treatment: Stable Problem Specific Plan: Repeat Labs Problem Text: s/p 1 Unit of PRBC's transfusion on 11/25/16 Stool occult negative x4 No overt source of bleeding identified (6) S/P mitral valve replacement Status: Chronic Problem Text: INR therapeutic at 3.5 - heparin drip discontinued Vitamin K was ordered to reduce INR to below 2 to have procedure done on Tuesday 11/28 restarted coumadin- as no procedure likely in near future Hold warfarin today Resume 2.5 mg daily dose tomorrow (7) HTN (hypertension) Status: Chronic Problem Text: on norvasc, michelle inhibitor bp reasonably controlled for current setting (8) HLD (hyperlipidemia) Status: Chronic Problem Text: Cont Statin (9) Afib Status: Chronic Problem Text: Rate controlled, restarted Coumadin 12/04/16 (INR therapeutic for afib) (10) DVT prophylaxis Response to Treatment: Stable Problem Text: heparin drip (11) Diastolic CHF Problem Specific Plan: Monitor Clinically Problem Text: grade II, compensated (12) PEA (Pulseless electrical activity) Problem Text: s/p PEA arrest, associated with use of IV vitamin k Was seen by cardiology during her stay No significant ongoing issues No need for continuing telemetry (13) Impaired swallowing Problem Text: Has impaired swallow Has had episodes of vomiting possibly related to swallow dysfunction, no abd pain/distention May benefit from repeat swallow eval- ordered for 12/08/16 Plan/VTE VTE Prophylaxis Ordered?: Yes Plan Diet: Continue Current Diagnostics: Repeat Labs in AM INR surprisingly dropped 1 unit from 3.5 to 2.5. Will administer 5mg warfarin today, follow INR. Pending placement. VS, I&O, 24H, Fishbone Vital Signs/I&O Vital Signs Date Time Temp Pulse Resp B/P (MAP) Pulse Ox O2 Delivery O2 Flow Rate FiO2 12/11/16 06:00 96.8 88 18 145/63 (90) 94 Nasal Cannula 1.0 I&O- Last 24 Hours up to 6 AM 12/11/16 06:00 Intake Total 549 ml Output Total 0 ml Balance 549 ml Laboratory Data 24H LABS Laboratory Tests 2 12/11/16 06:28: Prothrombin Time 27.7H, Prothromb Time International Ratio 2.58 Microbiology Microbiology 12/01/16 Gram Stain - Final, Complete 12/01/16 CSF Culture - Final, Complete 12/08/16 Stool Occult Blood (PAPI) - Final, Complete XIOMARA DAWSON MD Dec 11, 2016 11:07
[2016-12-11 14:00] VITALS: BP 144/72
[2016-12-11] MEDS: ONDANSETRON 4MG/2ML VIAL (J2405) IV PRN (14:38)
[2016-12-11] MEDS: SODIUM CHLORIDE 0.9% INJ 10 ML SYR IV PRN (14:39)
[2016-12-11] MEDS ORDERED: WARFARIN SOD 5 MG TAB PO SCH (17:00)
[2016-12-11] MEDS: **NOTE PATIENT COMMENT** MISC XX SCH (21:00)
[2016-12-11] MEDS: ATORVASTATIN 20 MG TAB PO SCH ×2 (21:00→21:26)
[2016-12-11] MEDS: amLODIPine 5 MG TAB PO SCH ×2 (21:00→21:25)
[2016-12-11 22:00] VITALS: BP 128/58
[2016-12-12 06:00] VITALS: BP 117/55
[2016-12-12] MEDS: SODIUM CHLORIDE 0.9% INJ 10 ML SYR IV SCH ×4 (06:00→17:18)
[2016-12-12 06:52] LABS: INR 3.04
[2016-12-12 07:10] LABS: ANION GAP 7 MEQ/L (8-16); BLOOD UREA NITROGEN 20 MG/DL (7-18); CALCIUM LEVEL 9.5 MG/DL (8.8-10.2); CARBON DIOXIDE LEVEL 29 MEQ/L (21-32); CHLORIDE LEVEL 102 MEQ/L (98-107); CREATININE FOR GFR 0.63 MG/DL (0.55-1.02); GLOMERULAR FILTRATION RATE > 60.0 (>45); GLUCOSE, FASTING 92 MG/DL (80-110); POTASSIUM SERUM 3.3 MEQ/L (3.5-5.1); SODIUM LEVEL 138 MEQ/L (136-145)
[2016-12-12 07:16] LABS: MEAN CORPUSCULAR HEMOGLOBIN 33.1 pg (27.0-33.0); MEAN CORPUSCULAR HGB CONC 33.6 g/dl (32.0-36.5); MEAN CORPUSCULAR VOLUME 98.6 fl (80.0-96.0); RED CELL DISTRIBUTION WIDTH 15.2 % (11.5-14.5); WHITE BLOOD COUNT 4.1 K/mm3 (4.0-10.0)
[2016-12-12] MEDS: LIDOCAINE 5% (LIDODERM) PATCH TD SCH (08:30)
[2016-12-12] MEDS: PANTOPRAZOLE 40MG INJ (PROTONIX) (C9113) IV SCH (08:30)
[2016-12-12] MEDS: levETIRAcetam INJection 500 MG in D5W MINI-BAG PLUS 100 ML IV SCH ×2 (08:31→21:55)
[2016-12-12] MEDS: LISINOPRIL 10 MG TAB PO SCH (08:31)
--- NOTE | 2016-12-12 10:12 | IPNPDOC ---
Subjective Date Seen The patient was seen on 12/12/16. Subjective Chief Complaint/HPI The patient is a 66-year-old female admitted with a reason for visit of [facility]. General: Denies: ROS Unobtainable, Chills, Night Sweats, Fatigue, Malaise, Normal Appetite, Other Symptoms Constitutional: Denies: Chills, Fever, Malaise, Night Sweats, Weakness, Fatigue , Weight Loss, Lethargy, Other Eyes: Denies: Pain, Vision change, Conjunctivae inflammation, Eyelid inflammation, Redness, Other ENT: Denies: Head Aches, Ear Pain, Dysphagia, Sinus Congestion, Post Nasal Drip , Sore Throat, Epistaxis, Other Symptoms Skin: Denies: Rash, Lesions, Jaundice, Bruising, Itching, Dry, Breakdown, Nail Changes, Other Pulmonary: Denies: Dyspnea, Cough, Pleuritic Chest Pain, Other Symptoms Cardiovascular: Denies: Chest Pain, Palpitations, Orthopnea, Paroxysmal Noc. Dyspnea, Edema, Lt Headedness, Other Symptoms Gastrointestinal: Denies: Nausea, Vomiting, Abdominal Pain, Diarrhea, Constipation, Melena, Hematochezia, Other Symptoms Objective Physical Examination General Exam: Positive: Alert, Cooperative, No Acute Distress ENT Exam: Positive: Mucous membr. moist/pink Chest Exam: Positive: Diminished, Negative: Rales, Rhonchi, Wheezing Heart Exam: Positive: Rate Normal, Normal S1, Normal S2 Abdomen Exam: Positive: Normal bowel sounds, Soft, Negative: Tenderness Extremity Exam: Negative: Edema, Tenderness Assessment /Plan Problems (1) Hydrocephalus Status: Acute Response to Treatment: Stable Problem Specific Plan: Consult Specialist Problem Text: Mentation on am 12/07/16- the best that I have seen in two weeks- she knew she was in hospital, thought mila Lobo is president, answering yes-no questions appropriately On 12/08/16 more back to baseline Patient's mentation, neurologic status has remained stable, waxing and waning over the last week I discussed with patient's and daughter at bedside 12/06/16 They are concerned about increasing range of motion- patient was moved closer to the nursing station yesterday Dr. Noble following- perhaps considering procedure but only upon normalization of csf which may take some time Mentation appears to be at baseline. Further recs as per neurosurgery. (2) Cerebral ventriculitis Status: Acute Response to Treatment: Improving Problem Specific Plan: Consult Specialist Problem Text: s/p completion of IV Abx therapy Repeat LP done 12/01/16 Further recs as per neurosurgery. (3) CAD (coronary artery disease) of artery bypass graft Status: Chronic Problem Specific Plan: Monitor Clinically (4) Hyperthyroidism Status: Acute Problem Specific Plan: Monitor Clinically Problem Text: Continue Methimazole with increased dose TFTs not improved as of 12/08/16 (5) Anemia Status: Chronic Response to Treatment: Stable Problem Specific Plan: Repeat Labs Problem Text: s/p 1 Unit of PRBC's transfusion on 11/25/16 Stool occult negative x4 No overt source of bleeding identified (6) S/P mitral valve replacement Status: Chronic Problem Text: INR therapeutic at 3.0 - heparin drip discontinued Vitamin K was ordered to reduce INR to below 2 to have procedure done on Tuesday 11/28 restarted coumadin- as no procedure likely in near future Resume 2.5 mg daily dose tomorrow - states 2.5 mg M-F, 3mg Sat/Sun (7) HTN (hypertension) Status: Chronic Problem Text: on norvasc, michelle inhibitor bp reasonably controlled for current setting (8) HLD (hyperlipidemia) Status: Chronic Problem Text: Cont Statin (9) Afib Status: Chronic Problem Text: Rate controlled, restarted Coumadin 12/04/16 (INR therapeutic for afib) (10) DVT prophylaxis Response to Treatment: Stable Problem Text: heparin drip (11) Diastolic CHF Problem Specific Plan: Monitor Clinically Problem Text: grade II, compensated (12) PEA (Pulseless electrical activity) Problem Text: s/p PEA arrest, associated with use of IV vitamin k Was seen by cardiology during her stay No significant ongoing issues No need for continuing telemetry (13) Impaired swallowing Status: Chronic Problem Text: Has impaired swallow Has had episodes of vomiting possibly related to swallow dysfunction, no abd pain/distention May benefit from repeat swallow eval- ordered for 12/08/16 Plan/VTE VTE Prophylaxis Ordered?: Yes (coumadin) Plan Diet: Continue Current Diagnostics: Repeat Labs in AM Anticipated Discharge: Sub Acute Rehab Discussed at length at bedside with . Concerned regarding PO intake. States she would want a feeding tube if needed. INR therapeutic today. Still no med rec. states he think she was taking warfarin 2.5mg m-f, 3mg sat/sun. Pending placement. VS, I&O, 24H, Fishbone Vital Signs/I&O Vital Signs Date Time Temp Pulse Resp B/P (MAP) Pulse Ox O2 Delivery O2 Flow Rate FiO2 12/12/16 09:00 Room Air 12/12/16 06:00 98.8 91 16 117/55 (75) 92 12/11/16 14:00 1.0 I&O- Last 24 Hours up to 6 AM 12/12/16 06:00 Intake Total 60 ml Output Total 0 ml Balance 60 ml Laboratory Data 24H LABS Laboratory Tests 2 12/12/16 06:16: Prothrombin Time 31.5H, Prothromb Time International Ratio 3.04, Anion Gap 7L, Glomerular Filtration Rate > 60.0, Blood Urea Nitrogen 20H, Creatinine 0.63, Sodium Level 138, Potassium Level 3.3L, Chloride Level 102, Carbon Dioxide Level 29, Calcium Level 9.5 CBC/BMP Laboratory Tests 12/12/16 06:16 Red Blood Count 3.00 L, Mean Corpuscular Volume 98.6 H, Mean Corpuscular Hemoglobin 33.1 H, Mean Corpuscular Hemoglobin Concent 33.6, Red Cell Distribution Width 15.2 H, Calcium Level 9.5 Microbiology Microbiology 12/08/16 Stool Occult Blood (PAPI) - Final, Complete XIOMARA DAWSON MD Dec 12, 2016 10:12
[2016-12-12 14:00] VITALS: BP 108/58
[2016-12-12] MEDS ORDERED: WARFARIN SOD 3 MG TAB PO SCH (17:00)
[2016-12-12] MEDS: **NOTE PATIENT COMMENT** MISC XX SCH (21:00)
[2016-12-12] MEDS: ATORVASTATIN 20 MG TAB PO SCH (21:56)
[2016-12-12] MEDS: amLODIPine 5 MG TAB PO SCH (21:57)
[2016-12-12 22:00] VITALS: BP 109/54
[2016-12-12] MEDS: ONDANSETRON 4MG/2ML VIAL (J2405) IV PRN (22:11)
[2016-12-13 05:52] LABS: INR 3.91; MEAN CORPUSCULAR HEMOGLOBIN 33.1 pg (27.0-33.0); MEAN CORPUSCULAR HGB CONC 33.9 g/dl (32.0-36.5); MEAN CORPUSCULAR VOLUME 97.7 fl (80.0-96.0); RED CELL DISTRIBUTION WIDTH 15.2 % (11.5-14.5)
[2016-12-13 06:00] VITALS: BP 135/65
[2016-12-13] MEDS: SODIUM CHLORIDE 0.9% INJ 10 ML SYR IV SCH ×4 (06:00→17:23)
[2016-12-13 06:34] LABS: ANION GAP 5 MEQ/L (8-16); BLOOD UREA NITROGEN 21 MG/DL (7-18); CALCIUM LEVEL 8.9 MG/DL (8.8-10.2); CARBON DIOXIDE LEVEL 31 MEQ/L (21-32); CHLORIDE LEVEL 107 MEQ/L (98-107); CREATININE FOR GFR 0.58 MG/DL (0.55-1.02); GLOMERULAR FILTRATION RATE > 60.0 (>45); GLUCOSE, FASTING 100 MG/DL (80-110); MAGNESIUM LEVEL 1.9 MG/DL (1.8-2.4); POTASSIUM SERUM 3.6 MEQ/L (3.5-5.1); SODIUM LEVEL 143 MEQ/L (136-145)
[2016-12-13] MEDS: ONDANSETRON 4MG/2ML VIAL (J2405) IV PRN ×2 (07:03→17:23)
[2016-12-13] MEDS: SODIUM CHLORIDE 0.9% INJ 10 ML SYR IV PRN (07:03)
--- NOTE | 2016-12-13 09:05 | IPNPDOC ---
Subjective Date Seen The patient was seen on 12/13/16. Subjective Chief Complaint/HPI The patient is a 66-year-old female admitted with a reason for visit of [facility]. General: Denies: ROS Unobtainable, Chills, Night Sweats, Fatigue, Malaise, Normal Appetite, Other Symptoms Constitutional: Denies: Chills, Fever, Malaise, Night Sweats, Weakness, Fatigue , Weight Loss, Lethargy, Other Eyes: Denies: Pain, Vision change, Conjunctivae inflammation, Eyelid inflammation, Redness, Other ENT: Denies: Head Aches, Ear Pain, Dysphagia, Sinus Congestion, Post Nasal Drip , Sore Throat, Epistaxis, Other Symptoms Skin: Denies: Rash, Lesions, Jaundice, Bruising, Itching, Dry, Breakdown, Nail Changes, Other Pulmonary: Denies: Dyspnea, Cough, Pleuritic Chest Pain, Other Symptoms Cardiovascular: Denies: Chest Pain, Palpitations, Orthopnea, Paroxysmal Noc. Dyspnea, Edema, Lt Headedness, Other Symptoms Gastrointestinal: Denies: Nausea, Vomiting, Abdominal Pain, Diarrhea, Constipation, Melena, Hematochezia, Other Symptoms Genitourinary: Denies: Dysuria, Frequency, Incontinence, Hematuria, Retention, Other Symptoms Objective Physical Examination General Exam: Positive: Alert, Cooperative, No Acute Distress ENT Exam: Positive: Mucous membr. moist/pink Chest Exam: Positive: Diminished, Negative: Rales, Rhonchi, Wheezing Heart Exam: Positive: Rate Normal, Normal S1, Normal S2 Abdomen Exam: Positive: Normal bowel sounds, Soft, Negative: Tenderness Extremity Exam: Negative: Edema, Tenderness Psych Exam: Positive: Oriented x 3 Assessment /Plan Problems (1) Hydrocephalus Status: Acute Response to Treatment: Stable Problem Specific Plan: Consult Specialist Problem Text: Mentation on am 12/07/16- the best that I have seen in two weeks- she knew she was in hospital, thought Lobo zaragoza is president, answering yes-no questions appropriately On 12/08/16 more back to baseline Patient's mentation, neurologic status has remained stable, waxing and waning over the last week I discussed with patient's and daughter at bedside 12/06/16 They are concerned about increasing range of motion- patient was moved closer to the nursing station yesterday Dr. Noble following- perhaps considering procedure but only upon normalization of csf which may take some time Mentation appears to be at baseline. Today is oriented x 3 including person, place, time and name of president. Further recs as per neurosurgery. (2) Cerebral ventriculitis Status: Acute Response to Treatment: Improving Problem Specific Plan: Consult Specialist Problem Text: s/p completion of IV Abx therapy Repeat LP done 12/01/16 Further recs as per neurosurgery. (3) CAD (coronary artery disease) of artery bypass graft Status: Chronic Problem Specific Plan: Monitor Clinically (4) Hyperthyroidism Status: Acute Problem Specific Plan: Monitor Clinically Problem Text: Continue Methimazole with increased dose TFTs not improved as of 12/08/16 (5) Anemia Status: Chronic Response to Treatment: Stable Problem Specific Plan: Repeat Labs Problem Text: s/p 1 Unit of PRBC's transfusion on 11/25/16 Stool occult negative x4 No overt source of bleeding identified (6) S/P mitral valve replacement Status: Chronic Problem Text: INR supra-therapeutic - hold coumadin today. Appears to have very brittle response to coumadin. Vitamin K was ordered to reduce INR to below 2 to have procedure done on Tuesday 11/28 restarted coumadin- as no procedure likely in near future Resume 3 mg daily dose tomorrow - states 2.5 mg M-F, 3mg Sat/Sun (7) HTN (hypertension) Status: Chronic Problem Text: on norvasc, michelle inhibitor bp reasonably controlled for current setting (8) HLD (hyperlipidemia) Status: Chronic Problem Text: Cont Statin (9) Afib Status: Chronic Problem Text: Rate controlled, restarted Coumadin 12/04/16 (INR therapeutic for afib) (10) DVT prophylaxis Response to Treatment: Stable Problem Text: heparin drip (11) Diastolic CHF Problem Specific Plan: Monitor Clinically Problem Text: grade II, compensated (12) PEA (Pulseless electrical activity) Problem Text: s/p PEA arrest, associated with use of IV vitamin k Was seen by cardiology during her stay No significant ongoing issues No need for continuing telemetry (13) Impaired swallowing Status: Chronic Problem Text: Has impaired swallow Has had episodes of vomiting possibly related to swallow dysfunction, no abd pain/distention May benefit from repeat swallow eval- ordered for 12/08/16 Plan/VTE VTE Prophylaxis Ordered?: Yes (coumadin) Plan Diet: Continue Current Diagnostics: Repeat Labs in AM Anticipated Discharge: Sub Acute Rehab VS, I&O, 24H, [place] Vital Signs/I&O Vital Signs Date Time Temp Pulse Resp B/P (MAP) Pulse Ox O2 Delivery O2 Flow Rate FiO2 12/13/16 06:00 96.4 76 15 135/65 (88) 92 Room Air 12/11/16 14:00 1.0 I&O- Last 24 Hours up to 6 AM 12/13/16 06:00 Intake Total 330 ml Balance 330 ml Laboratory Data 24H LABS Laboratory Tests 2 12/13/16 05:24: Prothrombin Time 38.3H, Prothromb Time International Ratio 3.91, Anion Gap 5L, Glomerular Filtration Rate > 60.0, Blood Urea Nitrogen 21H, Creatinine 0.58, Sodium Level 143, Potassium Level 3.6, Chloride Level 107, Carbon Dioxide Level 31, Calcium Level 8.9, Magnesium Level 1.9 CBC/BMP Laboratory Tests 12/13/16 05:24 Red Blood Count 2.81 L, Mean Corpuscular Volume 97.7 H, Mean Corpuscular Hemoglobin 33.1 H, Mean Corpuscular Hemoglobin Concent 33.9, Red Cell Distribution Width 15.2 H, Calcium Level 8.9 Microbiology Microbiology 12/08/16 Stool Occult Blood (PAPI) - Final, Complete XIOMARA DAWSON MD Dec 13, 2016 09:05
[2016-12-13] MEDS: PANTOPRAZOLE 40MG INJ (PROTONIX) (C9113) IV SCH (09:14)
[2016-12-13] MEDS: levETIRAcetam INJection 500 MG in D5W MINI-BAG PLUS 100 ML IV SCH ×2 (09:14→20:59)
[2016-12-13] MEDS: LISINOPRIL 10 MG TAB PO SCH (09:17)
[2016-12-13] MEDS: LIDOCAINE 5% (LIDODERM) PATCH TD SCH (09:25)
[2016-12-13] MEDS: ACETAMINOPHEN TAB 650MG DOSE (2X325MG) PO PRN (10:55)
[2016-12-13] MEDS: PROMETHAZINE INJ 25 MG/ML VIAL (J2550) IV PRN (11:45)
[2016-12-13 14:00] VITALS: BP 120/58
[2016-12-13] MEDS: amLODIPine 5 MG TAB PO SCH (20:58)
[2016-12-13] MEDS: ATORVASTATIN 20 MG TAB PO SCH (20:59)
[2016-12-13] MEDS: **NOTE PATIENT COMMENT** MISC XX SCH (21:00)
[2016-12-13 22:00] VITALS: BP 105/51
[2016-12-14 06:00] VITALS: BP 139/70
[2016-12-14] MEDS: SODIUM CHLORIDE 0.9% INJ 10 ML SYR IV SCH ×4 (06:00→17:50)
[2016-12-14 06:23] LABS: MEAN CORPUSCULAR HEMOGLOBIN 33.4 pg (27.0-33.0); MEAN CORPUSCULAR HGB CONC 33.7 g/dl (32.0-36.5); MEAN CORPUSCULAR VOLUME 98.9 fl (80.0-96.0); WHITE BLOOD COUNT 3.8 K/mm3 (4.0-10.0)
[2016-12-14 06:29] LABS: INR 3.68
[2016-12-14 06:47] LABS: ANION GAP 6 MEQ/L (8-16); BLOOD UREA NITROGEN 19 MG/DL (7-18); CALCIUM LEVEL 9.1 MG/DL (8.8-10.2); CARBON DIOXIDE LEVEL 31 MEQ/L (21-32); CHLORIDE LEVEL 101 MEQ/L (98-107); CREATININE FOR GFR 0.71 MG/DL (0.55-1.02); GLOMERULAR FILTRATION RATE > 60.0 (>45); GLUCOSE, FASTING 95 MG/DL (80-110); POTASSIUM SERUM 3.2 MEQ/L (3.5-5.1); SODIUM LEVEL 138 MEQ/L (136-145)
[2016-12-14] MEDS: levETIRAcetam INJection 500 MG in D5W MINI-BAG PLUS 100 ML IV SCH ×2 (09:08→20:51)
[2016-12-14] MEDS: PANTOPRAZOLE 40MG INJ (PROTONIX) (C9113) IV SCH (09:08)
[2016-12-14] MEDS: LIDOCAINE 5% (LIDODERM) PATCH TD SCH (09:08)
[2016-12-14] MEDS: LISINOPRIL 10 MG TAB PO SCH ×2 (09:13→09:26)
[2016-12-14] MEDS: SODIUM CHLORIDE 0.9% INJ 10 ML SYR IV PRN ×2 (09:40→20:52)
[2016-12-14] MEDS: ACETAMINOPHEN TAB 650MG DOSE (2X325MG) PO PRN (13:42)
[2016-12-14 14:00] VITALS: BP 102/52
--- NOTE | 2016-12-14 15:30 | IPNPDOC ---
Subjective Date Seen The patient was seen on 12/14/16. Subjective Chief Complaint/HPI The patient is a 66-year-old female admitted with a reason for visit of [facility]. General: Denies: ROS Unobtainable, Chills, Night Sweats, Fatigue, Malaise, Normal Appetite, Other Symptoms Constitutional: Denies: Chills, Fever, Malaise, Night Sweats, Weakness, Fatigue , Weight Loss, Lethargy, Other Eyes: Denies: Pain, Vision change, Conjunctivae inflammation, Eyelid inflammation, Redness, Other ENT: Denies: Head Aches, Ear Pain, Dysphagia, Sinus Congestion, Post Nasal Drip , Sore Throat, Epistaxis, Other Symptoms Skin: Denies: Rash, Lesions, Jaundice, Bruising, Itching, Dry, Breakdown, Nail Changes, Other Pulmonary: Denies: Dyspnea, Cough, Pleuritic Chest Pain, Other Symptoms Cardiovascular: Denies: Chest Pain, Palpitations, Orthopnea, Paroxysmal Noc. Dyspnea, Edema, Lt Headedness, Other Symptoms Gastrointestinal: Denies: Nausea, Vomiting, Abdominal Pain, Diarrhea, Constipation, Melena, Hematochezia, Other Symptoms Genitourinary: Denies: Dysuria, Frequency, Incontinence, Hematuria, Retention, Other Symptoms Objective Physical Examination General Exam: Positive: Alert, Cooperative, No Acute Distress Eye Exam: Positive: Conjunctiva & lids normal, Negative: Sclera icteric ENT Exam: Positive: Mucous membr. moist/pink Chest Exam: Positive: Diminished, Negative: Rales, Rhonchi, Wheezing Heart Exam: Positive: Rate Normal, Normal S1, Normal S2 Abdomen Exam: Positive: Normal bowel sounds, Soft, Negative: Tenderness Extremity Exam: Negative: Edema, Tenderness Psych Exam: Positive: Oriented x 3 (grossly oriented with prompting) Assessment /Plan Problems (1) Hydrocephalus Status: Acute Response to Treatment: Stable Problem Specific Plan: Consult Specialist Problem Text: Mentation on am 12/07/16- the best that I have seen in two weeks- she knew she was in hospital, thought Lobo zaragoza is president, answering yes-no questions appropriately On 12/08/16 more back to baseline Patient's mentation, neurologic status has remained stable, waxing and waning over the last week I discussed with patient's and daughter at bedside 12/06/16 They are concerned about increasing range of motion- patient was moved closer to the nursing station yesterday Dr. Noble following- perhaps considering procedure but only upon normalization of csf which may take some time Mentation appears to be at baseline. Today somewhat more lethargic than earlier this week. Further recs as per neurosurgery. (2) Cerebral ventriculitis Status: Acute Response to Treatment: Improving Problem Specific Plan: Consult Specialist Problem Text: s/p completion of IV Abx therapy Repeat LP done 12/01/16 Further recs as per neurosurgery. (3) CAD (coronary artery disease) of artery bypass graft Status: Chronic Problem Specific Plan: Monitor Clinically (4) Hyperthyroidism Status: Acute Problem Specific Plan: Monitor Clinically Problem Text: Continue Methimazole with increased dose TFTs not improved as of 12/08/16 (5) Anemia Status: Chronic Response to Treatment: Stable Problem Specific Plan: Repeat Labs Problem Text: s/p 1 Unit of PRBC's transfusion on 11/25/16 Stool occult negative x4 No overt source of bleeding identified (6) S/P mitral valve replacement Status: Chronic Problem Text: INR essentially therapeutic - resume coumadin. Appears to have very brittle response to coumadin. Vitamin K was ordered to reduce INR to below 2 to have procedure done on Tuesday 11/28 restarted coumadin- as no procedure likely in near future (7) HTN (hypertension) Status: Chronic Problem Text: on norvasc, michelle inhibitor bp reasonably controlled for current setting (8) HLD (hyperlipidemia) Status: Chronic Problem Text: Cont Statin (9) Afib Status: Chronic Problem Text: Rate controlled, restarted Coumadin 12/04/16 (INR therapeutic for afib) (10) DVT prophylaxis Response to Treatment: Stable Problem Text: heparin drip (11) Diastolic CHF Problem Specific Plan: Monitor Clinically Problem Text: grade II, compensated (12) PEA (Pulseless electrical activity) Problem Text: s/p PEA arrest, associated with use of IV vitamin k Was seen by cardiology during her stay No significant ongoing issues No need for continuing telemetry (13) Impaired swallowing Status: Chronic Problem Text: Has impaired swallow Has had episodes of vomiting possibly related to swallow dysfunction, no abd pain/distention May benefit from repeat swallow eval- ordered for 12/08/16 Plan/VTE VTE Prophylaxis Ordered?: Yes (coumadin) Plan Diet: Continue Current Diagnostics: Repeat Labs in AM Anticipated Discharge: Sub Acute Rehab Minor adjustments to warfarin therapy. Pending placement. VS, I&O, 24H, Fishbone Vital Signs/I&O Vital Signs Date Time Temp Pulse Resp B/P (MAP) Pulse Ox O2 Delivery O2 Flow Rate FiO2 12/14/16 14:00 97.5 68 18 102/52 (69) 92 Room Air 12/11/16 14:00 1.0 I&O- Last 24 Hours up to 6 AM 12/14/16 06:00 Intake Total 340 ml Output Total 0 ml Balance 340 ml Laboratory Data 24H LABS Laboratory Tests 2 12/14/16 05:32: Prothrombin Time 36.5H, Prothromb Time International Ratio 3.68, Anion Gap 6L, Glomerular Filtration Rate > 60.0, Blood Urea Nitrogen 19H, Creatinine 0.71, Sodium Level 138, Potassium Level 3.2L, Chloride Level 101, Carbon Dioxide Level 31, Calcium Level 9.1, Magnesium Level 2.0 CBC/BMP Laboratory Tests 12/14/16 05:32 Red Blood Count 2.96 L, Mean Corpuscular Volume 98.9 H, Mean Corpuscular Hemoglobin 33.4 H, Mean Corpuscular Hemoglobin Concent 33.7, Red Cell Distribution Width 15.0 H, Calcium Level 9.1 Microbiology Microbiology 12/08/16 Stool Occult Blood (PAPI) - Final, Complete XIOMARA DAWSON MD Dec 14, 2016 15:30
[2016-12-14] MEDS ORDERED: POTASSIUM CHLORIDE 10% LIQ 20 MEQ/15 ML UDC PO ONE (16:00)
[2016-12-14] MEDS: WARFARIN SOD 2 MG TAB PO SCH (16:34)
[2016-12-14] MEDS: amLODIPine 5 MG TAB PO SCH ×2 (20:44→20:53)
[2016-12-14] MEDS: ATORVASTATIN 20 MG TAB PO SCH ×2 (20:44→20:54)
[2016-12-14] MEDS: **NOTE PATIENT COMMENT** MISC XX SCH (20:59)
[2016-12-14 22:00] VITALS: BP 134/60
[2016-12-15] MEDS: SODIUM CHLORIDE 0.9% INJ 10 ML SYR IV SCH ×4 (05:45→17:10)
[2016-12-15 06:00] VITALS: BP 122/57
[2016-12-15 06:24] LABS: MEAN CORPUSCULAR HEMOGLOBIN 32.9 pg (27.0-33.0); MEAN CORPUSCULAR HGB CONC 33.3 g/dl (32.0-36.5); MEAN CORPUSCULAR VOLUME 98.9 fl (80.0-96.0); RED CELL DISTRIBUTION WIDTH 15.1 % (11.5-14.5); WHITE BLOOD COUNT 3.2 K/mm3 (4.0-10.0)
[2016-12-15 06:29] LABS: INR 3.18
[2016-12-15 07:16] LABS: ANION GAP 4 MEQ/L (8-16); BLOOD UREA NITROGEN 16 MG/DL (7-18); CALCIUM LEVEL 8.7 MG/DL (8.8-10.2); CARBON DIOXIDE LEVEL 29 MEQ/L (21-32); CHLORIDE LEVEL 107 MEQ/L (98-107); CREATININE FOR GFR 0.67 MG/DL (0.55-1.02); GLOMERULAR FILTRATION RATE > 60.0 (>45); GLUCOSE, FASTING 99 MG/DL (80-110); MAGNESIUM LEVEL 1.8 MG/DL (1.8-2.4); SODIUM LEVEL 140 MEQ/L (136-145)
[2016-12-15] MEDS: LISINOPRIL 10 MG TAB PO SCH (08:03)
[2016-12-15] MEDS: levETIRAcetam INJection 500 MG in D5W MINI-BAG PLUS 100 ML IV SCH ×2 (08:12→21:45)
[2016-12-15] MEDS: LIDOCAINE 5% (LIDODERM) PATCH TD SCH (08:12)
[2016-12-15] MEDS: PANTOPRAZOLE 40MG INJ (PROTONIX) (C9113) IV SCH (08:12)
--- NOTE | 2016-12-15 12:32 | IPNPDOC ---
Subjective Date Seen The patient was seen on 12/15/16. Subjective Chief Complaint/HPI The patient is a 66-year-old female admitted with a reason for visit of [facility]. General: Denies: ROS Unobtainable, Chills, Night Sweats, Fatigue, Malaise, Normal Appetite, Other Symptoms Constitutional: Denies: Chills, Fever, Malaise, Night Sweats, Weakness, Fatigue , Weight Loss, Lethargy, Other Eyes: Denies: Pain, Vision change, Conjunctivae inflammation, Eyelid inflammation, Redness, Other ENT: Denies: Head Aches, Ear Pain, Dysphagia, Sinus Congestion, Post Nasal Drip , Sore Throat, Epistaxis, Other Symptoms Skin: Denies: Rash, Lesions, Jaundice, Bruising, Itching, Dry, Breakdown, Nail Changes, Other Pulmonary: Denies: Dyspnea, Cough, Pleuritic Chest Pain, Other Symptoms Cardiovascular: Denies: Chest Pain, Palpitations, Orthopnea, Paroxysmal Noc. Dyspnea, Edema, Lt Headedness, Other Symptoms Gastrointestinal: Denies: Nausea, Vomiting, Abdominal Pain, Diarrhea, Constipation, Melena, Hematochezia, Other Symptoms Genitourinary: Denies: Dysuria, Frequency, Incontinence, Hematuria, Retention, Other Symptoms Objective Physical Examination General Exam: Positive: Alert, Cooperative, No Acute Distress Eye Exam: Positive: Conjunctiva & lids normal, Negative: Sclera icteric ENT Exam: Positive: Mucous membr. moist/pink Chest Exam: Positive: Diminished, Negative: Rales, Rhonchi, Wheezing Heart Exam: Positive: Rate Normal, Normal S1, Normal S2 Abdomen Exam: Positive: Normal bowel sounds, Soft, Negative: Tenderness Extremity Exam: Negative: Edema, Tenderness Psych Exam: Negative: Oriented x 3 (grossly oriented to person and place) Assessment /Plan Problems (1) Hydrocephalus Status: Acute Response to Treatment: Stable Problem Specific Plan: Consult Specialist Problem Text: Mentation appears to be at baseline. Further recs as per neurosurgery. Previously: Mentation on am 12/07/16- the best that I have seen in two weeks- she knew she was in hospital, thought mila Lobo is president, answering yes-no questions appropriately On 12/08/16 more back to baseline Patient's mentation, neurologic status has remained stable, waxing and waning over the last week I discussed with patient's and daughter at bedside 12/06/16 They are concerned about increasing range of motion- patient was moved closer to the nursing station yesterday Dr. Noble following- perhaps considering procedure but only upon normalization of csf which may take some time (2) Cerebral ventriculitis Status: Acute Response to Treatment: Improving Problem Specific Plan: Consult Specialist Problem Text: s/p completion of IV Abx therapy Repeat LP done 12/01/16 Further recs as per neurosurgery. (3) CAD (coronary artery disease) of artery bypass graft Status: Chronic Problem Specific Plan: Monitor Clinically (4) Hyperthyroidism Status: Acute Problem Specific Plan: Monitor Clinically Problem Text: Continue Methimazole with increased dose TFTs not improved as of 12/08/16 (5) Anemia Status: Chronic Response to Treatment: Stable Problem Specific Plan: Repeat Labs Problem Text: s/p 1 Unit of PRBC's transfusion on 11/25/16 Stool occult negative x4 No overt source of bleeding identified (6) S/P mitral valve replacement Status: Chronic Problem Text: INR therapeutic on coumadin. Appears to have very brittle response to coumadin. Vitamin K was ordered to reduce INR to below 2 to have procedure done on Tuesday 11/28 restarted coumadin- as no procedure likely in near future (7) HTN (hypertension) Status: Chronic Problem Text: on norvasc, michelle inhibitor bp reasonably controlled for current setting (8) HLD (hyperlipidemia) Status: Chronic Problem Text: Cont Statin (9) Afib Status: Chronic Problem Text: Rate controlled, restarted Coumadin 12/04/16 (INR therapeutic for afib) (10) DVT prophylaxis Response to Treatment: Stable Problem Text: heparin drip (11) Diastolic CHF Problem Specific Plan: Monitor Clinically Problem Text: grade II, compensated (12) PEA (Pulseless electrical activity) Problem Text: s/p PEA arrest, associated with use of IV vitamin k Was seen by cardiology during her stay No significant ongoing issues No need for continuing telemetry (13) Impaired swallowing Status: Chronic Problem Text: Has impaired swallow Has had episodes of vomiting possibly related to swallow dysfunction, no abd pain/distention May benefit from repeat swallow eval- ordered for 12/08/16 Plan/VTE VTE Prophylaxis Ordered?: Yes (coumadin) Plan Diet: Continue Current Diagnostics: Repeat Labs in AM Anticipated Discharge: Sub Acute Rehab Therapeutic on coumadin for MVR. Pending placement. VS, I&O, 24H, Fishbone Vital Signs/I&O Vital Signs Date Time Temp Pulse Resp B/P (MAP) Pulse Ox O2 Delivery O2 Flow Rate FiO2 12/15/16 09:00 Room Air 12/15/16 08:03 122/57 12/15/16 06:00 97.6 79 20 95 12/11/16 14:00 1.0 I&O- Last 24 Hours up to 6 AM 12/15/16 06:00 Intake Total 220 ml Output Total 0 ml Balance 220 ml Laboratory Data 24H LABS Laboratory Tests 2 12/15/16 05:58: Prothrombin Time 32.6H, Prothromb Time International Ratio 3.18, Anion Gap 4L, Glomerular Filtration Rate > 60.0, Blood Urea Nitrogen 16, Creatinine 0.67, Sodium Level 140, Potassium Level 4.0#, Chloride Level 107, Carbon Dioxide Level 29, Calcium Level 8.7L, Magnesium Level 1.8 CBC/BMP Laboratory Tests 12/15/16 05:58 Red Blood Count 2.78 L, Mean Corpuscular Volume 98.9 H, Mean Corpuscular Hemoglobin 32.9, Mean Corpuscular Hemoglobin Concent 33.3, Red Cell Distribution Width 15.1 H, Calcium Level 8.7 L Microbiology Microbiology 12/08/16 Stool Occult Blood (PAPI) - Final, Complete XIOMARA DAWSON MD Dec 15, 2016 12:32
[2016-12-15 14:00] VITALS: BP 116/55
[2016-12-15] MEDS: WARFARIN SOD 2 MG TAB PO SCH (17:09)
[2016-12-15] MEDS: amLODIPine 5 MG TAB PO SCH (21:46)
[2016-12-15] MEDS: **NOTE PATIENT COMMENT** MISC XX SCH (21:46)
[2016-12-15] MEDS: ATORVASTATIN 20 MG TAB PO SCH (21:46)
[2016-12-15 22:00] VITALS: BP 138/67
[2016-12-16] MEDS: ACETAMINOPHEN TAB 650MG DOSE (2X325MG) PO PRN (00:32)
[2016-12-16] MEDS: SODIUM CHLORIDE 0.9% INJ 10 ML SYR IV SCH ×4 (05:47→17:22)
[2016-12-16 05:55] LABS: MEAN CORPUSCULAR HEMOGLOBIN 33.1 pg (27.0-33.0); MEAN CORPUSCULAR HGB CONC 33.3 g/dl (32.0-36.5); MEAN CORPUSCULAR VOLUME 99.3 fl (80.0-96.0); RED CELL DISTRIBUTION WIDTH 14.9 % (11.5-14.5); WHITE BLOOD COUNT 3.4 K/mm3 (4.0-10.0)
[2016-12-16 06:00] VITALS: BP 120/59
[2016-12-16 06:31] LABS: ANION GAP 6 MEQ/L (8-16); BLOOD UREA NITROGEN 16 MG/DL (7-18); CARBON DIOXIDE LEVEL 28 MEQ/L (21-32); CHLORIDE LEVEL 106 MEQ/L (98-107); CREATININE FOR GFR 0.58 MG/DL (0.55-1.02); GLOMERULAR FILTRATION RATE > 60.0 (>45); GLUCOSE, FASTING 110 MG/DL (80-110); MAGNESIUM LEVEL 1.9 MG/DL (1.8-2.4); POTASSIUM SERUM 3.7 MEQ/L (3.5-5.1); SODIUM LEVEL 140 MEQ/L (136-145)
[2016-12-16 06:53] LABS: INR 2.41
[2016-12-16] MEDS: LISINOPRIL 10 MG TAB PO SCH (08:53)
[2016-12-16] MEDS: levETIRAcetam INJection 500 MG in D5W MINI-BAG PLUS 100 ML IV SCH (08:54)
[2016-12-16] MEDS: PANTOPRAZOLE 40MG INJ (PROTONIX) (C9113) IV SCH (08:54)
[2016-12-16] MEDS: LIDOCAINE 5% (LIDODERM) PATCH TD SCH (08:54)
[2016-12-16] MEDS: ONDANSETRON 4MG/2ML VIAL (J2405) IV PRN (10:11)
[2016-12-16 14:00] VITALS: BP 131/65
--- NOTE | 2016-12-16 14:42 | IPNPDOC ---
Subjective Date Seen The patient was seen on 12/16/16. Subjective Chief Complaint/HPI The patient is a 66-year-old female admitted with a reason for visit of ICH. Events since last encounter More engaged- knows she is in hospital, thinks she is in [place], José Luis Diamond is president, no complaint of pain Vomited this am, after eating more than normal General: Reports: ROS Unobtainable Objective Physical Examination General Exam: Positive: Alert, Cooperative, No Acute Distress Eye Exam: Positive: Conjunctiva & lids normal, Negative: Sclera icteric ENT Exam: Positive: Mucous membr. moist/pink Chest Exam: Positive: Diminished, Negative: Rales, Rhonchi, Wheezing Heart Exam: Positive: Rate Normal, Irregular Rhythm, Normal S1, Normal S2 Abdomen Exam: Positive: Normal bowel sounds, Soft, Negative: Tenderness Extremity Exam: Negative: Edema, Tenderness Psych Exam: Positive: Oriented x 3 Assessment /Plan Problems (1) Hydrocephalus Status: Acute Response to Treatment: Stable Problem Specific Plan: Consult Specialist Problem Text: Mentation appears improved from 12/08/16. Further recs as per neurosurgery. (2) Cerebral ventriculitis Status: Acute Response to Treatment: Improving Problem Specific Plan: Consult Specialist Problem Text: s/p completion of IV Abx therapy Repeat LP done 12/01/16 Further recs as per neurosurgery. (3) CAD (coronary artery disease) of artery bypass graft Status: Chronic Problem Specific Plan: Monitor Clinically (4) Hyperthyroidism Status: Acute Problem Specific Plan: Monitor Clinically Problem Text: TFTs not improved as of 12/08/16- repeat labs ordered On methimazole- needs to be held prior to NM scan during week of the (5) Anemia Status: Chronic Response to Treatment: Stable Problem Specific Plan: Repeat Labs Problem Text: s/p 1 Unit of PRBC's transfusion on 11/25/16 Stool occult negative x4 No overt source of bleeding identified (6) S/P mitral valve replacement Status: Chronic Problem Text: INR slightly sub therapeutic on coumadin. Appears to have very brittle response to coumadin. (7) HTN (hypertension) Status: Chronic Problem Text: on norvasc, michelle inhibitor bp reasonably controlled for current setting (8) HLD (hyperlipidemia) Status: Chronic Problem Text: Cont Statin (9) Afib Status: Chronic Problem Text: Rate controlled (10) DVT prophylaxis Response to Treatment: Stable Problem Text: heparin drip (11) Diastolic CHF Problem Specific Plan: Monitor Clinically Problem Text: grade II, compensated (12) PEA (Pulseless electrical activity) Problem Text: s/p PEA arrest, associated with use of IV vitamin k Was seen by cardiology during her stay No significant ongoing issues No need for continuing telemetry (13) Impaired swallowing Status: Chronic Problem Text: Has impaired swallow Has had episodes of vomiting possibly related to swallow dysfunction, no abd pain/distention May benefit from repeat swallow eval- ordered for 12/08/16 Plan/VTE VTE Prophylaxis Ordered?: Yes (coumadin) VS, I&O, 24H, Fishbone Vital Signs/I&O Vital Signs Date Time Temp Pulse Resp B/P (MAP) Pulse Ox O2 Delivery O2 Flow Rate FiO2 12/16/16 08:53 132/78 12/16/16 06:00 97.3 76 20 92 Room Air 12/11/16 14:00 1.0 I&O- Last 24 Hours up to 6 AM 12/16/16 06:00 Intake Total 620 ml Output Total 0 ml Balance 620 ml Laboratory Data 24H LABS Laboratory Tests 2 12/16/16 05:39: Prothrombin Time 26.3H, Prothromb Time International Ratio 2.41, Anion Gap 6L, Glomerular Filtration Rate > 60.0, Blood Urea Nitrogen 16, Creatinine 0.58, Sodium Level 140, Potassium Level 3.7, Chloride Level 106, Carbon Dioxide Level 28, Calcium Level 9.0, Magnesium Level 1.9 CBC/BMP Laboratory Tests 12/16/16 05:39 Red Blood Count 2.98 L, Mean Corpuscular Volume 99.3 H, Mean Corpuscular Hemoglobin 33.1 H, Mean Corpuscular Hemoglobin Concent 33.3, Red Cell Distribution Width 14.9 H, Calcium Level 9.0 Microbiology Microbiology 12/08/16 Stool Occult Blood (PAPI) - Final, Complete FLINT,MARY ANN Go MD Dec 16, 2016 14:42
[2016-12-16] MEDS: WARFARIN SOD 2.5 MG TAB PO SCH (17:00)
[2016-12-16] MEDS ORDERED: levETIRAcetam ORAL SOLUTION 500 MG/5 ML UDC PO SCH (21:00)
[2016-12-16] MEDS ORDERED: levETIRAcetam **XR** 500 MG TABLET PO SCH (21:00)
[2016-12-16] MEDS: **NOTE PATIENT COMMENT** MISC XX SCH (21:00)
[2016-12-16] MEDS: amLODIPine 5 MG TAB PO SCH (21:30)
[2016-12-16] MEDS: ATORVASTATIN 20 MG TAB PO SCH (21:31)
[2016-12-16 22:00] VITALS: BP 130/62
[2016-12-17] MEDS: SODIUM CHLORIDE 0.9% INJ 10 ML SYR IV SCH ×4 (05:22→17:26)
[2016-12-17 05:36] LABS: MEAN CORPUSCULAR HEMOGLOBIN 33.5 pg (27.0-33.0); MEAN CORPUSCULAR HGB CONC 34.4 g/dl (32.0-36.5); MEAN CORPUSCULAR VOLUME 97.6 fl (80.0-96.0); RED CELL DISTRIBUTION WIDTH 14.5 % (11.5-14.5); WHITE BLOOD COUNT 3.8 K/mm3 (4.0-10.0)
[2016-12-17 05:45] LABS: INR 1.98
[2016-12-17 06:00] VITALS: BP 117/53
[2016-12-17 06:09] LABS: ANION GAP 6 MEQ/L (8-16); BLOOD UREA NITROGEN 14 MG/DL (7-18); CARBON DIOXIDE LEVEL 30 MEQ/L (21-32); CHLORIDE LEVEL 106 MEQ/L (98-107); CREATININE FOR GFR 0.59 MG/DL (0.55-1.02); GLOMERULAR FILTRATION RATE > 60.0 (>45); GLUCOSE, FASTING 92 MG/DL (80-110); MAGNESIUM LEVEL 1.7 MG/DL (1.8-2.4); POTASSIUM SERUM 3.5 MEQ/L (3.5-5.1); SODIUM LEVEL 142 MEQ/L (136-145); T UPTAKE 40 % (30-39); THYROXINE (T4) 14.5 UG/DL (4.5-12.0)
[2016-12-17] MEDS: LISINOPRIL 10 MG TAB PO SCH (09:24)
[2016-12-17] MEDS: levETIRAcetam 250MG TABLET (KEPPRA) PO SCH ×2 (09:24→21:30)
[2016-12-17] MEDS: PANTOPRAZOLE 40MG TAB (PROTONIX) PO SCH (09:24)
[2016-12-17] MEDS: LIDOCAINE 5% (LIDODERM) PATCH TD SCH (09:24)
[2016-12-17] MEDS: ONDANSETRON 4MG/2ML VIAL (J2405) IV PRN (13:55)
[2016-12-17 14:00] VITALS: BP 140/70
[2016-12-17] MEDS: SODIUM CHLORIDE 0.9% INJ 10 ML SYR IV PRN (14:00)
[2016-12-17] MEDS: WARFARIN SOD 2.5 MG TAB PO SCH (17:25)
--- NOTE | 2016-12-17 19:04 | IPNPDOC ---
Subjective Date Seen The patient was seen on 12/17/16. Subjective Chief Complaint/HPI The patient is a 66-year-old female admitted with a reason for visit of ICH. Events since last encounter Not taking much po, when she does she intermittently vomits, denies pain Pulmonary: Denies: Dyspnea Cardiovascular: Denies: Chest Pain Gastrointestinal: Reports: Nausea, Vomiting, Denies: Abdominal Pain Objective Physical Examination General Exam: Positive: Alert, No Acute Distress Eye Exam: Positive: Conjunctiva & lids normal, Negative: Sclera icteric ENT Exam: Positive: Mucous membr. moist/pink Chest Exam: Positive: Diminished, Negative: Rales, Rhonchi, Wheezing Heart Exam: Positive: Rate Normal, Irregular Rhythm, Normal S1, Normal S2 Abdomen Exam: Positive: Normal bowel sounds, Soft, Negative: Tenderness Extremity Exam: Negative: Edema, Tenderness Psych Exam: Positive: Oriented x 3 Assessment /Plan Problems (1) Hydrocephalus Status: Acute Response to Treatment: Stable Problem Specific Plan: Consult Specialist Problem Text: Mentation appears improved from 12/08/16. Further recs as per neurosurgery. (2) Cerebral ventriculitis Status: Acute Response to Treatment: Improving Problem Specific Plan: Consult Specialist Problem Text: s/p completion of IV Abx therapy Repeat LP done 12/01/16 Further recs as per neurosurgery. (3) CAD (coronary artery disease) of artery bypass graft Status: Chronic Problem Specific Plan: Monitor Clinically (4) Hyperthyroidism Status: Acute Problem Specific Plan: Monitor Clinically Problem Text: TFTs not improved as of 12/08/16- repeat labs ordered On methimazole- needs to be held prior to NM scan during week of the (5) Anemia Status: Chronic Response to Treatment: Stable Problem Specific Plan: Repeat Labs Problem Text: s/p 1 Unit of PRBC's transfusion on 11/25/16 Stool occult negative x4 No overt source of bleeding identified (6) S/P mitral valve replacement Status: Chronic Problem Text: INR slightly sub therapeutic on coumadin, will give lovenox until therapeutic. Appears to have very brittle response to coumadin. (7) HTN (hypertension) Status: Chronic Problem Text: on norvasc, michelle inhibitor bp reasonably controlled for current setting (8) HLD (hyperlipidemia) Status: Chronic Problem Text: Cont Statin (9) Afib Status: Chronic Problem Text: Rate controlled (10) DVT prophylaxis Response to Treatment: Stable Problem Text: heparin drip (11) Diastolic CHF Problem Specific Plan: Monitor Clinically Problem Text: grade II, compensated (12) PEA (Pulseless electrical activity) Problem Text: s/p PEA arrest, associated with use of IV vitamin k Was seen by cardiology during her stay No significant ongoing issues No need for continuing telemetry (13) Impaired swallowing Status: Chronic Problem Text: Has impaired swallow Has had episodes of vomiting possibly related to swallow dysfunction, no abd pain/distention May benefit from repeat swallow eval- ordered for 12/08/16 (14) Protein calorie malnutrition Problem Text: Dietary intake likely insufficient for needs consider peg tube as a temporary measure Plan/VTE VTE Prophylaxis Ordered?: Yes (coumadin) VS, I&O, 24H, Fishbone Vital Signs/I&O Vital Signs Date Time Temp Pulse Resp B/P (MAP) Pulse Ox O2 Delivery O2 Flow Rate FiO2 12/17/16 14:00 97.9 107 19 140/70 (93) 91 Room Air 12/11/16 14:00 1.0 I&O- Last 24 Hours up to 6 AM 12/17/16 06:00 Intake Total 645 ml Output Total 0 ml Balance 645 ml Laboratory Data 24H LABS Laboratory Tests 2 12/16/16 20:29: Bedside Glucose (Misc Panel) 102 12/17/16 05:20: Prothrombin Time 22.6H, Prothromb Time International Ratio 1.98, Anion Gap 6L, Glomerular Filtration Rate > 60.0, Blood Urea Nitrogen 14, Creatinine 0.59, Sodium Level 142, Potassium Level 3.5, Chloride Level 106, Carbon Dioxide Level 30, Calcium Level 9.0, Magnesium Level 1.7L, Prealbumin 10.6L, Thyroid Stimulating Hormone (TSH) < 0.005L, Free Thyroxine Index 5.8H, Thyroxine (T4) 14.5H, Triiodothyronine (T3) Uptake 40H CBC/BMP Laboratory Tests 12/17/16 05:20 Red Blood Count 2.78 L, Mean Corpuscular Volume 97.6 H, Mean Corpuscular Hemoglobin 33.5 H, Mean Corpuscular Hemoglobin Concent 34.4, Red Cell Distribution Width 14.5, Calcium Level 9.0 Microbiology Microbiology 12/08/16 Stool Occult Blood (PAPI) - Final, Complete FLINT,MARY ANN oG MD Dec 17, 2016 19:03
[2016-12-17] MEDS: amLODIPine 5 MG TAB PO SCH (21:30)
[2016-12-17] MEDS: ATORVASTATIN 20 MG TAB PO SCH (21:30)
[2016-12-17] MEDS: **NOTE PATIENT COMMENT** MISC XX SCH (21:31)
[2016-12-17] MEDS: ENOXAPARIN 40 MG/0.4 ML SYRINGE (J1650) SC SCH (21:31)
[2016-12-17 22:00] VITALS: BP 140/64
[2016-12-18] MEDS: SODIUM CHLORIDE 0.9% INJ 10 ML SYR IV SCH ×4 (05:36→17:27)
[2016-12-18 06:00] VITALS: BP 121/58
[2016-12-18] MEDS: PANTOPRAZOLE 40MG TAB (PROTONIX) PO SCH (08:17)
[2016-12-18] MEDS: levETIRAcetam 250MG TABLET (KEPPRA) PO SCH ×2 (08:17→21:19)
[2016-12-18] MEDS: LIDOCAINE 5% (LIDODERM) PATCH TD SCH (08:18)
[2016-12-18] MEDS: LISINOPRIL 10 MG TAB PO SCH (08:18)
[2016-12-18] MEDS: ENOXAPARIN 40 MG/0.4 ML SYRINGE (J1650) SC SCH ×2 (08:18→21:19)
[2016-12-18 11:14] VITALS: BP 138/65
--- NOTE | 2016-12-18 13:43 | IPNPDOC ---
Subjective Date Seen The patient was seen on 12/18/16. Subjective Chief Complaint/HPI The patient is a 66-year-old female admitted with a reason for visit of ICH. Events since last encounter Not as interactive today. She needed to be prompted to answer questions. She offers no complaint of pain, she seems non-committal when I offer the idea of a PEG/PEJ tube Constitutional: Denies: Chills, Fever Pulmonary: Denies: Dyspnea, Cough Cardiovascular: Denies: Chest Pain Gastrointestinal: Denies: Nausea, Vomiting, Abdominal Pain Objective Physical Examination General Exam: Positive: Cooperative, No Acute Distress Eye Exam: Negative: Sclera icteric ENT Exam: Positive: Mucous membr. moist/pink Chest Exam: Positive: Diminished, Negative: Rales, Rhonchi, Wheezing Heart Exam: Positive: Rate Normal, Irregular Rhythm, Normal S1, Normal S2 Abdomen Exam: Positive: Normal bowel sounds, Soft, Negative: Tenderness Extremity Exam: Negative: Edema, Tenderness Psych Exam: Positive: Oriented x 3 Assessment /Plan Problems (1) Protein calorie malnutrition Problem Text: Dietary intake likely insufficient for needs consider peg tube as a temporary measure- I discussed with patient at bedside- this would likely be a temporary measure inorder to improve nutritional status and allow her time to recover from her brain injury (2) Hydrocephalus Status: Acute Response to Treatment: Stable Problem Specific Plan: Consult Specialist Problem Text: Mentation appears improved from 12/08/16. Further recs as per neurosurgery. (3) Cerebral ventriculitis Status: Acute Response to Treatment: Improving Problem Specific Plan: Consult Specialist Problem Text: s/p completion of IV Abx therapy Repeat LP done 12/01/16 Further recs as per neurosurgery. (4) CAD (coronary artery disease) of artery bypass graft Status: Chronic Problem Specific Plan: Monitor Clinically (5) Hyperthyroidism Status: Acute Problem Specific Plan: Monitor Clinically Problem Text: TFTs not improved as of 12/08/16- repeat labs ordered On methimazole- needs to be held prior to NM scan during week of the (6) Anemia Status: Chronic Response to Treatment: Stable Problem Specific Plan: Repeat Labs Problem Text: s/p 1 Unit of PRBC's transfusion on 11/25/16 Stool occult negative x4 No overt source of bleeding identified (7) S/P mitral valve replacement Status: Chronic Problem Text: INR slightly sub therapeutic on coumadin, will give lovenox until therapeutic. Appears to have very brittle response to coumadin. (8) HTN (hypertension) Status: Chronic Problem Text: on norvasc, michelle inhibitor bp reasonably controlled for current setting (9) HLD (hyperlipidemia) Status: Chronic Problem Text: Cont Statin (10) Afib Status: Chronic Problem Text: Rate controlled (11) DVT prophylaxis Response to Treatment: Stable Problem Text: heparin drip (12) Diastolic CHF Problem Specific Plan: Monitor Clinically Problem Text: grade II, compensated (13) PEA (Pulseless electrical activity) Problem Text: s/p PEA arrest, associated with use of IV vitamin k Was seen by cardiology during her stay No significant ongoing issues No need for continuing telemetry (14) Impaired swallowing Status: Chronic Problem Text: Has impaired swallow Has had episodes of vomiting possibly related to swallow dysfunction, no abd pain/distention May benefit from repeat swallow eval- ordered for 12/08/16 Plan/VTE VTE Prophylaxis Ordered?: Yes (coumadin) VS, I&O, 24H, Fishbone Vital Signs/I&O Vital Signs Date Time Temp Pulse Resp B/P (MAP) Pulse Ox O2 Delivery O2 Flow Rate FiO2 12/18/16 11:14 97.3 104 18 138/65 (89) 94 Room Air I&O- Last 24 Hours up to 6 AM 12/18/16 05:59 Intake Total 0 ml Output Total 0 ml Balance 0 ml Laboratory Data Microbiology Microbiology 12/08/16 Stool Occult Blood (PAPI) - Final, Complete MARY ANN GONZALEZ MD Dec 18, 2016 13:43
[2016-12-18 14:02] VITALS: BP 128/60
[2016-12-18] MEDS: WARFARIN SOD 2.5 MG TAB PO SCH (17:26)
[2016-12-18] MEDS: amLODIPine 5 MG TAB PO SCH (21:19)
[2016-12-18] MEDS: **NOTE PATIENT COMMENT** MISC XX SCH (21:19)
[2016-12-18] MEDS: ATORVASTATIN 20 MG TAB PO SCH (21:19)
[2016-12-18 22:00] VITALS: BP 120/73
[2016-12-19] MEDS: SODIUM CHLORIDE 0.9% INJ 10 ML SYR IV SCH ×4 (05:16→17:06)
[2016-12-19 06:00] VITALS: BP 132/72
[2016-12-19 06:21] LABS: BASO % 0.4 % (0.0-1.0); LARGE UNSTAINED CELL # 0.1 K/mm3 (0.0-0.4); LARGE UNSTAINED CELL % 1.7 % (0.0-4.0); LYMPH # 0.8 K/mm3 (1.5-4.5); LYMPH % 17.6 % (24.0-44.0); MEAN CORPUSCULAR HEMOGLOBIN 32.4 pg (27.0-33.0); MEAN CORPUSCULAR HGB CONC 33.4 g/dl (32.0-36.5); MEAN CORPUSCULAR VOLUME 97.1 fl (80.0-96.0); MONO # 0.3 K/mm3 (0.0-0.8); MONO % 7.9 % (0.0-5.0); NEUTROPHILS % 71.4 % (36.0-66.0); PLATELET COUNT, AUTOMATED 195 k/mm3 (150-450); RED CELL DISTRIBUTION WIDTH 14.8 % (11.5-14.5); WHITE BLOOD COUNT 4.3 K/mm3 (4.0-10.0)
[2016-12-19 06:27] LABS: ANION GAP 8 MEQ/L (8-16); BLOOD UREA NITROGEN 20 MG/DL (7-18); CALCIUM LEVEL 9.2 MG/DL (8.8-10.2); CARBON DIOXIDE LEVEL 29 MEQ/L (21-32); CHLORIDE LEVEL 104 MEQ/L (98-107); CREATININE FOR GFR 0.58 MG/DL (0.55-1.02); GLOMERULAR FILTRATION RATE > 60.0 (>45); GLUCOSE, FASTING 111 MG/DL (80-110); POTASSIUM SERUM 3.3 MEQ/L (3.5-5.1); SODIUM LEVEL 141 MEQ/L (136-145)
[2016-12-19] MEDS: LIDOCAINE 5% (LIDODERM) PATCH TD SCH (09:06)
[2016-12-19] MEDS: LISINOPRIL 10 MG TAB PO SCH (09:07)
[2016-12-19] MEDS: levETIRAcetam 250MG TABLET (KEPPRA) PO SCH ×3 (09:07→21:46)
[2016-12-19] MEDS: ENOXAPARIN 40 MG/0.4 ML SYRINGE (J1650) SC SCH ×2 (09:07→21:45)
[2016-12-19] MEDS: PANTOPRAZOLE 40MG TAB (PROTONIX) PO SCH (09:07)
[2016-12-19 10:48] LABS: INR 1.96
[2016-12-19 14:00] VITALS: BP 138/77
[2016-12-19] MEDS: WARFARIN SOD 2.5 MG TAB PO SCH ×2 (17:00→17:05)
[2016-12-19] MEDS: ONDANSETRON 4MG/2ML VIAL (J2405) IV PRN (17:50)
--- NOTE | 2016-12-19 18:10 | IPNPDOC ---
Subjective Date Seen The patient was seen on 12/19/16. Subjective Chief Complaint/HPI The patient is a 66-year-old female admitted with a reason for visit of ICH. Events since last encounter Had episode of vomiting, strongly declines feeding tube, no interest even temporarily, no abd pain, no nausea Constitutional: Denies: Chills, Fever Pulmonary: Denies: Dyspnea, Cough Cardiovascular: Denies: Chest Pain, Palpitations Gastrointestinal: Reports: Vomiting, Denies: Nausea, Abdominal Pain Objective Physical Examination General Exam: Positive: Alert, Cooperative, No Acute Distress Eye Exam: Negative: Sclera icteric ENT Exam: Positive: Mucous membr. moist/pink Chest Exam: Positive: Diminished, Negative: Rales, Rhonchi, Wheezing Heart Exam: Positive: Rate Normal, Irregular Rhythm, Normal S1, Normal S2 Abdomen Exam: Positive: Normal bowel sounds, Soft, Negative: Tenderness Extremity Exam: Negative: Edema, Tenderness Psych Exam: Positive: Oriented x 3 Assessment /Plan Problems (1) Protein calorie malnutrition Problem Text: Dietary intake likely insufficient for needs consider peg tube as a temporary measure- I discussed with patient at bedside- this would likely be a temporary measure inorder to improve nutritional status and allow her time to recover from her brain injury Also discussed with family Today the patient is quite insistent that she has no interest in a feeding tube (2) Hydrocephalus Status: Acute Response to Treatment: Stable Problem Specific Plan: Consult Specialist Problem Text: Mentation appears improved from 12/08/16. Further recs as per neurosurgery. (3) Cerebral ventriculitis Status: Acute Response to Treatment: Improving Problem Specific Plan: Consult Specialist Problem Text: s/p completion of IV Abx therapy Repeat LP done 12/01/16 Further recs as per neurosurgery. (4) CAD (coronary artery disease) of artery bypass graft Status: Chronic Problem Specific Plan: Monitor Clinically (5) Hyperthyroidism Status: Acute Problem Specific Plan: Monitor Clinically Problem Text: TFTs not improved as of 12/08/16- repeat labs ordered On methimazole- needs to be held prior to NM scan during week of the (6) Anemia Status: Chronic Response to Treatment: Stable Problem Specific Plan: Repeat Labs Problem Text: s/p 1 Unit of PRBC's transfusion on 11/25/16 Stool occult negative x4 No overt source of bleeding identified (7) S/P mitral valve replacement Status: Chronic Problem Text: INR slightly still sub therapeutic on coumadin, will give lovenox until therapeutic. Appears to have very brittle response to coumadin. (8) HTN (hypertension) Status: Chronic Problem Text: on norvasc, michelle inhibitor bp reasonably controlled for current setting (9) HLD (hyperlipidemia) Status: Chronic Problem Text: Cont Statin (10) Afib Status: Chronic Problem Text: Rate controlled (11) DVT prophylaxis Response to Treatment: Stable Problem Text: heparin drip (12) Diastolic CHF Problem Specific Plan: Monitor Clinically Problem Text: grade II, compensated (13) PEA (Pulseless electrical activity) Problem Text: s/p PEA arrest, associated with use of IV vitamin k Was seen by cardiology during her stay No significant ongoing issues No need for continuing telemetry (14) Impaired swallowing Status: Chronic Problem Text: Has impaired swallow Has had episodes of vomiting possibly related to swallow dysfunction, no abd pain/distention May benefit from repeat swallow eval- ordered for 12/08/16 Plan/VTE VTE Prophylaxis Ordered?: Yes (coumadin) VS, I&O, 24H, Fishbone Vital Signs/I&O Vital Signs Date Time Temp Pulse Resp B/P (MAP) Pulse Ox O2 Delivery O2 Flow Rate FiO2 12/19/16 14:00 98.1 118 19 138/77 (97) 94 Room Air I&O- Last 24 Hours up to 6 AM 12/19/16 05:59 Intake Total 240 ml Output Total 0 ml Balance 240 ml Laboratory Data 24H LABS Laboratory Tests 2 12/19/16 06:08: White Blood Count 4.3, Red Blood Count 3.08L, Hemoglobin 10.0L, Hematocrit 29.9L , Mean Corpuscular Volume 97.1H, Mean Corpuscular Hemoglobin 32.4, Mean Corpuscular Hemoglobin Concent 33.4, Red Cell Distribution Width 14.8H, Platelet Count 195, Neutrophils (%) (Auto) 71.4H, Lymphocytes (%) (Auto) 17.6L, Monocytes (%) (Auto) 7.9H, Eosinophils (%) (Auto) 1.0, Basophils (%) (Auto) 0.4 , Neutrophils # (Auto) 3.0, Lymphocytes # (Auto) 0.8L, Monocytes # (Auto) 0.3, Eosinophils # (Auto) 0.0, Basophils # (Auto) 0.0, Large Unclassified Cells % 1.7 , Large Unclassified Cells # 0.1, Anion Gap 8, Glomerular Filtration Rate > 60.0 , Blood Urea Nitrogen 20H, Creatinine 0.58, Sodium Level 141, Potassium Level 3.3L, Chloride Level 104, Carbon Dioxide Level 29, Calcium Level 9.2 12/19/16 10:28: Prothrombin Time 22.4H, Prothromb Time International Ratio 1.96 CBC/BMP Laboratory Tests 12/19/16 06:08 Red Blood Count 3.08 L, Mean Corpuscular Volume 97.1 H, Mean Corpuscular Hemoglobin 32.4, Mean Corpuscular Hemoglobin Concent 33.4, Red Cell Distribution Width 14.8 H, Neutrophils (%) (Auto) 71.4 H, Lymphocytes (%) (Auto ) 17.6 L, Monocytes (%) (Auto) 7.9 H, Eosinophils (%) (Auto) 1.0, Basophils (%) (Auto) 0.4, Neutrophils # (Auto) 3.0, Lymphocytes # (Auto) 0.8 L, Monocytes # ( Auto) 0.3, Eosinophils # (Auto) 0.0, Basophils # (Auto) 0.0, Calcium Level 9.2 MARY ANN GONZALEZ MD Dec 19, 2016 18:10
[2016-12-19] MEDS: **NOTE PATIENT COMMENT** MISC XX SCH (21:00)
[2016-12-19] MEDS: amLODIPine 5 MG TAB PO SCH ×2 (21:30→21:46)
[2016-12-19] MEDS: ATORVASTATIN 20 MG TAB PO SCH ×2 (21:30→21:45)
[2016-12-19 22:00] VITALS: BP 132/83
[2016-12-20] MEDS: SODIUM CHLORIDE 0.9% INJ 10 ML SYR IV SCH ×3 (05:20→18:12)
[2016-12-20 05:30] LABS: MEAN CORPUSCULAR HEMOGLOBIN 32.8 pg (27.0-33.0); MEAN CORPUSCULAR HGB CONC 33.7 g/dl (32.0-36.5); MEAN CORPUSCULAR VOLUME 97.2 fl (80.0-96.0); RED CELL DISTRIBUTION WIDTH 14.9 % (11.5-14.5); WHITE BLOOD COUNT 4.3 K/mm3 (4.0-10.0)
[2016-12-20 05:38] LABS: INR 2.19
[2016-12-20 06:00] VITALS: BP 158/76
[2016-12-20 06:05] LABS: ANION GAP 9 MEQ/L (8-16); BLOOD UREA NITROGEN 22 MG/DL (7-18); CALCIUM LEVEL 9.3 MG/DL (8.8-10.2); CARBON DIOXIDE LEVEL 30 MEQ/L (21-32); CHLORIDE LEVEL 105 MEQ/L (98-107); CREATININE FOR GFR 0.54 MG/DL (0.55-1.02); GLOMERULAR FILTRATION RATE > 60.0 (>45); GLUCOSE, FASTING 109 MG/DL (80-110); POTASSIUM SERUM 3.3 MEQ/L (3.5-5.1); SODIUM LEVEL 144 MEQ/L (136-145)
[2016-12-20] MEDS ORDERED: GASTROGRAFIN SOLUTION 30ML PO ONE (09:30)
--- NOTE | 2016-12-20 09:50 | IPNPDOC ---
Subjective Date Seen The patient was seen on 12/20/16. Subjective Chief Complaint/HPI The patient is a 66-year-old female admitted with a reason for visit of ICH. Events since last encounter Admits to being a little depressed, has not lost hope, enjoys visiting with her family, is frustrated with her rate of improvement, no abd pain, no nausea, but has vomited Constitutional: Denies: Chills, Fever Pulmonary: Denies: Dyspnea, Cough Cardiovascular: Denies: Chest Pain, Palpitations Gastrointestinal: Reports: Vomiting, Denies: Nausea, Abdominal Pain Objective Physical Examination General Exam: Positive: Alert, Cooperative, No Acute Distress Eye Exam: Negative: Sclera icteric Chest Exam: Positive: Diminished, Negative: Rales, Rhonchi, Wheezing Heart Exam: Positive: Rate Normal, Tachycardic, Irregular Rhythm, Normal S1, Normal S2 Abdomen Exam: Positive: Normal bowel sounds, Soft, Negative: Tenderness Extremity Exam: Negative: Edema, Tenderness Psych Exam: Positive: Oriented x 3 Assessment /Plan Problems (1) Protein calorie malnutrition Problem Text: Dietary intake likely insufficient for needs consider peg tube as a temporary measure- I discussed with patient at bedside- this would likely be a temporary measure in order to improve nutritional status and allow her time to recover from her brain injury Also discussed with family The patient is quite insistent that she has no interest in a feeding tube as of 12/20/16 Has been refusing feeds and meds- we discussed at length the importance of both , and she promises me that she will try to be more complaint (2) Depression Status: Acute Problem Text: likely adjustment disorder or depression based on her illness will start pamelor (3) Hydrocephalus Status: Acute Response to Treatment: Stable Problem Specific Plan: Consult Specialist Problem Text: Mentation appears improved from 12/08/16. Further recs as per neurosurgery. (4) Cerebral ventriculitis Status: Acute Response to Treatment: Improving Problem Specific Plan: Consult Specialist Problem Text: s/p completion of IV Abx therapy Repeat LP done 12/01/16 Further recs as per neurosurgery. (5) CAD (coronary artery disease) of artery bypass graft Status: Chronic Problem Specific Plan: Monitor Clinically (6) Hyperthyroidism Status: Acute Problem Specific Plan: Monitor Clinically Problem Text: TFTs not improved as of 12/08/16- repeat labs ordered On methimazole- needs to be held prior to NM scan during week of the (7) Anemia Status: Chronic Response to Treatment: Stable Problem Specific Plan: Repeat Labs Problem Text: s/p 1 Unit of PRBC's transfusion on 11/25/16 Stool occult negative x4 No overt source of bleeding identified (8) S/P mitral valve replacement Status: Chronic Problem Text: INR slightly still sub therapeutic on coumadin, will give lovenox until therapeutic. Appears to have very brittle response to coumadin. Also has refused coumadin intermittently (9) HTN (hypertension) Status: Chronic Problem Text: on norvasc, michelle inhibitor bp reasonably controlled for current setting (10) HLD (hyperlipidemia) Status: Chronic Problem Text: Cont Statin (11) Afib Status: Chronic Problem Text: Not controlled- will start Beta blockade (12) DVT prophylaxis Response to Treatment: Stable Problem Text: heparin drip (13) Diastolic CHF Problem Specific Plan: Monitor Clinically Problem Text: grade II, compensated (14) PEA (Pulseless electrical activity) Problem Text: s/p PEA arrest, associated with use of IV vitamin k Was seen by cardiology during her stay No significant ongoing issues No need for continuing telemetry (15) Impaired swallowing Status: Chronic Problem Text: Has impaired swallow Has had episodes of vomiting possibly related to swallow dysfunction, no abd pain/distention May benefit from repeat swallow eval- ordered for 12/08/16 Plan/VTE VTE Prophylaxis Ordered?: Yes (coumadin) VS, I&O, 24H, Fishbone Vital Signs/I&O Vital Signs Date Time Temp Pulse Resp B/P (MAP) Pulse Ox O2 Delivery O2 Flow Rate FiO2 12/20/16 06:00 97.5 120 16 158/76 (103) 94 Room Air I&O- Last 24 Hours up to 6 AM 12/20/16 05:59 Intake Total 300 ml Output Total 0 ml Balance 300 ml Laboratory Data 24H LABS Laboratory Tests 2 12/19/16 10:28: Prothrombin Time 22.4H, Prothromb Time International Ratio 1.96 12/20/16 05:21: Prothrombin Time 24.4H, Prothromb Time International Ratio 2.19, Anion Gap 9, Glomerular Filtration Rate > 60.0, Blood Urea Nitrogen 22H, Creatinine 0.54L, Sodium Level 144, Potassium Level 3.3L, Chloride Level 105, Carbon Dioxide Level 30, Calcium Level 9.3 CBC/BMP Laboratory Tests 12/20/16 05:21 Red Blood Count 2.89 L, Mean Corpuscular Volume 97.2 H, Mean Corpuscular Hemoglobin 32.8, Mean Corpuscular Hemoglobin Concent 33.7, Red Cell Distribution Width 14.9 H, Calcium Level 9.3 MARY ANN GONZALEZ MD Dec 20, 2016 09:50
[2016-12-20] MEDS ORDERED: GASTROGRAFIN SOLUTION 30ML (Q9963) PO ONE (10:00)
[2016-12-20] MEDS ORDERED: METOPROLOL TART 12.5 MG PER 1/2 TAB PO ONE (10:00)
[2016-12-20] MEDS: LIDOCAINE 5% (LIDODERM) PATCH TD SCH (10:05)
[2016-12-20] MEDS: levETIRAcetam 250MG TABLET (KEPPRA) PO SCH ×3 (10:05→21:19)
[2016-12-20] MEDS: LISINOPRIL 10 MG TAB PO SCH (10:05)
[2016-12-20] MEDS: PANTOPRAZOLE 40MG TAB (PROTONIX) PO SCH (10:05)
[2016-12-20] MEDS: ENOXAPARIN 40 MG/0.4 ML SYRINGE (J1650) SC SCH ×2 (10:06→21:20)
[2016-12-20] MEDS: PROMETHAZINE 25 MG TAB PO SCH ×2 (11:57→18:09)
[2016-12-20 14:00] VITALS: BP 123/69
[2016-12-20] MEDS: WARFARIN SOD 2.5 MG TAB PO SCH (18:09)
[2016-12-20] MEDS: METOPROLOL TART 12.5 MG PER 1/2 TAB PO SCH ×2 (18:10→23:59)
[2016-12-20] MEDS: ATORVASTATIN 20 MG TAB PO SCH ×2 (21:00→21:19)
[2016-12-20] MEDS: NORTRIPTYLINE 25 MG CAP PO SCH ×2 (21:00→21:19)
[2016-12-20] MEDS: amLODIPine 5 MG TAB PO SCH ×2 (21:00→21:19)
[2016-12-20] MEDS: **NOTE PATIENT COMMENT** MISC XX SCH (21:00)
[2016-12-20 22:00] VITALS: BP 122/59
[2016-12-21 06:00] VITALS: BP 131/62
[2016-12-21] MEDS: SODIUM CHLORIDE 0.9% INJ 10 ML SYR IV SCH ×2 (06:23→18:32)
[2016-12-21] MEDS: METOPROLOL TART 12.5 MG PER 1/2 TAB PO SCH ×4 (06:24→18:00)
[2016-12-21] MEDS: PROMETHAZINE 25 MG TAB PO SCH ×4 (07:30→16:54)
[2016-12-21] MEDS: ONDANSETRON 4MG/2ML VIAL (J2405) IV PRN (08:26)
[2016-12-21] MEDS: LISINOPRIL 10 MG TAB PO SCH ×2 (09:00→09:30)
[2016-12-21] MEDS: PANTOPRAZOLE 40MG TAB (PROTONIX) PO SCH ×2 (09:00→09:30)
[2016-12-21] MEDS: levETIRAcetam 250MG TABLET (KEPPRA) PO SCH ×3 (09:00→21:48)
[2016-12-21] MEDS: ENOXAPARIN 40 MG/0.4 ML SYRINGE (J1650) SC SCH ×2 (09:31→21:50)
[2016-12-21] MEDS: LIDOCAINE 5% (LIDODERM) PATCH TD SCH (09:31)
[2016-12-21 09:58] LABS: BASO % 0.4 % (0.0-1.0); EOS % 0.4 % (0.0-3.0); LARGE UNSTAINED CELL # 0.1 K/mm3 (0.0-0.4); LARGE UNSTAINED CELL % 0.6 % (0.0-4.0); LYMPH # 0.8 K/mm3 (1.5-4.5); LYMPH % 7.9 % (24.0-44.0); MEAN CORPUSCULAR HGB CONC 32.9 g/dl (32.0-36.5); MEAN CORPUSCULAR VOLUME 100.3 fl (80.0-96.0); MONO # 0.3 K/mm3 (0.0-0.8); NEUTROPHILS # 9.1 K/mm3 (1.8-7.7); NEUTROPHILS % 87.8 % (36.0-66.0); PLATELET COUNT, AUTOMATED 282 k/mm3 (150-450); RED CELL DISTRIBUTION WIDTH 14.7 % (11.5-14.5); WHITE BLOOD COUNT 10.4 K/mm3 (4.0-10.0)
[2016-12-21 10:12] LABS: ANION GAP 9 MEQ/L (8-16); BLOOD UREA NITROGEN 30 MG/DL (7-18); CARBON DIOXIDE LEVEL 29 MEQ/L (21-32); CHLORIDE LEVEL 104 MEQ/L (98-107); CREATININE FOR GFR 0.98 MG/DL (0.55-1.02); GLUCOSE, FASTING 169 MG/DL (80-110); INR 2.32; POTASSIUM SERUM 3.2 MEQ/L (3.5-5.1); SODIUM LEVEL 142 MEQ/L (136-145)
[2016-12-21 10:21] LABS: GLOMERULAR FILTRATION RATE > 60.0 (>45)
--- NOTE | 2016-12-21 13:25 | IPNPDOC ---
Subjective Date Seen The patient was seen on 12/21/16. Subjective Chief Complaint/HPI The patient is a 66-year-old female admitted with a reason for visit of ICH. Events since last encounter Patient not interactive today, turns away from me, staff reports vomiting, bilious, copious, and at least two large stools, case discussed with in person, not taking much po, will start tpn with his permission General: Reports: ROS Unobtainable Objective Physical Examination General Exam: Positive: No Acute Distress Eye Exam: Negative: Sclera icteric ENT Exam: Positive: Mucous membr. moist/pink Chest Exam: Positive: Diminished, Negative: Rales, Rhonchi, Wheezing Heart Exam: Positive: Rate Normal, Tachycardic, Irregular Rhythm, Normal S1, Normal S2 Abdomen Exam: Positive: Normal bowel sounds, Soft, Negative: Tenderness Extremity Exam: Negative: Edema, Tenderness Psych Exam: Positive: Oriented x 3 Assessment /Plan Problems (1) Metabolic encephalopathy Status: Acute Problem Text: less interactive today, less compliant with exam suspect aspiration event or abd issue Has had copious stools Will lang scan with contrast and obtain cultures - consider antibiotics empirically depending on results No clear role for LP at this time may be related to untreated hyperthyroidism- as we have held methimazole for nm scan (2) Protein calorie malnutrition Problem Text: Dietary intake likely insufficient for needs consider peg tube as a temporary measure- I discussed with patient at bedside- this would likely be a temporary measure in order to improve nutritional status and allow her time to recover from her brain injury Also discussed with family The patient is quite insistent that she has no interest in a feeding tube as of 12/20/16 Continues refusing feeds and meds- we discussed at length the importance of both , and she promises me that she will try to be more complaint I will start TPN today (3) Depression Status: Acute Problem Text: likely adjustment disorder or depression based on her illness will start pamelor- patient refused first dose last night, which is beneficial as it cannot be cause of her delirium today (4) Hydrocephalus Status: Acute Response to Treatment: Stable Problem Specific Plan: Consult Specialist Problem Text: Mentation appears improved from 12/08/16. Further recs as per neurosurgery. (5) Cerebral ventriculitis Status: Acute Response to Treatment: Improving Problem Specific Plan: Consult Specialist Problem Text: s/p completion of IV Abx therapy Repeat LP done 12/01/16 Further recs as per neurosurgery. (6) CAD (coronary artery disease) of artery bypass graft Status: Chronic Problem Specific Plan: Monitor Clinically (7) Hyperthyroidism Status: Acute Problem Specific Plan: Monitor Clinically Problem Text: TFTs not improved as of 12/08/16- repeat labs ordered On methimazole- needs to be held prior to NM scan during week of the (8) Anemia Status: Chronic Response to Treatment: Stable Problem Specific Plan: Repeat Labs Problem Text: s/p 1 Unit of PRBC's transfusion on 11/25/16 Stool occult negative x4 No overt source of bleeding identified (9) S/P mitral valve replacement Status: Chronic Problem Text: INR slightly still sub therapeutic on coumadin, will give lovenox until therapeutic. Appears to have very brittle response to coumadin. Also has refused coumadin intermittently (10) HTN (hypertension) Status: Chronic Problem Text: on norvasc, michelle inhibitor bp reasonably controlled for current setting (11) HLD (hyperlipidemia) Status: Chronic Problem Text: Cont Statin (12) Afib Status: Chronic Problem Text: Not controlled- will start Beta blockade, patient has refused (13) DVT prophylaxis Response to Treatment: Stable Problem Text: heparin drip (14) Diastolic CHF Problem Specific Plan: Monitor Clinically Problem Text: grade II, compensated (15) PEA (Pulseless electrical activity) Problem Text: s/p PEA arrest, associated with use of IV vitamin k Was seen by cardiology during her stay No significant ongoing issues No need for continuing telemetry (16) Impaired swallowing Status: Chronic Problem Text: Has impaired swallow Has had episodes of vomiting possibly related to swallow dysfunction, no abd pain/distention May benefit from repeat swallow eval- ordered for 12/08/16 Plan/VTE VTE Prophylaxis Ordered?: Yes (coumadin) Plan/Urinary Catheter Reason for insertion/continuin: Critical Pt monitoring VS, I&O, 24H, Fishbone Vital Signs/I&O Vital Signs Date Time Temp Pulse Resp B/P (MAP) Pulse Ox O2 Delivery O2 Flow Rate FiO2 12/21/16 12:50 108 138/88 12/21/16 09:00 Room Air 12/21/16 06:00 98.4 18 94 I&O- Last 24 Hours up to 6 AM 12/21/16 06:00 Intake Total 480 ml Output Total 0 ml Balance 480 ml Laboratory Data 24H LABS Laboratory Tests 2 12/21/16 09:39: White Blood Count 10.4H, Red Blood Count 3.43L, Hemoglobin 11.3L, Hematocrit 34.4L, Mean Corpuscular Volume 100.3H, Mean Corpuscular Hemoglobin 33.0, Mean Corpuscular Hemoglobin Concent 32.9, Red Cell Distribution Width 14.7H, Platelet Count 282, Neutrophils (%) (Auto) 87.8H, Lymphocytes (%) (Auto) 7.9L, Monocytes (%) (Auto) 3.0, Eosinophils (%) (Auto) 0.4, Basophils (%) (Auto) 0.4, Neutrophils # (Auto) 9.1H, Lymphocytes # (Auto) 0.8L, Monocytes # (Auto) 0.3, Eosinophils # (Auto) 0.0, Basophils # (Auto) 0.0, Large Unclassified Cells % 0.6 , Large Unclassified Cells # 0.1, Prothrombin Time 25.5H, Prothromb Time International Ratio 2.32, Anion Gap 9, Glomerular Filtration Rate > 60.0, Blood Urea Nitrogen 30H, Creatinine 0.98#, Sodium Level 142, Potassium Level 3.2L, Chloride Level 104, Carbon Dioxide Level 29, Calcium Level 10.0 CBC/BMP Laboratory Tests 12/21/16 09:39 Red Blood Count 3.43 L, Mean Corpuscular Volume 100.3 H, Mean Corpuscular Hemoglobin 33.0, Mean Corpuscular Hemoglobin Concent 32.9, Red Cell Distribution Width 14.7 H, Neutrophils (%) (Auto) 87.8 H, Lymphocytes (%) (Auto ) 7.9 L, Monocytes (%) (Auto) 3.0, Eosinophils (%) (Auto) 0.4, Basophils (%) ( Auto) 0.4, Neutrophils # (Auto) 9.1 H, Lymphocytes # (Auto) 0.8 L, Monocytes # ( Auto) 0.3, Eosinophils # (Auto) 0.0, Basophils # (Auto) 0.0, Calcium Level 10.0 Microbiology Microbiology 12/21/16 Gastrointestinal Tract Panel (PCR), Received Pending 12/21/16 Stool Occult Blood (PAPI) - Final, Complete FLINT,MARY ANN Go MD Dec 21, 2016 13:25
[2016-12-21] MEDS ORDERED: NS 500 ML IV ONE (13:30)
[2016-12-21] MEDS ORDERED: ISOVUE-370 76% 100ML VIAL (Q9967) As Ordered ONE (13:35)
[2016-12-21 14:00] VITALS: BP 101/56
--- NOTE | 2016-12-21 15:24 | REP ---
CT BRAIN WITHOUT CONTRAST: 12/21/2016 COMPARISON: 12/01/2016, 11/26/2016, 11/23/2016, 11/21/2016, 11/18/2016 CT brain. Partial MRI brain 11/23/2016. CLINICAL HISTORY: Altered mental status. Recent intracranial hemorrhage. FINDINGS: Soft-tissue and bone windows are reviewed for each slice level. Lateral ventricles are dilated as are the third and fourth ventricles in a fashion unchanged and with the diameter of the anterior horns lateral ventricle 56 mm today, 55 mm on 11/26/2016, essentially unchanged. Slight hyperdensity near the foramen of Vigil which may be some blood product there, residual or small colloid cyst. It is doubtful this is responsible for the ventriculomegaly as the third and fourth ventricles are also dilated. There is diffuse atrophy throughout the cerebral hemispheres and cerebellum. No extra-axial fluid collection, acute intracranial hemorrhage or mass. No layering of blood products in the lateral, third or fourth ventricles. No intraparenchymal or extra-axial hemorrhage. Chronic small vessel white matter ischemic changes are again noted and stable. The skull base, mastoids, sinuses and calvarium are grossly intact. There are heavy vascular calcifications in the carotid siphons. IMPRESSION: 1. Moderately severe hydrocephalus with extensive chronic small vessel white matter ischemic changes and atrophy in proportion. 2. No acute intracranial hemorrhage, vascular territory infarct, mass or mass effect. No fracture of the skull base or calvarium and the sinuses and mastoids intact. Stable appearance from multiple recent priors. Signed by Saul English MD 12/21/2016 07:42 P
--- NOTE | 2016-12-21 15:28 | REP ---
CT CHEST WITH CONTRAST: 12/21/2016. CLINICAL HISTORY: Vomiting. Hydrocephalus. CVA. COMPARISON: Portable chest 12/03/2016. FINDINGS: The patient received a bolus of 75 mL of Isovue 370 and scanning through the chest with coronal and sagittal reconstructions. Some subsegmental atelectatic change in the lingula. Dependent atelectasis in the deep sulci of the lower lobes. There is no pleural effusion. Some minor atelectatic changes along the major fissures as well. No pleural calcification pleural plaque, pleural based mass or acute infiltrate. Some underlying interstitial fibrosis and COPD. No pulmonary nodule or parenchymal lung mass. Heart is enlarged with left atrial ventricular enlargement. Cardiac valve replacement noted with sternotomy wires. The aorta has atherosclerotic calcifications in its ascending arch and descending portion without aneurysm or dissection. The main, right and left pulmonary arteries in the mediastinum are without filling defects. The lobar arteries and proximal segmental arteries are also unremarkable. No pathologic sized mediastinal or hilar adenopathy or mass. There is no axillary or supraclavicular mass. The bone windows show old grade 1 wedging of T8 vertebral body on the sagittal reconstructions without paraspinal hematomas to suggest an acute fracture. The other thoracic and lower cervical vertebral bodies show no compression deformity. There are marginal osteophytes. Posterior rib articulations are intact as are the remainder the visualized ribs. Sternotomy is healed. Clavicles are unremarkable, AC joints normal. Glenohumeral joints shows some mild degenerative change, scapula and humeral heads without fracture or focal lesion. In the upper abdomen, the liver, spleen, portion of gallbladder and pancreas included stomach, and adrenal glands are normal. Upper poles of kidneys intact. Only a portion of pancreas is seen without mass or stone. Pancreatic duct grossly intact. Bowel loops in the upper abdomen unremarkable. IMPRESSION: 1. Some underlying interstitial fibrotic changes, dependent atelectatic changes. Some linear fibrotic or atelectatic changes as described in the chest. No acute infiltrate, pleural effusion, pulmonary nodule or parenchymal mass. 2. Cardiomegaly with left atrial and ventricular enlargement. No pericardial thickening effusion. 3. Aorta without aneurysm or dissection. Central pulmonary arteries without emboli. 4. No mediastinal, hilar, axillary or supraclavicular adenopathy. 5. Old T8 anterior wedging without acute fracture. Bones otherwise intact. Signed by Saul English MD 12/21/2016 07:43 P
[2016-12-21 15:52] LABS: YEAST LIKE CELL URINE AUTO LARGE
[2016-12-21] MEDS: WARFARIN SOD 2.5 MG TAB PO SCH (16:54)
[2016-12-21] MEDS ORDERED: AMINO AC/ELECTROLYTE/DEX/CALC 2,000 ML IV SCH (18:00)
[2016-12-21] MEDS ORDERED: FAT EMULSION IV 20% 500 ML IV SCH (18:00)
[2016-12-21] MEDS: VANCOMYCIN ORAL SOL 250MG/5ML ORAL SYRINGE PO SCH (18:31)
[2016-12-21] MEDS: HumaLOG INSULIN (NovoLOG) PER UNIT SC SCH (18:31)
[2016-12-21] MEDS: metroNIDAZOLE 500 MG in APPROPRIATE DILUENT 1 EA IV SCH (20:06)
[2016-12-21] MEDS: **NOTE PATIENT COMMENT** MISC XX SCH (21:00)
[2016-12-21] MEDS: ATORVASTATIN 20 MG TAB PO SCH (21:48)
[2016-12-21] MEDS: CIPROFLOXACIN 400 MG in APPROPRIATE DILUENT 1 EA IV SCH (21:49)
[2016-12-21] MEDS: amLODIPine 5 MG TAB PO SCH (21:49)
[2016-12-21] MEDS: NORTRIPTYLINE 25 MG CAP PO SCH (21:49)
[2016-12-21] MEDS: NYSTATIN 500,000 U/5 ML SUSP UDC PO SCH (21:50)
[2016-12-21 22:00] VITALS: BP 111/55
[2016-12-22] MEDS: VANCOMYCIN ORAL SOL 250MG/5ML ORAL SYRINGE PO SCH ×4 (00:28→18:10)
[2016-12-22] MEDS: METOPROLOL TART 12.5 MG PER 1/2 TAB PO SCH ×4 (00:28→18:00)
[2016-12-22] MEDS: HumaLOG INSULIN (NovoLOG) PER UNIT SC SCH ×4 (00:29→18:11)
[2016-12-22 03:11] LABS: MEAN CORPUSCULAR HEMOGLOBIN 33.7 pg (27.0-33.0); MEAN CORPUSCULAR HGB CONC 33.3 g/dl (32.0-36.5); RED CELL DISTRIBUTION WIDTH 14.8 % (11.5-14.5); WHITE BLOOD COUNT 10.7 K/mm3 (4.0-10.0)
[2016-12-22 03:26] LABS: INR 3.78
[2016-12-22 03:30] LABS: CALCIUM LEVEL 8.6 MG/DL (8.8-10.2); CREATININE FOR GFR 1.06 MG/DL (0.55-1.02); GLOMERULAR FILTRATION RATE 55.2 (>45); POTASSIUM SERUM 2.8 MEQ/L (3.5-5.1)
[2016-12-22] MEDS: KCL 10MEQ IN 100ML SWI (KRUN) 10 MEQ in APPROPRIATE DILUENT 1 EA IV SCH ×8 (04:03→07:12)
[2016-12-22] MEDS: metroNIDAZOLE 500 MG in APPROPRIATE DILUENT 1 EA IV SCH ×3 (04:03→19:34)
[2016-12-22] MEDS: SODIUM CHLORIDE 0.9% INJ 10 ML SYR IV SCH ×2 (05:16→18:11)
[2016-12-22 06:00] VITALS: BP 113/56
[2016-12-22 08:51] LABS: ANION GAP 6 MEQ/L (8-16); BLOOD UREA NITROGEN 44 MG/DL (7-18); CALCIUM LEVEL 8.7 MG/DL (8.8-10.2); CARBON DIOXIDE LEVEL 27 MEQ/L (21-32); CHLORIDE LEVEL 109 MEQ/L (98-107); CREATININE FOR GFR 0.88 MG/DL (0.55-1.02); GLOMERULAR FILTRATION RATE > 60.0 (>45); GLUCOSE, FASTING 148 MG/DL (80-110); POTASSIUM SERUM 3.9 MEQ/L (3.5-5.1); SODIUM LEVEL 142 MEQ/L (136-145)
[2016-12-22] MEDS: PANTOPRAZOLE 40MG TAB (PROTONIX) PO SCH (09:12)
[2016-12-22] MEDS: NYSTATIN 500,000 U/5 ML SUSP UDC PO SCH ×4 (09:12→21:00)
[2016-12-22] MEDS: ENOXAPARIN 40 MG/0.4 ML SYRINGE (J1650) SC SCH (09:12)
[2016-12-22] MEDS: levETIRAcetam 250MG TABLET (KEPPRA) PO SCH ×2 (09:12→22:34)
[2016-12-22] MEDS: PROMETHAZINE 25 MG TAB PO SCH ×3 (09:12→18:10)
[2016-12-22] MEDS: LISINOPRIL 10 MG TAB PO SCH (09:14)
[2016-12-22] MEDS: CIPROFLOXACIN 400 MG in APPROPRIATE DILUENT 1 EA IV SCH ×2 (09:15→21:19)
[2016-12-22] MEDS: LIDOCAINE 5% (LIDODERM) PATCH TD SCH (09:16)
--- NOTE | 2016-12-22 12:11 | REP ---
CT ABDOMEN AND PELVIS WITHOUT IV CONTRAST ONLY: 12/21/2016. Comparison: 12/07/[address] Clinical history: Vomiting. Technique: Helical scanning through the abdomen and pelvis after bolus of 75 mL of Isovue 370. Coronal and sagittal reconstructions provided. The patient also had chest CT this date. Lung edwards are described in that study. CT abdomen: Liver shows no hepatomegaly, focal hepatic mass or biliary dilatation. No splenomegaly or focal lesion. I see no ascites in the upper abdomen. A few tiny subcapsular cystic areas in the spleen are benign findings. Ectatic lower thoracic aorta. In the lower abdominal aorta just above the bifurcation, there is a 3.3 cm infrarenal abdominal aortic aneurysm. It has atherosclerotic plaque and calcifications at its margins but no dissection. No periaortic or retroperitoneal pathologic sized lymphadenopathy. Adrenal glands normal. Kidneys are mildly atrophic but without hydronephrosis, stone, mass or cyst. The left is 9.6 cm. The right is 8.8 cm in greatest length with no hydronephrosis or hydroureter. Small bowel loops are not abnormally dilated proximally. They are fluid-filled distally and slightly greater caliber. The right colon, flexures, transverse colon are fluid-filled with air-fluid levels and some scattered stool in the left colon. At the proximal left colon, there is a transition zone for caliber with colonic wall thickening and adjacent edema. No generalized ascites. The bones show a grade 2 anterolisthesis of L5 and S1 with bilateral L5 spondylolysis, unchanged. CT pelvis: The sacrum, SI joints, pelvis, hips and symphysis pubis show no acute fracture. Degenerative changes at L5-S1 with discogenic endplate changes and grade 2 spondylolisthesis with bilateral spondylolysis at L5. From proximal to distal course and then into the sigmoid down to rectum, there has been a change in the appearance of the colon. The wall is now thickened, edematous and inflamed. Pericolonic fat is seen in the pelvis. There is a trace amount of fluid in the peroneal gutter on the left. This confluent appearance suggests colitis in this region. I do not see pelvic lymphadenopathy. There is no free air in the abdomen or pelvis on lung window review. No ventral or inguinal hernia in the abdomen or pelvis. Uterus is absent. Vaginal cuff intact. Impression: 1. Interval development, since the prior exam 2 weeks ago, of colitis inclusive from the proximal course of the left colon just below the splenic flexure to the rectosigmoid with thickened wall, pericolonic edematous changes in the fat and trace amount of fluid in the peritoneal gutter. All of these findings are new since prior study 2 weeks ago and there are scattered diverticula but this is not the appearance of diffuse diverticulitis. 2. Small bowel loops fluid-filled distally with greater caliber distally than proximally in the colon involving the right transverse and both flexures is fluid-filled with some stool and air fluid levels. This suggest some ileus or mild gastroenteritis. 3. No free air or abscess or other interval change. Signed by Saul English MD 12/22/2016 09:29 A
[2016-12-22 13:46] LABS: CSF AMYLOID BETA PROTEIN SEE SEPARATE REPORT; CSF PHOSPHORYLATED-TAU PROTEIN SEE SEPARATE REPORT; CSF TOTAL-TAU PROTEIN SEE SEPARATE REPORT
[2016-12-22 14:00] VITALS: BP 93/55
[2016-12-22] MEDS ORDERED: MULTIVITAMIN -ADULT INJECTION 10 ML, CR/CU/SE/MN/ZN INJ 1 ML in AMINO AC/ELECTROLYTE/DE... IV SCH (18:00)
[2016-12-22] MEDS ORDERED: FAT EMULSION IV 20% 500 ML IV SCH (18:00)
--- NOTE | 2016-12-22 18:05 | IPNPDOC ---
Subjective Date Seen The patient was seen on 12/22/16. Subjective Chief Complaint/HPI The patient is a 66-year-old female admitted with a reason for visit of ICH. Events since last encounter Patient more verbal, answering yes no questions, tolerating some diet this am, no complaint of pain Pulmonary: Denies: Dyspnea, Cough Cardiovascular: Denies: Chest Pain Gastrointestinal: Denies: Nausea, Vomiting, Abdominal Pain Objective Physical Examination General Exam: Positive: Alert, Cooperative, No Acute Distress Eye Exam: Negative: Sclera icteric ENT Exam: Positive: Mucous membr. moist/pink Chest Exam: Positive: Diminished, Negative: Rales, Rhonchi, Wheezing Heart Exam: Positive: Rate Normal, Tachycardic, Irregular Rhythm, Normal S1, Normal S2 Abdomen Exam: Positive: Normal bowel sounds, Soft, Negative: Tenderness Extremity Exam: Negative: Edema, Tenderness Psych Exam: Positive: Oriented x 3 Assessment /Plan Problems (1) Metabolic encephalopathy Status: Acute Problem Text: more interactive today, more verbal suspect colitis Has had copious stools Ayers-scan with iodinated contrast will delay nm scan No clear role for LP at this time (2) Protein calorie malnutrition Problem Text: Dietary intake likely insufficient for needs consider peg tube as a temporary measure- I again (12/22/16) discussed with patient at bedside- this would likely be a temporary measure in order to improve nutritional status and allow her time to recover from her brain injury Also discussed with family The patient is quite insistent that she has no interest in a feeding tube as of 12/22/16 Continues refusing feeds and meds- we discussed at length the importance of both , and she promises me that she will try to be more complaint TPN day #2 (3) Depression Status: Acute Problem Text: likely adjustment disorder or depression based on her illness will start pamelor- patient refused first dose last night, which is beneficial as it cannot be cause of her delirium today (4) Hydrocephalus Status: Acute Response to Treatment: Stable Problem Specific Plan: Consult Specialist Problem Text: Mentation appears improved from 12/08/16. Further recs as per neurosurgery. (5) Cerebral ventriculitis Status: Acute Response to Treatment: Improving Problem Specific Plan: Consult Specialist Problem Text: s/p completion of IV Abx therapy Repeat LP done 12/01/16 I discussed with neurosurg 12/22/16- will need repeat lp prior to svp shunt placement- ct head shows enlarging ventricles (6) CAD (coronary artery disease) of artery bypass graft Status: Chronic Problem Specific Plan: Monitor Clinically (7) Hyperthyroidism Status: Acute Problem Specific Plan: Monitor Clinically Problem Text: TFTs not improved as of 12/08/16- repeat labs ordered Back on methimazole- increased dose 12/22/16 (8) Anemia Status: Chronic Response to Treatment: Stable Problem Specific Plan: Repeat Labs Problem Text: s/p 1 Unit of PRBC's transfusion on 11/25/16 Stool occult negative x4 No overt source of bleeding identified (9) S/P mitral valve replacement Status: Chronic Problem Text: INR slightly still sub therapeutic on coumadin, will give lovenox until therapeutic. Appears to have very brittle response to coumadin. Also has refused coumadin intermittently (10) HTN (hypertension) Status: Chronic Problem Text: on norvasc, michelle inhibitor bp reasonably controlled for current setting (11) HLD (hyperlipidemia) Status: Chronic Problem Text: Cont Statin (12) Afib Status: Chronic Problem Text: Not controlled- will start Beta blockade, patient has refused (13) DVT prophylaxis Response to Treatment: Stable Problem Text: heparin drip (14) Diastolic CHF Problem Specific Plan: Monitor Clinically Problem Text: grade II, compensated (15) PEA (Pulseless electrical activity) Problem Text: s/p PEA arrest, associated with use of IV vitamin k Was seen by cardiology during her stay No significant ongoing issues No need for continuing telemetry (16) Impaired swallowing Status: Chronic Problem Text: Has impaired swallow Has had episodes of vomiting possibly related to swallow dysfunction, no abd pain/distention May benefit from repeat swallow eval- ordered for 12/08/16 Plan/VTE VTE Prophylaxis Ordered?: Yes (coumadin) Plan/Urinary Catheter Reason for insertion/continuin: Critical Pt monitoring VS, I&O, 24H, Fishbone Vital Signs/I&O Vital Signs Date Time Temp Pulse Resp B/P (MAP) Pulse Ox O2 Delivery O2 Flow Rate FiO2 12/22/16 14:00 98.0 105 18 93/55 (68) 98 Nasal Cannula 2.0 I&O- Last 24 Hours up to 6 AM 12/22/16 06:00 Intake Total 2750 ml Output Total 425 ml Balance 2325 ml Laboratory Data 24H LABS Laboratory Tests 2 12/21/16 18:10: Bedside Glucose (Misc Panel) 217H 12/22/16 00:03: Bedside Glucose (Misc Panel) 323H 12/22/16 02:53: Prothrombin Time 37.3H, Prothromb Time International Ratio 3.78, Anion Gap 9, Glomerular Filtration Rate 55.2, Blood Urea Nitrogen 44H, Creatinine 1.06H, Sodium Level 146H, Potassium Level 2.8*L, Chloride Level 111H, Carbon Dioxide Level 26, Calcium Level 8.6L 12/22/16 05:36: Bedside Glucose (Misc Panel) 159H 12/22/16 08:23: Anion Gap 6L, Glomerular Filtration Rate > 60.0, Blood Urea Nitrogen 44H, Creatinine 0.88, Sodium Level 142, Potassium Level 3.9#, Chloride Level 109H, Carbon Dioxide Level 27, Calcium Level 8.7L 12/22/16 12:14: Bedside Glucose (Misc Panel) 181H 12/22/16 17:41: Bedside Glucose (Misc Panel) 132H CBC/BMP Laboratory Tests 12/21/16 22:23 12/22/16 02:53 Red Blood Count 2.72 L, Mean Corpuscular Volume 101.0 H, Mean Corpuscular Hemoglobin 33.7 H, Mean Corpuscular Hemoglobin Concent 33.3, Red Cell Distribution Width 14.8 H, Calcium Level 8.6 L 12/22/16 08:23 Calcium Level 8.7 L 12/22/16 16:45 Microbiology Microbiology 12/21/16 Blood Culture - Preliminary, Resulted No growth after 24 hours . All specim... 12/21/16 Blood Culture - Preliminary, Resulted No growth after 24 hours . All specim... 12/21/16 Gastrointestinal Tract Panel (PCR) - Final, Complete 12/21/16 Stool Occult Blood (PAPI) - Final, Complete 12/21/16 Urine Culture, Received Pending MARY ANN GONZALEZ MD Dec 22, 2016 18:05
--- NOTE | 2016-12-22 19:35 | IPNPDOC ---
Date Seen The patient was seen on 12/22/16. Progress Note NEUROSURGERY Ms Dubon is a 66 year old female admitted for ICH. Dx: cerebral ventriculitis and hydrocephalus. CT of head shows her ventricles are enlarging. Spoke with Dr Fung regarding her status. She has many comorbidities currently and is not safe to proceed with LP/shunt. Per Dr Ward, her neurosurgical plan is an LP and LAW INSTRUCTOR shunt. Once she is cleared from medical management, will proceed with LP. Please let Dr Ward know if any additional questions or further follow up is needed. Dr Sylvia Honeycutt VS, I&O, 24H, [place] Vital Signs/I&O Vital Signs Date Time Temp Pulse Resp B/P (MAP) Pulse Ox O2 Delivery O2 Flow Rate FiO2 12/22/16 18:00 110 97/54 12/22/16 14:00 98.0 18 98 Nasal Cannula 2.0 I&O- Last 24 Hours up to 6 AM 12/22/16 06:00 Intake Total 2750 ml Output Total 425 ml Balance 2325 ml Laboratory Data 24H LABS Laboratory Tests 2 12/22/16 00:03: Bedside Glucose (Misc Panel) 323H 12/22/16 02:53: Prothrombin Time 37.3H, Prothromb Time International Ratio 3.78, Anion Gap 9, Glomerular Filtration Rate 55.2, Blood Urea Nitrogen 44H, Creatinine 1.06H, Sodium Level 146H, Potassium Level 2.8*L, Chloride Level 111H, Carbon Dioxide Level 26, Calcium Level 8.6L 12/22/16 05:36: Bedside Glucose (Misc Panel) 159H 12/22/16 08:23: Anion Gap 6L, Glomerular Filtration Rate > 60.0, Blood Urea Nitrogen 44H, Creatinine 0.88, Sodium Level 142, Potassium Level 3.9#, Chloride Level 109H, Carbon Dioxide Level 27, Calcium Level 8.7L 12/22/16 12:14: Bedside Glucose (Misc Panel) 181H 12/22/16 17:41: Bedside Glucose (Misc Panel) 132H CBC/BMP Laboratory Tests 12/21/16 22:23 12/22/16 02:53 Red Blood Count 2.72 L, Mean Corpuscular Volume 101.0 H, Mean Corpuscular Hemoglobin 33.7 H, Mean Corpuscular Hemoglobin Concent 33.3, Red Cell Distribution Width 14.8 H, Calcium Level 8.6 L 12/22/16 08:23 Calcium Level 8.7 L 12/22/16 16:45 Microbiology Microbiology 12/21/16 Blood Culture - Preliminary, Resulted No growth after 24 hours . All specim... 12/21/16 Blood Culture - Preliminary, Resulted No growth after 24 hours . All specim... 12/21/16 Gastrointestinal Tract Panel (PCR) - Final, Complete 12/21/16 Stool Occult Blood (PAPI) - Final, Complete 12/21/16 Urine Culture, Received Pending KOLTON HONEYCUTT PA-C Dec 22, 2016 19:34
[2016-12-22] MEDS: amLODIPine 5 MG TAB PO SCH (21:00)
[2016-12-22] MEDS: **NOTE PATIENT COMMENT** MISC XX SCH (21:00)
[2016-12-22] MEDS: NORTRIPTYLINE 25 MG CAP PO SCH (21:00)
[2016-12-22 22:00] VITALS: BP 78/48
[2016-12-22 22:30] VITALS: BP 80/48
[2016-12-22] MEDS: ATORVASTATIN 20 MG TAB PO SCH (22:34)
[2016-12-22] MEDS: SODIUM CHLORIDE 0.9% INJ 10 ML SYR IV PRN (23:56)
[2016-12-23] VITALS (18 sets, daily range): BP systolic 84–118; BP diastolic 49–64
[2016-12-23] MEDS: HumaLOG INSULIN (NovoLOG) PER UNIT SC SCH ×5 (00:42→23:47)
[2016-12-23] MEDS: SODIUM CHLORIDE 0.9% INJ 10 ML SYR IV PRN ×2 (03:41→10:03)
[2016-12-23] MEDS: metroNIDAZOLE 500 MG in APPROPRIATE DILUENT 1 EA IV SCH (04:46)
[2016-12-23] MEDS: VANCOMYCIN ORAL SOL 250MG/5ML ORAL SYRINGE PO SCH ×2 (06:00)
[2016-12-23] MEDS: METOPROLOL TART 12.5 MG PER 1/2 TAB PO SCH ×5 (06:00→23:04)
[2016-12-23] MEDS: SODIUM CHLORIDE 0.9% INJ 10 ML SYR IV SCH ×2 (06:16→18:25)
[2016-12-23 06:36] LABS: MEAN CORPUSCULAR HEMOGLOBIN 31.7 pg (27.0-33.0); MEAN CORPUSCULAR HGB CONC 33.1 g/dl (32.0-36.5); RED CELL DISTRIBUTION WIDTH 16.2 % (11.5-14.5); WHITE BLOOD COUNT 7.2 K/mm3 (4.0-10.0)
[2016-12-23 06:41] LABS: INR 1.37
[2016-12-23 06:57] LABS: ANION GAP 6 MEQ/L (8-16); BLOOD UREA NITROGEN 50 MG/DL (7-18); CALCIUM LEVEL 8.3 MG/DL (8.8-10.2); CARBON DIOXIDE LEVEL 26 MEQ/L (21-32); CHLORIDE LEVEL 108 MEQ/L (98-107); CREATININE FOR GFR 0.84 MG/DL (0.55-1.02); GLOMERULAR FILTRATION RATE > 60.0 (>45); GLUCOSE, FASTING 144 MG/DL (80-110); POTASSIUM SERUM 3.6 MEQ/L (3.5-5.1); SODIUM LEVEL 140 MEQ/L (136-145)
[2016-12-23 07:00] LABS: MEAN CORPUSCULAR VOLUME 95.9 fl (80.0-96.0)
[2016-12-23] MEDS: LISINOPRIL 10 MG TAB PO SCH (07:48)
[2016-12-23] MEDS: PROMETHAZINE 25 MG TAB PO SCH ×3 (08:04→18:21)
[2016-12-23] MEDS: LIDOCAINE 5% (LIDODERM) PATCH TD SCH (08:04)
[2016-12-23] MEDS: levETIRAcetam 250MG TABLET (KEPPRA) PO SCH ×2 (08:04→21:40)
[2016-12-23] MEDS: PANTOPRAZOLE 40MG TAB (PROTONIX) PO SCH (08:05)
[2016-12-23] MEDS: CIPROFLOXACIN 400 MG in APPROPRIATE DILUENT 1 EA IV SCH ×2 (08:05→21:41)
[2016-12-23] MEDS: NYSTATIN 500,000 U/5 ML SUSP UDC PO SCH ×4 (08:11→21:40)
[2016-12-23] MEDS ORDERED: diphenhydrAMINE 25 MG CAP PO PRN (08:45)
--- NOTE | 2016-12-23 15:31 | IPNPDOC ---
Date Seen The patient was seen on 12/23/16. Progress Note Overnight events: The patient received 2 units of FFP as well as 2 units of RBCs no obvious source of bleeding SUBJECTIVE: Patient shakes her head yes or no but does not follow commands and does not verbalize any answers any questions today OBJECTIVE PHYSICAL EXAMINATION: VITAL SIGNS: Please see below. GENERAL: Frail female appears older than stated age is sleeping peacefully but arousable to verbal stimuli does not follow commands and does not answer questions. HEENT: Fairly pinpoint pupils her hirsutism dry mucous membranes CARDIOVASCULAR: S1-S2 tachycardic. RESPIRATORY: Clear To auscultation. ABDOMINAL: Soft nontender EXTREMITIES: Wasted LABORATORY DATA: Please see below. MICROBIOLOGY: Please see below. IMAGING: No new imaging Echocardiogram: 1. The study is of good technical quality. 2. Normal left ventricular (LV) size with septal wall motion abnormality, consistent with left bundle branch block and mild global hypokinesis and overall estimated left ventricular ejection fraction (LVEF) approximately 50%. 3. #21 [employer] mechanical prosthesis in aortic position with no stenosis and mild perivalvular insufficiency. 4. #25 [address] Luk[employer] mechanical prosthesis in mitral position with mean gradient 9 mmHg and no visible insufficiency. 5. Mild tricuspid insufficiency. 6. Mild pulmonic insufficiency. 7. At least moderate pulmonary hypertension. 8. Grade 2 diastolic dysfunction. 9. Mildly elevated central venous pressure (CVP).. DVT prophylaxis ordered?: Therapeutic Lovenox discontinued INR reversed overnight sequentials and teds ASSESSMENT AND PLAN: This is a 66-year-old female with cerebral ventriculitis and hydrocephalus who has had a comp complicated hospital course. PROBLEMS: (1) Metabolic encephalopathy Less interactive today based on previous documentation, the patient did have copious stools and was concerning for colitis however her GI PCR panel is negative she is afebrile and his leukocytosis and as such I will discontinue antibiotics. I suspect may be related to the increasing pressure in her hydrocephalus versus urinary tract infection with her Arndt catheter. She has been on ciprofloxacin reportedly had been improving I will keep her on ciprofloxacin but discontinue other antibiotic. I will discuss further with ID when a repeat LP would be most appropriate. (2) Protein calorie malnutrition Patient has had poor PO intake, in an effort to improve nutritional status prior to a potential shunt placement she has been placed on TPN day #3, will check prealbumin tomorrow. (3) Depression likely adjustment disorder or depression based on her illness, she has been started on pamelor- but only intermittently receiving doses. (4) Hydrocephalus NSGY following, awaiting medical/ID clearance prior to shunt placement (5) Cerebral ventriculitis s/p completion of IV Abx therapy Repeat LP done 12/01/16, will d/w ID repeat LP timing (6) CAD (coronary artery disease) of artery bypass graft on betablocker, statin, no ASA at this time. (7) Hyperthyroidism Methimazole dosing adjusted numerous times during stay, will recheck Thyroid function tests at this time (8) Anemia 1 FOBT (+) no obvious bleeding, patient received 2U PRBCs and FFP yesterday evening. I am unconvinced for acute GIB, looks rather like lab fluctuations given her dramatic response to the blood. SImply continue to monitor for now. While INR subtherapeutic and AC held will consider performing LP (9) S/P mitral valve replacement After LP would quickly restart therapeutic lovenox and then once again coumadin. (10) HTN (hypertension) Will hold norvasc and acei given hypotension this AM, c/w metoprolol (11) HLD (hyperlipidemia) Cont Statin (12) Afib on betablocker, reasonable control will titrate up as BP allows, AC held at this time as outlined above (13) DVT prophylaxis SCD & TEDs (14) Diastolic CHF compensated (15) PEA (Pulseless electrical activity) Problem Text: s/p PEA arrest, associated with use of IV vitamin k Was seen by cardiology during her stay No significant ongoing issues (16) Impaired swallowing pureed regular thin liquids for now. DISPOSITION: Given the multitude of her problems and complexity of her stay thus far her clinical status is gaurded. VS, I&O, 24H, Fishbone Vital Signs/I&O Vital Signs Date Time Temp Pulse Resp B/P (MAP) Pulse Ox O2 Delivery O2 Flow Rate FiO2 12/23/16 14:00 97.6 103 20 103/57 (72) 99 Nasal Cannula 2.0 I&O- Last 24 Hours up to 6 AM 12/23/16 06:00 Intake Total 1949 ml Output Total 400 ml Balance 1549 ml Laboratory Data 24H LABS Laboratory Tests 2 12/22/16 17:41: Bedside Glucose (Misc Panel) 132H 12/23/16 00:13: Bedside Glucose (Misc Panel) 135H 12/23/16 05:44: Bedside Glucose (Misc Panel) 189H 12/23/16 06:11: Prothrombin Time 17.0H, Prothromb Time International Ratio 1.37, Anion Gap 6L, Glomerular Filtration Rate > 60.0, Blood Urea Nitrogen 50H, Creatinine 0.84, Sodium Level 140, Potassium Level 3.6, Chloride Level 108H, Carbon Dioxide Level 26, Calcium Level 8.3L 12/23/16 11:45: Bedside Glucose (Misc Panel) 158H CBC/BMP Laboratory Tests 12/22/16 16:45 12/22/16 21:35 12/23/16 03:43 12/23/16 06:11 Red Blood Count 3.11 L, Mean Corpuscular Volume 95.9 #, Mean Corpuscular Hemoglobin 31.7, Mean Corpuscular Hemoglobin Concent 33.1, Red Cell Distribution Width 16.2 H, Calcium Level 8.3 L 12/23/16 09:05 Microbiology Microbiology 12/21/16 Blood Culture - Preliminary, Resulted No growth after 24 hours . All specim... 12/21/16 Blood Culture - Preliminary, Resulted No Growth after 48 hours. All Specime... 12/21/16 Gastrointestinal Tract Panel (PCR) - Final, Complete 12/21/16 Stool Occult Blood (PAPI) - Final, Complete 12/21/16 Urine Culture - Preliminary, Resulted Klebsiella Pneumoniae Yeast Like Organism ALIZA GARCIA MD Dec 23, 2016 15:31
[2016-12-23 16:53] LABS: FREE T4 2.87 NG/DL (0.76-1.46); THYROXINE (T4) 11.9 UG/DL (4.5-12.0)
[2016-12-23] MEDS ORDERED: FAT EMULSION IV 20% 500 ML IV SCH (18:00)
[2016-12-23] MEDS ORDERED: AMINO AC/ELECTROLYTE/DEX/CALC 2,000 ML IV SCH (18:00)
[2016-12-23] MEDS: ACETAMINOPHEN TAB 650MG DOSE (2X325MG) PO PRN (19:41)
[2016-12-23] MEDS: **NOTE PATIENT COMMENT** MISC XX SCH (21:00)
[2016-12-23] MEDS: NORTRIPTYLINE 25 MG CAP PO SCH (21:40)
[2016-12-23] MEDS: ATORVASTATIN 20 MG TAB PO SCH (21:40)
[2016-12-23] MEDS ORDERED: diltiaZEM 125 MG in NS 100 ML IV SCH (22:15)
[2016-12-23] MEDS ORDERED: SODIUM CHLORIDE 0.9% 1000 ML IV ONE ×2 (22:45→23:00)
[2016-12-23] MEDS ORDERED: NS 1,000 ML IV ONE (23:15)
[2016-12-24] VITALS (16 sets, daily range): BP systolic 86–122; BP diastolic 49–68
[2016-12-24 03:27] LABS: MEAN CORPUSCULAR HEMOGLOBIN 30.6 pg (27.0-33.0); MEAN CORPUSCULAR VOLUME 95.6 fl (80.0-96.0); RED CELL DISTRIBUTION WIDTH 16.4 % (11.5-14.5)
[2016-12-24 03:56] LABS: ANION GAP 5 MEQ/L (8-16); BLOOD UREA NITROGEN 39 MG/DL (7-18); CALCIUM LEVEL 8.4 MG/DL (8.8-10.2); CARBON DIOXIDE LEVEL 25 MEQ/L (21-32); CHLORIDE LEVEL 110 MEQ/L (98-107); CREATININE FOR GFR 0.68 MG/DL (0.55-1.02); GLOMERULAR FILTRATION RATE > 60.0 (>45); GLUCOSE, FASTING 91 MG/DL (80-110); POTASSIUM SERUM 3.8 MEQ/L (3.5-5.1); SODIUM LEVEL 140 MEQ/L (136-145)
[2016-12-24 04:24] LABS: INR 1.28
[2016-12-24] MEDS: METOPROLOL TART 12.5 MG PER 1/2 TAB PO SCH ×3 (05:19→18:25)
[2016-12-24] MEDS: SODIUM CHLORIDE 0.9% INJ 10 ML SYR IV SCH ×2 (05:37→18:00)
[2016-12-24] MEDS: HumaLOG INSULIN (NovoLOG) PER UNIT SC SCH ×3 (05:38→18:06)
[2016-12-24] MEDS ORDERED: DIGOXIN INJ 0.5 MG/2 ML AMP (J1160) IV STA (07:30)
[2016-12-24] MEDS: PROMETHAZINE 25 MG TAB PO SCH ×3 (07:38→16:33)
--- NOTE | 2016-12-24 07:55 | ECGEPIP ---
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
--- NOTE | 2016-12-24 07:59 | ECGEPIP ---
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
[2016-12-24] MEDS: levETIRAcetam 250MG TABLET (KEPPRA) PO SCH ×2 (08:37→21:27)
[2016-12-24] MEDS: NYSTATIN 500,000 U/5 ML SUSP UDC PO SCH ×4 (08:37→21:27)
[2016-12-24] MEDS: PANTOPRAZOLE 40MG TAB (PROTONIX) PO SCH (08:38)
[2016-12-24] MEDS: LIDOCAINE 5% (LIDODERM) PATCH TD SCH (08:38)
[2016-12-24] MEDS: CIPROFLOXACIN 400 MG in APPROPRIATE DILUENT 1 EA IV SCH ×2 (08:38→21:28)
--- NOTE | 2016-12-24 10:21 | IPNPDOC ---
Date Seen The patient was seen on 12/24/16. Progress Note Overnight events: The patient is a known history of atrial fibrillation appears O she went into rapid ventricular response rate to A. fib versus flutter overnight. She was hypotensive she did receive IV fluids and small boluses and was transferred down to the medical intensive care unit. A family conference was held by Dr. Bruce with the patient's daughter. SUBJECTIVE: Patient is awake today she tells me that she feels good also little bit tired she answers some questions and she tells me she is not in any pain and she quickly stops answering questions and stares at me blankly. She does follow commands but she declines to answer questions regarding orientation OBJECTIVE PHYSICAL EXAMINATION: VITAL SIGNS: Please see below. GENERAL: Frail female appears older than stated age sitting in bed she does not appear to be in any acute distress HEENT: Fairly pinpoint pupils her hirsutism dry mucous membranes CARDIOVASCULAR: S1-S2 tachycardic. RESPIRATORY: Clear To auscultation. ABDOMINAL: Soft nontender EXTREMITIES: Wasted LABORATORY DATA: Please see below. MICROBIOLOGY: Please see below. IMAGING: No new imaging Echocardiogram: 1. The study is of good technical quality. 2. Normal left ventricular (LV) size with septal wall motion abnormality, consistent with left bundle branch block and mild global hypokinesis and overall estimated left ventricular ejection fraction (LVEF) approximately 50%. 3. #21 [address] Luk[employer] mechanical prosthesis in aortic position with no stenosis and mild perivalvular insufficiency. 4. #25 [address] Luk[employer]z mechanical prosthesis in mitral position with mean gradient 9 mmHg and no visible insufficiency. 5. Mild tricuspid insufficiency. 6. Mild pulmonic insufficiency. 7. At least moderate pulmonary hypertension. 8. Grade 2 diastolic dysfunction. 9. Mildly elevated central venous pressure (CVP).. DVT prophylaxis ordered?: Therapeutic Lovenox discontinued INR reversed overnight sequentials and teds ASSESSMENT AND PLAN: This is a 66-year-old female with cerebral ventriculitis and hydrocephalus who has had a complicated hospital course. PROBLEMS: (1) Metabolic encephalopathy Mental status continues to wax and wane as previously documented by multiple providers on multiple occasions. Today she is slightly more interactive. I suspect may be related to the increasing pressure in her hydrocephalus versus urinary tract infection with her Arndt catheter. She has been on ciprofloxacin and reportedly had been improving I will keep her on ciprofloxacin but have discontinued other antibiotics. I did discuss with Dr. Ashraf who did agree that now is erythematous any to repeat an lumbar puncture to reevaluate her CSF although it is less than ideal as she is on some antibiotics we will proceed. (2) Protein calorie malnutrition Patient has had poor PO intake, in an effort to improve nutritional status prior to a potential shunt placement she has been placed on TPN day #4, despite this her pre-albumin is downtrending she was made nothing by mouth overnight however she is more awake today I suspect she could resume her previous diet in the near future. (3) Depression likely adjustment disorder or depression based on her illness, she has been started on pamelor- but only intermittently receiving doses. (4) Hydrocephalus NSGY following, awaiting medical/ID clearance prior to shunt placement (5) Cerebral ventriculitis s/p completion of IV Abx therapy for ventriculitis Repeat LP done 12/01/16, we plan to repeat a lumbar puncture today (6) CAD (coronary artery disease) of artery bypass graft on betablocker although often being held secondary to hypotension, statin, no ASA at this time. (7) Hyperthyroidism Methimazole dosing adjusted numerous times during stay, TSH is slightly increased from previous studies I think she is gradually beginning to improve with this regimen (8) Anemia 1 FOBT (+) no obvious bleeding, patient received 2U PRBCs and FFP yesterday evening. I am unconvinced for acute GIB, looks rather like lab fluctuations given her dramatic response to the blood. SImply continue to monitor for now. While INR subtherapeutic and AC held will consider performing LP. (9) S/P mitral /aoritc valve replacement After LP would quickly restart therapeutic lovenox and then once again coumadin I have reconsulted Dr. Desouza from cardiology (10) HTN (hypertension) I have held norvasc and acei given hypotension will c/w metoprolol as BP allows (11) HLD (hyperlipidemia) Cont Statin (12) Afib Appears to be paroxysmal issued evening she did go into rapid ventricular response was transferred to medical intensive care unit and started on diltiazem drip at this time she does not appear to need the diltiazem drip and has been discontinued I did give her 1 dose of digoxin and EKG following this showing sinus tachycardia have reconsult with Dr. andino of cardiology once again help matters patient. I suspect she would as outlined above benefit from therapeutic anticoagulation. She is on a betablocker however it has been held secondary to hypotension, we'll continue with digoxin and await further cardiology recommendations (13) DVT prophylaxis SCD & TEDs (14) Diastolic CHF compensated (15) PEA (Pulseless electrical activity) Problem Text: s/p PEA arrest, associated with use of IV vitamin k Was seen by cardiology during her stay No significant ongoing issues (16) Impaired swallowing Nothing by mouth for now however I suspect we can resume pureed regular thin liquids tomorrow and would be less than ideal for her to remain nothing by mouth given her poor nutritional status DISPOSITION: Given the multitude of her problems and complexity of her stay thus far her clinical status is certainly gaurded. VS, I&O, 24H, Fishbone Vital Signs/I&O Vital Signs Date Time Temp Pulse Resp B/P (MAP) Pulse Ox O2 Delivery O2 Flow Rate FiO2 12/24/16 07:39 115 12/24/16 06:00 25 105/51 (69) 100 Nasal Cannula 2.0 12/24/16 04:00 98.1 I&O- Last 24 Hours up to 6 AM 12/24/16 06:00 Intake Total 5083 ml Output Total 750 ml Balance 4333 ml Laboratory Data 24H LABS Laboratory Tests 2 12/23/16 11:45: Bedside Glucose (Misc Panel) 158H 12/23/16 18:00: Bedside Glucose (Misc Panel) 170H 12/23/16 23:26: Bedside Glucose (Misc Panel) 204H 12/24/16 03:00: Prothrombin Time 16.1H, Prothromb Time International Ratio 1.28, Anion Gap 5L, Glomerular Filtration Rate > 60.0, Blood Urea Nitrogen 39H, Creatinine 0.68, Sodium Level 140, Potassium Level 3.8, Chloride Level 110H, Carbon Dioxide Level 25, Calcium Level 8.4L, Prealbumin 7.1L 12/24/16 05:32: Bedside Glucose (Misc Panel) 141H CBC/BMP Laboratory Tests 12/23/16 15:11 12/23/16 22:17 12/24/16 03:00 Red Blood Count 3.27 L, Mean Corpuscular Volume 95.6, Mean Corpuscular Hemoglobin 30.6, Mean Corpuscular Hemoglobin Concent 32.0, Red Cell Distribution Width 16.4 H, Calcium Level 8.4 L 12/24/16 08:44 Microbiology Microbiology 12/21/16 Blood Culture - Preliminary, Resulted No Growth after 48 hours. All Specime... 12/21/16 Blood Culture - Preliminary, Resulted No Growth after 48 hours. All Specime... 12/21/16 Gastrointestinal Tract Panel (PCR) - Final, Complete 12/21/16 Stool Occult Blood (PAPI) - Final, Complete 12/21/16 Urine Culture - Final, Complete Klebsiella Pneumoniae Morganella Morganii Ssp Carlos Alberto Citrobacter Freundii Yeast Like Organism ALIZA GARCIA MD Dec 24, 2016 10:21
[2016-12-24 12:29] LABS: GLUCOSE CSF 85 MG/DL (40-75)
[2016-12-24 13:59] LABS: APPEARANCE, CSF CLEAR (CLEAR); COLOR, CSF COLORLESS (COLORLESS); CSF TUBE# CELL CNT TUBE 4; DILUTION WBC CSF 1 (0-10)
[2016-12-24 14:00] LABS: CSF DIFF IF INDICATED? NO (NO); DILUTION RBC CSF 1 (0-10); RBC CALC CSF 13 /mm3 (0-0); RBC COUNTED CSF 12 /mm3 (0-0); WBC COUNTED CSF 1 /uL (0-10)
[2016-12-24 14:01] LABS: COLOR, CSF COLORLESS (COLORLESS); CSF TUBE# CELL CNT TUBE 1
[2016-12-24 14:02] LABS: APPEARANCE, CSF CLEAR (CLEAR); CSF DIFF IF INDICATED? NO (NO); DILUTION RBC CSF 1 (0-10); DILUTION WBC CSF 1 (0-10); RBC CALC CSF 1832 /mm3 (0-0); RBC COUNTED CSF 1649 /mm3 (0-0); WBC COUNTED CSF 3 /uL (0-10)
--- NOTE | 2016-12-24 16:12 | REP ---
LUMBAR PUNCTURE: The procedure was performed by Stacy Hurtado [facility], under the direct supervision of Dr Muniz. The procedure with its potential risks and complications were discussed with the patient. Verbal and written consent were obtained. A procedural time out was performed to confirm the correct patient, procedure, and site. The skin was prepped and draped in the usual sterile fashion. L3-4 was visualized using a right oblique sublaminar approach. A 3.5 inch 22-gauge spinal needle was advanced into the thecal sac. Retrograde free flow of clear CSF was obtained. An opening pressure of 18 cm of water was measured. 5 mL of clear CSF was collected and sent to the lab for investigation. 26 seconds of fluoroscopy time was used with a dose of 138.9 Reviewed by JERALD Cole 12/25/2016 10:56 AEdited and Signed by Beto Muniz MD 12/25/2016 03:37 P
[2016-12-24] MEDS: ACETAMINOPHEN TAB 650MG DOSE (2X325MG) PO PRN (16:33)
[2016-12-24] MEDS ORDERED: MULTIVITAMIN -ADULT INJECTION 10 ML, CR/CU/SE/MN/ZN INJ 1 ML in AMINO AC/ELECTROLYTE/DE... IV SCH (18:00)
[2016-12-24] MEDS ORDERED: FAT EMULSION IV 20% 500 ML IV SCH (18:00)
[2016-12-24] MEDS ORDERED: ENOXAPARIN 80 MG/0.8 ML SYRINGE (J1650) SC SCH (21:00)
[2016-12-24] MEDS ORDERED: ENOXAPARIN 60 MG/0.6 ML SYR (J1650) SC SCH (21:00)
[2016-12-24] MEDS: ATORVASTATIN 20 MG TAB PO SCH (21:27)
[2016-12-24] MEDS: NORTRIPTYLINE 25 MG CAP PO SCH (21:27)
[2016-12-24] MEDS: **NOTE PATIENT COMMENT** MISC XX SCH (21:28)
[2016-12-24] MEDS: ENOXAPARIN 60 MG/0.6 ML SYR (J1650) SC SCH (21:28)
[2016-12-25] VITALS (9 sets, daily range): BP systolic 108–138; BP diastolic 57–70
[2016-12-25] MEDS: HumaLOG INSULIN (NovoLOG) PER UNIT SC SCH ×4 (00:59→17:34)
[2016-12-25] MEDS: METOPROLOL TART 12.5 MG PER 1/2 TAB PO SCH ×4 (00:59→17:34)
[2016-12-25 04:52] LABS: RED CELL DISTRIBUTION WIDTH 16.1 % (11.5-14.5); WHITE BLOOD COUNT 7.2 K/mm3 (4.0-10.0)
[2016-12-25 04:59] LABS: INR 1.24
[2016-12-25 05:13] LABS: ANION GAP 7 MEQ/L (8-16); BLOOD UREA NITROGEN 35 MG/DL (7-18); CALCIUM LEVEL 8.5 MG/DL (8.8-10.2); CARBON DIOXIDE LEVEL 24 MEQ/L (21-32); CHLORIDE LEVEL 107 MEQ/L (98-107); CREATININE FOR GFR 0.65 MG/DL (0.55-1.02); GLOMERULAR FILTRATION RATE > 60.0 (>45); GLUCOSE, FASTING 126 MG/DL (80-110); POTASSIUM SERUM 4.2 MEQ/L (3.5-5.1); SODIUM LEVEL 138 MEQ/L (136-145)
[2016-12-25] MEDS: PROMETHAZINE 25 MG TAB PO SCH ×3 (06:25→17:34)
[2016-12-25] MEDS: SODIUM CHLORIDE 0.9% INJ 10 ML SYR IV SCH ×2 (06:27→17:35)
--- NOTE | 2016-12-25 06:35 | IPN ---
DATE: 12/24/2016 SUBJECTIVE: Mrs. Nayla Dubon was initially seen last month on 11/26/2016, after a cardiac event, and at that time, she went into a pulseless electrical activity, she responded briefly, and since then she has been stable from a cardiac point of view. She was monitored on telemetry, and there was no significant arrhythmias. She does have a history of coronary artery disease with coronary artery bypass graft, valvular heart disease with mechanical mitral valve and bioprosthetic aortic valve, paroxysmal atrial fibrillation, hypertension, hyperlipidemia, abnormal electrocardiogram (EKG) manifested by left bundle branch block, hypothyroidism, and hydrocephalus. She was recently treated for ventriculitis and its complication. She has developed metabolic encephalopathy and altered mental status. Her cerebral event was initially caused by intracranial bleed while on Coumadin and aspirin. I was called earlier today for reassessment because yesterday she was in atrial fibrillation with a rapid ventricular rate and she has underlying wide-complex tachycardia. OBJECTIVE: On physical examination, the patient is alert and awake in no acute distress at rest. She does follow commands at times, but she does not answer the questions. There is no report of active bleeding. There is no orthopnea or paroxysmal nocturnal dyspnea (PND) when I saw her. VITAL SIGNS: When I saw her, revealed a blood pressure of 122/57 with a pulse of 110, regular, and respirations was 20-24 with a temperature of 100.5 degrees Fahrenheit and an oxygen saturation of 92% on room. HEENT: Atraumatic. NECK: Supple. LUNGS: Did not reveal any wheezing or crackles. HEART: As mentioned, revealed regular heart sounds without gallops. The point of maximum impulse (PMI) is not displaced. There is no rub. ABDOMEN: Soft and nontender. EXTREMITIES: Revealed no pedal edema. NEUROLOGIC: Examination was limited. LABORATORY DATA: CBC done earlier today revealed a WBC of 9.0, hemoglobin 10.0, hematocrit 313, and platelets 129,000. BMP revealed a sodium of 140, potassium 3.8, chloride 110, CO2 25, BUN 39, creatinine 0.68, GFR more than 60, fasting glucose 91, and calcium 8.4. EKG done yesterday, 12/23/2016, revealed a wide-complex tachycardia at about 138 beats per minute. That could be atrial flutter versus sinus tachycardia with underlying left bundle branch block. Repeat electrocardiogram done this morning, 12/24/2016, revealed sinus tachycardia at 115 beats per minute, left atrial abnormality, intraventricular conduction delay (IVCD) versus atypical left bundle branch block. There is ST-T abnormalities due to the wide-complex tachycardia. Telemetry was reviewed and at this present time, the patient is in normal sinus rhythm, mildly tachycardiac. CURRENT MEDICATIONS: - digoxin 1.25 mg by mouth daily - Lovenox 50 mg subcutaneous every 12 hours - fat emulsion intravenously - Humalog as directed - Cipro 400 mg IV every 12 hours - Benadryl 25 mg by mouth every six hours as needed - Tapazole 10 mg by mouth twice a day - Nystatin four times a day as directed - Pamelor 25 mg by mouth before meals - metoprolol tartrate 12.5 mg by mouth every six hours - promethazine HCL 25 mg before meals - pantoprazole 40 mg by mouth daily - Keppra 500 mg by mouth twice a day - sodium chloride as directed - atorvastatin 40 mg by mouth daily - Dulcolax 10 mg daily via suppository - Lidoderm patch applied daily - ondansetron 4 mg IV every symptoms hours as needed - magnesium oxide 30 mL by mouth daily as needed for constipation - Tylenol 650 mg by mouth every four hours as needed for pain or fever - Proventil nebulizer every two hours as needed via inhalation ASSESSMENT: Mrs. Nayla Dubon telemetry was reviewed this morning and again this evening. She continues to be in normal sinus rhythm and I will continue current management with the digoxin, the beta samantha, and she is now on Lovenox. Her hemoglobin and hematocrit are being monitored and these have been stable. It was a pleasure to participate in the care of Mrs. Nayla Dubon. She is a very unfortunate woman with multiple medical problems. Hopefully, her neurological problem can be addressed and her mental status hopefully will improve. In the meantime, her cardiac condition seems to be stable, and I will continue to monitor along with you. Please do not hesitate to call if any questions. GUDELIA
[2016-12-25] MEDS: CIPROFLOXACIN 400 MG in APPROPRIATE DILUENT 1 EA IV SCH ×2 (08:30→21:52)
[2016-12-25] MEDS: NYSTATIN 500,000 U/5 ML SUSP UDC PO SCH ×4 (08:30→21:51)
[2016-12-25] MEDS: levETIRAcetam 250MG TABLET (KEPPRA) PO SCH ×2 (08:30→21:45)
[2016-12-25] MEDS: LIDOCAINE 5% (LIDODERM) PATCH TD SCH (08:31)
[2016-12-25] MEDS: PANTOPRAZOLE 40MG TAB (PROTONIX) PO SCH (08:31)
[2016-12-25] MEDS: ENOXAPARIN 60 MG/0.6 ML SYR (J1650) SC SCH ×2 (08:32→21:51)
[2016-12-25] MEDS ORDERED: DIGOXIN 0.125 MG TAB PO SCH (09:00)
[2016-12-25] MEDS ORDERED: DIGOXIN INJ 0.5 MG/2 ML AMP (J1160) IV STA (09:44)
--- NOTE | 2016-12-25 11:45 | IPNPDOC ---
Date Seen The patient was seen on 12/25/16. Progress Note SUBJECTIVE: Patient is awake today she initially say good morning, and says no when asked if she is in any pain, but then proceeds to stare at me blankly and looks frustrated when I ask questions to test orientation. She shakes her head yes or no, but today does not follow commands. OBJECTIVE PHYSICAL EXAMINATION: VITAL SIGNS: Please see below. GENERAL: Frail female appears older than stated age sitting in bed she does not appear to be in any acute distress HEENT: Fairly pinpoint pupils her hirsutism dry mucous membranes CARDIOVASCULAR: S1-S2 tachycardic. RESPIRATORY: Clear To auscultation. ABDOMINAL: Soft nontender, some mild recoil to deep palpation EXTREMITIES: Wasted LABORATORY DATA: Please see below. MICROBIOLOGY: Please see below. IMAGING: No new imaging Echocardiogram: 1. The study is of good technical quality. 2. Normal left ventricular (LV) size with septal wall motion abnormality, consistent with left bundle branch block and mild global hypokinesis and overall estimated left ventricular ejection fraction (LVEF) approximately 50%. 3. #21 [employer] mechanical prosthesis in aortic position with no stenosis and mild perivalvular insufficiency. 4. #25 [employer] mechanical prosthesis in mitral position with mean gradient 9 mmHg and no visible insufficiency. 5. Mild tricuspid insufficiency. 6. Mild pulmonic insufficiency. 7. At least moderate pulmonary hypertension. 8. Grade 2 diastolic dysfunction. 9. Mildly elevated central venous pressure (CVP).. DVT prophylaxis ordered?: Therapeutic Lovenox ASSESSMENT AND PLAN: This is a 66-year-old female with cerebral ventriculitis and hydrocephalus who has had a complicated hospital course. PROBLEMS: (1) Metabolic encephalopathy Mental status continues to wax and wane as previously documented by multiple providers on multiple occasions. I feel likely related to increased ICP. She did have an LP yesterday, which appears to be a bloody tap I will d/w ID if this patient is a candidate for SUPPORT GROUP MANAGER shunt. She is currently on cipro for catherter related UTI. (2) Protein calorie malnutrition Patient has had poor PO intake and previously had nausea and vomitting, in an effort to improve nutritional status prior to a potential shunt placement she has been placed on TPN day #5, despite this her pre-albumin is downtrending. I think the patient may benefit from PEG tube and did discuss this with her . Given that her Aflutter is not current rate controlled I do not feel this is an optimal time to place this. She has been restarted on pureed diet. (3) Depression likely adjustment disorder or depression based on her illness, she has been started on pamelor- but only intermittently receiving doses. (4) Hydrocephalus NSGY following, awaiting medical/ID clearance prior to shunt placement (5) Cerebral ventriculitis s/p completion of IV Abx therapy for ventriculitis repeat LP completed. (6) CAD (coronary artery disease) of artery bypass graft on betablocker although often being held secondary to hypotension, statin, no ASA at this time. (7) Hyperthyroidism Methimazole dosing adjusted numerous times during stay, TSH is slightly increased from previous studies I think she is gradually beginning to improve with this regimen (8) Anemia 1 FOBT (+) no obvious bleeding, patient received 2U PRBCs and FFP. I am unconvinced for acute GIB, looks rather like lab fluctuations given her dramatic response to the blood. SImply continue to monitor for now. she has been restarted on AC (9) S/P mitral /aoritc valve replacement We have quickly restarted therapeutic lovenox, will await possible shunt placement and/or PEG tube placement prior to restarting coumadin. (10) HTN (hypertension) I have held norvasc and acei given hypotension will c/w metoprolol as BP allows , I think improving rate control may improve hemdynamics (11) HLD (hyperlipidemia) Cont Statin (12) Afib Appears to be paroxysmal yesterday after Dig she did convert to NSR, this AM she appears in rapid aflutter once again. I will give additional IV Dig, PO Dig and has asked Dr. Desouza for further recs. Ideally would like her rate controlled and improved BP prior to any shunt/PEG placement. Or the patient works with PT (13) Diastolic CHF compensated (14) PEA (Pulseless electrical activity) Problem Text: s/p PEA arrest, associated with use of IV vitamin k Was seen by cardiology during her stay No significant ongoing issues (15) Impaired swallowing pureed regular thin liquids, head of bed elevated.TPN, possible PEG placement in near future DISPOSITION: Given the multitude of her problems and complexity of her stay thus far her clinical status is quite poor. I did meet with her this AM who was agitated that he had not been kept up to date with her progress. He was not aware that His daughter Ceci had recently spoken to Dr. Bruce overnight and appears family members may not be communicating with each other. As the patients he requests to be the person of contact moving forward. He appeared frustrated with his wifes decline and lack of progress. I shared his frustrations explaining the complexity of her case and multitude of problems forcing us to at times priortize acute problems over less acute issues. i.e. CT scan with contrast needing to be done urgently vs. Thyroid scan done 8 weeks from now. I did explain her lack of stabliity at this time and that being the reason holding off on PT for the moment. She has made little progress and continues a slow decline with new problems consistently presenting themselves. I did assure him that I am always available to speak with him and give regular updates and that we are doing our best to provide best care possible but despite this prognosis is poor and she may succumb to her many illnesses during this hospitalization, citing she has already had a PEA arrest during this stay. I did contact the patient advocate to speak with him also. VS, I&O, 24H, Fishbone Vital Signs/I&O Vital Signs Date Time Temp Pulse Resp B/P (MAP) Pulse Ox O2 Delivery O2 Flow Rate FiO2 12/25/16 10:32 123 12/25/16 08:00 Room Air 12/25/16 08:00 99.0 18 131/63 (85) 92 12/24/16 07:09 2.0 I&O- Last 24 Hours up to 6 AM 12/25/16 06:00 Intake Total 2875 ml Output Total 1150 ml Balance 1725 ml Laboratory Data 24H LABS Laboratory Tests 2 12/24/16 11:49: Bedside Glucose (Misc Panel) 126H 12/24/16 17:33: Bedside Glucose (Misc Panel) 164H 12/25/16 00:53: Bedside Glucose (Misc Panel) 187H 12/25/16 04:22: Prothrombin Time 15.7H, Prothromb Time International Ratio 1.24, Anion Gap 7L, Glomerular Filtration Rate > 60.0, Blood Urea Nitrogen 35H, Creatinine 0.65, Sodium Level 138, Potassium Level 4.2, Chloride Level 107, Carbon Dioxide Level 24, Calcium Level 8.5L CBC/BMP Laboratory Tests 12/25/16 04:22 Red Blood Count 3.15 L, Mean Corpuscular Volume 94.0, Mean Corpuscular Hemoglobin 31.0, Mean Corpuscular Hemoglobin Concent 33.0, Red Cell Distribution Width 16.1 H, Calcium Level 8.5 L Microbiology Microbiology 12/21/16 Blood Culture - Preliminary, Resulted No Growth after 72 hours. All specime... 12/21/16 Blood Culture - Preliminary, Resulted No Growth after 72 hours. All specime... 12/24/16 Gram Stain - Final, Resulted 12/24/16 CSF Culture, Resulted Pending 12/21/16 Gastrointestinal Tract Panel (PCR) - Final, Complete 12/21/16 Stool Occult Blood (PAPI) - Final, Complete 12/21/16 Urine Culture - Final, Complete Klebsiella Pneumoniae Morganella Morganii Ssp Carlos Alberto Citrobacter Freundii Yeast Like Organism ALIZA GARCIA MD Dec 25, 2016 11:45
--- NOTE | 2016-12-25 17:02 | REP ---
Clinical: Shortness of breath. Comparison: 12/03/2016. Findings: Mediastinum and cardiac silhouette stable. Lung edwards demonstrate chronic interstitial changes and subtle basilar opacities/atelectasis cannot be excluded along with possible small layering effusions. No pneumothorax. Skeletal structures intact. Impression: Diffuse chronic interstitial changes. Cannot exclude subtle superimposed basilar ground-glass opacities/atelectasis or small layering effusions. Signed by Tu Singh MD 12/25/2016 04:54 P
[2016-12-25] MEDS ORDERED: FAT EMULSION IV 20% 500 ML IV SCH (18:00)
[2016-12-25] MEDS ORDERED: AMINO AC/ELECTROLYTE/DEX/CALC 2,000 ML IV SCH (18:00)
--- NOTE | 2016-12-25 18:56 | REP ---
Clinical: Pain and swelling . Technique: Dillon scale and color Doppler evaluation using linear high frequency transducer. Findings: Ultrasound examination of the right upper extremity deep venous structures including the jugular, brachial, basilic, cephalic, subclavian and axillary veins demonstrates normal compressibility flow and wave patterns in response to respiration and augmentation. There is no evidence for deep venous thrombosis. Central line identified from the basilic to subclavian vein. Impression: No evidence for deep venous thrombosis. Signed by Tu Singh MD 12/25/2016 06:48 P
[2016-12-25] MEDS ORDERED: FUROSEMIDE 20 MG/2 ML VIAL (J1940) IV ONE (19:00)
[2016-12-25] MEDS: ATORVASTATIN 20 MG TAB PO SCH (21:51)
[2016-12-25] MEDS: ACETAMINOPHEN TAB 650MG DOSE (2X325MG) PO PRN (21:51)
[2016-12-25] MEDS: NORTRIPTYLINE 25 MG CAP PO SCH (21:52)
[2016-12-25] MEDS: **NOTE PATIENT COMMENT** MISC XX SCH (21:52)
[2016-12-25] MEDS ORDERED: FLUCONAZOLE 100 MG TAB PO ONE (22:00)
[2016-12-25] MEDS ORDERED: LOPERAMIDE 2 MG CAP PO PRN (23:45)
[2016-12-26] VITALS (30 sets, daily range): BP systolic 90–141; BP diastolic 51–85
[2016-12-26] MEDS: HumaLOG INSULIN (NovoLOG) PER UNIT SC SCH ×4 (00:17→17:30)
[2016-12-26] MEDS: METOPROLOL TART 12.5 MG PER 1/2 TAB PO SCH ×5 (00:18→20:07)
--- NOTE | 2016-12-26 03:57 | CR ---
DATE OF CONSULTATION: 12/25/2016 I was asked to consult by Dr. Pierson for followup on hospital-acquired ventriculitis. HISTORY OF PRESENT ILLNESS: Mrs. Dubon is known to me from earlier consultation. I saw her 11/13 for followup on hospital-acquired ventriculitis. The patient had been hospitalized at [facility] for an intraventricular hemorrhage on 10/21. She had an external ventricular drain placed for hydrocephalus. The patient developed fever with increased white count and therefore cerebrospinal fluid (CSF) was sent. She was noted to have pleocytosis with a white cell count of 2476 with predominantly lymphocytes, total protein was elevated at 98, glucose 63. CSF panel and cultures were all negative. The patient was treated with meropenem and vancomycin which she was supposed to finish for a total of 2 weeks after the drain was removed. The patient received the treatment from 11/11 to 11/25. She has had a waxing and waning mental status. Most recently, in the past week, she seemed to have gotten worse. The patient was transferred back to the intensive care unit (ICU) for mental status changes. She had a low-grade temperature on 12/24 and recently cultures were sent on 12/21 from a Arndt catheter. Urine culture had Klebsiella, Morganella, Citrobacter and yeastlike organism, all less than 15,000, except for the yeastlike organism being more than 100,000. Blood cultures on 12/21 were negative. CSF was sent and had no organisms. No white cells seen. Stool for Clostridium (C) difficile was negative. Cell count had 1832 red cells in tube number one and tube number two has 13 red cells with 1 white cell and a normal total protein at 39.9 and a glucose of 85. On 12/01, she had a lumbar puncture (LP) done which had 4 white cells and 3 red cells with a glucose of 54 and a total protein of 57.5. The opening pressure was measured at 18 cm of water and 5 mL of clear fluid was collected and sent. PAST MEDICAL HISTORY: Significant for hospital-acquired ventriculitis status post external ventricular device, finished 2 weeks of intravenous (IV) vancomycin and meropenem with end of treatment being 11/25, communicating hydrocephalus, intracerebral hemorrhage, hyperlipidemia, congestive heart failure, atrial fibrillation on chronic Coumadin, mitral and aortic valve replacement, hyperthyroidism. PAST SURGICAL HISTORY: Coronary artery bypass graft, mitral and aortic valve replacement, ventricle to peritoneal cavity (POLYMER SCIENTIST) shunt placement and removal. FAMILY HISTORY: Atherosclerotic heart disease, hypertension, prior CVA. SOCIAL HISTORY: She lives with her in [place], [place], [place]. She has six children. One of them is a nurse in rehabilitation. She never smoked. Does not drink. She is still a F[employer] even though she has not responded and has not done very well in the past month with just answering yes and no to questions, but wants her transferred back to an acute rehabilitation stroke unit in [place] for better care. MEDICATIONS: - total parenteral nutrition (TPN) - digoxin 0.125 mg daily - Lovenox 50 mg subcutaneously every 12 hours - ciprofloxacin 400 mg IV every 12 hours - Benadryl 25 mg by mouth every six as needed itching - methimazole 10 mg by mouth twice a day - nystatin 5 mL by mouth four times a day - nortriptyline 25 mg by mouth nightly - metoprolol 12.5 mg by mouth every 6 hours - promethazine 25 mg by mouth before food and at bedtime - Protonix 40 mg by mouth daily - Keppra 500 mg by mouth twice a day - Tylenol 650 mg by mouth every four as needed ALLERGIES: VITAMIN K and PROPOXYPHENE. PHYSICAL EXAMINATION: Temperature is 100.7, pulse 133, respirations 34, blood pressure 113/58, oxygen saturation 98% on 2 liters nasal cannula. Heart: Normal S1, S2, tachycardiac with clicks heard. Lungs: Crackles at the bases. Abdomen is soft, nontender. No visceromegaly. Extremities: Trace edema, right upper extremity has edema secondary to peripherally inserted central catheter (PICC) line in that arm, which has been there since admission. IMAGING STUDIES: Upper extremity ultrasound showed no evidence of deep venous thrombosis (DVT) of the right arm. Chest x-ray shows diffuse chronic interstitial changes, cannot exclude subtle superimposed basilar opacities, atelectasis or small layering effusions. IMPRESSION: This is a 66-year-old female who was admitted initially for intraventricular hemorrhage status post ventricular device for drainage, developed ventriculitis and hydrocephalus. The patient was treated with 14 days of intravenous (IV) vancomycin and meropenem that ended on the . Her mental status has not markedly improved. She had a lumbar puncture done yesterday which had an opening pressure of 18. Cerebrospinal fluid (CSF) does not show any evidence of infection. It was initially hemorrhagic, but the second tube had only one white cell and very few red cells, total protein was normal. The patient had been afebrile for the past 4 weeks until the past 2 days when she has clinically deteriorated. She seems to have probably developed possibly aspiration pneumonia or urinary tract infection (UTI). She is on ciprofloxacin for multiple bacteria in the urine, which are probably just colonization. Her urinalysis had 54 white cells and the urine was cloudy. There was large yeastlike organism and that was the most prevalent pathogen and not the gram negatives. The patient clinically is tachypneic. She seems more short of breath. She needed some oxygen. Her oxygenation on room air was 90%. Chest x-ray showed no definite infiltrate at this point. Definitely there is no evidence of meningitis. CSF is pretty benign and there would be no contraindication for a ventricle to peritoneal cavity (POLYMER SCIENTIST) shunt. PLAN: The patient has received 5 days of ciprofloxacin for possible catheter- associated UTI, although I doubt this is the case. I would suggest removing the catheter. The patient could be straight catheterized if she has urinary retention or she could be incontinent. Suggest treating her with oral Diflucan as she definitely had more than 100,000 yeastlike organisms. Repeating a chest x-ray in the morning if she continues to be tachypneic. She may need to be treated for aspiration pneumonia if Lasix does not help. Please reconsult neurosurgery regarding POLYMER SCIENTIST shunt placement. If the patient needs a POLYMER SCIENTIST shunt from a hydrocephalus standpoint and improvement of mental status, there is no contraindication once the fever resolves.
[2016-12-26] MEDS ORDERED: LEVALBUTEROL 1.25 MG/0.5 ML CONCENTRATE NEB INH PRN (04:00)
[2016-12-26 05:50] LABS: INR 1.22
[2016-12-26 05:51] LABS: MEAN CORPUSCULAR HEMOGLOBIN 31.6 pg (27.0-33.0); MEAN CORPUSCULAR HGB CONC 33.3 g/dl (32.0-36.5); MEAN CORPUSCULAR VOLUME 94.8 fl (80.0-96.0); RED CELL DISTRIBUTION WIDTH 15.8 % (11.5-14.5); WHITE BLOOD COUNT 5.7 K/mm3 (4.0-10.0)
[2016-12-26] MEDS: PROMETHAZINE 25 MG TAB PO SCH ×3 (06:12→17:28)
[2016-12-26] MEDS: SODIUM CHLORIDE 0.9% INJ 10 ML SYR IV SCH ×2 (06:14→17:31)
[2016-12-26 06:54] LABS: ANION GAP 9 MEQ/L (8-16); BLOOD UREA NITROGEN 37 MG/DL (7-18); CALCIUM LEVEL 8.8 MG/DL (8.8-10.2); CARBON DIOXIDE LEVEL 25 MEQ/L (21-32); CHLORIDE LEVEL 107 MEQ/L (98-107); CREATININE FOR GFR 0.67 MG/DL (0.55-1.02); GLOMERULAR FILTRATION RATE > 60.0 (>45); GLUCOSE, FASTING 122 MG/DL (80-110); POTASSIUM SERUM 3.6 MEQ/L (3.5-5.1); SODIUM LEVEL 141 MEQ/L (136-145)
[2016-12-26] MEDS ORDERED: FUROSEMIDE 40 MG/4 ML VIAL (J1940) IV ONE (08:15)
[2016-12-26] MEDS: ENOXAPARIN 60 MG/0.6 ML SYR (J1650) SC SCH ×2 (08:37→20:07)
[2016-12-26] MEDS: NYSTATIN 500,000 U/5 ML SUSP UDC PO SCH ×4 (08:37→20:07)
[2016-12-26] MEDS: LIDOCAINE 5% (LIDODERM) PATCH TD SCH (08:39)
[2016-12-26] MEDS: PANTOPRAZOLE 40MG TAB (PROTONIX) PO SCH (08:40)
[2016-12-26] MEDS: FLUCONAZOLE 100 MG TAB PO SCH (08:40)
[2016-12-26] MEDS: levETIRAcetam 250MG TABLET (KEPPRA) PO SCH ×2 (08:41→20:06)
[2016-12-26] MEDS: CIPROFLOXACIN 400 MG in APPROPRIATE DILUENT 1 EA IV SCH (08:42)
--- NOTE | 2016-12-26 09:31 | REP ---
Portable chest, , 12/26/2016, single AP view, the patient semi upright: Comparisons are 12/25/2016 and 10/23 2016. There is chronic diffuse interstitial coarsening. There is focal increased radiodensity inferiorly in the lung edwards bilaterally, similar to 12/25/2016 but not present on 10/23/2016. This could be artifact from superimposed prior shadows or could represent bilateral lower lobe infiltrates. There are no pleural effusions. Sternotomy wires and cardiac valve replacement are again noted. This is unchanged from both prior studies. Cardiac size is enlarged, unchanged. Impression: Chronic interstitial coarsening. New bibasilar increased radiodensity, artifact from superimposed breast shadows versus lower lobe infiltrates. Right upper extremity PICC line remains in satisfactory position with the tip in the superior vena cava, unchanged from both prior studies. Signed by Yash Norton MD 12/26/2016 09:22 A
--- NOTE | 2016-12-26 11:12 | IPNPDOC ---
Date Seen The patient was seen on 12/26/16. Progress Note SUBJECTIVE: Patient is awake today, however she does not follow commands and does not answer my questions. OBJECTIVE PHYSICAL EXAMINATION: VITAL SIGNS: Please see below. GENERAL: Frail female appears older than stated age sitting in bed awake she does not appear to be in any acute distress HEENT: Fairly pinpoint pupils her hirsutism dry mucous membranes CARDIOVASCULAR: S1-S2 tachycardic. RESPIRATORY: Clear to auscultation. mildly tachypnic ABDOMINAL: Soft nontender, some mild recoil to deep palpation EXTREMITIES: Wasted LABORATORY DATA: Please see below. MICROBIOLOGY: Please see below. IMAGING: No new imaging Echocardiogram: 1. The study is of good technical quality. 2. Normal left ventricular (LV) size with septal wall motion abnormality, consistent with left bundle branch block and mild global hypokinesis and overall estimated left ventricular ejection fraction (LVEF) approximately 50%. 3. #21 [employer] mechanical prosthesis in aortic position with no stenosis and mild perivalvular insufficiency. 4. #25 [employer] Luk[employer]z mechanical prosthesis in mitral position with mean gradient 9 mmHg and no visible insufficiency. 5. Mild tricuspid insufficiency. 6. Mild pulmonic insufficiency. 7. At least moderate pulmonary hypertension. 8. Grade 2 diastolic dysfunction. 9. Mildly elevated central venous pressure (CVP).. Duplex RUE: No evidence for deep venous thrombosis. CXR 12/26/16: New bibasilar increased radiodensity, artifact from superimposed breast shadows versus lower lobe infiltrates. DVT prophylaxis ordered?: Therapeutic Lovenox ASSESSMENT AND PLAN: This is a 66-year-old female with cerebral ventriculitis and hydrocephalus who has had a complicated hospital course. PROBLEMS: (1) Metabolic encephalopathy Mental status continues to wax and wane as previously documented by multiple providers on multiple occasions. I feel likely related to increased ICP with assoc infection. She did have a repeat LP which appears to be a bloody tap, ID feels that as long as fever free, this patient is a candidate for RESIDENTIAL REAL ESTATE AGENT shunt. She is currently on cipro and fluconazole for catherter related UTI. We will d/c willoughby as per ID recs. (2) Protein calorie malnutrition Patient has had poor PO intake and previously had nausea and vomitting, in an effort to improve nutritional status prior to a potential shunt placement she has been placed on TPN day #6, despite this her pre-albumin is downtrending. I think the patient may benefit from PEG tube and did discuss this with her . She has been restarted on pureed diet but I do have concern for possible Aspiration especially given her fever and new CXR findings. I have asked Dr. Mcneal of Surgery to see the patient related to her Abd pain and persistent diarrhea (3) Depression likely adjustment disorder or depression based on her illness, she has been started on pamelor (4) Hydrocephalus NSGY following, awaiting medical/ID clearance prior to shunt placement, she is currently febrile (5) Cerebral ventriculitis s/p completion of IV Abx therapy for ventriculitis repeat LP completed. (6) CAD (coronary artery disease) of artery bypass graft on betablocker and statin, no ASA at this time. (7) Hyperthyroidism Methimazole dosing adjusted numerous times during stay, TSH is slightly increased from previous studies I think she is gradually beginning to improve with this regimen (8) Anemia 1 FOBT (+) no obvious bleeding, patient received 2U PRBCs and FFP. I am unconvinced for acute GIB, looks rather like lab fluctuations given her dramatic response to the blood. SImply continue to monitor for now. she has been restarted on AC (9) S/P mitral /aoritc valve replacement We have quickly restarted therapeutic lovenox, will await possible shunt placement and/or PEG tube placement prior to restarting coumadin. (10) HTN (hypertension) I have held norvasc and acei given hypotension will c/w metoprolol as BP allows , (11) HLD (hyperlipidemia) Cont Statin (12) Afib Appears to be paroxysmal yesterday after Dig she did convert to NSR Dr. Desouza's help has been appreciated. She appears to be back into a sinus tach at this time. She is on AC will rate control as BP allows. (13) Diastolic CHF compensated, she has been net positive and has received 2 doses of IV lasix, will cont to monitor renal function and assess clinically. (14) PEA (Pulseless electrical activity) Problem Text: s/p PEA arrest, associated with use of IV vitamin k Was seen by cardiology during her stay No significant ongoing issues (15) Impaired swallowing pureed regular thin liquids, head of bed elevated.TPN, possible PEG placement in near future. Concern for ongoign aspiration the patient has been assessed by Speech therapy 16. Abdominal pain and Diarrhea: Unclear etiology, will start bacid, may be abx related. CT showed colitis GI PCR and Cdiff all negative, has asked Dr. Mcneal of Gen Surg to see the patient in Consultation. DISPOSITION: Given the multitude of her problems and complexity of her stay thus far her clinical status is quite poor. Once fever free would attempt RESIDENTIAL REAL ESTATE AGENT shunt, and if no clinical improvement following this then possible PEG tube placement. VS, I&O, 24H, Fishbone Vital Signs/I&O Vital Signs Date Time Temp Pulse Resp B/P (MAP) Pulse Ox O2 Delivery O2 Flow Rate FiO2 12/26/16 08:00 Nasal Cannula 2.0 12/26/16 08:00 100.1 104 20 107/53 (71) 98 I&O- Last 24 Hours up to 6 AM 12/26/16 05:59 Intake Total 2980 ml Output Total 2925 ml Balance 55 ml Laboratory Data 24H LABS Laboratory Tests 2 12/25/16 11:18: Erythrocyte Sedimentation Rate 49H 12/25/16 12:04: Bedside Glucose (Misc Panel) 140H 12/25/16 17:20: Bedside Glucose (Misc Panel) 133H 12/25/16 18:27: Lactic Acid Level 1.3 12/26/16 00:16: Bedside Glucose (Misc Panel) 131H 12/26/16 04:41: Prothrombin Time 15.5H, Prothromb Time International Ratio 1.22, Anion Gap 9, Glomerular Filtration Rate > 60.0, Blood Urea Nitrogen 37H, Creatinine 0.67, Sodium Level 141, Potassium Level 3.6, Chloride Level 107, Carbon Dioxide Level 25, Calcium Level 8.8 12/26/16 06:07: Bedside Glucose (Misc Panel) 137H CBC/BMP Laboratory Tests 12/26/16 04:41 Red Blood Count 2.95 L, Mean Corpuscular Volume 94.8, Mean Corpuscular Hemoglobin 31.6, Mean Corpuscular Hemoglobin Concent 33.3, Red Cell Distribution Width 15.8 H, Calcium Level 8.8 Microbiology Microbiology 12/26/16 Blood Culture, Received Pending 12/26/16 Blood Culture, Received Pending 12/21/16 Blood Culture - Preliminary, Resulted No Growth after 72 hours. All specime... 12/21/16 Blood Culture - Preliminary, Resulted 12/24/16 Gram Stain - Final, Complete 12/24/16 CSF Culture - Final, Complete 12/25/16 Clostridium difficile (PCR) - Final, Complete 12/21/16 Gastrointestinal Tract Panel (PCR) - Final, Complete 12/21/16 Stool Occult Blood (PAPI) - Final, Complete 12/21/16 Urine Culture - Final, Complete Klebsiella Pneumoniae Morganella Morganii Ssp Carlos Alberto Citrobacter Freundii Yeast Like Organism ALIZA GARCIA MD Dec 26, 2016 11:12
[2016-12-26] MEDS ORDERED: KCL 20MEQ IN 100ML SWI (KRUN) 20 MEQ in APPROPRIATE DILUENT 1 EA IV ONE ×2 (12:15)
--- NOTE | 2016-12-26 13:37 | ECGEPIP ---
Stationary ECG Study [facility] Test Date: 2016-12-25 Pat Name: MELLY DEL RIO Department: Room: [place] [address] Gender: F Post Anesthesia Room Nurse: : 1950 Requested By: ALIZA GARCIA Order Number: [id number] Reading MD: Jenan Patel Measurements Intervals [place] Rate: 132 P: PA: 0 QRS: -42 QRSD: 153 T: 41 QT: 311 QTc: 461 Interpretive Statements SUPRAVENTRICULAR (PROBABLY SINUS) TACHYCARDIA MARKED LEFT AXIS DEVIATION INTRAVENTRICULAR CONDUCTION DELAY SIMILAR TO 12/24/16 BUT FASTER HR Electronically Signed On 12-26-2016 13:37:06 EDT by Jenna Patel
--- NOTE | 2016-12-26 13:52 | ECGEPIP ---
Stationary ECG Study [facility] Test Date: 2016-12-25 Pat Name: MELLY DEL RIO Department: Room: [place] [address] Gender: F Director Fraud: NANCY : 1950 Requested By: ALIZA GARCIA Order Number: [id number] Reading MD: Jenna Patel Measurements Intervals [place] Rate: 138 P: 195 FL: 95 QRS: -33 QRSD: 170 T: 37 QT: 301 QTc: 457 Interpretive Statements SUPRAVENTRICULAR TACHYCARDIA MARKED LEFT AXIS DEVIATION INTRAVENTRICULAR CONDUCTION DELAY SIMILAR 6:35 SAME DAY Electronically Signed On 12-26-2016 13:52:09 EDT by Jenna Patel
--- NOTE | 2016-12-26 16:54 | IPN ---
DATE: 12/26/2016 SUBJECTIVE: Nayla is in the ICU. She is more lethargic today. She only opened her eyes when I pressed on her left lower quadrant, seeming to be in pain. She had four episodes of diarrhea last night. Stool for Clostridium (C.) difficile was sent and was negative. She was given Imodium with complete resolution of diarrhea today. Cerebrospinal fluid (CSF) culture was negative. Blood cultures from 12/21 were negative. Repeat two sets of blood cultures were done on 12/26 are pending. Urine culture from a Arndt catheter had multiple pathogens including Klebsiella, Morganella, Citrobacter and yeastlike organism. Arndt catheter has been removed. That was removed today. Chest x-ray done on 12/26 shows chronic interstitial coarsening with new bibasilar increased radiodensity concerning for an infiltrate. PICC line in right upper extremity. OBJECTIVE: VITAL SIGNS: Temperature 100.3, pulse 119, respirations 22, oxygen saturation 97% on two liters nasal cannula. HEART: Tachycardiac. Normal S1, S2 with clicks heard. Systolic ejection murmur 3/6. LUNGS: Few crackles at the bases. ABDOMEN: Tender in the left lower quadrant resolved. EXTREMITIES: Trace edema. No calf tenderness. No erythema, no cellulitis. NEUROLOGIC: The patient opens her eyes, says owe, yes, or now, but that is it for a response. She does not follow commands. IMPRESSION 1. Fever, possible causes would be catheter associated urinary tract infection (UTI). She had more than 100,000 yeastlike organisms and has been started on fluconazole 100 mg by mouth daily. Catheter was removed. She is also on ciprofloxacin but gram negatives were very few in quantity. My concern is she might have an aspiration pneumonia and I would suggest switching ciprofloxacin to Zosyn. 2. Subarachnoid hemorrhage. Repeated lumbar puncture done on December 24 showed no evidence of infection. She only has 13 red cells and one white cell with normal total protein at 39.9 and normal glucose. CSF was also done on December 01 and that was benign as well. If the patient needs a ventriculoperitoneal (MEDIA LIAISON OFFICER) shunt placed, then next week she probably could have that done once she is afebrile. 3. Peripherally inserted central catheter (PICC) line in the right arm has been there for at least over a month. One blood culture is positive for gram-positive rods. Since she has had recurrent fever, I would suggest removing the PICC line and placing a new line as the patient has had fevers and would also add IV vancomycin until identification of culture. Case has been discussed with Dr. Pierson.
[2016-12-26] MEDS ORDERED: VANCOMYCIN HCL 750 MG, VIAL MATE ADAPTER 1 EACH in D5W 250 ML IV SCH (17:00)
[2016-12-26] MEDS ORDERED: VANCOMYCIN HCL 1,000 MG, VIAL MATE ADAPTER 1 EACH in D5W 250 ML IV ONE (17:00)
--- NOTE | 2016-12-26 17:07 | PHACANCOPD ---
PHARMACY VANCOMYCIN DOSING Pt Demographics Demographics Patient Age:66 , Weight:51.800 , Gender: female Adjusted Body Weight Date: 11/20/16, Adjusted Body Weight: [NA] Kg Events Past 24 Hours Events Past 24 Hours: YES: Fever, NO: Dialysis, Diuretic Therapy, Change in CrCl, Elevation in WBC, Pending Diagnostics, Pending Procedures, Other Vancomycin Vancomycin indication: sepsis Vancomycin Target Ranges: 15-20 mcg/ml Vancomycin Load Y/N: Yes Load Dose Date Time Vancomycin Load Dose: Date: Time: Vancomycin Dose Date: 12/26/16. Current Vancomycin Dose: [750mg IV q12h @08] Intermittent Dosing?: No Labs Labs Item Value Date Time White Blood Count 7.2 K/mm3 12/25/16 0422 White Blood Count 5.7 K/mm3 12/26/16 0441 Creatinine 0.65 MG/DL 12/25/16 0422 Creatinine 0.67 MG/DL 12/26/16 0441 C-Reactive Protein, Quantitative 8.26 MG/DL H 12/25/16 0422 Creatinine 0.70 MG/DL 12/10/16 0549 Creatinine 0.63 MG/DL 12/12/16 0616 Creatinine 0.58 MG/DL 12/13/16 0524 Vital Signs Label Value Date Time Patient Temperature 100.1 degrees F 12/26/16 0800 Temperature Source Temporal 12/26/16 0800 Patient Temperature 100.3 degrees F 12/26/16 1200 Temperature Source Temporal 12/26/16 1200 Micro Microbiology 12/26/16 Blood Culture, Received Pending 12/26/16 Blood Culture, Received Pending 12/21/16 Blood Culture - Final, Complete NO GROWTH AFTER 5 DAYS 12/21/16 Blood Culture - Preliminary, Resulted 12/24/16 Gram Stain - Final, Complete 12/24/16 CSF Culture - Final, Complete 12/25/16 Clostridium difficile (PCR) - Final, Complete 12/21/16 Gastrointestinal Tract Panel (PCR) - Final, Complete 12/21/16 Stool Occult Blood (PAPI) - Final, Complete 12/21/16 Urine Culture - Final, Complete Klebsiella Pneumoniae Morganella Morganii Ssp Carlos Alberto Citrobacter Freundii Yeast Like Organism Creatinine Clearance Date:12/26/16. Creatinine Clearance: [70 ml/min]. Pending Labs vanco trough scheduled 12/28 @07:00 Assessment and Plan Maintaining Current Dose?: Yes Reason for dose change: No Dose Change Pharmacist Note Pharmacist Note Date: 12/26/16. Pharmacist note: pt has been off vancomycin for ~30 days, Zosyn and vancomycin restarted today for sepsis. Based on prior dosing, I will start her on a 1g load followed by 750mg IV q12h for now. She was maintained on 750mg IV q24h last month. I have a trough scheduled for Thursday morning, blood cultures are pending. We will continue to monitor and adjust as necessary. Yimi Zimmerman Pharm.D. Dec 26, 2016 17:07
[2016-12-26] MEDS: PIPERACILLIN/TAZOBACTAM SOD 3.375 GM in D5W MINI-BAG PLUS 50 ML IV SCH (17:32)
[2016-12-26] MEDS ORDERED: AMINO AC/ELECTROLYTE/DEX/CALC 2,000 ML IV SCH (18:00)
[2016-12-26] MEDS ORDERED: FAT EMULSION IV 20% 500 ML IV SCH (18:00)
--- NOTE | 2016-12-26 19:35 | CR ---
DATE OF CONSULTATION: 12/26/2016 REASON FOR CONSULTATION: Abdominal pain and diarrhea. HISTORY OF PRESENT ILLNESS: The patient is a 66-year-old female with a very complicated history. She has a longstanding history of coronary artery disease status post coronary artery bypass graft (CABG), valvular heart disease with a mechanical mitral valve and prosthetic aortic valve, paroxysmal atrial fibrillation, hypertension, hyperlipidemia, hypothyroidism. She had increasing hydrocephalus and was admitted to the hospital on 11/19/2016. After receiving some vitamin K, she developed pulseless electrical activity (PEA). She was eventually admitted up into the intensive care unit (ICU). She has had multiple spinal taps as well as a ventriculoperitoneal (JUNK DEALER) shunt that was placed and then removed. She has been dealing with ventricular infection. Currently, her biggest issue is a persistent diarrhea with up to 10 bouts of loose stools every day. CT scan was done on 12/21 that did show descending colon and sigmoid colitis with wall thickening. No signs of diverticulitis. No signs of perforated bowel, but that she is having significant pain in that area as well as having these multiple loose bowel movements every day, therefore I was called to evaluate and see if I had any other suggestions. Currently her cultures have all been negative. Clostridium (C.) difficile was negative as of 12/25. Stool cultures were negative as of 12/21. Urine culture from 12/21 is positive for Klebsiella, Morganella, Citrobacter and multiple yeast. Blood cultures have been negative. Cerebrospinal fluid (CSF) culture was negative and blood cultures are still pending. Currently the patient is also having some decreased appetite with increased poor oral intake. Because of her persistent fevers, they have been hesitant to replace the JUNK DEALER shunt, but from what I understand after speaking with her primary physician, the plan is that once her fevers are under control to possibly replace her JUNK DEALER shunt. If that does not improve her mental status and her poor oral intake, then she may also be a good candidate for percutaneous endoscopic gastrostomy (PEG) tube. This time the patient denies any abdominal pains. No nausea or vomiting. No fevers or chills. Rest of history and physical was obtained from the chart. PAST MEDICAL HISTORY: 1. Mitral valve replacement. 2. Congestive heart failure (CHF). 3. Atrial fibrillation. 4. Left bundle branch block. 5. Hyperlipidemia. 6. History of hemorrhagic stroke. 7. Hydrocephalous. 8. History of this JUNK DEALER shunt that was placed and removed on 11/11/2016. 9. Hospital acquired ventriculitis. 10. Hypothyroidism. PAST SURGICAL HISTORY: 1. Coronary artery bypass graft (CABG). 2. Mitral valve replacement. 3. JUNK DEALER shunt placement and removal. FAMILY HISTORY: Noncontributory. SOCIAL HISTORY: Negative HOME MEDICATIONS: Please see med rec. ALLERGIES: PHYTONADIONE and PROPOXYPHENE. REVIEW OF SYSTEMS: Pertinent positives and negatives as stated in the history of present illness (HPI). PHYSICAL EXAMINATION GENERAL: Awake, alert. VITALS: Temperature 98.9, pulse 114, respirations 17, blood pressure 90/53, pulse oximetry 96% on two liters nasal cannula. HEENT: Pupils equal, round, react to light and combination. HEART: S1, S2, regular rate and rhythm. LUNGS: Clear to auscultation bilaterally. ABDOMEN: Soft, tender to palpation suprapubically in left lower quadrant. No rebounding or guarding. No signs of generalized peritonitis. EXTREMITIES: No clubbing, cyanosis or edema. LABORATORY DATA: White count 5.7, hemoglobin 9.3, platelets 121, potassium 3.6, creatinine 0.67. IMAGING: CT abdomen and pelvis shows development of colitis that was seen on 12/21/2016, new from a CT scan on 12/07/2016. The colitis goes from the left colon just below the splenic flexure to the rectosigmoid with thickened wall, pericolonic edema and surrounding fat changes with some fluid, scattered diverticula but no signs of diffuse diverticulitis, small bowel loops are fluid-filled distally with greater caliber distally than proximally in the colon involving the right transverse and both flexures is fluid-filled with some stool with air-fluid levels. This is suggesting some sort of ileus or mild gastroenteritis. ASSESSMENT AND PLAN: The patient is a 66-year-old female with a very complicated medical history including the ventriculitis that she was being treated for outpatient, as well as these mental status changes, persistent fevers, persistent diarrhea, and this newly diagnosed colitis and left lower quadrant pain as of 12/21/2016. She was placed on Imodium a couple days ago without any improvement. However, today she was placed on it again and has only had one bowel movement today. Apparently that is much improved for her. No fevers yet today at this point. Antibiotics were switched by Dr. Benoit this morning as well, and she also was placed on an antifungal for the yeast that was identified in her Arndt. At this time she is still having significant pain in the abdomen, but the stools are loose, brown and mucusy. No signs of any blood in them. This colitis is likely secondary to an ischemic attack from her PEA that she had. She is currently on anticoagulation. Most likely this colitis was not transmural and is likely resolving on its own. At this time, recommend to continue with the Imodium. We will add some Questran to see if that will help, and will just monitor her clinically for now. I had mentioned the possibility of colonoscopy to the primary physician and he agrees with me that that is prior not a good idea at this point with all of her other comorbidities. That would be the ultimate deciding factor on whether this is ischemic colitis versus some other source. As long as she continues to improve, we will hold off on colonoscopy, but if she does start to show signs of increasing pain, increasing white count or some bloody stools, then she may require a colonoscopy to diagnose the ischemia. So again for now we will just continue to monitor her medically, continue with intravenous (IV) fluids, antibiotics, Questran and Imodium, and I will continue to follow closely.
[2016-12-26] MEDS: CHOLESTYRAMINE 4 GM PWD PKT PO SCH (20:05)
[2016-12-26] MEDS: NORTRIPTYLINE 25 MG CAP PO SCH (20:05)
[2016-12-26] MEDS: ATORVASTATIN 20 MG TAB PO SCH (20:06)
[2016-12-26] MEDS: **NOTE PATIENT COMMENT** MISC XX SCH (20:07)
[2016-12-26] MEDS ORDERED: METOPROLOL 5 MG/5 ML VIAL IV STA (21:36)
[2016-12-26] MEDS ORDERED: methylPREDNISolone INJ 40 MG/1 ML VIAL (J2920) As Ordered ONE (21:41)
[2016-12-26] MEDS: methylPREDNISolone INJ 40 MG/1 ML VIAL (J2920) IV SCH (21:54)
[2016-12-27] VITALS (29 sets, daily range): BP systolic 90–124; BP diastolic 50–62
[2016-12-27 00:41] LABS: ABG BASE EXCESS 0.1 (-2.0-2.0); ABG DEVICE NONREBREATH; ABG STANDARD HCO3 24.6 MEQ/L (22.0-26.0); ABG TOTAL CO2 25.1 MEQ/L (23.0-31.0); ABG pH (ARTERIAL) 7.442 UNITS (7.350-7.450)
[2016-12-27 00:42] LABS: ABG PARTIAL PRESSURE O2 258.4 mmHg (75.0-100.0)
[2016-12-27] MEDS: HumaLOG INSULIN (NovoLOG) PER UNIT SC SCH ×4 (00:48→18:27)
[2016-12-27] MEDS: PIPERACILLIN/TAZOBACTAM SOD 3.375 GM in D5W MINI-BAG PLUS 50 ML IV SCH ×4 (00:49→18:27)
[2016-12-27 04:24] LABS: MEAN CORPUSCULAR HEMOGLOBIN 32.6 pg (27.0-33.0); MEAN CORPUSCULAR HGB CONC 34.4 g/dl (32.0-36.5); MEAN CORPUSCULAR VOLUME 94.7 fl (80.0-96.0); RED CELL DISTRIBUTION WIDTH 15.3 % (11.5-14.5); WHITE BLOOD COUNT 8.9 K/mm3 (4.0-10.0)
[2016-12-27 04:31] LABS: INR 1.16
[2016-12-27 04:44] LABS: ANION GAP 8 MEQ/L (8-16); BLOOD UREA NITROGEN 44 MG/DL (7-18); CALCIUM LEVEL 8.3 MG/DL (8.8-10.2); CARBON DIOXIDE LEVEL 25 MEQ/L (21-32); CHLORIDE LEVEL 102 MEQ/L (98-107); CREATININE FOR GFR 0.84 MG/DL (0.55-1.02); GLOMERULAR FILTRATION RATE > 60.0 (>45); GLUCOSE, FASTING 210 MG/DL (80-110); POTASSIUM SERUM 4.4 MEQ/L (3.5-5.1); SODIUM LEVEL 135 MEQ/L (136-145)
[2016-12-27] MEDS: METOPROLOL TART 12.5 MG PER 1/2 TAB PO SCH ×4 (06:00→17:25)
[2016-12-27] MEDS: SODIUM CHLORIDE 0.9% INJ 10 ML SYR IV SCH ×2 (06:26→17:26)
[2016-12-27] MEDS: methylPREDNISolone INJ 40 MG/1 ML VIAL (J2920) IV SCH ×3 (06:27→21:02)
--- NOTE | 2016-12-27 07:03 | REP ---
Clinical: Altered mental status.. Comparison: 12/25/2016, 12/03/2016. Findings: Mediastinum and cardiac silhouette are stable. Lung edwards demonstrate diffuse chronic interstitial changes superimposed right lower lobe infiltrate. No definite effusion. No pneumothorax. Skeletal structures intact. Evidence of prior sternotomy, cardiac valve replacements, and right PICC line. Impression: Right lower lobe infiltrate requires followup to resolution. Signed by Tu Singh MD 12/27/2016 06:55 A
[2016-12-27] MEDS: VANCOMYCIN HCL 750 MG, VIAL MATE ADAPTER 1 EACH in D5W 250 ML IV SCH ×2 (07:54→20:06)
[2016-12-27] MEDS: PROMETHAZINE 25 MG TAB PO SCH ×3 (07:54→17:25)
[2016-12-27] MEDS: PANTOPRAZOLE 40MG TAB (PROTONIX) PO SCH (08:31)
[2016-12-27] MEDS: NYSTATIN 500,000 U/5 ML SUSP UDC PO SCH ×4 (08:31→21:02)
[2016-12-27] MEDS: CHOLESTYRAMINE 4 GM PWD PKT PO SCH ×3 (08:31→21:00)
[2016-12-27] MEDS: ENOXAPARIN 60 MG/0.6 ML SYR (J1650) SC SCH (08:31)
[2016-12-27] MEDS: levETIRAcetam 250MG TABLET (KEPPRA) PO SCH ×2 (08:31→21:02)
[2016-12-27] MEDS: FLUCONAZOLE 100 MG TAB PO SCH (08:32)
[2016-12-27] MEDS: LIDOCAINE 5% (LIDODERM) PATCH TD SCH (08:32)
--- NOTE | 2016-12-27 09:21 | IPNPDOC ---
Date Seen The patient was seen on 12/27/16. Progress Note SUBJECTIVE: Patient is awake today, she tells me that she is in no pain, she is able to tell me that she is in the hospital and that José Luis Diamond is the president. She has no complaints this morning. OBJECTIVE PHYSICAL EXAMINATION: VITAL SIGNS: Please see below. GENERAL: Frail female appears older than stated age sitting in bed awake she does not appear to be in any acute distress. She does appear to be breathing more easily this morning. HEENT: Fairly pinpoint pupils her hirsutism dry mucous membranes CARDIOVASCULAR: S1-S2 tachycardic. RESPIRATORY: Clear to auscultation. mildly tachypnic ABDOMINAL: Soft nontender, BS + EXTREMITIES: Wasted LABORATORY DATA: Please see below. MICROBIOLOGY: Please see below. IMAGING: No new imaging Echocardiogram: 1. The study is of good technical quality. 2. Normal left ventricular (LV) size with septal wall motion abnormality, consistent with left bundle branch block and mild global hypokinesis and overall estimated left ventricular ejection fraction (LVEF) approximately 50%. 3. #21 [employer] mechanical prosthesis in aortic position with no stenosis and mild perivalvular insufficiency. 4. #25 [employer] mechanical prosthesis in mitral position with mean gradient 9 mmHg and no visible insufficiency. 5. Mild tricuspid insufficiency. 6. Mild pulmonic insufficiency. 7. At least moderate pulmonary hypertension. 8. Grade 2 diastolic dysfunction. 9. Mildly elevated central venous pressure (CVP).. Duplex RUE: No evidence for deep venous thrombosis. CXR 12/27/16: Right lower lobe infiltrate requires followup to resolution. DVT prophylaxis ordered?: Therapeutic Lovenox ASSESSMENT AND PLAN: This is a 66-year-old female with cerebral ventriculitis and hydrocephalus who has had a complicated hospital course. PROBLEMS: (1) Metabolic encephalopathy Mental status continues to wax and wane as previously documented by multiple providers on multiple occasions, today she does appear jaz better than she has in the last several days. I feel likely related to increased ICP with assoc infection related to Aspiration PNA. She did have a repeat LP which appears to be a bloody tap, ID feels does not suggest active infection at that source. She is currently on zosyn for aspiration/possible UTI and fluconazole for catherter related UTI. Hair has been d/c'd, She had 1 blood Cx bottle reportredly positive from the 1 out of 2 bottles, we await repeat cultures from which thus far are negative, this may be contaminate I did discuss with Dr. Benoit yesterday evening. (2) Moderate Protein calorie malnutrition Patient has had poor PO intake and at this time I have conern for ASpiration and so the patient in NPO. in an effort to improve nutritional status prior to a potential shunt placement she has been placed on TPN day #7, despite this her pre-albumin is downtrending. I think the patient may benefit from PEG tube and did discuss this with her . The patients diarrhea could possibly be ischaemic however Dr. Mcneal stated a colonoscopy would be needed to dx and would ultimately not bladder changer. Given her fragile state and necessity for anticoagulation we will forgo this at this time. She does appear to be improving, it does not appear to be infectious in etiology and resolving with immodium and cholestyramine. (3) Depression likely adjustment disorder or depression based on her illness, she has been started on pamelor (4) Hydrocephalus NSGY following, awaiting medical/ID clearance prior to shunt placement, she is currently febrile, we will treat her for 5 days for Aspiration PNA before revisiting, her opening pressure was reportedly 18 on last tap. (5) Cerebral ventriculitis s/p completion of IV Abx therapy for ventriculitis repeat LP completed no evidence of infection as per ID. (6) CAD (coronary artery disease) of artery bypass graft on betablocker and statin, no ASA at this time. (7) Hyperthyroidism Methimazole dosing adjusted numerous times during stay, TSH is slightly increased from previous studies I think she is gradually beginning to improve with this regimen (8) Anemia 1 FOBT (+) no obvious bleeding, patient received 2U PRBCs and FFP. I am unconvinced for acute GIB, looks rather like lab fluctuations given her dramatic response to the blood. SImply continue to monitor for now. she has been restarted on AC and is tolerating it well (9) S/P mitral /aoritc valve replacement We have quickly restarted therapeutic lovenox, will await possible shunt placement and/or PEG tube placement prior to restarting coumadin. (10) HTN (hypertension) I have held norvasc and acei given hypotension will c/w metoprolol as BP allows , (11) HLD (hyperlipidemia) Cont Statin (12) Afib Appears to be paroxysmal yesterday after Dig she did convert to NSR Dr. Desouza's help has been appreciated. She appears to be back into a sinus tach at this time. She is on AC will rate control as BP allows. She did recieve 1 dose of IV lopressor overnight. (13) Diastolic CHF compensated at this time, con't to monitor Is&Os and daily weights (14) PEA (Pulseless electrical activity) s/p PEA arrest, associated with use of IV vitamin k Was seen by cardiology during her stay No significant ongoing issues (15) Impaired swallowing NPO, head of bed elevated.TPN, possible PEG placement in near future. Concern for ongoign aspiration will have swallow reevaluated early this coming week. 16. Abdominal pain and Diarrhea:As outlined above 17. Hypoxia: Likely secondary to aspiration, will wean O2 back and c/w NPO/Abx and monitor closely. Should be decompensate further in the face of these measures would consider Pulm consultation DISPOSITION: Given the multitude of her problems and complexity of her stay thus far her clinical status is quite poor. Once more stabilized would consider PEG tube pacement, and SULKY DRIVER shunt placement. I have been speaking with the patients and POA daily providing updates, he is aware of the numerous issues surrounding her care and extensive time spent counselling him and answering all questions to his satisfaction. He has specifically asked me to continue doing this and not to speak to other family members as he can end up outside the loop of information. VS, I&O, 24H, Fishbone Vital Signs/I&O Vital Signs Date Time Temp Pulse Resp B/P (MAP) Pulse Ox O2 Delivery O2 Flow Rate FiO2 12/27/16 08:00 Venturi Mask 40 12/27/16 08:00 98.5 117 27 113/56 (75) 97 4.0 I&O- Last 24 Hours up to 6 AM 12/27/16 06:00 Intake Total 2950 ml Output Total 1650 ml Balance 1300 ml Laboratory Data 24H LABS Laboratory Tests 2 12/26/16 12:12: Bedside Glucose (Misc Panel) 133H 12/26/16 17:00: Bedside Glucose (Misc Panel) 123H 12/27/16 00:09: Bedside Glucose (Misc Panel) 180H 12/27/16 00:27: Blood Gas Bicarbonate Standard 24.6, Arterial Blood pH 7.442, Arterial Blood Partial Pressure CO2 36.0, Arterial Blood Partial Pressure O2 258.4H, Arterial Blood Total CO2 25.1, Arterial Blood HCO3 24.0, Arterial Blood Base Excess 0.1, Arterial Blood Oxygen Saturation 99.7H, Oxygen Delivery Device NONREBREATH 12/27/16 04:05: Prothrombin Time 15.0H, Prothromb Time International Ratio 1.16, Anion Gap 8, Glomerular Filtration Rate > 60.0, Blood Urea Nitrogen 44H, Creatinine 0.84, Sodium Level 135L, Potassium Level 4.4#, Chloride Level 102, Carbon Dioxide Level 25, Calcium Level 8.3L 12/27/16 05:29: Bedside Glucose (Misc Panel) 243H CBC/BMP Laboratory Tests 12/27/16 04:05 Red Blood Count 2.85 L, Mean Corpuscular Volume 94.7, Mean Corpuscular Hemoglobin 32.6, Mean Corpuscular Hemoglobin Concent 34.4, Red Cell Distribution Width 15.3 H, Calcium Level 8.3 L Microbiology Microbiology 12/26/16 Blood Culture - Preliminary, Resulted No growth after 24 hours . All specim... 12/26/16 Blood Culture - Preliminary, Resulted No growth after 24 hours . All specim... 12/21/16 Blood Culture - Final, Complete NO GROWTH AFTER 5 DAYS 12/21/16 Blood Culture - Preliminary, Resulted 12/24/16 Gram Stain - Final, Complete 12/24/16 CSF Culture - Final, Complete 12/25/16 Clostridium difficile (PCR) - Final, Complete 12/21/16 Gastrointestinal Tract Panel (PCR) - Final, Complete 12/21/16 Stool Occult Blood (PAPI) - Final, Complete 12/21/16 Urine Culture - Final, Complete Klebsiella Pneumoniae Morganella Morganii Ssp Carlos Alberto Citrobacter Freundii Yeast Like Organism ALIZA GARCIA MD Dec 27, 2016 09:21
--- NOTE | 2016-12-27 13:25 | IPN ---
DATE: 12/27/2016 Mrs. Renteria has not been doing very well. She remains tachycardiac with heart rate in the 100 and 100 teens and relatively hypotensive. I was not able to establish any communication with her. She is looking at me and seems to nod at times, but it is not clear that it is appropriate. She does not appear to be in any distress. VITAL SIGNS: Blood pressure 113/56, heart rate as above. She is, as of now, afebrile. Saturation is 97% of 40% FiO2. Her fluid balance yesterday was documented at about 600 positive. Weight is 51.8 kg. She had two bowel movements yesterday and two bowel movements today. She is certainly alert but not oriented. Her jugular venous pressure does not appear grossly increased. Lungs are relatively clear to auscultation with only occasional crackle. I do not appreciate any wheeze. There are a little more crackles over right base. HEART: Exam reveals regular tachycardia. There is a systolic ejection murmur over the aortic valve with radiation to her carotid arteries at 2 or 4/6 intensity. I do not appreciate any clear-cut metallic sounds, and I do not appreciate any metallic sounds in mitral position either. ABDOMEN: Soft, nontender. EXTREMITIES: No peripheral edema. Neuro: She does not move her right side, mental status as above. LABORATORY CBC: Hemoglobin 9.3, hematocrit 27, platelet count 140,000 and WBC count 8.9. Basic metabolic panel: Potassium 4.4, BUN 44, creatinine 0.9, glucose 210. Her heparin-induced antibodies were negative. INR is 1.2 ASSESSMENT AND PLAN: Mrs. Dubon is a 66-year-old female who has extensive and complicated history. She originally presented with intracranial hemorrhage and received ventriculoperitoneal shunt that secondarily got infected and was taken out. She was then treated with antibiotics. During her stay in our intensive care unit (ICU), she had probable reaction of IV vitamin K with brief CPR. She recovered from that but currently she continues to have intermittent fever and in the last few days has had tachycardia. I reviewed her ECGs and in my opinion, there is no definite diagnosis of atrial fibrillation. I suspect that all her tachycardiac episodes were actually sinus tachycardia, even though I cannot reliably rule out that there was potential flutter or atrial tachycardia. She seems to be better from that regard but she is still hypoxic. She has bilateral interstitial infiltrates, which I suspect have a component of congestive heart failure, and I am also concerned about possibility of valvular malfunction. Even though she has been anticoagulated with Lovenox and she was without anticoagulation for a maximum 3 days, the auscultatory findings are suspicious. I am going to obtain an echocardiogram. Otherwise, the treatment from my perspective is unchanged. I had a long discussion with Dr. Pierson. At this point, unfortunately, she is still waiting for reinsertion of IT PORTFOLIO MANAGER shunt that has been jeopardized by intermittent infections with source not always being completely clear. She is managed by primary team and infectious disease service. GUDELIA
[2016-12-27] MEDS ORDERED: HEPARIN DRIP 25,000 UNITS in APPROPRIATE DILUENT 1 EA IV SCH (14:44)
[2016-12-27] MEDS ORDERED: HEPARIN SOD (PORCINE) 5000 UNITS/ML VIAL IV PRN (14:45)
--- NOTE | 2016-12-27 15:02 | ECHO ---
DATE OF PROCEDURE: 12/27/2016 INDICATION: Dyspnea, history of aortic, mitral valve mechanical replacement. REFERRING PHYSICIAN: Dr. Patel The patient measures 62 inches and weighs 114 pounds. DIMENSIONS: IVS: 1.0 LV: 4.5 LVPW: 1.2 LA: 4.5 Aorta: 3.4 Ascending aorta: 3.4 RV: 2.2 FINDINGS: The study is of fair technical quality. The patient is in sinus tachycardia during the study with heart rate around 110 beats per minute. Left ventricle is of normal size. There is a septal wall motion abnormality corresponding to underlying left bundle branch block. Overall, there is global hypokinesis of the left ventricle, and I estimate ejection fraction (EF) around 30-35%. Right ventricle appears at least mildly dilated. Both atria are probably severely enlarged. There is mechanical prosthesis in aortic position that was poorly visualized. There is a mechanical prosthesis in mitral position that was also poorly seen but the movement of the leaflet seems to be preserved based on limited views. Tricuspid and pulmonic valves appear normal. No pericardial effusion is noted. Inferior vena cava is dilated, and there is no appreciable collapse with respiration indicative of very high central venous pressure. Aortic root and aortic arch appear normal. Doppler interrogation of aortic valve reveals peak gradient 64 and mean gradient 36 mmHg. There is also at least mild to moderate aortic insufficiency with very eccentric aortic insufficiency jet. There is also increased gradient across the mitral valve with 32 mmHg being peak gradient and 11-12 mmHg mean gradient. No apparent insufficiency is seen but due to mechanical prosthetic valve, the visualization can be difficult. There is mild tricuspid insufficiency. Calculated pulmonary artery pressure is at least in high 50s corresponding to moderately severe pulmonary hypertension. Pulmonic valve exhibits mild insufficiency. Evaluation of diastolic function is inconclusive due to only single wave on mitral inflow likely due to underlying tachycardia. CONCLUSIONS: 1. Study is of acceptable technical quality. 2. Normal LV size with septal wall motion abnormality and overall severely reduced LV systolic function. 3. Increased gradient across aortic valve (mean gradient 36 mmHg) and mild to moderate aortic insufficiency. 4. Increased gradient across mitral valve (mean gradient 12, peak gradient 32 mmHg). 5. High central venous pressure. 6. At least moderately severe pulmonary hypertension. Compared to echocardiogram report from 11/27/2016, the mean gradient across the aortic valve increased from 13 to 36 mmHg. The mean gradient across the mitral valve increased from 9 to 12 mmHg. Also, the left ventricle ejection fraction was only mildly reduced on previous study. In conclusion, the findings are strongly suggestive of aortic and less likely also mitral valve thrombosis. COMMENT: Subacute bacterial endocarditis (SBE) prophylaxis is recommended. Findings of the study were discussed with Dr. Pierson, attending physician. The patient will be immediately started on IV heparin. I will contact cardiothoracic surgery in [facility] regarding possibility of transfer. Copy To: Dr. Pierson [facility] HOSPITALGeorgina
[2016-12-27 15:08] LABS: MEAN CORPUSCULAR HGB CONC 32.7 g/dl (32.0-36.5); RED CELL DISTRIBUTION WIDTH 15.5 % (11.5-14.5); WHITE BLOOD COUNT 8.3 K/mm3 (4.0-10.0)
[2016-12-27] MEDS: HEPARIN DRIP 25,000 UNITS in APPROPRIATE DILUENT 1 EA IV SCH (15:35)
--- NOTE | 2016-12-27 15:58 | IPN ---
DATE: 12/27/2016, at approximately 3:40 PM I met at bedside with the patient's , two sons and, I believe, [id number]. I explained that as a new finding, there is high suspicion for aortic valve thrombosis and possibly also mitral valve thrombosis. I explained that she is not a candidate for tissue plasminogen activator (TPA) due to history of intracranial hemorrhage. We will administer standard treatment with intravenous (IV) heparin. I explained that if this is not successful, usually the procedure of choice is re-do open heart surgery. Even before I had a time to express my opinion that the patient would not survive the surgery, her offered the same opinion realizing that her condition has been slowly declining and it is unlikely that she would survive similar undertaking. After brief discussion, we decided that we will keep the patient in [place]. I agree with his judgment and I certainly do not foresee that even under optimistic expectation, that she would be likely to survive re-do open heart surgery. Will start treatment with IV heparin and will hope for the best. I spoke about the plan with Dr. Pierson. GUDELIA
[2016-12-27] MEDS ORDERED: AMINO AC/ELECTROLYTE/DEX/CALC 2,000 ML IV SCH (18:00)
[2016-12-27] MEDS ORDERED: FAT EMULSION IV 20% 500 ML IV SCH (18:00)
[2016-12-27] MEDS: **NOTE PATIENT COMMENT** MISC XX SCH (21:00)
[2016-12-27] MEDS: ATORVASTATIN 20 MG TAB PO SCH (21:02)
[2016-12-27] MEDS: NORTRIPTYLINE 25 MG CAP PO SCH (21:02)
[2016-12-28] VITALS (10 sets, daily range): BP systolic 96–122; BP diastolic 50–63
[2016-12-28] MEDS: HumaLOG INSULIN (NovoLOG) PER UNIT SC SCH ×4 (00:24→17:38)
[2016-12-28] MEDS: PIPERACILLIN/TAZOBACTAM SOD 3.375 GM in D5W MINI-BAG PLUS 50 ML IV SCH ×4 (00:25→17:38)
[2016-12-28] MEDS: METOPROLOL TART 12.5 MG PER 1/2 TAB PO SCH ×4 (00:25→17:37)
[2016-12-28 04:46] LABS: MEAN CORPUSCULAR HEMOGLOBIN 31.7 pg (27.0-33.0); MEAN CORPUSCULAR HGB CONC 33.1 g/dl (32.0-36.5); MEAN CORPUSCULAR VOLUME 95.6 fl (80.0-96.0); RED CELL DISTRIBUTION WIDTH 15.4 % (11.5-14.5); WHITE BLOOD COUNT 10.3 K/mm3 (4.0-10.0)
[2016-12-28 04:51] LABS: INR 1.14
[2016-12-28 05:02] LABS: ANION GAP 8 MEQ/L (8-16); BLOOD UREA NITROGEN 42 MG/DL (7-18); CALCIUM LEVEL 9.2 MG/DL (8.8-10.2); CARBON DIOXIDE LEVEL 26 MEQ/L (21-32); CHLORIDE LEVEL 104 MEQ/L (98-107); CREATININE FOR GFR 0.72 MG/DL (0.55-1.02); GLOMERULAR FILTRATION RATE > 60.0 (>45); GLUCOSE, FASTING 198 MG/DL (80-110); POTASSIUM SERUM 4.4 MEQ/L (3.5-5.1); SODIUM LEVEL 138 MEQ/L (136-145)
[2016-12-28] MEDS: SODIUM CHLORIDE 0.9% INJ 10 ML SYR IV SCH ×2 (05:13→16:55)
[2016-12-28] MEDS: methylPREDNISolone INJ 40 MG/1 ML VIAL (J2920) IV SCH (05:13)
[2016-12-28] MEDS: PROMETHAZINE 25 MG TAB PO SCH ×2 (07:30→12:00)
[2016-12-28] MEDS: CHOLESTYRAMINE 4 GM PWD PKT PO SCH (08:54)
[2016-12-28] MEDS: FLUCONAZOLE 100 MG TAB PO SCH (08:54)
[2016-12-28] MEDS: LIDOCAINE 5% (LIDODERM) PATCH TD SCH (08:55)
[2016-12-28] MEDS: PANTOPRAZOLE 40MG TAB (PROTONIX) PO SCH (08:55)
[2016-12-28] MEDS: NYSTATIN 500,000 U/5 ML SUSP UDC PO SCH ×3 (08:55→17:37)
[2016-12-28] MEDS: levETIRAcetam 250MG TABLET (KEPPRA) PO SCH ×2 (08:55→21:22)
[2016-12-28] MEDS: VANCOMYCIN HCL 750 MG, VIAL MATE ADAPTER 1 EACH in D5W 250 ML IV SCH (09:05)
--- NOTE | 2016-12-28 11:26 | IPN ---
DATE: 12/28/2016 Mrs. Dubon had a relatively uneventful night. There was no fever. This morning, she is alert, and she can answer simple questions, which is a big change since yesterday. She has no specific complaints. Blood pressure 105/52, heart rate has been in 90s and low 100s. She is afebrile. Saturation is 95% on 3 liters of oxygen by nasal cannula. Fluid balance yesterday was documented positive but no output was recorded as such, weight is 51.2 kg. She is alert but only oriented times one. Her jugular venous pressure (JVP) does not look elevated. Lung exam reveals fair air movement with only rare crackles. I do not appreciate any wheezing. Heart: Exam reveals a regular rhythm. There is still systolic ejection murmur over the aortic valve, approximately 3/6 intensity radiating to her neck, but I already can appreciate some closing sounds of the valve, which is encouraging. I do not appreciate any diastolic murmur across the aortic region. The apical apex also reveals fairly audible metallic clicking sounds, which is encouraging as well. Abdomen is soft, nontender. There is no edema. Neurologically there is no change from yesterday other than the communications. LABORATORY DATA: WBC count 10.3, hemoglobin 9, hematocrit 27, platelet count 166,000. ESR is 54. Basic metabolic panel: Potassium 4.4, BUN 42, creatinine 0.7, glucose 198, PTT is 54, was 106 last night. ASSESSMENT AND PLAN: Mrs. Dubon is a 66-year-old female who has a history of aortic and mitral valve replacement with mechanical prosthesis many years ago. She presented originally with intracranial hemorrhage and had intraventricular shunt placed that eventually got infected and removed. She was transferred to our facility's rehab but continued to have intracranial infection with ventriculitis that has been treated with antibiotics. As a further complicated event, she had an episode of pulseless electrical activity requiring brief cardiopulmonary resuscitation on 11/27/2016 that likely was a consequence of intravenous (IV) administration of vitamin K. She got over that complication but now she was tachycardiac, and I suspect that most likely she has had thrombosis of the aortic valve and possibly even mitral valve even though I consider that less likely. The gradient across the valve increased markedly compared to a study 1 month ago, and there is no other alternative explanation. It is not likely that endocarditis of the valve would lead to similar findings. She was started on IV heparin yesterday after being on Lovenox for several weeks. I do foresee transition to Coumadin soon, but before we do so, I want to talk to Dr. Pierson, who is coordinating her care regarding further plans. If frequent lumbar punctures or the plan for ventriculoperitoneal (DOCK LOADER) shunt is in the near future, then I think we should hold off on starting Coumadin. But on the other hand, if neither one is planned, which I consider more likely, then transition can be started even tonight. Otherwise, she undoubtedly has high left ventricular filling pressure but does not seem to be in any distress, and I would focus on anticoagulation as a principal means of correcting this problem. Her blood pressure is too low to tolerate any angiotensin-converting enzyme (CHANO) inhibitors at this point.
--- NOTE | 2016-12-28 12:50 | IPNPDOC ---
Date Seen The patient was seen on 12/28/16. Progress Note SUBJECTIVE: Patient is awake today, she says good morning and answers yes or no questions. She declines to answer questions regarding orientation but is able to tell me that she is in no pain, and has no questions for me. OBJECTIVE PHYSICAL EXAMINATION: VITAL SIGNS: Please see below. GENERAL: Frail female appears older than stated age sitting in bed awake she does not appear to be in any acute distress. HEENT: Fairly pinpoint pupils her hirsutism, dry mucous membranes CARDIOVASCULAR: S1-S2 tachycardic. RESPIRATORY: Clear to auscultation. mildly tachypnic but less so than previous days ABDOMINAL: Soft nontender, BS + EXTREMITIES: Wasted LABORATORY DATA: Please see below. MICROBIOLOGY: Please see below. IMAGING: No new imaging Echocardiogram: 12/27/16 1. Study is of acceptable technical quality. 2. Normal LV size with septal wall motion abnormality and overall severely reduced LV systolic function. 3. Increased It varies gradient across aortic valve (mean gradient 36 mmHg) in mild to moderate insufficiency. 4. Increased gradient across mitral valve (mean gradient 12, peak gradient 32 mmHg). 5. High central venous pressure. 6. At least moderately severe pulmonary hypertension. Compared to echocardiogram report from 11/27/2016, the mean gradient across the aortic valve increased from 13 to 36 mmHg. The mean gradient across the mitral valve increased from 9 to 12 mmHg. Also, the left ventricle ejection fraction was only mildly reduced on previous study. Previous EF estimated to be 50% Duplex RUE: No evidence for deep venous thrombosis. CXR 12/27/16: Right lower lobe infiltrate DVT prophylaxis ordered?: Therapeutic heparin gtt ASSESSMENT AND PLAN: This is a 66-year-old female with cerebral ventriculitis and hydrocephalus who has had a complicated hospital course. PROBLEMS: 1. Aortic valve thrombus: Dr. Patel's help is greatly appreciated she has been transitioned from therapeutic Lovenox to IV heparin. Several days ago there was concern overnight she may have had a GI bleed with a drop of her hemoglobin and her INR was reversed during that time. Her H&H remained stable following 2 units transfusion and a lumbar puncture was taken off anticoagulation was reversed. However since then the patient's heart rate has been elevated in it. She is having some decompensated heart failure. Dr. Patel was able to diagnose her new aortic valve thrombus by echo yesterday and we have transitioned her from therapeutic Lovenox dosing to a heparin drip she appears to be doing better today. We will recheck an echocardiogram likely a week to reassess the degree of her thrombus. A lengthy discussion with Patdolores regarding anticoagulation with subsequent necessity at this time however those recently concern for GI bleeding she also did have recent intracranial hemorrhage she is at high risk for bleeding patient and family are aware of this. 2. Congestive heart failure patient is status post mechanical mitral and aortic valve replacements her previous echocardiogram demonstrated an ejection fraction of approximately 50% however an echocardiogram conducted yesterday reveals an EF of closer to 35% she has received intermittent diuresis over the last several days she does appear to be more comfortable at this time. She is continued on a beta samantha she is not requiring statin her blood pressure is too low to attempt an CHANO inhibitor in cardiology's help is greatly appreciated. 3. Aspiration pneumonia: The patient is being treated with Zosyn she does appear to be improving she is now afebrile we'll believe this was source of her fever she remains on vancomycin for possible PICC line infection however 1 of 2 culture bottles from the grew Propionibacterium no evidence of MRSA and as such I'll discontinue vancomycin, repeat cultures have been negative she remained hemodynamically stable and improved will defer to infectious disease if they still feel her PICC line needs to be replaced this time I see no emergent indication for this. 4. Urinary tract infection: Once again infectious disease help is greatly appreciated she remains on Zosyn and fluconazole for catheter related infection cath has been discontinued she is not afebrile we'll continue to follow infectious disease recommendations 5. Intracranial hemorrhage and CVA: Patient was status post shunt placement at [facility] 2 months ago however the shunt was infected she completed course of IV antibiotics for cerebral ventriculitis she did have residual deficits and as such [facility] where she was very briefly there before being readmitted for worsening hydrocephalus. She has had a repeat LP following completion of her antibiotics which revealed an opening pressure of 18 and was reviewed by infectious disease who did not feel there was any residual infection remaining. She is a candidate for shunt once again to treat her hydrocephalus, however at this time she is on therapeutic anticoagulation related to her aortic valve thrombus given that she is symptomatically improving at this time would also hold off on any shunt placement or interruption of anticoagulation. Neurosurgery for the time being his signed off on the case to be reconsult did the patient is medically stable for shunt placement and able to be off anticoagulation if in fact she still needs one at the point. 6. Moderate protein calorie malnutrition: There is certainly concern for aspiration feels so the patient half her speech reevaluated in the coming days the time being she is nothing by mouth. Today is day 8 of TPN. I suspect she would benefit from a PEG tube as despite TPN her nutritional status appears to be deteriorating slowly under lengthy discussion with the family who were in agreement we will wait until repeat echocardiogram didn't demonstrate improvement or clot before attempting to hold anticoagulation very briefly for placement of a PEG tube initiation of tube feeds. 7. Colitis: Unclear if this is truly ischemic, it does not appear to be infectious or seated GI PCR panel so been negative Dr. Mcneal of general surgery has seen the patient and as stated that a colonoscopy would be diagnostic and help us letting severity however given her fragile state and the fact would not change her management this foregone. Her diarrhea at this time has resolved with Imodium we will simply continue to monitor 8. Metabolic encephalopathy: Likely multifactorial in nature, the patient doesn' t hydrocephalus which is an etiology she is also been suffering from sepsis related to aspiration pneumonia versus UTI, she is also been decompensated heart failure. Her mental status with waxes and wanes appears to be doing better today. 9 depression: The patient had expressed depressive mood really understand she was started on Pamelor 10. Coronary artery disease: The patient is on a beta samantha and a statin she is not on aspirin at this time she is anticoagulated with a heparin drip. 11. Hyperthyroidism: The patient has suffered from significant hypothyroidism her methimazole dose adjusted numerous times during the stay and most recently rechecked her thyroid function earlier this week but did show some signs of improvement and as such we'll continue with her current dose 12. Anemia: May be related to intracranial hemorrhage versus ischemic colitis versus mild GI bleed. The patient did have an occult stool for blood that was positive several days ago and although her H&H only very mildly dipped her INR was reversed and she did receive 2 units of PRBCs of which she has remained stable since and has been tolerating anticoagulation since no evidence of ongoing bleeding however the family is whether her fragile state this is certainly at risk at any time to encounter bleeding and use the brain or the gastrointestinal tract 13. Hypertension: The patient was previously on CHANO inhibitor and Norvasc both of these were stopped and she was quite hypotensive as her blood pressure hopefully improves could consider reinitiating of CHANO inhibitor therapy given her low ejection fraction. 14. Paroxysmal fibrillation: This is a new diagnosis during last 2 months at the present time she appears to be in sinus tachycardia without atrial fibrillation she is on metoprolol and she is on Coumadin 15. PEA: The patient did have an episode of pulseless electrical activity following IV ministration of vitamin K she does not have any episodes of recurrence this is documented as an allergy 16. Hypoxia: Likely secondary to aspiration, will wean O2 back she does appear to be improving at this time and c/w NPO/Abx and monitor closely. DISPOSITION: Given the multitude of her problems and complexity of her stay thus far her clinical status is quite poor. I did hold a family conference with the patient's daughters and extended family today at medical intensive care unit I did outline that there is no plan for any potential dispositioning the near future and that despite being in the hospital for 2 months she does not appear to be doing significantly better and still has the information to problems which were outlined at length. All questions were answered to satisfaction and family. I did discuss DO NOT RESUSCITATE DO NOT INTUBATE at this time the family wished declined this and I also did discuss comfort measures only and hospice was a do not feel they're ready to explore any further at this time. I did express to them the fragility of the patient's current state and the likelihood that she may not survive this hospitalization and that her condition at this time contingent on hour to hour changes. VS, I&O, [facility] Vital Signs/I&O Vital Signs Date Time Temp Pulse Resp B/P (MAP) Pulse Ox O2 Delivery O2 Flow Rate FiO2 12/28/16 08:00 98.1 105 24 105/54 (71) 95 Nasal Cannula 3.0 12/27/16 08:00 40 I&O- Last 24 Hours up to 6 AM 12/28/16 05:59 Intake Total 3218 ml Balance 3218 ml Laboratory Data 24H LABS Laboratory Tests 2 12/27/16 15:02: Activated Partial Thromboplast Time 53.4H 12/27/16 18:23: Bedside Glucose (Misc Panel) 205H 12/27/16 21:22: Activated Partial Thromboplast Time 96.3H 12/28/16 00:17: Bedside Glucose (Misc Panel) 199H 12/28/16 04:05: Erythrocyte Sedimentation Rate 54H, Prothrombin Time 14.8H, Prothromb Time International Ratio 1.14, Activated Partial Thromboplast Time 106.5H, Anion Gap 8, Glomerular Filtration Rate > 60.0, Blood Urea Nitrogen 42H, Creatinine 0.72, Sodium Level 138, Potassium Level 4.4, Chloride Level 104, Carbon Dioxide Level 26, Calcium Level 9.2, C-Reactive Protein, Quantitative 8.24H 12/28/16 05:04: Bedside Glucose (Misc Panel) 203H 12/28/16 06:39: Vancomycin Level Trough 17.0 12/28/16 10:02: Activated Partial Thromboplast Time 54.2H CBC/BMP Laboratory Tests 12/27/16 15:02 Red Blood Count 2.88 L, Mean Corpuscular Volume 95.0, Mean Corpuscular Hemoglobin 31.0, Mean Corpuscular Hemoglobin Concent 32.7, Red Cell Distribution Width 15.5 H 12/28/16 04:05 Red Blood Count 2.84 L, Mean Corpuscular Volume 95.6, Mean Corpuscular Hemoglobin 31.7, Mean Corpuscular Hemoglobin Concent 33.1, Red Cell Distribution Width 15.4 H, Calcium Level 9.2 Microbiology Microbiology 12/26/16 Blood Culture - Preliminary, Resulted No Growth after 48 hours. All Specime... 12/26/16 Blood Culture - Preliminary, Resulted No Growth after 48 hours. All Specime... 12/21/16 Blood Culture - Final, Complete NO GROWTH AFTER 5 DAYS 12/21/16 Blood Culture - Final, Complete Propionibacterium Acnes 12/24/16 Gram Stain - Final, Complete 12/24/16 CSF Culture - Final, Complete 12/25/16 Clostridium difficile (PCR) - Final, Complete 12/21/16 Gastrointestinal Tract Panel (PCR) - Final, Complete 12/21/16 Stool Occult Blood (PAPI) - Final, Complete 12/21/16 Urine Culture - Final, Complete Klebsiella Pneumoniae Morganella Morganii [facility] Carlos Alberto Citrobacter Freundii Yeast Like Organism ALIZA GARCIA MD Dec 28, 2016 12:50
[2016-12-28] MEDS ORDERED: FAT EMULSION IV 20% 500 ML IV SCH (18:00)
[2016-12-28] MEDS ORDERED: AMINO AC/ELECTROLYTE/DEX/CALC 2,000 ML IV SCH (18:00)
[2016-12-28] MEDS: HEPARIN DRIP 25,000 UNITS in APPROPRIATE DILUENT 1 EA IV SCH (18:34)
[2016-12-28] MEDS: **NOTE PATIENT COMMENT** MISC XX SCH (21:00)
[2016-12-28] MEDS: ATORVASTATIN 20 MG TAB PO SCH (21:21)
[2016-12-28] MEDS: NORTRIPTYLINE 25 MG CAP PO SCH (21:22)
[2016-12-29] VITALS (10 sets, daily range): BP systolic 113–130; BP diastolic 55–67
[2016-12-29] MEDS: METOPROLOL TART 12.5 MG PER 1/2 TAB PO SCH ×5 (00:16→23:36)
[2016-12-29] MEDS: HumaLOG INSULIN (NovoLOG) PER UNIT SC SCH ×5 (00:17→23:40)
[2016-12-29] MEDS: PIPERACILLIN/TAZOBACTAM SOD 3.375 GM in D5W MINI-BAG PLUS 50 ML IV SCH ×5 (00:18→23:36)
[2016-12-29 04:38] LABS: MEAN CORPUSCULAR HEMOGLOBIN 31.2 pg (27.0-33.0); MEAN CORPUSCULAR HGB CONC 32.1 g/dl (32.0-36.5); RED CELL DISTRIBUTION WIDTH 15.4 % (11.5-14.5); WHITE BLOOD COUNT 12.3 K/mm3 (4.0-10.0)
[2016-12-29 04:49] LABS: INR 1.08
[2016-12-29 05:06] LABS: ALBUMIN 2.3 GM/DL (3.2-5.2); ALBUMIN/GLOBULIN RATIO 0.61 (1.00-1.93); ALKALINE PHOSPHATASE 66 U/L (45-117); ALT/SGPT 29 U/L (12-78); ANION GAP 5 MEQ/L (8-16); AST/SGOT 32 U/L (15-37); BILIRUBIN,TOTAL 0.4 MG/DL (0.2-1.0); BLOOD UREA NITROGEN 49 MG/DL (7-18); CALCIUM LEVEL 9.1 MG/DL (8.8-10.2); CARBON DIOXIDE LEVEL 28 MEQ/L (21-32); CHLORIDE LEVEL 103 MEQ/L (98-107); CREATININE FOR GFR 0.73 MG/DL (0.55-1.02); GLOMERULAR FILTRATION RATE > 60.0 (>45); GLUCOSE, FASTING 146 MG/DL (80-110); POTASSIUM SERUM 4.3 MEQ/L (3.5-5.1); SODIUM LEVEL 136 MEQ/L (136-145); TOTAL PROTEIN 6.1 GM/DL (6.4-8.2)
[2016-12-29] MEDS: SODIUM CHLORIDE 0.9% INJ 10 ML SYR IV SCH ×2 (05:46→18:00)
--- NOTE | 2016-12-29 07:47 | IPN ---
DATE: 12/29/2016 Mrs. Dubon remains about the same. Unfortunately, she is not communicative this morning in verbal status but she nodes and it appears appropriate. She denies any chest pain or shortness of breath. Blood pressure 117/62, heart rate has been in 90s. She is afebrile. Saturation 96% on 2 liters of oxygen by nasal cannula. Fluid balance yesterday was documented as positive but the output has not been properly recorded. Weight is 53.1 kg. She is alert, it is difficult to say whether she is oriented although she nods appropriately to questions yes or no. Her JVP does not look high. Lungs are reasonably clear to auscultation even though there are some fine crackles mostly over the right base and I do not appreciate any wheezing. Heart exam reveals regular tachycardia. There is still about 3/6 intensity systolic ejection murmur over the aortic valve but I can clearly see the metallic closing sound and same applies for mitral valve, which the metallic sounds are audible. Abdomen is soft, nontender. There is no peripheral edema. Neurologically she has a right-sided weakness and the mental status as per HPI. LABORATORY: Hemoglobin 829, hematocrit 27.8, platelet count 179,000, WBC count is 12.3. Basic metabolic panel potassium 4.3, BUN 49, creatinine 0.7, glucose 146, albumin is 2.3. PTT is 56.2 this morning. ASSESSMENT/PLAN: Mrs. Dubon is a very complicated patient. She virtually presented with intracranial hemorrhage that required placement of ventricular stomach tube that eventually got infected. She then had prolonged hospitalization for fevers of unclear etiology for the most part, even though ventriculitis was the initial problem. Currently, I suspect that she has almost certainly thrombosis of the aortic prosthesis because her gradient increased markedly compared to a month ago without any other cause. She has been started on IV heparin and I intend to transition her to oral Coumadin provided no immediate procedures are planned. Her prognosis certainly remains guarded. If the gradient does not improve within a week or so, then we will have to have discussion whether she would be a surgical candidate. But my impression has been that it is extremely unlikely due to her overall condition, the surgical mortality in my opinion would be prohibitively high. INDICATION
[2016-12-29] MEDS: levETIRAcetam 250MG TABLET (KEPPRA) PO SCH ×2 (08:18→21:40)
[2016-12-29] MEDS: FLUCONAZOLE 100 MG TAB PO SCH (08:18)
[2016-12-29] MEDS: PANTOPRAZOLE 40MG TAB (PROTONIX) PO SCH (08:18)
[2016-12-29] MEDS: LIDOCAINE 5% (LIDODERM) PATCH TD SCH (08:19)
[2016-12-29] MEDS: HEPARIN DRIP 25,000 UNITS in APPROPRIATE DILUENT 1 EA IV SCH (11:31)
--- NOTE | 2016-12-29 11:40 | IPNPDOC ---
Date Seen The patient was seen on 12/29/16. Progress Note SUBJECTIVE: Patient is awake, she turns to look at me as I enter the room and she briefly smiles. She says good morning and tells me that she is feeling better. She denies any pain, and has no complaints. OBJECTIVE PHYSICAL EXAMINATION: VITAL SIGNS: Please see below. GENERAL: Frail female appears older than stated age sitting in bed awake she does not appear to be in any acute distress. HEENT: Fairly pinpoint pupils her hirsutism, dry mucous membranes CARDIOVASCULAR: S1-S2 tachycardic, more audible mechanical sounds. RESPIRATORY: Clear to auscultation. mildly tachypnic but less so than previous days ABDOMINAL: Soft nontender, BS + EXTREMITIES: Wasted LABORATORY DATA: Please see below. MICROBIOLOGY: Please see below. IMAGING: No new imaging Echocardiogram: 12/27/16 1. Study is of acceptable technical quality. 2. Normal LV size with septal wall motion abnormality and overall severely reduced LV systolic function. 3. Increased It varies gradient across aortic valve (mean gradient 36 mmHg) in mild to moderate insufficiency. 4. Increased gradient across mitral valve (mean gradient 12, peak gradient 32 mmHg). 5. High central venous pressure. 6. At least moderately severe pulmonary hypertension. Compared to echocardiogram report from 11/27/2016, the mean gradient across the aortic valve increased from 13 to 36 mmHg. The mean gradient across the mitral valve increased from 9 to 12 mmHg. Also, the left ventricle ejection fraction was only mildly reduced on previous study. Previous EF estimated to be 50% Duplex RUE: No evidence for deep venous thrombosis. CXR 12/27/16: Right lower lobe infiltrate DVT prophylaxis ordered?: Therapeutic heparin gtt ASSESSMENT AND PLAN: This is a 66-year-old female with cerebral ventriculitis and hydrocephalus who has had a complicated hospital course. PROBLEMS: 1. Aortic valve thrombus: Dr. Patel's help is greatly appreciated she has been transitioned from therapeutic Lovenox to IV heparin andhas improved hemodynamics , both BP and less tachycardic today.Several days ago there was concern overnight she may have had a GI bleed with a drop of her hemoglobin and her INR was reversed during that time. Her H&H remained stable following 2 units transfusion and a lumbar puncture was taken off anticoagulation was reversed. We will recheck an echocardiogram likely one week from her last to assess gradient and see if improved or if cardiac surgery need be pursued if she is even a candidate which I feel she is likely not.. A lengthy discussion was had with the patient. her and extended family regarding anticoagulation its necessity at this time however also her significant risk for GI bleeding and also she did have recent intracranial hemorrhage as such she is at high risk for bleeding. patient and family are aware of this. 2. Congestive heart failure patient is status post mechanical mitral and aortic valve replacements her previous echocardiogram demonstrated an ejection fraction of approximately 50% however an echocardiogram conducted more recently reveals an EF of closer to 35% she has received intermittent diuresis over the last several days she does appear to be more comfortable at this time. She is continued on a beta samantha she is not requiring statin her blood pressure is too low to attempt an CHANO inhibitor in cardiology's help is greatly appreciated. 3. Aspiration pneumonia: The patient is being treated with Zosyn day 3 she does appear to be improving she is now afebrile. I believe this was source of her fever she was previously on vancomycin for possible PICC line infection however 1 of 2 culture bottles from the grew Propionibacterium no evidence of MRSA and as such I did discontinue vancomycin, repeat cultures have been negative she remained hemodynamically stable and improved will defer to infectious disease if they still feel her PICC line needs to be replaced this time I see no emergent indication for this. 4. Urinary tract infection: Once again infectious disease help is greatly appreciated she remains on Zosyn and fluconazole for catheter related infection cath has been discontinued she is now afebrile we'll continue to follow infectious disease recommendations. 5. Intracranial hemorrhage and CVA: Patient was status post shunt placement at [facility] 2 months ago however the shunt was infected she completed course of IV antibiotics for cerebral ventriculitis she did have residual deficits and as such was discharged to our PMNR floor where she was very briefly there before being readmitted for worsening hydrocephalus. She has had a repeat LP following completion of her antibiotics which revealed an opening pressure of 18 and was reviewed by infectious disease who did not feel there was any residual infection remaining. She is a candidate for shunt once again to treat her hydrocephalus, I will discuss further with neurosurgery if they feel this is still indicated. If so we can consider completing it after her repeat echo potentially, if it is not needed then she can likely start coumadin sooner rather than later for her cardiac valves and thrombus. 6. Moderate protein calorie malnutrition: There is certainly concern for aspiration, she was more lethargic in previous days and was made NPO and currently on Abx for aspiration and her hypoxia has improved. She is more awake and conversant yesterday and so we will check a swallow eval. If she is able to return to pureed diet or take PO at all that is preferred. If she can not then we will consider PEG tube placement prior to starting coumadin. Either way for the time being she continues TPN Today is day 9. 7. Colitis: Unclear if this is truly ischemic, it does not appear to be infectious, GI PCR panel has been negative Dr. Mcneal of general surgery has seen the patient and has stated that a colonoscopy would be diagnostic and help us letting severity however given her fragile state and the fact would not change her management at this time it has been foregone. Her diarrhea at this time has resolved with Imodium we will simply continue to monitor. 8. Metabolic encephalopathy: Likely multifactorial in nature, the patient does have hydrocephalus which is an etiology she is also been suffering from sepsis related to aspiration pneumonia versus UTI, she has also been decompensated heart failure related to aortic valve thrombus, unfortunately all at the same time. Her mental status with waxes and wanes but appears to be doing better in recent days. 9 depression: The patient had expressed depressive mood earlier during her stay , she was started on Pamelor 10. Coronary artery disease: The patient is on a beta samantha and a statin she is not on aspirin at this time, she is anticoagulated with a heparin drip. 11. Hyperthyroidism: The patient has suffered from significant hyperthyroidism her methimazole dose has been adjusted numerous times during the stay and most recently rechecked her thyroid function earlier this week and it did show some signs of improvement and as such we'll continue with her current dose 12. Anemia: May be related to intracranial hemorrhage versus ischemic colitis versus mild GI bleed. The patient did have an occult stool for blood that was positive several days ago and although her H&H only very mildly dipped her INR was reversed and she did receive 2 units of PRBCs of which she has remained stable since and has been tolerating anticoagulation since no evidence of ongoing bleeding however the family is aware of her fragile state this is certainly a risk at any time. 13. Hypertension: The patient was previously on CHANO inhibitor and Norvasc both of these were stopped and she was quite hypotensive, as her blood pressure hopefully improves could consider reinitiating of CHANO inhibitor therapy given her low ejection fraction. 14. Paroxysmal fibrillation: This is a new diagnosis during last 2 months at the present time she appears to be in sinus tachycardia without atrial fibrillation she is on metoprolol and she is on heparin gtt. 15. PEA: The patient did have an episode of pulseless electrical activity following IV ministration of vitamin K she does not have any episodes of recurrence this is documented as an allergy 16. Hypoxia: Likely secondary to aspiration, will wean O2 back she does appear to be improving at this time and c/w NPO/Abx and monitor closely. DISPOSITION: Given the multitude of her problems and complexity of her stay thus far her clinical status is quite poor, her huband and family are aware of this, the patient still requires significant inpatient attention, no near disposition in site. She is stable for downgrade to PCU status today and we will once again begin PT VS, I&O, 24H, Fishbone Vital Signs/I&O Vital Signs Date Time Temp Pulse Resp B/P (MAP) Pulse Ox O2 Delivery O2 Flow Rate FiO2 12/29/16 10:00 90 18 119/61 (80) 96 Nasal Cannula 2.0 12/29/16 08:00 97.4 12/27/16 08:00 40 I&O- Last 24 Hours up to 6 AM 12/29/16 05:59 Intake Total 2513 ml Balance 2513 ml Laboratory Data 24H LABS Laboratory Tests 2 12/28/16 12:15: Bedside Glucose (Misc Panel) 200H 12/28/16 16:19: Activated Partial Thromboplast Time 65.5H 12/28/16 16:53: Bedside Glucose (Misc Panel) 168H 12/28/16 22:04: Activated Partial Thromboplast Time 67.3H 12/29/16 00:05: Bedside Glucose (Misc Panel) 171H 12/29/16 04:08: Prothrombin Time 14.2, Prothromb Time International Ratio 1.08, Activated Partial Thromboplast Time 56.2H, Anion Gap 5L, Glomerular Filtration Rate > 60.0 , Blood Urea Nitrogen 49H, Creatinine 0.73, Sodium Level 136, Potassium Level 4.3, Chloride Level 103, Carbon Dioxide Level 28, Calcium Level 9.1, Aspartate Amino Transf (AST/SGOT) 32, Alanine Aminotransferase (ALT/SGPT) 29, Alkaline Phosphatase 66, Total Bilirubin 0.4, Total Protein 6.1L, Albumin 2.3L, Albumin/ Globulin Ratio 0.61L 12/29/16 05:42: Bedside Glucose (Misc Panel) 150H 12/29/16 09:59: Activated Partial Thromboplast Time 63.4H, Prealbumin 28.8 CBC/BMP Laboratory Tests 12/29/16 04:08 Red Blood Count 2.86 L, Mean Corpuscular Volume 97.0 H, Mean Corpuscular Hemoglobin 31.2, Mean Corpuscular Hemoglobin Concent 32.1, Red Cell Distribution Width 15.4 H, Calcium Level 9.1, Aspartate Amino Transf (AST/SGOT) 32, Alanine Aminotransferase (ALT/SGPT) 29, Alkaline Phosphatase 66, Total Bilirubin 0.4, Total Protein 6.1 L, Albumin 2.3 L Microbiology Microbiology 12/26/16 Blood Culture - Preliminary, Resulted No Growth after 72 hours. All specime... 12/26/16 Blood Culture - Preliminary, Resulted No Growth after 72 hours. All specime... 12/21/16 Blood Culture - Final, Complete NO GROWTH AFTER 5 DAYS 12/21/16 Blood Culture - Final, Complete Propionibacterium Acnes 12/24/16 Gram Stain - Final, Complete 12/24/16 CSF Culture - Final, Complete 12/25/16 Clostridium difficile (PCR) - Final, Complete 12/21/16 Gastrointestinal Tract Panel (PCR) - Final, Complete 12/21/16 Stool Occult Blood (PAPI) - Final, Complete 12/21/16 Urine Culture - Final, Complete Klebsiella Pneumoniae Morganella Morganii Ssp Carlos Alberto Citrobacter Freundii Yeast Like Organism ALIZA GARCIA MD Dec 29, 2016 11:40
[2016-12-29] MEDS ORDERED: MULTIVITAMIN -ADULT INJECTION 10 ML, CR/CU/SE/MN/ZN INJ 1 ML in AMINO AC/ELECTROLYTE/DE... IV SCH (18:00)
[2016-12-29] MEDS ORDERED: FAT EMULSION IV 20% 500 ML IV SCH (18:00)
[2016-12-29] MEDS: ATORVASTATIN 20 MG TAB PO SCH (21:39)
[2016-12-29] MEDS: NORTRIPTYLINE 25 MG CAP PO SCH (21:40)
[2016-12-29] MEDS: **NOTE PATIENT COMMENT** MISC XX SCH (21:40)
[2016-12-30] MEDS: HEPARIN DRIP 25,000 UNITS in APPROPRIATE DILUENT 1 EA IV SCH (03:31)
[2016-12-30 04:00] VITALS: BP 139/72
[2016-12-30 05:50] LABS: MEAN CORPUSCULAR HEMOGLOBIN 31.1 pg (27.0-33.0); MEAN CORPUSCULAR HGB CONC 32.5 g/dl (32.0-36.5); MEAN CORPUSCULAR VOLUME 95.6 fl (80.0-96.0); RED CELL DISTRIBUTION WIDTH 15.2 % (11.5-14.5); WHITE BLOOD COUNT 12.9 K/mm3 (4.0-10.0)
[2016-12-30 06:01] LABS: ANION GAP 9 MEQ/L (8-16); BLOOD UREA NITROGEN 44 MG/DL (7-18); CALCIUM LEVEL 8.5 MG/DL (8.8-10.2); CARBON DIOXIDE LEVEL 25 MEQ/L (21-32); CHLORIDE LEVEL 103 MEQ/L (98-107); CREATININE FOR GFR 0.69 MG/DL (0.55-1.02); GLOMERULAR FILTRATION RATE > 60.0 (>45); GLUCOSE, FASTING 123 MG/DL (80-110); POTASSIUM SERUM 4.5 MEQ/L (3.5-5.1); SODIUM LEVEL 137 MEQ/L (136-145)
[2016-12-30 06:13] VITALS: BP 134/76
[2016-12-30] MEDS: SODIUM CHLORIDE 0.9% INJ 10 ML SYR IV SCH ×2 (06:14→18:01)
[2016-12-30] MEDS: METOPROLOL TART 12.5 MG PER 1/2 TAB PO SCH ×3 (06:14→18:00)
[2016-12-30] MEDS: HumaLOG INSULIN (NovoLOG) PER UNIT SC SCH ×3 (06:14→18:00)
[2016-12-30] MEDS: PIPERACILLIN/TAZOBACTAM SOD 3.375 GM in D5W MINI-BAG PLUS 50 ML IV SCH ×3 (06:15→18:01)
[2016-12-30 07:00] VITALS: BP 139/67
[2016-12-30] MEDS: FLUCONAZOLE 100 MG TAB PO SCH (09:55)
[2016-12-30] MEDS: PANTOPRAZOLE 40MG TAB (PROTONIX) PO SCH (09:55)
[2016-12-30] MEDS: LIDOCAINE 5% (LIDODERM) PATCH TD SCH (09:55)
[2016-12-30] MEDS: levETIRAcetam 250MG TABLET (KEPPRA) PO SCH ×2 (09:55→21:36)
[2016-12-30 12:00] VITALS: BP 134/83
--- NOTE | 2016-12-30 12:33 | IPNPDOC ---
Date Seen The patient was seen on 12/30/16. Progress Note SUBJECTIVE: Patient is awake, she greets me as I enter the room. She tells me that she is feeling better. She denies any pain, and has no complaints. She informs me she does not have any questions. OBJECTIVE PHYSICAL EXAMINATION: VITAL SIGNS: Please see below. GENERAL: Frail female appears older than stated age sitting in bed awake she does not appear to be in any acute distress. HEENT: Pupils equally round and reactive to light, hirsutism, dry mucous membranes CARDIOVASCULAR: S1-S2 tachycardic, more audible mechanical sounds. RESPIRATORY: Clear to auscultation. mildly tachypnic but less so than previous days ABDOMINAL: Soft nontender, BS + EXTREMITIES: Wasted LABORATORY DATA: Please see below. MICROBIOLOGY: Please see below. IMAGING: Echocardiogram: 12/27/16 1. Study is of acceptable technical quality. 2. Normal LV size with septal wall motion abnormality and overall severely reduced LV systolic function. 3. Increased It varies gradient across aortic valve (mean gradient 36 mmHg) in mild to moderate insufficiency. 4. Increased gradient across mitral valve (mean gradient 12, peak gradient 32 mmHg). 5. High central venous pressure. 6. At least moderately severe pulmonary hypertension. Compared to echocardiogram report from 11/27/2016, the mean gradient across the aortic valve increased from 13 to 36 mmHg. The mean gradient across the mitral valve increased from 9 to 12 mmHg. Also, the left ventricle ejection fraction was only mildly reduced on previous study. Previous EF estimated to be 50% Duplex RUE: No evidence for deep venous thrombosis. CXR 12/27/16: Right lower lobe infiltrate DVT prophylaxis ordered?: Therapeutic heparin gtt ASSESSMENT AND PLAN: This is a 66-year-old female with hydrocephalus who has had a complicated hospital course. PROBLEMS: 1. Aortic valve thrombus: Dr. Patel's help is greatly appreciated she has been transitioned from therapeutic Lovenox to IV heparin and has improved hemodynamics, she is no longer hypotensive and she is less tachycardic. Several days ago there was concern overnight she may have had a GI bleed with a subtle drop of her hemoglobin and her INR was reversed during that time. Her H&H remained stable following 2 units transfusion and a lumbar puncture was taken off anticoagulation before anticoagulation was quickly restarted. We will recheck an echocardiogram likely one week from her last to reassess gradient and see if improved or if cardiac surgery need be pursued if she is even a candidate which I feel she is likely not.. A lengthy discussion was had with the patient. her and extended family regarding anticoagulation its necessity at this time however also her significant risk for GI bleeding and also she did have recent intracranial hemorrhage as such she is at high risk for bleeding. patient and family are aware of this. 2. Congestive heart failure patient is status post mechanical mitral and aortic valve replacements her previous echocardiogram demonstrated an ejection fraction of approximately 50% however an echocardiogram conducted more recently reveals an EF of closer to 35% she has received intermittent diuresis over the last several days she does appear to be more comfortable at this time. She is continued on a beta samantha she is not requiring diuretic at this time, as her blood pressure improves could consider initiation of an CHANO inhibitor, cardiology's help is greatly appreciated. 3. Aspiration pneumonia: The patient is being treated with Zosyn and does appear to be improving, she is now afebrile. I believe this was source of her fever, she was previously on vancomycin for possible PICC line infection however 1 of 2 culture bottles from the grew Propionibacterium no evidence of MRSA and as such I did discontinue vancomycin, repeat cultures have been negative she remained hemodynamically stable and improved, will defer to infectious disease if they still feel her PICC line needs to be replaced this time I see no emergent indication for this. 4. Urinary tract infection: Once again infectious disease help is greatly appreciated she remains on Zosyn and fluconazole for catheter related infection cath has been discontinued she is now afebrile we'll continue to follow infectious disease recommendations. 5. Intracranial hemorrhage and CVA: Patient was status post shunt placement at [facility] 2 months ago however the shunt was infected she completed course of IV antibiotics for cerebral ventriculitis she did have residual deficits and as such was discharged to our PMNR floor where she was very briefly there before being readmitted for worsening hydrocephalus. She has had a repeat LP following completion of her antibiotics which revealed an opening pressure of 18 and was reviewed by infectious disease who did not feel there was any residual infection remaining. I did discuss the case with [facility], they are aware of her recent LP, and although her pressure if lower she still has significant hydrocephalus and they feel she would have some benefit from shunt placement. This is complicated by the need to stop anticoagulation 6 hours prior to procedure and then restart 72 hours afterward. Given her present aortic clot I do not think this can be attempted in the near future, but will defer to cardiology for when they will be ok to attempt this risky endeavor. 6. Moderate protein calorie malnutrition: Her swallow has been re-evaluated and she has been restarted on diet, her cognition is improved. She is on TPN and her pre-albumin has improved. 7. Colitis: Unclear if this is truly ischemic, it does not appear to be infectious, GI PCR panel has been negative Dr. Mcneal of general surgery has seen the patient and has stated that a colonoscopy would be diagnostic and help us letting severity however given her fragile state and the fact would not change her management at this time it has been foregone. Her diarrhea at this time has resolved with Imodium we will simply continue to monitor. 8. Metabolic encephalopathy: Likely multifactorial in nature, the patient does have hydrocephalus which is an etiology she is also been suffering from sepsis related to aspiration pneumonia versus UTI, she has also been decompensated heart failure related to aortic valve thrombus, unfortunately all at the same time. Her mental status with waxes and wanes but appears to be doing better in recent days. 9 depression: The patient had expressed depressive mood earlier during her stay , she was started on Pamelor 10. Coronary artery disease: The patient is on a beta samantha and a statin she is not on aspirin at this time, she is anticoagulated with a heparin drip. 11. Hyperthyroidism: The patient has suffered from significant hyperthyroidism her methimazole dose has been adjusted numerous times during the stay and most recently rechecked her thyroid function earlier this week and it did show some signs of improvement and as such we'll continue with her current dose 12. Anemia: May be related to intracranial hemorrhage versus ischemic colitis versus mild GI bleed. The patient did have an occult stool for blood that was positive several days ago and although her H&H only very mildly dipped her INR was reversed and she did receive 2 units of PRBCs of which she has remained stable since and has been tolerating anticoagulation since no evidence of ongoing bleeding however the family is aware of her fragile state this is certainly a risk at any time. 13. Hypertension: The patient was previously on CHANO inhibitor and Norvasc both of these were stopped and she was quite hypotensive, as her blood pressure hopefully improves could consider reinitiating of CHANO inhibitor therapy given her low ejection fraction. 14. Paroxysmal fibrillation: This is a new diagnosis during last 2 months at the present time she appears to be in sinus tachycardia without atrial fibrillation she is on metoprolol and she is on heparin gtt. 15. PEA: The patient did have an episode of pulseless electrical activity following IV ministration of vitamin K she does not have any episodes of recurrence this is documented as an allergy 16. Hypoxia: Likely secondary to aspiration, will wean O2 back she does appear to be improving at this time DISPOSITION: Given the multitude of her problems and complexity of her stay thus far her clinical status is quite poor, her huband and family are aware of this, the patient still requires significant inpatient attention, no near disposition in site. VS, I&O, 24H, Fishbone Vital Signs/I&O Vital Signs Date Time Temp Pulse Resp B/P (MAP) Pulse Ox O2 Delivery O2 Flow Rate FiO2 12/30/16 08:23 Nasal Cannula 1.0 12/30/16 07:00 98.2 107 18 139/67 (91) 96 12/27/16 08:00 40 I&O- Last 24 Hours up to 6 AM 12/30/16 06:00 Intake Total 2812 ml Balance 2812 ml Laboratory Data 24H LABS Laboratory Tests 2 12/29/16 17:38: Activated Partial Thromboplast Time 88.1H 12/29/16 18:17: Bedside Glucose (Misc Panel) 112 12/29/16 23:31: Activated Partial Thromboplast Time 92.4H 12/29/16 23:39: Bedside Glucose (Misc Panel) 115 12/30/16 05:39: Activated Partial Thromboplast Time 99.7H, Anion Gap 9, Glomerular Filtration Rate > 60.0, Blood Urea Nitrogen 44H, Creatinine 0.69, Sodium Level 137, Potassium Level 4.5, Chloride Level 103, Carbon Dioxide Level 25, Calcium Level 8.5L 12/30/16 06:06: Bedside Glucose (Misc Panel) 117H CBC/BMP Laboratory Tests 12/30/16 05:39 Red Blood Count 3.10 L, Mean Corpuscular Volume 95.6, Mean Corpuscular Hemoglobin 31.1, Mean Corpuscular Hemoglobin Concent 32.5, Red Cell Distribution Width 15.2 H, Calcium Level 8.5 L Microbiology Microbiology 12/26/16 Blood Culture - Preliminary, Resulted No Growth after 72 hours. All specime... 12/26/16 Blood Culture - Preliminary, Resulted No Growth after 72 hours. All specime... 12/21/16 Blood Culture - Final, Complete NO GROWTH AFTER 5 DAYS 12/21/16 Blood Culture - Final, Complete Propionibacterium Acnes 12/24/16 Gram Stain - Final, Complete 12/24/16 CSF Culture - Final, Complete 12/29/16 Stool Occult Blood (PAPI) - Final, Complete 12/25/16 Clostridium difficile (PCR) - Final, Complete 12/21/16 Gastrointestinal Tract Panel (PCR) - Final, Complete 12/21/16 Stool Occult Blood (PAPI) - Final, Complete 12/21/16 Urine Culture - Final, Complete Klebsiella Pneumoniae Morganella Morganii Ssp Carlos Alberto Citrobacter Freundii Yeast Like Organism ALIZA GARCIA MD Dec 30, 2016 12:33
[2016-12-30] MEDS ORDERED: FAT EMULSION IV 20% 500 ML IV SCH (18:00)
[2016-12-30] MEDS ORDERED: AMINO AC/ELECTROLYTE/DEX/CALC 2,000 ML IV SCH (18:00)
[2016-12-30 18:18] VITALS: BP 132/83
[2016-12-30 20:38] VITALS: BP 143/72
[2016-12-30] MEDS: **NOTE PATIENT COMMENT** MISC XX SCH (21:00)
[2016-12-30] MEDS: ATORVASTATIN 20 MG TAB PO SCH (21:36)
[2016-12-30] MEDS: NORTRIPTYLINE 25 MG CAP PO SCH (21:36)
[2016-12-31 00:19] VITALS: BP 149/78
[2016-12-31] MEDS: METOPROLOL TART 12.5 MG PER 1/2 TAB PO SCH ×4 (00:45→17:07)
[2016-12-31] MEDS: HumaLOG INSULIN (NovoLOG) PER UNIT SC SCH ×4 (00:46→17:45)
[2016-12-31] MEDS: PIPERACILLIN/TAZOBACTAM SOD 3.375 GM in D5W MINI-BAG PLUS 50 ML IV SCH ×4 (00:47→17:07)
[2016-12-31 03:52] VITALS: BP 139/78
[2016-12-31 05:33] LABS: MEAN CORPUSCULAR HEMOGLOBIN 31.3 pg (27.0-33.0); MEAN CORPUSCULAR HGB CONC 32.3 g/dl (32.0-36.5); MEAN CORPUSCULAR VOLUME 96.7 fl (80.0-96.0); RED CELL DISTRIBUTION WIDTH 15.1 % (11.5-14.5); WHITE BLOOD COUNT 17.7 K/mm3 (4.0-10.0)
[2016-12-31 06:09] LABS: ANION GAP 9 MEQ/L (8-16); BLOOD UREA NITROGEN 36 MG/DL (7-18); CALCIUM LEVEL 8.5 MG/DL (8.8-10.2); CARBON DIOXIDE LEVEL 24 MEQ/L (21-32); CHLORIDE LEVEL 103 MEQ/L (98-107); CREATININE FOR GFR 0.55 MG/DL (0.55-1.02); GLOMERULAR FILTRATION RATE > 60.0 (>45); GLUCOSE, FASTING 122 MG/DL (80-110); POTASSIUM SERUM 4.7 MEQ/L (3.5-5.1); SODIUM LEVEL 136 MEQ/L (136-145)
[2016-12-31] MEDS: SODIUM CHLORIDE 0.9% INJ 10 ML SYR IV SCH ×2 (06:30→13:38)
[2016-12-31] MEDS: HEPARIN DRIP 25,000 UNITS in APPROPRIATE DILUENT 1 EA IV SCH ×2 (06:36→09:13)
[2016-12-31 08:00] VITALS: BP 144/95
[2016-12-31] MEDS ORDERED: FUROSEMIDE 40 MG/4 ML VIAL (J1940) IV ONE (08:30)
--- NOTE | 2016-12-31 08:34 | IPN ---
DATE: 12/31/2016 Mrs. Dubon appears to be more short of breath than when I saw her 2 days ago. She is alert and she answers some questions but denies dyspnea, which for me is a little hard to believe. Also denies chest pain. VITAL SIGNS: Blood pressure is 139/78. She is tachycardiac, heart rate is 150s. She did not have any fever since yesterday morning. Saturation is 94% on 3 liters of oxygen by nasal cannula. Fluid balance yesterday was not properly documented. The intake was 2700. The weight is 53.5 kg, which is slightly up from 2 days ago. Her jugular venous pressure appears about 2 or 3 cm above clavicle. Lungs are relatively clear even though there are some mild faint crackles, more on the right than left. No wheezing. Heart exam reveals regular tachycardia. There is a systolic murmur best heard over the aortic valve, about 3/6 intensity. The metallic sounds on both aortic and mitral valves are audible. I do not appreciate diastolic murmur as such, but it might be difficult considering her tachycardia. Abdomen is soft. No obvious tenderness or guarding. There is no peripheral edema. Neurologically, she is similar to before. There is right-sided weakness and she speaks simple sentences, but I am not certain that the answer is always appropriate. LABORATORY Her WBC count is up at 17.7 thousand, hemoglobin 9, hematocrit 27.9, platelet count 225,000. Basic metabolic panel is normal but for glucose 122, PTT 106 this morning. ASSESSMENT AND PLAN: Mrs. Dubon is a 66-year-old female who has very complicated medical history that includes history of aortic and mitral valve replacement and mechanical prosthesis years ago. She suffered intracranial hemorrhage about 2 months ago, for which she received ventriculoperitoneal shunt that got infected and she was eventually transferred to our facility after its removal. Unfortunately, she continues to have one problem after another. She again started having WBC count elevation and I am afraid that there is some underlying infectious process that is not controlled. She is on wide spectrum coverage and followed by infectious disease. Her most recent blood and urine cultures were negative. She also has likely thrombosis of the aortic valve because of markedly increased gradient compared to study just a month ago. She was started on IV heparin after being on Lovenox for a few weeks. Today, she is more tachycardiac and seemed to be labored, which in my opinion indicates high filling pressures and likely pulmonary congestion. I am going to give her a single dose of Lasix in an attempt to accomplish some relief. I would advocate to start the patient back on Coumadin unless there are plans for some invasive procedure in near future.
[2016-12-31] MEDS: LIDOCAINE 5% (LIDODERM) PATCH TD SCH (09:01)
[2016-12-31] MEDS: PANTOPRAZOLE 40MG TAB (PROTONIX) PO SCH (09:01)
[2016-12-31] MEDS: levETIRAcetam 250MG TABLET (KEPPRA) PO SCH ×2 (09:01→21:25)
[2016-12-31] MEDS: FLUCONAZOLE 100 MG TAB PO SCH (09:01)
[2016-12-31 12:00] VITALS: BP 142/86
[2016-12-31 13:06] LABS: ABG BASE EXCESS 2.6 (-2.0-2.0); ABG HCO3 26.6 MEQ/L (22.0-26.0); ABG PARTIAL PRESSURE CO2 38.8 mmHg (35.0-45.0); ABG PARTIAL PRESSURE O2 87.9 mmHg (75.0-100.0); ABG STANDARD HCO3 26.7 MEQ/L (22.0-26.0); ABG TOTAL CO2 27.8 MEQ/L (23.0-31.0); ABG pH (ARTERIAL) 7.454 UNITS (7.350-7.450)
--- NOTE | 2016-12-31 15:23 | IPNPDOC ---
Date Seen The patient was seen on 12/31/16. Progress Note SUBJECTIVE: Patient is more sleepy this am , difficult to wake up and some of her oral meds could not be given . also appears to be more dyspniec with tachypnea and tachycardia though she denied SOB. denied chest pain. no fever or chills, no nausea or vomiting or diarrhea, requiring more oxygen than yesterday. Has predominantly abdominal type of breathing. OBJECTIVE PHYSICAL EXAMINATION: VITAL SIGNS: Please see below. GENERAL: Frail female appears older than stated age sitting in bed awake she does not appear to be in any acute distress. HEENT: Pupils equally round and reactive to light, hirsutism, dry mucous membranes CARDIOVASCULAR: S1-S2 tachycardic, more audible mechanical sounds. Systolic murmur in the aortic area. JV distended. RESPIRATORY: fine bilateral basal crackles right > left. Abdominal type of respiration , tachypniec. ABDOMINAL: Soft nontender, BS + EXTREMITIES: Wasted LABORATORY DATA: Please see below. MICROBIOLOGY: Please see below. IMAGING: Echocardiogram: 12/27/16 1. Study is of acceptable technical quality. 2. Normal LV size with septal wall motion abnormality and overall severely reduced LV systolic function. 3. Increased It varies gradient across aortic valve (mean gradient 36 mmHg) in mild to moderate insufficiency. 4. Increased gradient across mitral valve (mean gradient 12, peak gradient 32 mmHg). 5. High central venous pressure. 6. At least moderately severe pulmonary hypertension. Compared to echocardiogram report from 11/27/2016, the mean gradient across the aortic valve increased from 13 to 36 mmHg. The mean gradient across the mitral valve increased from 9 to 12 mmHg. Also, the left ventricle ejection fraction was only mildly reduced on previous study. Previous EF estimated to be 50% Duplex RUE: No evidence for deep venous thrombosis. CXR 12/27/16: Right lower lobe infiltrate DVT prophylaxis ordered?: Therapeutic heparin gtt ASSESSMENT AND PLAN: This is a 66-year-old female with hydrocephalus who has had a complicated hospital course. PROBLEMS: 1. Aortic valve thrombus: Dr. Patel's help is greatly appreciated she has been transitioned from therapeutic Lovenox to IV heparin and has improved hemodynamics, she is no longer hypotensive and she is less tachycardic. Several days ago there was concern overnight she may have had a GI bleed with a subtle drop of her hemoglobin and her INR was reversed during that time. Her H&H remained stable following 2 units transfusion and a lumbar puncture was taken off anticoagulation before anticoagulation was quickly restarted. We will recheck an echocardiogram likely one week from her last to reassess gradient and see if improved or if cardiac surgery need be pursued if she is even a candidate which I feel she is likely not.. A lengthy discussion was had with the patient. her and extended family regarding anticoagulation its necessity at this time however also her significant risk for GI bleeding and also she did have recent intracranial hemorrhage as such she is at high risk for bleeding. patient and family are aware of this. 2. Congestive heart failure patient is status post mechanical mitral and aortic valve replacements her previous echocardiogram demonstrated an ejection fraction of approximately 50% however an echocardiogram conducted more recently reveals an EF of closer to 35% she has received intermittent diuresis over the last several days she does appear to be more comfortable at this time. She is continued on a beta samantha she is not requiring diuretic at this time, as her blood pressure improves could consider initiation of an CHANO inhibitor, cardiology's help is greatly appreciated. 3. Aspiration pneumonia: The patient is being treated with Zosyn and does appear to be improving, she is now afebrile. I believe this was source of her fever, she was previously on vancomycin for possible PICC line infection however 1 of 2 culture bottles from the grew Propionibacterium no evidence of MRSA and as such I did discontinue vancomycin, repeat cultures have been negative she remained hemodynamically stable and improved, will defer to infectious disease if they still feel her PICC line needs to be replaced this time I see no emergent indication for this. 4. Urinary tract infection: Once again infectious disease help is greatly appreciated she remains on Zosyn and fluconazole for catheter related infection cath has been discontinued she is now afebrile we'll continue to follow infectious disease recommendations. 5. Intracranial hemorrhage and CVA: Patient was status post shunt placement at [facility] 2 months ago however the shunt was infected she completed course of IV antibiotics for cerebral ventriculitis she did have residual deficits and as such was discharged to our [facility]NR floor where she was very briefly there before being readmitted for worsening hydrocephalus. She has had a repeat LP following completion of her antibiotics which revealed an opening pressure of 18 and was reviewed by infectious disease who did not feel there was any residual infection remaining. I did discuss the case with NSGY, they are aware of her recent LP, and although her pressure if lower she still has significant hydrocephalus and they feel she would have some benefit from shunt placement. This is complicated by the need to stop anticoagulation 6 hours prior to procedure and then restart 72 hours afterward. Given her present aortic clot I do not think this can be attempted in the near future, but will defer to cardiology for when they will be ok to attempt this risky endeavor. 6. Moderate protein calorie malnutrition: Her swallow has been re-evaluated and she has been restarted on diet, her cognition is improved. She is on TPN and her pre-albumin has improved. 7. Colitis: Unclear if this is truly ischemic, it does not appear to be infectious, GI PCR panel has been negative Dr. Mcneal of general surgery has seen the patient and has stated that a colonoscopy would be diagnostic and help us letting severity however given her fragile state and the fact would not change her management at this time it has been foregone. Her diarrhea at this time has resolved with Imodium we will simply continue to monitor. 8. Metabolic encephalopathy: Likely multifactorial in nature, the patient does have hydrocephalus which is an etiology she is also been suffering from sepsis related to aspiration pneumonia versus UTI, she has also been decompensated heart failure related to aortic valve thrombus, unfortunately all at the same time. Her mental status with waxes and wanes but appears to be doing better in recent days. Repeat ABG today did not show any hypercarbia 9 depression: The patient had expressed depressive mood earlier during her stay , she was started on Pamelor 10. Coronary artery disease: The patient is on a beta samantha and a statin she is not on aspirin at this time, she is anticoagulated with a heparin drip. 11. Hyperthyroidism: The patient has suffered from significant hyperthyroidism her methimazole dose has been adjusted numerous times during the stay and most recently rechecked her thyroid function earlier this week and it did show some signs of improvement and as such we'll continue with her current dose 12. Anemia: May be related to intracranial hemorrhage versus ischemic colitis versus mild GI bleed. The patient did have an occult stool for blood that was positive several days ago and although her H&H only very mildly dipped her INR was reversed and she did receive 2 units of PRBCs of which she has remained stable since and has been tolerating anticoagulation since no evidence of ongoing bleeding however the family is aware of her fragile state this is certainly a risk at any time. 13. Hypertension: The patient was previously on CHANO inhibitor and Norvasc both of these were stopped and she was quite hypotensive, as her blood pressure hopefully improves could consider reinitiating of CHANO inhibitor therapy given her low ejection fraction. 14. Paroxysmal fibrillation: This is a new diagnosis during last 2 months at the present time she appears to be in sinus tachycardia without atrial fibrillation she is on metoprolol and she is on heparin gtt. 15. PEA: The patient did have an episode of pulseless electrical activity following IV ministration of vitamin K she does not have any episodes of recurrence this is documented as an allergy 16. Hypoxia: Likely secondary to aspiration and now also mild fluid overload. Recieved lasix one dose today , cannot wean oxygen at this time. DISPOSITION: Given the multitude of her problems and complexity of her stay thus far her clinical status is quite poor, her huband and family are aware of this, the patient still requires significant inpatient attention, no near disposition in site. VS, I&O, 24H, [facility] Vital Signs/I&O Vital Signs Date Time Temp Pulse Resp B/P (MAP) Pulse Ox O2 Delivery O2 Flow Rate FiO2 12/31/16 12:00 Nasal Cannula 2.0 12/31/16 12:00 98.1 110 18 142/86 (104) 96 12/27/16 08:00 40 I&O- Last 24 Hours up to 6 AM 12/31/16 06:00 Intake Total 2720 ml Output Total 0 ml Balance 2720 ml Laboratory Data 24H LABS Laboratory Tests 2 12/30/16 17:41: Bedside Glucose (Misc Panel) 142H 12/31/16 00:36: Bedside Glucose (Misc Panel) 133H 12/31/16 04:45: Activated Partial Thromboplast Time 106.4H, Anion Gap 9, Glomerular Filtration Rate > 60.0, Blood Urea Nitrogen 36H, Creatinine 0.55, Sodium Level 136, Potassium Level 4.7, Chloride Level 103, Carbon Dioxide Level 24, Calcium Level 8.5L 12/31/16 06:09: Bedside Glucose (Misc Panel) 139H 12/31/16 12:56: Blood Gas Bicarbonate Standard 26.7H, Arterial Blood pH 7.454H, Arterial Blood Partial Pressure CO2 38.8, Arterial Blood Partial Pressure O2 87.9, Arterial Blood Total CO2 27.8, Arterial Blood HCO3 26.6H, Arterial Blood Base Excess 2.6H , Arterial Blood Oxygen Saturation 96.2 12/31/16 13:26: Bedside Glucose (Misc Panel) 124H 12/31/16 13:28: Activated Partial Thromboplast Time 112.9H CBC/BMP Laboratory Tests 12/31/16 04:45 Red Blood Count 2.88 L, Mean Corpuscular Volume 96.7 H, Mean Corpuscular Hemoglobin 31.3, Mean Corpuscular Hemoglobin Concent 32.3, Red Cell Distribution Width 15.1 H, Calcium Level 8.5 L Microbiology Microbiology 12/26/16 Blood Culture - Final, Complete NO GROWTH AFTER 5 DAYS 12/26/16 Blood Culture - Final, Complete NO GROWTH AFTER 5 DAYS 12/21/16 Blood Culture - Final, Complete NO GROWTH AFTER 5 DAYS 12/21/16 Blood Culture - Final, Complete Propionibacterium Acnes 12/24/16 Gram Stain - Final, Complete 12/24/16 CSF Culture - Final, Complete 12/29/16 Stool Occult Blood (PAPI) - Final, Complete 12/25/16 Clostridium difficile (PCR) - Final, Complete 12/21/16 Gastrointestinal Tract Panel (PCR) - Final, Complete 12/21/16 Stool Occult Blood (PAPI) - Final, Complete 12/21/16 Urine Culture - Final, Complete Klebsiella Pneumoniae Morganella Morganii [facility] Carlos Alberto Citrobacter Freundii Yeast Like Organism CONCEPCION HARKINS MD Dec 31, 2016 15:23
[2016-12-31 16:00] VITALS: BP 126/60
[2016-12-31] MEDS: NORTRIPTYLINE 10 MG CAP PO SCH (17:07)
[2016-12-31] MEDS ORDERED: MULTIVITAMIN -ADULT INJECTION 10 ML, CR/CU/SE/MN/ZN INJ 1 ML in AMINO AC/ELECTROLYTE/DE... IV SCH (18:00)
[2016-12-31] MEDS ORDERED: FAT EMULSION IV 20% 500 ML IV SCH (18:00)
[2016-12-31 19:21] VITALS: BP 116/66
[2016-12-31] MEDS: **NOTE PATIENT COMMENT** MISC XX SCH (21:00)
[2016-12-31] MEDS: ATORVASTATIN 20 MG TAB PO SCH (21:25)
[2017-01-01 00:26] VITALS: BP 126/64
[2017-01-01] MEDS: PIPERACILLIN/TAZOBACTAM SOD 3.375 GM in D5W MINI-BAG PLUS 50 ML IV SCH ×4 (00:48→17:58)
[2017-01-01] MEDS: HumaLOG INSULIN (NovoLOG) PER UNIT SC SCH ×4 (00:49→18:00)
[2017-01-01] MEDS: METOPROLOL TART 12.5 MG PER 1/2 TAB PO SCH ×4 (00:50→17:59)
[2017-01-01 03:57] VITALS: BP 132/72
[2017-01-01 06:15] LABS: MEAN CORPUSCULAR HEMOGLOBIN 31.3 pg (27.0-33.0); MEAN CORPUSCULAR HGB CONC 32.9 g/dl (32.0-36.5); MEAN CORPUSCULAR VOLUME 95.2 fl (80.0-96.0); RED CELL DISTRIBUTION WIDTH 15.6 % (11.5-14.5); WHITE BLOOD COUNT 11.7 K/mm3 (4.0-10.0)
[2017-01-01 06:25] LABS: ANION GAP 9 MEQ/L (8-16); BLOOD UREA NITROGEN 35 MG/DL (7-18); CALCIUM LEVEL 8.5 MG/DL (8.8-10.2); CARBON DIOXIDE LEVEL 30 MEQ/L (21-32); CHLORIDE LEVEL 100 MEQ/L (98-107); CREATININE FOR GFR 0.57 MG/DL (0.55-1.02); GLOMERULAR FILTRATION RATE > 60.0 (>45); GLUCOSE, FASTING 117 MG/DL (80-110); POTASSIUM SERUM 4.3 MEQ/L (3.5-5.1); SODIUM LEVEL 139 MEQ/L (136-145)
[2017-01-01] MEDS: SODIUM CHLORIDE 0.9% INJ 10 ML SYR IV SCH ×2 (06:26→17:58)
[2017-01-01] MEDS: HEPARIN DRIP 25,000 UNITS in APPROPRIATE DILUENT 1 EA IV SCH (06:41)
[2017-01-01 08:00] VITALS: BP 132/73
--- NOTE | 2017-01-01 08:28 | IPN ---
DATE: 01/01/2017 Mrs. Dubon is rather somnolent this morning. She opens her eyes but I have difficult time establishing any feasible communication. There were no reported problems over night. Vital signs this morning: Blood pressure 132/72, heart rate around 95. Throughout the night her heart rate was around 100. She is afebrile. Saturation is 96% on 2 liters of oxygen by nasal cannula. Her fluid balance yesterday was poorly defined as her output is not well documented but intake was still 2600 mL. Her weight is 51.5 kg. Her jugular venous pulse (JVP) is difficult to estimate, It does not appear particularly high. Lungs are relatively clear to auscultation with good air movement. No wheezing, crackles or rhonchi are seen. Heart exam reveals irregular tachycardia. There are still very prominent systolic ejection murmur over the aortic valve. I do not appreciate the closing sound quite well though. Mitral valve sounds consistent with a metallic prosthetic valve. Abdomen is soft, nontender. No peripheral edema. LABORATORY: CBC: WBC count is down to 11.7, hemoglobin 8.4, hematocrit 25 and plate count 218. Basic metabolic panel is normal. ASSESSMENT/PLAN: Mrs. Dubon is a complicated patient 66-year-old female who presented with intracranial hemorrhage about 2 months ago that required placement of ventricle peritoneal shunt that rapidly got infected and eventually removed. She continued to have fevers on and off since. As a further complicated event, she suffered a brief pulseless electrical activity requiring cardiopulmonary resuscitation (CPR) in the early November probably as a consequence of administration of vitamin K intravenously. More recently she has started to be very tachycardiac. In my opinion she most likely thrombosed aortic valve because her transaortic gradient is most markedly increased compared to study just 1 month ago and the physical exam was also consistent with valvular dysfunction. There appears to be some improvement in this regard and she has been on intravenous heparin for about a week (previously on Lovenox). At this point, I understand there is a family meeting plan for tomorrow. If there are no invasive procedures planned in near future, she should be started on Coumadin and I would advocate to do it as soon as possible. On the other hand if there should be a plan for shunt/or possibly feeding tube placement, then we probably should keep her on heparin that can be briefly interrupted for the procedure. Her condition is certainly guarded at best. I am particularly concerned about chronicity of her problems and no obvious trend for improvement. From perspective of valvular thrombosis, I do not believe that she is a candidate for redo open heart surgery, which likely would carry extremely high mortality.
[2017-01-01] MEDS: PANTOPRAZOLE 40MG TAB (PROTONIX) PO SCH (10:02)
[2017-01-01] MEDS: levETIRAcetam 250MG TABLET (KEPPRA) PO SCH ×2 (10:03→21:38)
[2017-01-01] MEDS: FLUCONAZOLE 100 MG TAB PO SCH (10:03)
[2017-01-01] MEDS: LIDOCAINE 5% (LIDODERM) PATCH TD SCH (10:03)
[2017-01-01 11:55] VITALS: BP 134/63
--- NOTE | 2017-01-01 14:27 | IPNPDOC ---
Date Seen The patient was seen on 01/01/17. Progress Note SUBJECTIVE: Patient is more awake this am , Dyspnea seems to be better, no fever or chills, does not follow commands, no nausea or vomiting or diarrhea. Had a long discussion with regarding the high risk of the surgical procedure. is going to talk that if after surgery patient is worse then whether they would pursue comfort measures at that point or not. Explained that with the cva and mental status and generalized weakness may be difficult to wean him off ventilation and may end up with termite control representative ventilation. They would like to speak with Dr Franklin. I spoke with Dr lee and it is ok to stop heprin for the perioperative period though going to be high risk. OBJECTIVE PHYSICAL EXAMINATION: VITAL SIGNS: Please see below. GENERAL: Frail female appears older than stated age sitting in bed awake she does not appear to be in any acute distress. HEENT: Pupils equally round and reactive to light, hirsutism, dry mucous membranes CARDIOVASCULAR: S1-S2 tachycardic, more audible mechanical sounds. Systolic murmur in the aortic area. JV distended. RESPIRATORY: fine bilateral basal crackles right > left. Abdominal type of respiration , tachypniec. ABDOMINAL: Soft nontender, BS + EXTREMITIES: Wasted LABORATORY DATA: Please see below. MICROBIOLOGY: Please see below. IMAGING: Echocardiogram: 12/27/16 1. Study is of acceptable technical quality. 2. Normal LV size with septal wall motion abnormality and overall severely reduced LV systolic function. 3. Increased It varies gradient across aortic valve (mean gradient 36 mmHg) in mild to moderate insufficiency. 4. Increased gradient across mitral valve (mean gradient 12, peak gradient 32 mmHg). 5. High central venous pressure. 6. At least moderately severe pulmonary hypertension. Compared to echocardiogram report from 11/27/2016, the mean gradient across the aortic valve increased from 13 to 36 mmHg. The mean gradient across the mitral valve increased from 9 to 12 mmHg. Also, the left ventricle ejection fraction was only mildly reduced on previous study. Previous EF estimated to be 50% Duplex RUE: No evidence for deep venous thrombosis. CXR 12/27/16: Right lower lobe infiltrate DVT prophylaxis ordered?: Therapeutic heparin gtt ASSESSMENT AND PLAN: This is a 66-year-old female with hydrocephalus who has had a complicated hospital course. PROBLEMS: 1. Aortic valve thrombus: Dr. Patel's help is greatly appreciated she has been transitioned from therapeutic Lovenox to IV heparin and has improved hemodynamics, she is no longer hypotensive and she is less tachycardic. Several days ago there was concern overnight she may have had a GI bleed with a subtle drop of her hemoglobin and her INR was reversed during that time. Her H&H remained stable following 2 units transfusion and a lumbar puncture was taken off anticoagulation before anticoagulation was quickly restarted. We will recheck an echocardiogram likely one week from her last to reassess gradient and see if improved or if cardiac surgery need be pursued if she is even a candidate which I feel she is likely not.. A lengthy discussion was had with the patient. her and extended family regarding anticoagulation its necessity at this time however also her significant risk for GI bleeding and also she did have recent intracranial hemorrhage as such she is at high risk for bleeding. patient and family are aware of this. 2. Congestive heart failure patient is status post mechanical mitral and aortic valve replacements her previous echocardiogram demonstrated an ejection fraction of approximately 50% however an echocardiogram conducted more recently reveals an EF of closer to 35% she has received intermittent diuresis over the last several days she does appear to be more comfortable at this time. She is continued on a beta samantha she is not requiring diuretic at this time, as her blood pressure improves could consider initiation of an CHANO inhibitor, cardiology's help is greatly appreciated. 3. Aspiration pneumonia: The patient is being treated with Zosyn and does appear to be improving, she is now afebrile. I believe this was source of her fever, she was previously on vancomycin for possible PICC line infection however 1 of 2 culture bottles from the grew Propionibacterium no evidence of MRSA and as such I did discontinue vancomycin, repeat cultures have been negative she remained hemodynamically stable and improved, will defer to infectious disease if they still feel her PICC line needs to be replaced this time I see no emergent indication for this. 4. Urinary tract infection: Once again infectious disease help is greatly appreciated she remains on Zosyn and fluconazole for catheter related infection cath has been discontinued she is now afebrile we'll continue to follow infectious disease recommendations. 5. Intracranial hemorrhage and CVA: Patient was status post shunt placement at [facility] 2 months ago however the shunt was infected she completed course of IV antibiotics for cerebral ventriculitis she did have residual deficits and as such was discharged to our PMNR floor where she was very briefly there before being readmitted for worsening hydrocephalus. She has had a repeat LP following completion of her antibiotics which revealed an opening pressure of 18 and was reviewed by infectious disease who did not feel there was any residual infection remaining. I did discuss the case with NSGY, they are aware of her recent LP, and although her pressure if lower she still has significant hydrocephalus and they feel she would have some benefit from shunt placement. This is complicated by the need to stop anticoagulation 6 hours prior to procedure and then restart 72 hours afterward. Given her present aortic clot I do not think this can be attempted in the near future, but will defer to cardiology for when they will be ok to attempt this risky endeavor. 6. Moderate protein calorie malnutrition: Her swallow has been re-evaluated and she has been restarted on diet, her cognition is improved. She is on TPN and her pre-albumin has improved. 7. Colitis: Unclear if this is truly ischemic, it does not appear to be infectious, GI PCR panel has been negative Dr. Mcneal of general surgery has seen the patient and has stated that a colonoscopy would be diagnostic and help us letting severity however given her fragile state and the fact would not change her management at this time it has been foregone. Her diarrhea at this time has resolved with Imodium we will simply continue to monitor. 8. Metabolic encephalopathy: Likely multifactorial in nature, the patient does have hydrocephalus which is an etiology she is also been suffering from sepsis related to aspiration pneumonia versus UTI, she has also been decompensated heart failure related to aortic valve thrombus, unfortunately all at the same time. Her mental status with waxes and wanes but appears to be doing better in recent days. Repeat ABG today did not show any hypercarbia 9 depression: The patient had expressed depressive mood earlier during her stay , she was started on Pamelor 10. Coronary artery disease: The patient is on a beta samantha and a statin she is not on aspirin at this time, she is anticoagulated with a heparin drip. 11. Hyperthyroidism: The patient has suffered from significant hyperthyroidism her methimazole dose has been adjusted numerous times during the stay and most recently rechecked her thyroid function earlier this week and it did show some signs of improvement and as such we'll continue with her current dose 12. Anemia: May be related to intracranial hemorrhage versus ischemic colitis versus mild GI bleed. The patient did have an occult stool for blood that was positive several days ago and although her H&H only very mildly dipped her INR was reversed and she did receive 2 units of PRBCs of which she has remained stable since and has been tolerating anticoagulation since no evidence of ongoing bleeding however the family is aware of her fragile state this is certainly a risk at any time. 13. Hypertension: The patient was previously on CHANO inhibitor and Norvasc both of these were stopped and she was quite hypotensive, as her blood pressure hopefully improves could consider reinitiating of CHANO inhibitor therapy given her low ejection fraction. 14. Paroxysmal fibrillation: This is a new diagnosis during last 2 months at the present time she appears to be in sinus tachycardia without atrial fibrillation she is on metoprolol and she is on heparin gtt. 15. PEA: The patient did have an episode of pulseless electrical activity following IV ministration of vitamin K she does not have any episodes of recurrence this is documented as an allergy 16. Hypoxia: Likely secondary to aspiration and now also mild fluid overload. Recieved lasix one dose today , cannot wean oxygen at this time. DISPOSITION: Given the multitude of her problems and complexity of her stay thus far her clinical status is quite poor, her huband and family are aware of this, the patient still requires significant inpatient attention, no near disposition in site. VS, I&O, 24H, [facility] Vital Signs/I&O Vital Signs Date Time Temp Pulse Resp B/P (MAP) Pulse Ox O2 Delivery O2 Flow Rate FiO2 01/01/17 12:52 88 134/63 01/01/17 11:55 98.4 20 96 Nasal Cannula 2.0 12/27/16 08:00 40 I&O- Last 24 Hours up to 6 AM 01/01/17 06:00 Intake Total 2650 ml Output Total 0 ml Balance 2650 ml Laboratory Data 24H LABS Laboratory Tests 2 12/31/16 17:28: Bedside Glucose (Misc Panel) 107 12/31/16 19:51: Activated Partial Thromboplast Time 92.8H 01/01/17 00:39: Bedside Glucose (Misc Panel) 131H 01/01/17 01:30: Activated Partial Thromboplast Time 87.4H, Anion Gap 9, Glomerular Filtration Rate > 60.0, Blood Urea Nitrogen 35H, Creatinine 0.57, Sodium Level 139, Potassium Level 4.3, Chloride Level 100, Carbon Dioxide Level 30, Calcium Level 8.5L 01/01/17 06:34: Bedside Glucose (Misc Panel) 125H 01/01/17 11:27: Bedside Glucose (Misc Panel) 126H CBC/BMP Laboratory Tests 01/01/17 01:30 Red Blood Count 2.68 L, Mean Corpuscular Volume 95.2, Mean Corpuscular Hemoglobin 31.3, Mean Corpuscular Hemoglobin Concent 32.9, Red Cell Distribution Width 15.6 H, Calcium Level 8.5 L Microbiology Microbiology 12/26/16 Blood Culture - Final, Complete NO GROWTH AFTER 5 DAYS 12/26/16 Blood Culture - Final, Complete NO GROWTH AFTER 5 DAYS 12/24/16 Gram Stain - Final, Complete 12/24/16 CSF Culture - Final, Complete 12/29/16 Stool Occult Blood (PAPI) - Final, Complete 12/25/16 Clostridium difficile (PCR) - Final, Complete CONCEPCION HARKINS MD Jan 01, 2017 14:27
[2017-01-01] MEDS: SODIUM CHLORIDE 0.9% INJ 10 ML SYR IV PRN (14:44)
[2017-01-01 16:00] VITALS: BP 139/63
[2017-01-01] MEDS: NORTRIPTYLINE 10 MG CAP PO SCH (17:58)
[2017-01-01] MEDS ORDERED: FAT EMULSION IV 20% 500 ML IV SCH (18:00)
[2017-01-01] MEDS ORDERED: AMINO AC/ELECTROLYTE/DEX/CALC 2,000 ML IV SCH (18:00)
[2017-01-01 20:00] VITALS: BP 129/65
[2017-01-01] MEDS: **NOTE PATIENT COMMENT** MISC XX SCH (21:00)
[2017-01-01] MEDS: ATORVASTATIN 20 MG TAB PO SCH (21:39)
--- NOTE | 2017-01-01 21:46 | IPN ---
DATE: 01/01/2017 INFECTIOUS DISEASE PROGRESS NOTE Nayla seems to be doing better today. She is more awake and alert. She responds appropriately, yes and no, to questions. She does not follow commands. She has had no nausea, vomiting. She does have some diarrhea. She has been afebrile since 12/26/2016 after she was started on intravenous (IV) Zosyn. Breathing seems to have improved. Chest x-ray done on 12/27/2016 showed right lower lobe infiltrate. Urine culture was polymicrobial on 12/21/2016 with Klebsiella Morganella and Citrobacter, most likely colonization. Blood culture from 12/21/2016 had propionibacterium acne, one out of two. Repeat cultures were done on 12/26/2016, were no growth after 5 days. LABORATORY DATA: White count is 11.7, hemoglobin 8.4, hematocrit 25.5, platelets 218. Sodium 139, potassium 4.3, chloride 100, bicarbonate 30, BUN 35, creatinine 0.57, glucose 117, calcium 8.5. MEDICATIONS: Zosyn 3.375 grams IV every 6 hours, currently day number 7,she also received fluconazole times one dose on 12/25/2016, metronidazole for 3 days 12/21/2016 to 12/23/2016. On physical exam, temperature is 97.5, pulse 68, respirations 16, blood pressure 129/65, oxygen saturation 96% on 2 liters nasal cannula. Heart: Normal S1, S2 with a click and a holosystolic ejection murmur 2/6, prosthetic valve sounds heard. Lungs: Diminished breath sounds at the bases. Abdomen is soft, tender in the left lower quadrant. She is incontinent of stools with liquid stools. Extremities: Trace ankle edema. She moves right leg more than left leg. She moves right upper extremity more than the left but does not follow commands. She answers yes and no appropriately. She even was able to tell me she was in the hospital. IMPRESSION: 1. Aspiration pneumonia. She is currently day number 7 of the Zosyn, improving. This was most likely the source of the fever. I would continue for a 10-day course of antibiotic. Blood culture one out of two was positive for propionibacterium acne, which also would be covered by Zosyn. Of note, this peripherally inserted central catheter (PICC) line has been in for at least 2 months. 2. Asymptomatic bacteruria. This was a catheter specimen with multiple pathogens. Catheter has been removed. 3. Intracranial hemorrhage and cerebrovascular accident, status post shunt placement and treatment for hospital-acquired ventriculitis. No evidence of infection at this time. 4. Aortic valve thrombus, currently on IV heparin. PLAN: Continue Zosyn for a total of 10 days, currently day number 7 out of 10. Following that, if ventriculoperitoneal (SPLICING TECHNICIAN) shunt needs to be placed, it could be placed. Her prognosis is poor. We need to discuss tube feeds instead of total parenteral nutrition (TPN) as the PICC line needs to be removed, although it is not an emergency. I agree with Dr. Macias.
[2017-01-02] VITALS (7 sets, daily range): BP systolic 105–148; BP diastolic 55–73
[2017-01-02] MEDS: METOPROLOL TART 12.5 MG PER 1/2 TAB PO SCH ×5 (00:43→23:43)
[2017-01-02] MEDS: HumaLOG INSULIN (NovoLOG) PER UNIT SC SCH ×4 (00:43→17:50)
[2017-01-02] MEDS: PIPERACILLIN/TAZOBACTAM SOD 3.375 GM in D5W MINI-BAG PLUS 50 ML IV SCH ×5 (00:44→23:44)
[2017-01-02 05:31] LABS: MEAN CORPUSCULAR HEMOGLOBIN 31.3 pg (27.0-33.0); MEAN CORPUSCULAR HGB CONC 32.8 g/dl (32.0-36.5); MEAN CORPUSCULAR VOLUME 95.6 fl (80.0-96.0); RED CELL DISTRIBUTION WIDTH 15.9 % (11.5-14.5); WHITE BLOOD COUNT 9.2 K/mm3 (4.0-10.0)
[2017-01-02 05:37] LABS: ANION GAP 6 MEQ/L (8-16); BLOOD UREA NITROGEN 30 MG/DL (7-18); CALCIUM LEVEL 8.4 MG/DL (8.8-10.2); CARBON DIOXIDE LEVEL 31 MEQ/L (21-32); CHLORIDE LEVEL 101 MEQ/L (98-107); CREATININE FOR GFR 0.59 MG/DL (0.55-1.02); GLOMERULAR FILTRATION RATE > 60.0 (>45); GLUCOSE, FASTING 125 MG/DL (80-110); POTASSIUM SERUM 4.1 MEQ/L (3.5-5.1); SODIUM LEVEL 138 MEQ/L (136-145)
[2017-01-02] MEDS: SODIUM CHLORIDE 0.9% INJ 10 ML SYR IV SCH ×2 (06:02→17:52)
[2017-01-02] MEDS: levETIRAcetam 250MG TABLET (KEPPRA) PO SCH ×2 (08:50→20:04)
[2017-01-02] MEDS: PANTOPRAZOLE 40MG TAB (PROTONIX) PO SCH (08:50)
[2017-01-02] MEDS: FUROSEMIDE 40 MG/4 ML VIAL (J1940) IV SCH (08:50)
[2017-01-02] MEDS: LIDOCAINE 5% (LIDODERM) PATCH TD SCH (08:51)
--- NOTE | 2017-01-02 09:05 | IPN ---
DATE: 01/02/2017 Mrs. Dubon remains about the same. She seems to be more alert today. She answers yes or no to simple questions. I cannot carry on any conversation with her though. She looks also more comfortable. Blood pressure 141/67. Heart rate is in 80s and 90s. She is afebrile. Saturation is 93% on 2 liters of oxygen by nasal cannula. Fluid balance was not well documented yesterday, but the weight is about a kilogram up from yesterday. She is alert. It is difficult to assess her orientation, but at least partially she is oriented. Jugular venous pulse (JVP) does not appear high. Lungs are relatively clear to auscultation and I do not appreciate crackles or wheezing. Heart exam reveals a regular rhythm. There is still systolic ejection murmur over the aortic valve, but it does not appear as loud as previously. I do appreciate closing sound and the metallic sounds on both aortic and mitral prostheses are audible. Abdomen is soft, nontender. No peripheral edema. Neurologically, she has persistent left-sided weakness. Hemoglobin 8.2, hematocrit 25, and platelet count 218. WBC count is down to 9.2. Basic metabolic panel is normal. ASSESSMENT/PLAN: Mrs. Dubon is a 66-year-old female who has history of aortic and mitral valve replacement with mechanical prostheses years ago. She now presented with intracranial hemorrhage that required placement of a STAND IN shunt that got infected and removed. Since that time, she has had various problems with fevers, the etiology of which has not been consistently determined. Now I am suspicious that she had aortic valve thrombosis based on auscultatory findings and a new increased gradient across the aortic valve. At this point, I would continue anticoagulation. She is currently on IV heparin. There seems to be improvement in her auscultatory findings. If there is no plan for invasive procedure in the near future, I would recommend to transfer her to Coumadin. On the other hand, if there is a plan for surgical interventions, then it is probably better to keep her on heparin so it can be briefly interrupted for the procedure and then restarted when felt safe from a surgical perspective. Dr. Coello is continuous vulcanizing machine operator this weekend. Please contact him if there should be any acute problems.
--- NOTE | 2017-01-02 12:52 | IPNPDOC ---
Date Seen The patient was seen on 01/02/17. Progress Note SUBJECTIVE: Patient is more awake this am , Dyspnea seems to be better, no fever or chills, does not follow verbal commands however if i demonstrated the command with action then she was able to follow it, may have problem with comprehension or some form of receptive aphasia as well as expressive aphasia, no nausea or vomiting or diarrhea. Does give yes or no answers not sure if she fully comprehends the questions. Patient was able to take few spoons of pureed food without aspiration. OBJECTIVE PHYSICAL EXAMINATION: VITAL SIGNS: Please see below. GENERAL: Frail female appears older than stated age sitting in bed awake she does not appear to be in any acute distress. HEENT: Pupils equally round and reactive to light, hirsutism, dry mucous membranes CARDIOVASCULAR: S1-S2 tachycardic, more audible mechanical sounds. Systolic murmur in the aortic area. JV distended. RESPIRATORY: fine bilateral basal crackles right > left. Abdominal type of respiration , tachypniec. ABDOMINAL: Soft nontender, BS + EXTREMITIES: Wasted Neuro: quadriparesis right weakness greater than left, expressive and receptive aphasia. LABORATORY DATA: Please see below. MICROBIOLOGY: Please see below. IMAGING: Echocardiogram: 12/27/16 1. Study is of acceptable technical quality. 2. Normal LV size with septal wall motion abnormality and overall severely reduced LV systolic function. 3. Increased It varies gradient across aortic valve (mean gradient 36 mmHg) in mild to moderate insufficiency. 4. Increased gradient across mitral valve (mean gradient 12, peak gradient 32 mmHg). 5. High central venous pressure. 6. At least moderately severe pulmonary hypertension. Compared to echocardiogram report from 11/27/2016, the mean gradient across the aortic valve increased from 13 to 36 mmHg. The mean gradient across the mitral valve increased from 9 to 12 mmHg. Also, the left ventricle ejection fraction was only mildly reduced on previous study. Previous EF estimated to be 50% Duplex RUE: No evidence for deep venous thrombosis. CXR 12/27/16: Right lower lobe infiltrate DVT prophylaxis ordered?: Therapeutic heparin gtt ASSESSMENT AND PLAN: This is a 66-year-old female with hydrocephalus who has had a complicated hospital course. PROBLEMS: 1. Aortic valve thrombus: Dr. Patel's help is greatly appreciated she has been transitioned from therapeutic Lovenox to IV heparin and has improved hemodynamics, she is no longer hypotensive and she is less tachycardic. Several days ago there was concern overnight she may have had a GI bleed with a subtle drop of her hemoglobin and her INR was reversed during that time. Her H&H remained stable following 2 units transfusion and a lumbar puncture was taken off anticoagulation before anticoagulation was quickly restarted. recheck an echocardiogram today. 2. Congestive heart failure patient is status post mechanical mitral and aortic valve replacements her previous echocardiogram demonstrated an ejection fraction of approximately 50% however an echocardiogram conducted more recently reveals an EF of closer to 35% . Now close to euvolemic status. She is continued on a beta samantha.She gets intermittently fluid overloaded so started on daily lasix. 3. Aspiration pneumonia: will complete 10 days of zosyn. 1 of 2 culture bottles from the grew Propionibacterium no evidence of MRSA . Patient will probably need feeding tube in the near future. 4. Asymptomatic bacteruria rather than UTI: sample was collected from catheter. 5. Intracranial hemorrhage and CVA: Patient was status post ventriculo peritoneal shunt placement at [facility] 2 months ago however the shunt was infected and patient developed ventriculitis . she completed course of IV antibiotics for cerebral ventriculitis she Had quadriparesis and expressive and receptive aphasia when she was discharged to our PMNR floor where she was very briefly there before being readmitted for worsening hydrocephalus. She has had a repeat LP following completion of her antibiotics which revealed an opening pressure of 18 and was reviewed by infectious disease who did not feel there was any residual infection remaining. Pateint was evaluate by Dr Franklin in in november and was felt that she would benefit from the shunt. He is going to reevaluate her today again to decide if shunt is required or not. Several discussion have been held with the family regarding high risk nature or surgery and overall prognosis 6. Moderate protein calorie malnutrition: Her swallow has been re-evaluated and she has been restarted on diet, her cognition is improved. She is on TPN and her pre-albumin has improved. 7. Colitis: Unclear if this is truly ischemic, it does not appear to be infectious, GI PCR panel has been negative Dr. Mcneal of general surgery has seen the patient and has stated that a colonoscopy would be diagnostic and help us letting severity however given her fragile state and the fact would not change her management at this time it has been foregone. Her diarrhea at this time has resolved with Imodium we will simply continue to monitor. 8. Metabolic encephalopathy: Likely multifactorial in nature, the patient does have hydrocephalus which is an etiology she is also been suffering from sepsis related to aspiration pneumonia versus UTI, she has also been decompensated heart failure related to aortic valve thrombus, unfortunately all at the same time. Her mental status with waxes and wanes but appears to be doing better in recent days. Repeat ABG today did not show any hypercarbia 9 depression: The patient had expressed depressive mood earlier during her stay , she was started on Pamelor 10. Coronary artery disease: The patient is on a beta samantha and a statin she is not on aspirin at this time, she is anticoagulated with a heparin drip. 11. Hyperthyroidism: The patient has suffered from significant hyperthyroidism her methimazole dose has been adjusted numerous times during the stay and most recently rechecked her thyroid function earlier this week and it did show some signs of improvement and as such we'll continue with her current dose 12. Anemia: May be related to intracranial hemorrhage versus ischemic colitis versus mild GI bleed. The patient did have an occult stool for blood that was positive several days ago and although her H&H only very mildly dipped her INR was reversed and she did receive 2 units of PRBCs of which she has remained stable since and has been tolerating anticoagulation since no evidence of ongoing bleeding however the family is aware of her fragile state this is certainly a risk at any time. 13. Hypertension: The patient was previously on CHANO inhibitor and Norvasc both of these were stopped and she was quite hypotensive, as her blood pressure hopefully improves could consider reinitiating of CHANO inhibitor therapy given her low ejection fraction. 14. Paroxysmal fibrillation: This is a new diagnosis during last 2 months at the present time she appears to be in sinus tachycardia without atrial fibrillation she is on metoprolol and she is on heparin gtt. 15. PEA: The patient did have an episode of pulseless electrical activity following IV ministration of vitamin K she does not have any episodes of recurrence this is documented as an allergy 16. Hypoxia: Likely secondary to aspiration and now also mild fluid overload. Recieved lasix one dose today , cannot wean oxygen at this time. DISPOSITION: Given the multitude of her problems and complexity of her stay thus far her clinical status is quite poor, her huband and family are aware of this, the patient still requires significant inpatient attention, no near disposition in site. VS, I&O, 24H, Fishbone Vital Signs/I&O Vital Signs Date Time Temp Pulse Resp B/P (MAP) Pulse Ox O2 Delivery O2 Flow Rate FiO2 01/02/17 11:54 95 101/55 01/02/17 11:51 22 93 Nasal Cannula 2.0 01/02/17 08:00 97.5 12/27/16 08:00 40 I&O- Last 24 Hours up to 6 AM 01/02/17 06:00 Intake Total 2078 ml Output Total 0 ml Balance 2078 ml Laboratory Data 24H LABS Laboratory Tests 2 01/01/17 18:01: Bedside Glucose (Misc Panel) 97 01/02/17 00:39: Bedside Glucose (Misc Panel) 121H 01/02/17 05:10: Activated Partial Thromboplast Time 89.6H, Anion Gap 6L, Glomerular Filtration Rate > 60.0, Blood Urea Nitrogen 30H, Creatinine 0.59, Sodium Level 138, Potassium Level 4.1, Chloride Level 101, Carbon Dioxide Level 31, Calcium Level 8.4L 01/02/17 11:41: Bedside Glucose (Misc Panel) 144H CBC/BMP Laboratory Tests 01/02/17 05:10 Red Blood Count 2.63 L, Mean Corpuscular Volume 95.6, Mean Corpuscular Hemoglobin 31.3, Mean Corpuscular Hemoglobin Concent 32.8, Red Cell Distribution Width 15.9 H, Calcium Level 8.4 L Microbiology Microbiology 12/26/16 Blood Culture - Final, Complete NO GROWTH AFTER 5 DAYS 12/26/16 Blood Culture - Final, Complete NO GROWTH AFTER 5 DAYS 12/24/16 Gram Stain - Final, Complete 12/24/16 CSF Culture - Final, Complete 12/29/16 Stool Occult Blood (PAPI) - Final, Complete 12/25/16 Clostridium difficile (PCR) - Final, Complete CONCEPCION HARKINS MD Jan 02, 2017 12:52
[2017-01-02] MEDS: HEPARIN DRIP 25,000 UNITS in APPROPRIATE DILUENT 1 EA IV SCH (15:48)
[2017-01-02] MEDS: NORTRIPTYLINE 10 MG CAP PO SCH (17:52)
[2017-01-02] MEDS ORDERED: FAT EMULSION IV 20% 500 ML IV SCH (18:00)
[2017-01-02] MEDS ORDERED: AMINO AC/ELECTROLYTE/DEX/CALC 2,000 ML IV SCH (18:00)
[2017-01-02] MEDS: ATORVASTATIN 20 MG TAB PO SCH (20:04)
[2017-01-02] MEDS: **NOTE PATIENT COMMENT** MISC XX SCH (21:00)
--- NOTE | 2017-01-02 22:29 | IPN ---
DATE: 01/02/2017 SUBJECTIVE: Nayla seems to be doing fairly well. She is stable. She has no new complaints. She is able to express herself with yes and no and few words which seem to be appropriate. OBJECTIVE: On physical exam she is a frail-looking female in no acute distress. VITAL SIGNS: Temperature is 97.5, pulse 99, respirations 24, blood pressure 143/73, O2 saturation 96% on two liters nasal cannula. She has been afebrile since December 26. HEART: Normal S1, S2 with a holosystolic murmur 2/6 and clicks of prosthetic valve. LUNGS: Clear. No wheezes, rales or rhonchi. ABDOMEN: Soft, nontender. EXTREMITIES: No edema, clubbing or cyanosis. She moves the extremities, right more than left, but she does not follow commands. NEUROLOGIC: She has generalized weakness with difficult to assess neurologic exam, but definitely has quadriparesis. LABORATORY DATA: White count 9.2, hemoglobin 8.2, hematocrit 25.1, platelets 218. Sodium 138, potassium 4.1, chloride 101, bicarb 31, BUN 30, creatinine 0.6, glucose 125, calcium 8.4. IMAGING: Chest x-ray showed right lower lobe infiltrate. IMPRESSION: 1. Aspiration pneumonia/healthcare-associated pneumonia on intravenous (IV) Zosyn, doing much better, currently day eight out of 10. 2. Protein calorie malnutrition. The patient is on total parenteral nutrition (TPN) for a long time and needs to have jejunostomy (J) tube placed for feeding. The patient has had this peripherally inserted central catheter (PICC) line for at least a couple months and that needs to be re-addressed with the family. 3. Positive blood cultures for Propionibacterium acne, could be a contaminant versus line infection, but peripheral blood cultures have been negative. PLAN: Continue IV Zosyn for 48 more hours and discontinue. Ventriculoperitoneal ([employer]) shunt could be placed as needed for management of hydrocephalus starting next week. Case has been discussed with Dr. Macias.
[2017-01-03] MEDS: HumaLOG INSULIN (NovoLOG) PER UNIT SC SCH ×4 (00:06→17:46)
[2017-01-03 05:05] VITALS: BP 113/58
[2017-01-03 05:10] LABS: MEAN CORPUSCULAR HEMOGLOBIN 31.9 pg (27.0-33.0); MEAN CORPUSCULAR HGB CONC 33.5 g/dl (32.0-36.5); MEAN CORPUSCULAR VOLUME 95.2 fl (80.0-96.0); RED CELL DISTRIBUTION WIDTH 15.9 % (11.5-14.5); WHITE BLOOD COUNT 9.1 K/mm3 (4.0-10.0)
[2017-01-03 05:21] LABS: ANION GAP 7 MEQ/L (8-16); BLOOD UREA NITROGEN 32 MG/DL (7-18); CALCIUM LEVEL 8.7 MG/DL (8.8-10.2); CARBON DIOXIDE LEVEL 32 MEQ/L (21-32); CHLORIDE LEVEL 97 MEQ/L (98-107); GLOMERULAR FILTRATION RATE > 60.0 (>45); GLUCOSE, FASTING 122 MG/DL (80-110); POTASSIUM SERUM 3.8 MEQ/L (3.5-5.1); SODIUM LEVEL 136 MEQ/L (136-145)
[2017-01-03] MEDS: SODIUM CHLORIDE 0.9% INJ 10 ML SYR IV SCH ×2 (05:51→17:45)
[2017-01-03] MEDS: PIPERACILLIN/TAZOBACTAM SOD 3.375 GM in D5W MINI-BAG PLUS 50 ML IV SCH ×3 (05:52→17:47)
[2017-01-03] MEDS: METOPROLOL TART 12.5 MG PER 1/2 TAB PO SCH ×4 (05:52→19:05)
[2017-01-03 08:00] VITALS: BP 131/65
--- NOTE | 2017-01-03 08:56 | IPNPDOC ---
Date Seen The patient was seen on 01/03/17. Progress Note SUBJECTIVE: Patient is more awake this am , Dyspnea seems to be better, no fever or chills, does not follow verbal commands however if i demonstrated the command with action then she was able to follow it, may have problem with comprehension or some form of receptive aphasia as well as expressive aphasia, no nausea or vomiting or diarrhea. Does give yes or no answers not sure if she fully comprehends the questions. Patient was able to take few spoons of pureed food without aspiration. OBJECTIVE PHYSICAL EXAMINATION: VITAL SIGNS: Please see below. GENERAL: Frail female appears older than stated age sitting in bed awake she does not appear to be in any acute distress. HEENT: Pupils equally round and reactive to light, hirsutism, dry mucous membranes CARDIOVASCULAR: S1-S2 tachycardic, more audible mechanical sounds. Systolic murmur in the aortic area. JV distended. RESPIRATORY: fine bilateral basal crackles right > left. Abdominal type of respiration , tachypniec. ABDOMINAL: Soft nontender, BS + EXTREMITIES: Wasted Neuro: quadriparesis right weakness greater than left, expressive and receptive aphasia. LABORATORY DATA: Please see below. MICROBIOLOGY: Please see below. IMAGING: Echocardiogram: 12/27/16 1. Study is of acceptable technical quality. 2. Normal LV size with septal wall motion abnormality and overall severely reduced LV systolic function. 3. Increased It varies gradient across aortic valve (mean gradient 36 mmHg) in mild to moderate insufficiency. 4. Increased gradient across mitral valve (mean gradient 12, peak gradient 32 mmHg). 5. High central venous pressure. 6. At least moderately severe pulmonary hypertension. Compared to echocardiogram report from 11/27/2016, the mean gradient across the aortic valve increased from 13 to 36 mmHg. The mean gradient across the mitral valve increased from 9 to 12 mmHg. Also, the left ventricle ejection fraction was only mildly reduced on previous study. Previous EF estimated to be 50% Duplex RUE: No evidence for deep venous thrombosis. CXR 12/27/16: Right lower lobe infiltrate DVT prophylaxis ordered?: Therapeutic heparin gtt ASSESSMENT AND PLAN: This is a 66-year-old female with hydrocephalus who has had a complicated hospital course. PROBLEMS: 1. Aortic valve thrombus: Dr. Patel's help is greatly appreciated she has been transitioned from therapeutic Lovenox to IV heparin and has improved hemodynamics, she is no longer hypotensive and she is less tachycardic. Several days ago there was concern overnight she may have had a GI bleed with a subtle drop of her hemoglobin and her INR was reversed during that time. Her H&H remained stable following 2 units transfusion and a lumbar puncture was taken off anticoagulation before anticoagulation was quickly restarted. recheck an echocardiogram . If no shunt is required then will stop anticoagulation briefly to get a gastrojejunostomy tube and start coumadin. 2. Congestive heart failure patient is status post mechanical mitral and aortic valve replacements her previous echocardiogram demonstrated an ejection fraction of approximately 50% however an echocardiogram conducted more recently reveals an EF of closer to 35% . Now close to euvolemic status. She is continued on a beta samantha.She gets intermittently fluid overloaded so started on daily lasix. 3. Aspiration pneumonia and Health care associated pneumonia : will complete 10 days of zosyn. 1 of 2 culture bottles from the grew Propionibacterium no evidence of MRSA . Patient will probably need feeding tube in the near future. 4. Asymptomatic bacteruria rather than UTI: sample was collected from catheter. 5. Intracranial hemorrhage and CVA: Patient was status post external ventricular drain at [facility] 2 months ago however it was felt that the patient developed ventriculitis and so the Drain was removed. However CSF cultures have always been negative. She completed course of IV antibiotics for cerebral ventriculitis she Had quadriparesis and expressive and receptive aphasia when she was discharged to our PMNR floor where she was very briefly there before being readmitted for worsening hydrocephalus. She has had a repeat LP following completion of her antibiotics which revealed an opening pressure of 18 and was reviewed by infectious disease who did not feel there was any residual infection remaining. Patient was evaluate by Dr Franklin in in november and was felt that she would benefit from the shunt. He is going to reevaluate her again to decide if shunt is required or not. Several discussion have been held with the family regarding high risk nature or surgery and overall prognosis 6. Protein calorie malnutrition: Her swallow has been re-evaluated and she has been restarted on diet, her cognition is improved. However she is refusing to eat. She is on TPN and her pre-albumin has improved. She will ultimately need Feeding tube to maintain nutrition. 7. Colitis: Unclear if this was truly ischemic, it does not appear to be infectious, GI PCR panel has been negative Dr. Mcneal of general surgery has seen the patient and has stated that a colonoscopy would be diagnostic and help us letting severity however given her fragile state and the fact would not change her management at this time it has been foregone. Her diarrhea at this time has resolved with Imodium we will simply continue to monitor. 8. Metabolic encephalopathy: Likely multifactorial in nature, the patient does have hydrocephalus which is an etiology she is also been suffering from sepsis related to aspiration pneumonia versus UTI, she has also been decompensated heart failure related to aortic valve thrombus, unfortunately all at the same time. Her mental status with waxes and wanes but appears to be doing better in recent days. Repeat ABG today did not show any hypercarbia 9 depression: The patient had expressed depressive mood earlier during her stay , she was started on Pamelor 10. Coronary artery disease: The patient is on a beta samantha and a statin she is not on aspirin at this time, she is anticoagulated with a heparin drip. 11. Hyperthyroidism: The patient has suffered from significant hyperthyroidism her methimazole dose has been adjusted numerous times during the stay and most recently rechecked her thyroid function earlier this week and it did show some signs of improvement and as such we'll continue with her current dose 12. Anemia: May be related to intracranial hemorrhage versus ischemic colitis versus mild GI bleed. The patient did have an occult stool for blood that was positive several days ago and although her H&H only very mildly dipped her INR was reversed and she did receive 2 units of PRBCs of which she has remained stable since and has been tolerating anticoagulation since no evidence of ongoing bleeding however the family is aware of her fragile state this is certainly a risk at any time. 13. Hypertension: The patient was previously on CHANO inhibitor and Norvasc both of these were stopped and she was quite hypotensive, as her blood pressure hopefully improves could consider reinitiating of CHANO inhibitor therapy given her low ejection fraction. 14. Paroxysmal fibrillation: This is a new diagnosis during last 2 months at the present time she appears to be in sinus tachycardia without atrial fibrillation she is on metoprolol and she is on heparin gtt. 15. PEA: The patient did have an episode of pulseless electrical activity following IV ministration of vitamin K she does not have any episodes of recurrence this is documented as an allergy 16. Hypoxia: Likely secondary to aspiration and now also mild fluid overload. Receiving lasix daily. cannot wean oxygen at this time. VS, I&O, 24H, Fishbone Vital Signs/I&O Vital Signs Date Time Temp Pulse Resp B/P (MAP) Pulse Ox O2 Delivery O2 Flow Rate FiO2 01/03/17 08:00 100.0 79 20 131/65 (87) 96 Nasal Cannula 2.0 I&O- Last 24 Hours up to 6 AM 01/03/17 06:00 Intake Total 3024 ml Balance 3024 ml Laboratory Data 24H LABS Laboratory Tests 2 01/02/17 11:41: Bedside Glucose (Misc Panel) 144H 01/02/17 17:32: Bedside Glucose (Misc Panel) 117H 01/03/17 00:02: Bedside Glucose (Misc Panel) 132H 01/03/17 04:38: Activated Partial Thromboplast Time 86.6H, Anion Gap 7L, Glomerular Filtration Rate > 60.0, Blood Urea Nitrogen 32H, Creatinine 0.60, Sodium Level 136, Potassium Level 3.8, Chloride Level 97L, Carbon Dioxide Level 32, Calcium Level 8.7L 01/03/17 05:45: Bedside Glucose (Misc Panel) 132H CBC/BMP Laboratory Tests 01/03/17 04:38 Red Blood Count 2.69 L, Mean Corpuscular Volume 95.2, Mean Corpuscular Hemoglobin 31.9, Mean Corpuscular Hemoglobin Concent 33.5, Red Cell Distribution Width 15.9 H, Calcium Level 8.7 L Microbiology Microbiology 12/26/16 Blood Culture - Final, Complete NO GROWTH AFTER 5 DAYS 12/26/16 Blood Culture - Final, Complete NO GROWTH AFTER 5 DAYS 12/24/16 Gram Stain - Final, Complete 12/24/16 CSF Culture - Final, Complete 12/29/16 Stool Occult Blood (PAPI) - Final, Complete 12/25/16 Clostridium difficile (PCR) - Final, Complete CONCEPCION HARKINS MD Jan 03, 2017 08:56
[2017-01-03] MEDS: LIDOCAINE 5% (LIDODERM) PATCH TD SCH (10:07)
[2017-01-03] MEDS: FUROSEMIDE 40 MG/4 ML VIAL (J1940) IV SCH (10:07)
[2017-01-03] MEDS: PANTOPRAZOLE 40MG TAB (PROTONIX) PO SCH (10:08)
[2017-01-03] MEDS: levETIRAcetam 250MG TABLET (KEPPRA) PO SCH (10:08)
[2017-01-03] MEDS: levETIRAcetam INJection 500 MG in D5W MINI-BAG PLUS 100 ML IV SCH ×2 (11:37→21:14)
[2017-01-03 12:00] VITALS: BP 127/65
[2017-01-03 15:30] VITALS: BP 115/58
[2017-01-03] MEDS ORDERED: AMINO AC/ELECTROLYTE/DEX/CALC 2,000 ML IV SCH (18:00)
[2017-01-03] MEDS ORDERED: FAT EMULSION IV 20% 500 ML IV SCH (18:00)
[2017-01-03] MEDS: NORTRIPTYLINE 10 MG CAP PO SCH ×2 (18:00→19:05)
[2017-01-03] MEDS: ATORVASTATIN 20 MG TAB PO SCH (19:05)
[2017-01-03 20:53] VITALS: BP 132/71
[2017-01-03] MEDS: **NOTE PATIENT COMMENT** MISC XX SCH (21:00)
[2017-01-03] MEDS: HEPARIN DRIP 25,000 UNITS in APPROPRIATE DILUENT 1 EA IV SCH (21:13)
[2017-01-03 23:50] VITALS: BP 121/59
[2017-01-04] MEDS: PIPERACILLIN/TAZOBACTAM SOD 3.375 GM in D5W MINI-BAG PLUS 50 ML IV SCH ×4 (00:22→17:58)
[2017-01-04] MEDS: HumaLOG INSULIN (NovoLOG) PER UNIT SC SCH ×4 (00:28→17:57)
[2017-01-04] MEDS: METOPROLOL TART 12.5 MG PER 1/2 TAB PO SCH ×4 (00:29→17:57)
[2017-01-04] MEDS: SODIUM CHLORIDE 0.9% INJ 10 ML SYR IV PRN (01:34)
[2017-01-04 05:13] LABS: MEAN CORPUSCULAR HEMOGLOBIN 32.1 pg (27.0-33.0); MEAN CORPUSCULAR HGB CONC 33.9 g/dl (32.0-36.5); MEAN CORPUSCULAR VOLUME 94.8 fl (80.0-96.0); RED CELL DISTRIBUTION WIDTH 16.1 % (11.5-14.5); WHITE BLOOD COUNT 9.7 K/mm3 (4.0-10.0)
[2017-01-04 05:34] LABS: ANION GAP 7 MEQ/L (8-16); BLOOD UREA NITROGEN 33 MG/DL (7-18); CALCIUM LEVEL 8.9 MG/DL (8.8-10.2); CARBON DIOXIDE LEVEL 31 MEQ/L (21-32); CHLORIDE LEVEL 97 MEQ/L (98-107); CREATININE FOR GFR 0.59 MG/DL (0.55-1.02); GLOMERULAR FILTRATION RATE > 60.0 (>45); GLUCOSE, FASTING 133 MG/DL (80-110); POTASSIUM SERUM 3.7 MEQ/L (3.5-5.1); SODIUM LEVEL 135 MEQ/L (136-145)
[2017-01-04 05:40] VITALS: BP 127/61
[2017-01-04] MEDS: SODIUM CHLORIDE 0.9% INJ 10 ML SYR IV SCH ×2 (05:53→18:17)
[2017-01-04 08:00] VITALS: BP 124/59
[2017-01-04] MEDS: FUROSEMIDE 40 MG/4 ML VIAL (J1940) IV SCH (09:16)
[2017-01-04] MEDS: levETIRAcetam INJection 500 MG in D5W MINI-BAG PLUS 100 ML IV SCH ×2 (09:16→20:04)
[2017-01-04] MEDS: LIDOCAINE 5% (LIDODERM) PATCH TD SCH (09:17)
--- NOTE | 2017-01-04 10:56 | IPNPDOC ---
Date Seen The patient was seen on 01/04/17. Progress Note SUBJECTIVE: Patient is more awake this am , Dyspnea seems to be better, no fever or chills, does not follow verbal commands however if i demonstrated the command with action then she was able to follow it, may have problem with comprehension or some form of receptive aphasia as well as expressive aphasia, no nausea or vomiting or diarrhea. Does give yes or no answers not sure if she fully comprehends the questions. Patient was able to take few spoons of pureed food without aspiration. Patient says no to feeding tube. Did eat icecream and thickened water yesterday. OBJECTIVE PHYSICAL EXAMINATION: VITAL SIGNS: Please see below. GENERAL: Frail female appears older than stated age sitting in bed awake she does not appear to be in any acute distress. HEENT: Pupils equally round and reactive to light, hirsutism, dry mucous membranes CARDIOVASCULAR: S1-S2 tachycardic, more audible mechanical sounds. Systolic murmur in the aortic area. RESPIRATORY: fine bilateral basal crackles right > left. Abdominal type of respiration ABDOMINAL: Soft nontender, BS + EXTREMITIES: Wasted Neuro: quadriparesis right weakness greater than left, expressive and receptive aphasia. LABORATORY DATA: Please see below. MICROBIOLOGY: Please see below. IMAGING: Echocardiogram: 12/27/16 1. Study is of acceptable technical quality. 2. Normal LV size with septal wall motion abnormality and overall severely reduced LV systolic function. 3. Increased It varies gradient across aortic valve (mean gradient 36 mmHg) in mild to moderate insufficiency. 4. Increased gradient across mitral valve (mean gradient 12, peak gradient 32 mmHg). 5. High central venous pressure. 6. At least moderately severe pulmonary hypertension. Compared to echocardiogram report from 11/27/2016, the mean gradient across the aortic valve increased from 13 to 36 mmHg. The mean gradient across the mitral valve increased from 9 to 12 mmHg. Also, the left ventricle ejection fraction was only mildly reduced on previous study. Previous EF estimated to be 50% Duplex RUE: No evidence for deep venous thrombosis. CXR 12/27/16: Right lower lobe infiltrate DVT prophylaxis ordered?: Therapeutic heparin gtt ASSESSMENT AND PLAN: This is a 66-year-old female with hydrocephalus who has had a complicated hospital course. PROBLEMS: 1. Aortic valve thrombus: Dr. Patel's help is greatly appreciated she has been transitioned from therapeutic Lovenox to IV heparin and has improved hemodynamics, she is no longer hypotensive and she is less tachycardic. Several days ago there was concern overnight she may have had a GI bleed with a subtle drop of her hemoglobin and her INR was reversed during that time. Her H&H remained stable following 2 units transfusion and a lumbar puncture was taken off anticoagulation before anticoagulation was quickly restarted. recheck an echocardiogram . If no shunt is required then will stop anticoagulation briefly to get a gastrojejunostomy tube and start coumadin. 2. Congestive heart failure patient is status post mechanical mitral and aortic valve replacements her previous echocardiogram demonstrated an ejection fraction of approximately 50% however an echocardiogram conducted more recently reveals an EF of closer to 35% . Now close to euvolemic status. She is continued on a beta samantha.She gets intermittently fluid overloaded so started on daily lasix. 3. Aspiration pneumonia and Health care associated pneumonia : will complete 10 days of zosyn. 1 of 2 culture bottles from the grew Propionibacterium no evidence of MRSA . Patient will probably need feeding tube in the near future. 4. Asymptomatic bacteruria rather than UTI: sample was collected from catheter. 5. Intracranial hemorrhage and CVA: Patient was status post external ventricular drain at [facility] 2 months ago however it was felt that the patient developed ventriculitis and so the Drain was removed. However CSF cultures have always been negative. She completed course of IV antibiotics for cerebral ventriculitis she Had quadriparesis and expressive and receptive aphasia when she was discharged to our PMNR floor where she was very briefly there before being readmitted for worsening hydrocephalus. She has had a repeat LP following completion of her antibiotics which revealed an opening pressure of 18 and was reviewed by infectious disease who did not feel there was any residual infection remaining. Patient was evaluate by Dr Franklin in in november and was felt that she would benefit from the shunt. He is going to reevaluate her again to decide if shunt is required or not. Several discussion have been held with the family regarding high risk nature or surgery and overall prognosis 6. Protein calorie malnutrition: Her swallow has been re-evaluated and she has been restarted on diet, her cognition is improved. However she is refusing to eat. She is on TPN and her pre-albumin has improved. She will ultimately need Feeding tube to maintain nutrition. 7. Colitis: Unclear if this was truly ischemic, it does not appear to be infectious, GI PCR panel has been negative Dr. Mcneal of general surgery has seen the patient and has stated that a colonoscopy would be diagnostic and help us letting severity however given her fragile state and the fact would not change her management at this time it has been foregone. Her diarrhea at this time has resolved with Imodium we will simply continue to monitor. 8. Metabolic encephalopathy: Likely multifactorial in nature, the patient does have hydrocephalus which is an etiology she is also been suffering from sepsis related to aspiration pneumonia versus UTI, she has also been decompensated heart failure related to aortic valve thrombus, unfortunately all at the same time. Her mental status with waxes and wanes but appears to be doing better in recent days. Repeat ABG today did not show any hypercarbia 9 depression: The patient had expressed depressive mood earlier during her stay , she was started on Pamelor 10. Coronary artery disease: The patient is on a beta samantha and a statin she is not on aspirin at this time, she is anticoagulated with a heparin drip. 11. Hyperthyroidism: The patient has suffered from significant hyperthyroidism her methimazole dose has been adjusted numerous times during the stay and most recently rechecked her thyroid function earlier this week and it did show some signs of improvement and as such we'll continue with her current dose 12. Anemia: May be related to intracranial hemorrhage versus ischemic colitis versus mild GI bleed. The patient did have an occult stool for blood that was positive several days ago and although her H&H only very mildly dipped her INR was reversed and she did receive 2 units of PRBCs of which she has remained stable since and has been tolerating anticoagulation since no evidence of ongoing bleeding however the family is aware of her fragile state this is certainly a risk at any time. 13. Hypertension: The patient was previously on CHANO inhibitor and Norvasc both of these were stopped and she was quite hypotensive, as her blood pressure hopefully improves could consider reinitiating of CHANO inhibitor therapy given her low ejection fraction. 14. Paroxysmal fibrillation: This is a new diagnosis during last 2 months at the present time she appears to be in sinus tachycardia without atrial fibrillation she is on metoprolol and she is on heparin gtt. 15. PEA: The patient did have an episode of pulseless electrical activity following IV ministration of vitamin K she does not have any episodes of recurrence this is documented as an allergy 16. Hypoxia: Likely secondary to aspiration and now also mild fluid overload. Receiving lasix daily. cannot wean oxygen at this time. VS, I&O, 24H, Fishbone Vital Signs/I&O Vital Signs Date Time Temp Pulse Resp B/P (MAP) Pulse Ox O2 Delivery O2 Flow Rate FiO2 01/04/17 08:00 97.5 84 18 124/59 (80) 96 Nasal Cannula 2.0 I&O- Last 24 Hours up to 6 AM 01/04/17 06:00 Intake Total 2614 ml Balance 2614 ml Laboratory Data 24H LABS Laboratory Tests 2 01/03/17 11:59: Bedside Glucose (Misc Panel) 145H 01/03/17 17:30: Bedside Glucose (Misc Panel) 118H 01/04/17 00:10: Bedside Glucose (Misc Panel) 112 01/04/17 04:25: Activated Partial Thromboplast Time 105.8H, Anion Gap 7L, Glomerular Filtration Rate > 60.0, Blood Urea Nitrogen 33H, Creatinine 0.59, Sodium Level 135L, Potassium Level 3.7, Chloride Level 97L, Carbon Dioxide Level 31, Calcium Level 8.9 CBC/BMP Laboratory Tests 01/04/17 04:25 Red Blood Count 2.81 L, Mean Corpuscular Volume 94.8, Mean Corpuscular Hemoglobin 32.1, Mean Corpuscular Hemoglobin Concent 33.9, Red Cell Distribution Width 16.1 H, Calcium Level 8.9 Microbiology Microbiology 12/26/16 Blood Culture - Final, Complete NO GROWTH AFTER 5 DAYS 12/26/16 Blood Culture - Final, Complete NO GROWTH AFTER 5 DAYS 12/29/16 Stool Occult Blood (PAPI) - Final, Complete 12/25/16 Clostridium difficile (PCR) - Final, Complete CONCEPCION HARKINS MD Jan 04, 2017 10:56
[2017-01-04 11:30] VITALS: BP 140/62
[2017-01-04] MEDS ORDERED: SODIUM CHLORIDE NASAL 0.65% SPRAY BTL (OCEAN) PRN (15:30)
[2017-01-04 16:00] VITALS: BP 120/60
[2017-01-04] MEDS: NYSTATIN 500,000 U/5 ML SUSP UDC SS SCH (17:56)
[2017-01-04] MEDS: NORTRIPTYLINE 10 MG CAP PO SCH (17:58)
[2017-01-04] MEDS ORDERED: FAT EMULSION IV 20% 500 ML IV SCH (18:00)
[2017-01-04] MEDS ORDERED: AMINO AC/ELECTROLYTE/DEX/CALC 2,000 ML IV SCH (18:00)
[2017-01-04] MEDS: ATORVASTATIN 20 MG TAB PO SCH (20:04)
[2017-01-04] MEDS: NYSTATIN 100,000 UNITS/GM TOPICAL PWD 15 GM TOP SCH (20:17)
[2017-01-04] MEDS: **NOTE PATIENT COMMENT** MISC XX SCH (20:17)
[2017-01-04] MEDS: HEPARIN DRIP 25,000 UNITS in APPROPRIATE DILUENT 1 EA IV SCH (20:26)
[2017-01-04 21:07] VITALS: BP 121/57
[2017-01-05 00:40] VITALS: BP 113/54
[2017-01-05] MEDS: PIPERACILLIN/TAZOBACTAM SOD 3.375 GM in D5W MINI-BAG PLUS 50 ML IV SCH ×4 (01:00→18:13)
[2017-01-05] MEDS: NYSTATIN 500,000 U/5 ML SUSP UDC SS SCH ×4 (01:00→17:44)
[2017-01-05] MEDS: HumaLOG INSULIN (NovoLOG) PER UNIT SC SCH ×4 (01:01→17:44)
[2017-01-05] MEDS: METOPROLOL TART 12.5 MG PER 1/2 TAB PO SCH ×4 (01:15→17:45)
[2017-01-05 05:40] VITALS: BP 124/65
[2017-01-05] MEDS: SODIUM CHLORIDE 0.9% INJ 10 ML SYR IV SCH ×2 (05:58→17:44)
[2017-01-05 06:10] LABS: MEAN CORPUSCULAR HEMOGLOBIN 31.9 pg (27.0-33.0); MEAN CORPUSCULAR HGB CONC 33.2 g/dl (32.0-36.5); MEAN CORPUSCULAR VOLUME 96.2 fl (80.0-96.0); RED CELL DISTRIBUTION WIDTH 16.4 % (11.5-14.5); WHITE BLOOD COUNT 7.4 K/mm3 (4.0-10.0)
[2017-01-05 06:36] LABS: ANION GAP 7 MEQ/L (8-16); BLOOD UREA NITROGEN 40 MG/DL (7-18); CARBON DIOXIDE LEVEL 30 MEQ/L (21-32); CHLORIDE LEVEL 97 MEQ/L (98-107); CREATININE FOR GFR 0.64 MG/DL (0.55-1.02); GLOMERULAR FILTRATION RATE > 60.0 (>45); GLUCOSE, FASTING 123 MG/DL (80-110); POTASSIUM SERUM 3.7 MEQ/L (3.5-5.1); SODIUM LEVEL 134 MEQ/L (136-145)
[2017-01-05 08:03] VITALS: BP 134/66
[2017-01-05] MEDS: FUROSEMIDE 40 MG/4 ML VIAL (J1940) IV SCH (08:25)
[2017-01-05] MEDS: levETIRAcetam INJection 500 MG in D5W MINI-BAG PLUS 100 ML IV SCH ×2 (08:27→21:03)
[2017-01-05] MEDS: LIDOCAINE 5% (LIDODERM) PATCH TD SCH (08:28)
[2017-01-05] MEDS: NYSTATIN 100,000 UNITS/GM TOPICAL PWD 15 GM TOP SCH ×2 (09:18→21:04)
--- NOTE | 2017-01-05 09:28 | IPNPDOC ---
Subjective Date Seen The patient was seen on 01/05/17. Subjective Chief Complaint/HPI The patient is a 66-year-old female admitted with a reason for visit of ICH. Events since last encounter patient awake and alert, answering questions appropriately with yes and no. When asked if she wanted a feeding tube she said no has been saying the same everyday , asked if she would like icecream said yes, asked if she likes sweet food said yes and said no to salty foods, asked if she liked cold or warm foods just shrugged no preference. seems like her receptive aphasia is improving . she s also moving her right side more. Her left side is always stronger then the right. Objective Physical Examination General Exam: Positive: Alert, Cooperative, No Acute Distress Eye Exam: Positive: PERRLA, Negative: Sclera icteric ENT Exam: Positive: Mucous membr. moist/pink, Tongue Midline Neck Exam: Positive: Supple Chest Exam: Positive: Clear to auscultation, Rales (bibasal few crackles), Negative: Rhonchi, Wheezing Heart Exam: Positive: Rate Normal, Irregular Rhythm, Normal S1, Normal S2, Other (mitral and aortic metallic clicks. ) Abdomen Exam: Positive: Normal bowel sounds, Soft, Negative: Tenderness Extremity Exam: Negative: Edema, Tenderness Skin Exam: Positive: Nl turgor and temperature, Negative: Rash, Breakdown Neuro Exam: Positive: Other (quadriparesis right weaker than left. receptive and expressive aphasia. ) Assessment /Plan Problems (1) HCAP (healthcare-associated pneumonia) Status: Acute Problem Text: will complete 10 days of Zosyn on 01/05/17 (2) Aspiration pneumonia Status: Acute Problem Text: will complete antibiotics on 01/05/17 (3) Thrombosis of prosthetic heart valve Status: Acute Problem Text: AOrtic valve acute thrombus when anticoagulation was stopped and reversed for a drop in hh presumed to be GIB patient was negative for GIB On heparin infusion Patient may need V-P shunt surgery and possible feeding tube so have not been able to start on coumadin. (4) Metabolic encephalopathy Status: Resolved Problem Text: Multifactorial , infection , recent stroke more interactive today, more verbal (5) Protein calorie malnutrition Status: Acute Problem Text: Dietary intake likely insufficient for needs continues to be on TPN. Also discussed with family The patient is quite insistent that she has no interest in a feeding tube as of 01/05/17 (6) Depression Status: Acute Problem Text: likely adjustment disorder or depression based on her illness on pamelor (7) CVA (cerebrovascular accident due to intracerebral hemorrhage) Status: Acute Problem Text: Had intracerebral and intraventricular hemorrhage in October 2016 managed at [facility] stroke unit. 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 Had External ventricular drain placed there luis was thought to have gotten infected and was thought that she had developed ventriculitis wa treated with 2 weeks of antibiotics CSF has been persistently negative there as well as in our hospital (8) Hydrocephalus Status: Acute Response to Treatment: Stable Problem Specific Plan: Consult Specialist Problem Text: Had External ventricular drain placed there luis was thought to have gotten infected and was thought that she had developed ventriculitis was treated with 2 weeks of antibiotics CSF has been persistently negative there as well as in our hospital . ID has cleared the pateint for V-P shunt surgery if required. Neurosurgery to reevaluate regarding the requirement of V-P shunt at this time. (9) Cerebral ventriculitis Status: Resolved Problem Specific Plan: Consult Specialist Problem Text: s/p completion of IV Abx therapy Repeat LP done 12/01/16 negative. (10) CAD (coronary artery disease) of artery bypass graft Status: Chronic Problem Specific Plan: Monitor Clinically (11) Hyperthyroidism Status: Acute Problem Specific Plan: Monitor Clinically Problem Text: TFTs not improved as of 12/08/16- repeat labs ordered Back on methimazole- increased dose 12/22/16 (12) Anemia Status: Chronic Response to Treatment: Stable Problem Specific Plan: Repeat Labs Problem Text: s/p 1 Unit of PRBC's transfusion on 11/25/16 Stool occult negative x4 No overt source of bleeding identified (13) S/P mitral valve replacement Status: Chronic Problem Text: INR slightly still sub therapeutic on coumadin, will give lovenox until therapeutic. Appears to have very brittle response to coumadin. Also has refused coumadin intermittently (14) HTN (hypertension) Status: Chronic Problem Text: on norvasc, michelle inhibitor bp reasonably controlled for current setting (15) HLD (hyperlipidemia) Status: Chronic Problem Text: Cont Statin (16) Afib Status: Chronic Problem Text: rate controlled on heparin infusion on metoprolol (17) DVT prophylaxis Response to Treatment: Stable Problem Text: heparin drip (18) Diastolic CHF Status: Chronic Problem Specific Plan: Monitor Clinically Problem Text: grade II, compensated (19) PEA (Pulseless electrical activity) Status: Resolved Problem Text: s/p PEA arrest, associated with use of IV vitamin k Was seen by cardiology during her stay No significant ongoing issues No need for continuing telemetry (20) Impaired swallowing Status: Chronic Problem Text: will continue pureed diet will try to get new swallow eval. Plan/VTE VTE Prophylaxis Ordered?: Yes (coumadin) Plan/Urinary Catheter Reason for insertion/continuin: Critical Pt monitoring VS, I&O, 24H, Fishbone Vital Signs/I&O Vital Signs Date Time Temp Pulse Resp B/P (MAP) Pulse Ox O2 Delivery O2 Flow Rate FiO2 01/05/17 08:03 97.6 82 20 134/66 (88) 98 Nasal Cannula 2.0 I&O- Last 24 Hours up to 6 AM 01/05/17 06:00 Intake Total 1553 ml Balance 1553 ml Laboratory Data 24H LABS Laboratory Tests 2 01/04/17 11:19: Bedside Glucose (Misc Panel) 119H 01/04/17 11:47: Activated Partial Thromboplast Time 85.8H 01/04/17 16:47: Bedside Glucose (Misc Panel) 117H 01/04/17 18:15: Activated Partial Thromboplast Time 59.0H 01/04/17 23:10: Activated Partial Thromboplast Time 143.4*H 01/05/17 00:43: Bedside Glucose (Misc Panel) 111 01/05/17 05:44: Bedside Glucose (Misc Panel) 122H 01/05/17 05:55: Activated Partial Thromboplast Time 102.0H, Anion Gap 7L, Glomerular Filtration Rate > 60.0, Blood Urea Nitrogen 40H, Creatinine 0.64, Sodium Level 134L, Potassium Level 3.7, Chloride Level 97L, Carbon Dioxide Level 30, Calcium Level 9.0 CBC/BMP Laboratory Tests 01/05/17 05:55 Red Blood Count 2.98 L, Mean Corpuscular Volume 96.2 H, Mean Corpuscular Hemoglobin 31.9, Mean Corpuscular Hemoglobin Concent 33.2, Red Cell Distribution Width 16.4 H, Calcium Level 9.0 Microbiology Microbiology 12/26/16 Blood Culture - Final, Complete NO GROWTH AFTER 5 DAYS 12/26/16 Blood Culture - Final, Complete NO GROWTH AFTER 5 DAYS 12/29/16 Stool Occult Blood (PAPI) - Final, Complete CONCEPCION HARKINS MD Jan 05, 2017 09:28
[2017-01-05] MEDS: ONDANSETRON 4MG/2ML VIAL (J2405) IV PRN (11:46)
[2017-01-05 12:00] VITALS: BP 125/58
[2017-01-05] MEDS: NORTRIPTYLINE 10 MG CAP PO SCH ×2 (17:45→21:04)
[2017-01-05] MEDS ORDERED: MULTIVITAMIN -ADULT INJECTION 10 ML, CR/CU/SE/MN/ZN INJ 1 ML in AMINO AC/ELECTROLYTE/DE... IV SCH (18:00)
[2017-01-05] MEDS ORDERED: FAT EMULSION IV 20% 500 ML IV SCH (18:00)
[2017-01-05 20:00] VITALS: BP 136/65
[2017-01-05] MEDS: ATORVASTATIN 20 MG TAB PO SCH (21:03)
[2017-01-05] MEDS: **NOTE PATIENT COMMENT** MISC XX SCH (21:04)
[2017-01-05 23:59] VITALS: BP 121/58
[2017-01-06] VITALS (7 sets, daily range): BP systolic 117–144; BP diastolic 59–71
[2017-01-06] MEDS: HumaLOG INSULIN (NovoLOG) PER UNIT SC SCH ×4 (00:02→17:42)
[2017-01-06] MEDS: HEPARIN DRIP 25,000 UNITS in APPROPRIATE DILUENT 1 EA IV SCH (00:18)
[2017-01-06] MEDS: SODIUM CHLORIDE 0.9% INJ 10 ML SYR IV SCH ×2 (05:41→17:31)
[2017-01-06] MEDS: METOPROLOL TART 12.5 MG PER 1/2 TAB PO SCH ×3 (05:41→17:08)
[2017-01-06] MEDS: NYSTATIN 500,000 U/5 ML SUSP UDC SS SCH ×3 (05:41→17:08)
[2017-01-06 05:47] LABS: MEAN CORPUSCULAR HEMOGLOBIN 31.6 pg (27.0-33.0); MEAN CORPUSCULAR HGB CONC 32.5 g/dl (32.0-36.5); MEAN CORPUSCULAR VOLUME 97.1 fl (80.0-96.0); RED CELL DISTRIBUTION WIDTH 16.6 % (11.5-14.5); WHITE BLOOD COUNT 7.6 K/mm3 (4.0-10.0)
[2017-01-06 06:09] LABS: ANION GAP 7 MEQ/L (8-16); BLOOD UREA NITROGEN 38 MG/DL (7-18); CALCIUM LEVEL 9.3 MG/DL (8.8-10.2); CARBON DIOXIDE LEVEL 30 MEQ/L (21-32); CHLORIDE LEVEL 98 MEQ/L (98-107); CREATININE FOR GFR 0.61 MG/DL (0.55-1.02); GLOMERULAR FILTRATION RATE > 60.0 (>45); GLUCOSE, FASTING 111 MG/DL (80-110); POTASSIUM SERUM 3.5 MEQ/L (3.5-5.1); SODIUM LEVEL 135 MEQ/L (136-145)
[2017-01-06] MEDS: levETIRAcetam INJection 500 MG in D5W MINI-BAG PLUS 100 ML IV SCH ×2 (09:54→21:05)
[2017-01-06] MEDS: FUROSEMIDE 40 MG/4 ML VIAL (J1940) IV SCH (09:55)
[2017-01-06] MEDS: LIDOCAINE 5% (LIDODERM) PATCH TD SCH (09:56)
[2017-01-06] MEDS: NYSTATIN 100,000 UNITS/GM TOPICAL PWD 15 GM TOP SCH ×2 (09:56→21:00)
--- NOTE | 2017-01-06 12:51 | IPNPDOC ---
Subjective Date Seen The patient was seen on 01/06/17. Subjective Chief Complaint/HPI The patient is a 66-year-old female admitted with a reason for visit of ICH. Events since last encounter pateint refusing to eat , refusing to participate with PT , refusing to take meds, very upset spoke to him in details yesterday will try to talk to him again today. Objective Physical Examination General Exam: Positive: Alert, Cooperative, No Acute Distress Eye Exam: Positive: PERRLA, Negative: Sclera icteric ENT Exam: Positive: Mucous membr. moist/pink, Tongue Midline Neck Exam: Positive: Supple Chest Exam: Positive: Clear to auscultation, Rales (bibasal few crackles), Negative: Rhonchi, Wheezing Heart Exam: Positive: Rate Normal, Irregular Rhythm, Normal S1, Normal S2, Other (mitral and aortic metallic clicks. ) Abdomen Exam: Positive: Normal bowel sounds, Soft, Negative: Tenderness Extremity Exam: Negative: Edema, Tenderness Skin Exam: Positive: Nl turgor and temperature, Negative: Rash, Breakdown Neuro Exam: Positive: Other (quadriparesis right weaker than left. receptive and expressive aphasia. ) Assessment /Plan Problems (1) HCAP (healthcare-associated pneumonia) Status: Acute Problem Text: will complete 10 days of Zosyn on 01/05/17 (2) Aspiration pneumonia Status: Acute Problem Text: will complete antibiotics on 01/05/17 (3) Thrombosis of prosthetic heart valve Status: Acute Problem Text: AOrtic valve acute thrombus when anticoagulation was stopped and reversed for a drop in hh presumed to be GIB patient was negative for GIB On heparin infusion Patient may need V-P shunt surgery and possible feeding tube so have not been able to start on coumadin. (4) Metabolic encephalopathy Status: Resolved Problem Text: Multifactorial , infection , recent stroke more interactive today, more verbal (5) Protein calorie malnutrition Status: Acute Problem Text: Dietary intake likely insufficient for needs continues to be on TPN. Also discussed with family The patient is quite insistent that she has no interest in a feeding tube as of 01/05/17 (6) Depression Status: Acute Problem Text: likely adjustment disorder or depression based on her illness on pamelor (7) CVA (cerebrovascular accident due to intracerebral hemorrhage) Status: Acute Problem Text: Had intracerebral and intraventricular hemorrhage in October 2016 managed at [facility] stroke unit. 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 Had External ventricular drain placed there luis was thought to have gotten infected and was thought that she had developed ventriculitis wa treated with 2 weeks of antibiotics CSF has been persistently negative there as well as in our hospital (8) Hydrocephalus Status: Acute Response to Treatment: Stable Problem Specific Plan: Consult Specialist Problem Text: Had External ventricular drain placed there luis was thought to have gotten infected and was thought that she had developed ventriculitis was treated with 2 weeks of antibiotics CSF has been persistently negative there as well as in our hospital . ID has cleared the pateint for V-P shunt surgery if required. Neurosurgery to reevaluate regarding the requirement of V-P shunt at this time. (9) Cerebral ventriculitis Status: Resolved Problem Specific Plan: Consult Specialist Problem Text: s/p completion of IV Abx therapy Repeat LP done 12/01/16 negative. (10) CAD (coronary artery disease) of artery bypass graft Status: Chronic Problem Specific Plan: Monitor Clinically (11) Hyperthyroidism Status: Acute Problem Specific Plan: Monitor Clinically Problem Text: TFTs not improved as of 12/08/16- repeat labs ordered Back on methimazole- increased dose 12/22/16 (12) Anemia Status: Chronic Response to Treatment: Stable Problem Specific Plan: Repeat Labs Problem Text: s/p 1 Unit of PRBC's transfusion on 11/25/16 Stool occult negative x4 No overt source of bleeding identified (13) S/P mitral valve replacement Status: Chronic Problem Text: INR slightly still sub therapeutic on coumadin, will give lovenox until therapeutic. Appears to have very brittle response to coumadin. Also has refused coumadin intermittently (14) HTN (hypertension) Status: Chronic Problem Text: on norvasc, michelle inhibitor bp reasonably controlled for current setting (15) HLD (hyperlipidemia) Status: Chronic Problem Text: Cont Statin (16) Afib Status: Chronic Problem Text: rate controlled on heparin infusion on metoprolol (17) DVT prophylaxis Response to Treatment: Stable Problem Text: heparin drip (18) Diastolic CHF Status: Chronic Problem Specific Plan: Monitor Clinically Problem Text: grade II, compensated (19) PEA (Pulseless electrical activity) Status: Resolved Problem Text: s/p PEA arrest, associated with use of IV vitamin k Was seen by cardiology during her stay No significant ongoing issues No need for continuing telemetry (20) Impaired swallowing Status: Chronic Problem Text: will continue pureed diet will try to get new swallow eval. Plan/VTE VTE Prophylaxis Ordered?: Yes (coumadin) Plan/Urinary Catheter Reason for insertion/continuin: Critical Pt monitoring VS, I&O, 24H, Fishbone Vital Signs/I&O Vital Signs Date Time Temp Pulse Resp B/P (MAP) Pulse Ox O2 Delivery O2 Flow Rate FiO2 01/06/17 11:41 Nasal Cannula 2.0 01/06/17 11:40 89 128/68 01/06/17 07:45 99.1 20 98 I&O- Last 24 Hours up to 6 AM 01/06/17 06:00 Intake Total 1222 ml Output Total 0 ml Balance 1222 ml Laboratory Data 24H LABS Laboratory Tests 2 01/05/17 17:34: Bedside Glucose (Misc Panel) 130H 01/05/17 23:59: Bedside Glucose (Misc Panel) 130H 01/06/17 05:34: Activated Partial Thromboplast Time 79.4H, Anion Gap 7L, Glomerular Filtration Rate > 60.0, Blood Urea Nitrogen 38H, Creatinine 0.61, Sodium Level 135L, Potassium Level 3.5, Chloride Level 98, Carbon Dioxide Level 30, Calcium Level 9.3 01/06/17 11:26: Bedside Glucose (Misc Panel) 118H CBC/BMP Laboratory Tests 01/06/17 05:34 Red Blood Count 3.10 L, Mean Corpuscular Volume 97.1 H, Mean Corpuscular Hemoglobin 31.6, Mean Corpuscular Hemoglobin Concent 32.5, Red Cell Distribution Width 16.6 H, Calcium Level 9.3 Microbiology Microbiology 12/29/16 Stool Occult Blood (PAPI) - Final, Complete CONCEPCION HARKINS MD Jan 06, 2017 12:51
[2017-01-06] MEDS: NORTRIPTYLINE 10 MG CAP PO SCH (17:08)
[2017-01-06] MEDS ORDERED: FAT EMULSION IV 20% 500 ML IV SCH (18:00)
[2017-01-06] MEDS ORDERED: AMINO AC/ELECTROLYTE/DEX/CALC 2,000 ML IV SCH (18:00)
[2017-01-06] MEDS: **NOTE PATIENT COMMENT** MISC XX SCH (21:00)
[2017-01-06] MEDS: ATORVASTATIN 20 MG TAB PO SCH (21:00)
--- NOTE | 2017-01-06 21:35 | IPN ---
DATE: 01/06/2017 Nayla seem to be very alert today. She is refusing to take any medications, any pulls. She does not want to live that way she stated it clearly to Matilda Schneider her nurse and myself. She does not want to tube feeding either. She does not want to be a Hospice care or discharged home at this moment. There has been a problem between her daughter who is her healthcare proxy, Ceci Damon and her father who wants to have everything done and Jennifer believes that her mother is able to make her decisions. Temperature is 97.9, pulse 81, respirations 20, blood pressure 170/59, O2 sat 99% on 2 liters. Heart: Normal S1-S2 with a click, holosystolic murmur 3/6 unchanged. Lungs are clear. Abdomen is soft, mildly tender in the left lower quadrant. Extremities: No edema. Moves all extremities. Is answering appropriately to every question answered in the presence of nursing. IMPRESSION: 1. An intraventricular bleed with poor recovery of motor function. The patient is not wanting to live that way and does not tube feed or lumbar puncture done. 2. History of aortic valve and mitral valve replacement with a thrombus. Severely reduced left ventricular systolic function, moderate aortic insufficiency and not severe pulmonary hypertension. 3. History of nosocomial ventriculitis finish treatment with IV antibiotics. 4. Recent aspiration pneumonia finish Zosyn on 01/05 has been afebrile with a normal white count. PLAN: The patient has refused care today. Is clear about her wishes will need to committee as her healthcare proxy Ceci Damon, her daughter is having issues with the father who is not 's wishes. It is clear to all of us as physicians Dr. Kaycee Schneider Laurie Hanno, that the patient does not want to and to pursue a life like this and does not want to tube feeds or a feeding tube, lumbar puncture or any further care. I have called Chelsey Qureshi regarding organizing an ethics committee and her daughter Ceci was also called and she will be visiting her mother this afternoon. She has seen her yesterday and had her wishes as well.
[2017-01-07] MEDS: HumaLOG INSULIN (NovoLOG) PER UNIT SC SCH ×4 (00:29→18:05)
[2017-01-07 04:00] VITALS: BP 133/80
[2017-01-07] MEDS: SODIUM CHLORIDE 0.9% INJ 10 ML SYR IV SCH ×2 (05:29→17:48)
[2017-01-07] MEDS: NYSTATIN 500,000 U/5 ML SUSP UDC SS SCH ×5 (05:29→20:33)
[2017-01-07] MEDS: METOPROLOL TART 12.5 MG PER 1/2 TAB PO SCH ×4 (05:29→17:47)
[2017-01-07 05:52] LABS: MEAN CORPUSCULAR HEMOGLOBIN 31.2 pg (27.0-33.0); MEAN CORPUSCULAR HGB CONC 32.8 g/dl (32.0-36.5); MEAN CORPUSCULAR VOLUME 95.3 fl (80.0-96.0); RED CELL DISTRIBUTION WIDTH 16.2 % (11.5-14.5); WHITE BLOOD COUNT 8.3 K/mm3 (4.0-10.0)
[2017-01-07 06:39] LABS: ANION GAP 7 MEQ/L (8-16); BLOOD UREA NITROGEN 37 MG/DL (7-18); CALCIUM LEVEL 9.2 MG/DL (8.8-10.2); CARBON DIOXIDE LEVEL 30 MEQ/L (21-32); CHLORIDE LEVEL 97 MEQ/L (98-107); CREATININE FOR GFR 0.56 MG/DL (0.55-1.02); GLOMERULAR FILTRATION RATE > 60.0 (>45); GLUCOSE, FASTING 109 MG/DL (80-110); SODIUM LEVEL 134 MEQ/L (136-145)
[2017-01-07 06:44] LABS: POTASSIUM SERUM 4.4 MEQ/L (3.5-5.1)
[2017-01-07 07:45] VITALS: BP 122/59
--- NOTE | 2017-01-07 08:11 | ECHO ---
DATE OF PROCEDURE: 01/01/2017 Apparently, this was originally read by a different reader but the willow machine operator was never made and I am being asked to interpret the study again. INDICATION: Aortic and mitral valve replacement with mechanical prosthesis with suspicion for thrombosis of aortic valve based on echocardiogram on 12/27/2016. DIMENSIONS: IV: 1.1 LV: 5.3 LVPW: 1.2 LA: 4.2 Aorta: 3.6 PA: 2.7 FINDINGS : This is a limited study focusing on assessment of aortic and mitral valve function. Left ventricle is of normal size. There is a severe global hypokinesis with septal wall motion abnormality consistent with left bundle branch block. Overall estimated LVEF approximately 30-35%. Right ventricle does not appear enlarged. Left atrium is severely enlarged. Right atrium is probably normal even though it was poorly seen. There is mechanical prosthesis in aortic position that was poorly visualized by 2-D imaging. I do not appreciate any distinct abnormalities. There is mechanical prosthesis in mitral position. In this case the leaflet motion is well visualized. Tricuspid and pulmonic valves appear normal. No pericardial effusion is noted. Inferior vena cava is dilated but collapses with respiration, indicative of likely mildly elevated central venous pressure. Aortic root is normal. Aortic arch and abdominal aorta were not seen. Doppler interrogation of aortic valve reveals peak gradient across the valve 39 and mean gradient 19 mmHg. There is only trivial insufficiency, which is probably physiologic. Mitral valve has gradient 10 at its mean and 18 at its peak. No visualized insufficiency seen. There is mild tricuspid insufficiency. Calculated pulmonary artery pressure is in 40s, corresponding to moderate pulmonary hypertension. Pulmonic valve has mild insufficiency as well. Evaluation of diastolic function is complicated by presence of mitral prosthesis and probably is not accurate. Tissue Doppler imaging of mitral annulus was not performed. CONCLUSION: 1. Study is of acceptable technical quality even though it was a limited study. 2. Mildly increased gradient across aortic valve (mean gradient 19, peak gradient 39), trivial aortic insufficiency. 3. Mildly increased gradient across the mitral valve (mean 10, peak 18 mmHg). 4. Elevated central venous pressure. 5. Moderate pulmonary hypertension. 6. Severe LV systolic dysfunction. COMMENTS: SBE prophylaxis is recommended. The gradients across aortic valve has decreased substantially since prior echocardiogram on December 27, 2016, likely indicative of resolving prosthetic thrombosis with anticoagulation.
[2017-01-07] MEDS: levETIRAcetam INJection 500 MG in D5W MINI-BAG PLUS 100 ML IV SCH ×2 (09:21→20:31)
[2017-01-07] MEDS: FUROSEMIDE 40 MG/4 ML VIAL (J1940) IV SCH (09:52)
[2017-01-07] MEDS: LIDOCAINE 5% (LIDODERM) PATCH TD SCH (09:52)
[2017-01-07] MEDS: NYSTATIN 100,000 UNITS/GM TOPICAL PWD 15 GM TOP SCH ×2 (09:53→21:00)
--- NOTE | 2017-01-07 11:39 | IPNPDOC ---
Subjective Date Seen The patient was seen on 01/07/17. Subjective Chief Complaint/HPI The patient is a 66-year-old female admitted with a reason for visit of ICH. Events since last encounter patient did not have any issues last night. no fever or chills, no chest pain or sob , had discussion with patient's daughter and regarding the patients wishes as at this point she can make her wishes known and is aware and alert so she can make her own decisions. she has expressed repeated to different staff that she does not was feeding tube and shunt surgery so we will not be doing those. she continues to refuse food and oral meds so we cannot force her to eat. we cannot continue TPN and heparin indefinitely and have to stop. and also we cannot give her the coumadin as she is even refuses to open her mouth for meds. have explained that if she continues to refuse food she is ultimately become dehydrated develop multiple electrolyte abnormalities and ultimately . Family is aware of this. Family have decided to take her home with hospice care Objective Physical Examination General Exam: Positive: Alert, Cooperative, No Acute Distress Eye Exam: Positive: PERRLA, Negative: Sclera icteric ENT Exam: Positive: Mucous membr. moist/pink, Tongue Midline Neck Exam: Positive: Supple Chest Exam: Positive: Clear to auscultation, Rales (bibasal few crackles), Negative: Rhonchi, Wheezing Heart Exam: Positive: Rate Normal, Irregular Rhythm, Normal S1, Normal S2, Other (mitral and aortic metallic clicks. ) Abdomen Exam: Positive: Normal bowel sounds, Soft, Negative: Tenderness Extremity Exam: Negative: Edema, Tenderness Skin Exam: Positive: Nl turgor and temperature, Negative: Rash, Breakdown Neuro Exam: Positive: Other (quadriparesis right weaker than left. receptive and expressive aphasia. ) Assessment /Plan Problems (1) HCAP (healthcare-associated pneumonia) Status: Acute Problem Text: will completed 10 days of Zosyn on 01/05/17 (2) Aspiration pneumonia Status: Acute Problem Text: will completed antibiotics on 01/05/17 (3) Thrombosis of prosthetic heart valve Status: Acute Problem Text: AOrtic valve acute thrombus when anticoagulation was stopped and reversed for a drop in hh presumed to be GIB patient was negative for GIB Patient refusing to take po Coumadin so will continue on lovenox for now. (4) Metabolic encephalopathy Status: Resolved Problem Text: Multifactorial , infection , recent stroke more interactive today, more verbal (5) Protein calorie malnutrition Status: Acute Problem Text: Dietary intake likely insufficient for needs continues to be on TPN. Also discussed with family The patient is quite insistent that she has no interest in a feeding tube as of 01/05/17 will dc tpn when she goes home. (6) Depression Status: Acute Problem Text: likely adjustment disorder or depression based on her illness on pamelor (7) CVA (cerebrovascular accident due to intracerebral hemorrhage) Status: Acute Problem Text: Had intracerebral and intraventricular hemorrhage in October 2016 managed at [facility] stroke unit. 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 Had External ventricular drain placed there whice was thought to have gotten infected and was thought that she had developed ventriculitis wa treated with 2 weeks of antibiotics CSF has been persistently negative there as well as in our hospital (8) Hydrocephalus Status: Acute Response to Treatment: Stable Problem Specific Plan: Consult Specialist Problem Text: Had External ventricular drain placed there which was thought to have gotten infected and was thought that she had developed ventriculitis was treated with 2 weeks of antibiotics CSF has been persistently negative there as well as in our hospital . ID has cleared the pateint for V-P shunt surgery if required. As per neurosurgery there is a 25% chance that V-P may help but patient has refused CLIENT SUPPORT MANAGER shunt (9) Cerebral ventriculitis Status: Resolved Problem Specific Plan: Consult Specialist Problem Text: s/p completion of IV Abx therapy Repeat LP done 12/01/16 negative. (10) CAD (coronary artery disease) of artery bypass graft Status: Chronic Problem Specific Plan: Monitor Clinically (11) Hyperthyroidism Status: Acute Problem Specific Plan: Monitor Clinically Problem Text: TFTs not improved as of 12/08/16- repeat labs ordered Back on methimazole- increased dose 12/22/16 (12) Anemia Status: Chronic Response to Treatment: Stable Problem Specific Plan: Repeat Labs Problem Text: s/p 1 Unit of PRBC's transfusion on 11/25/16 Stool occult negative x4 No overt source of bleeding identified (13) S/P mitral valve replacement Status: Chronic Problem Text: on lovenox now. stopped heparin as patient not going to go for any procedure. (14) HTN (hypertension) Status: Chronic Problem Text: on norvasc, michelle inhibitor not taking. bp reasonably controlled for current setting (15) HLD (hyperlipidemia) Status: Chronic Problem Text: Cont Statin (16) Afib Status: Chronic Problem Text: rate not well controlled as patient not taking any meds. on metoprolol, lovenox (17) DVT prophylaxis Response to Treatment: Stable Problem Text: heparin drip (18) Diastolic CHF Status: Chronic Problem Specific Plan: Monitor Clinically Problem Text: grade II, compensated (19) PEA (Pulseless electrical activity) Status: Resolved Problem Text: s/p PEA arrest, associated with use of IV vitamin k Was seen by cardiology during her stay No significant ongoing issues No need for continuing telemetry (20) Impaired swallowing Status: Chronic Problem Text: will continue pureed diet will try to get new swallow eval. Plan/VTE VTE Prophylaxis Ordered?: Yes (coumadin) Plan/Urinary Catheter Reason for insertion/continuin: Critical Pt monitoring VS, I&O, 24H, Fishbone Vital Signs/I&O Vital Signs Date Time Temp Pulse Resp B/P (MAP) Pulse Ox O2 Delivery O2 Flow Rate FiO2 01/07/17 08:34 Nasal Cannula 1.0 01/07/17 07:45 98.1 94 20 122/59 (80) 98 I&O- Last 24 Hours up to 6 AM 01/07/17 06:00 Intake Total 2531 ml Balance 2531 ml Laboratory Data 24H LABS Laboratory Tests 2 01/06/17 17:39: Bedside Glucose (Misc Panel) 131H 01/07/17 00:25: Bedside Glucose (Misc Panel) 111 01/07/17 05:40: Activated Partial Thromboplast Time 40.2H, Anion Gap 7L, Glomerular Filtration Rate > 60.0, Blood Urea Nitrogen 37H, Creatinine 0.56, Sodium Level 134L, Potassium Level 4.4#, Chloride Level 97L, Carbon Dioxide Level 30, Calcium Level 9.2 CBC/BMP Laboratory Tests 01/07/17 05:40 Red Blood Count 3.15 L, Mean Corpuscular Volume 95.3, Mean Corpuscular Hemoglobin 31.2, Mean Corpuscular Hemoglobin Concent 32.8, Red Cell Distribution Width 16.2 H, Calcium Level 9.2 Microbiology Microbiology 12/29/16 Stool Occult Blood (PAPI) - Final, Complete CONCEPCION HARKINS MD Jan 07, 2017 11:39
[2017-01-07 11:55] VITALS: BP 121/59
[2017-01-07 16:15] VITALS: BP 120/60
[2017-01-07] MEDS: NORTRIPTYLINE 10 MG CAP PO SCH (17:47)
[2017-01-07] MEDS: ENOXAPARIN 60 MG/0.6 ML SYR (J1650) SC SCH (17:49)
[2017-01-07] MEDS ORDERED: FAT EMULSION IV 20% 500 ML IV SCH (18:00)
[2017-01-07] MEDS ORDERED: MULTIVITAMIN -ADULT INJECTION 10 ML, CR/CU/SE/MN/ZN INJ 1 ML in AMINO AC/ELECTROLYTE/DE... IV SCH (18:00)
[2017-01-07 20:00] VITALS: BP 145/77
[2017-01-07] MEDS: ATORVASTATIN 20 MG TAB PO SCH (20:35)
[2017-01-07] MEDS: **NOTE PATIENT COMMENT** MISC XX SCH (21:00)
[2017-01-08] VITALS: BP 142/70
[2017-01-08] MEDS: HumaLOG INSULIN (NovoLOG) PER UNIT SC SCH ×2 (01:41→06:38)
[2017-01-08 04:00] VITALS: BP 143/71
[2017-01-08] MEDS: ENOXAPARIN 60 MG/0.6 ML SYR (J1650) SC SCH (06:00)
[2017-01-08] MEDS: NYSTATIN 500,000 U/5 ML SUSP UDC SS SCH (06:00)
[2017-01-08] MEDS: METOPROLOL TART 12.5 MG PER 1/2 TAB PO SCH ×2 (06:00)
[2017-01-08] MEDS: SODIUM CHLORIDE 0.9% INJ 10 ML SYR IV SCH (06:39)
[2017-01-08 08:30] VITALS: BP 130/70
[2017-01-08] MEDS: FUROSEMIDE 40 MG/4 ML VIAL (J1940) IV SCH (09:17)
[2017-01-08] MEDS: LIDOCAINE 5% (LIDODERM) PATCH TD SCH (09:17)
[2017-01-08] MEDS: levETIRAcetam INJection 500 MG in D5W MINI-BAG PLUS 100 ML IV SCH (09:18)
[2017-01-08] MEDS: NYSTATIN 100,000 UNITS/GM TOPICAL PWD 15 GM TOP SCH (09:19)
[2017-01-08] MEDS ORDERED: NORT10CA2 PO (09:41)
[2017-01-08] MEDS ORDERED: LORA1TAB12 PO (09:41)
[2017-01-08] MEDS ORDERED: METO1TAB87 PO (09:41)
[2017-01-08] MEDS ORDERED: NYST50SS SS (09:41)
[2017-01-08] MEDS ORDERED: ATRO1OPD PO (09:41)
[2017-01-08] MEDS ORDERED: KEPP1TAB PO (09:41)
[2017-01-08] MEDS ORDERED: MORP1SOL PO (09:41)
[2017-01-08] MEDS ORDERED: NYST10PW TOP (09:41)
[2017-01-08] MEDS ORDERED: ONDA4TAB6 PO (11:31)
--- NOTE | 2017-01-10 21:53 | DSES ---
DATE OF ADMISSION: 11/19/2016 DATE OF DISCHARGE: 01/08/2017 PRIMARY CARE PROVIDER: Dr. Jean NEUROSURGEON: Juanita Noble MD INFECTIOUS DISEASE: Cami Benoit MD Patient followed and seen by cardiology. DISCHARGE DIAGNOSES: 1. Intracerebral hemorrhage with quadriparesis, right greater than left. 2. Intraventricular hemorrhage with obstructive hydrocephalus. 3. Acute on chronic congestive heart failure. 4. Aspiration pneumonia, completed antibiotics. 5. Acute thrombosis of prosthetic heart valve and aortic valve. 6. Healthcare-associated pneumonia. 7. Severe protein calorie malnutrition. 8. Metabolic encephalopathy due to infection, recent stroke. 9. Depression. 10. Recent cerebral ventriculitis at [facility] after intraventricular drain. 11. History of coronary artery disease and coronary artery bypass graft (CABG). 12. Hypothyroidism. 13. Chronic anemia. 14. Aortic and mitral valve replacement by mechanical valves. 15. Hypertension. 16. Hyperlipidemia. 17. Atrial fibrillation. 18. Status post pulmonary embolus (PE) cardiac arrest after IV vitamin K. 19. Dysphagia. DISCHARGE MEDICATIONS: - atropine sulfate 1% solution 1-2 drops by mouth every 2 hours as needed for terminal secretions - Keppra 500 mg by mouth twice a day - metoprolol 12.5 mg by mouth every 6 hours - nortriptyline 10 mg at bedtime - nystatin powder topically twice a day to the groin and the abdominal folds - nystatin oral suspension 5 mL swish and spit - ondansetron 4 mg by mouth every 6 hours as needed for vomiting HOSPITAL COURSE: This is a 67-year-old female who was admitted to our hospital from our acute inpatient rehabilitation unit where she developed headache, nausea, and vomiting. Imaging study done at the rehabilitation unit showed increase in hydrocephalus compared to previous study, so the patient was admitted to the hospital and moved to intensive care unit (ICU). Patient was originally transferred to our rehabilitation unit from [facility] after she had suffered massive intracerebral hemorrhage with intraventricular hemorrhage. Patient initially presented to [facility] with unresponsiveness and was found to have intracerebral hemorrhage with intraventricular extension and transferred to [facility] where she had an external ventricular drain placed. In the interval, while she was there, her hemorrhage had resolved but she was found to have moderate hydrocephalus and also ventriculitis and treated for an intraventricular infection from 11/11/2016 to 11/25/2016. Patient suffered a stroke on 10/21/2016, and patient was discharged to our rehabilitation unit on 11/13/2016. She was continued on the antibiotics in our rehabilitation unit. However, when she was in our rehabilitation unit, she developed headache, nausea, and vomiting and was seen by neurosurgeon, Dr. Noble, and it was felt that her hydrocephalus had worsened and patient needed a lumbar puncture (LP) and depending upon that, patient would eventually need a ventricular peritoneal shunt. However, patient being on Coumadin due to her prosthetic mitral and aortic valve, could not get that procedure immediately. Patient was then admitted to the hospital and moved to the ICU. There, patient finished her antibiotics but during the hospital course, patient developed dysphagia and also developed aspiration and hospital-acquired pneumonia. Patient also finished the course of antibiotics for aspiration and healthcare-associated pneumonia. Hospital course was complicated by sudden drop in hemoglobin and hematocrit which was felt to be related to gastrointestinal (GI) bleed so the patient's anticoagulation was reversed rapidly. Patient unfortunately developed an acute aortic valve thrombus and went into congestive heart failure which was felt to be both systolic and diastolic in nature. Patient also had atrial fibrillation with rapid ventricular response in the hospital which was difficult to control so patient was seen by cardiology associate and patient's Coumadin was stopped and patient was put on heparin infusion. Patient's pulse rate was controlled with beta samantha. Gradually, patient started to improve symptomatically, however patient had severe protein calorie malnutrition so was started on total parenteral nutrition (TPN). Patient had a swallow evaluation done and speech and swallow cleared her for pureed diet, however patient initially refused to take food because of soreness of mouth. Patient was started on fluconazole and nystatin. Initially, patient was taking her oral medications, however then she started refusing her oral medications when her mental status improved and she also started refusing oral food. It was felt that patient may be depressed, so patient was started on nortriptyline. However, patient continued to refuse oral medication and oral food. Patient became more awake and alert and expressed her wishes, that she did not want to stay in the hospital and she did not want a feeding tube, she just wanted to go home. She continued to refuse oral medications and food in spite of repeated encouragement and urging by our staff and her family members. She also refused any shunt surgery or any lumbar puncture to be done as requested by neurosurgery. At this point, advanced directives were discussed with the daughter and and the patient. Patient and her daughter, who is the healthcare proxy, expressed her wishes to be DO NOT RESUSCITATE/DO NOT INTUBATE and comfort measures only. It was explained that if the patient is refusing to take medications and food orally, she would rapidly decline and would ultimately . Patient's Coumadin could not be started as she would not take it by mouth so all anticoagulations were stopped. Hospice was consulted and patient was accepted to hospice service and patient was discharged home with home hospice. DISPOSITION: Discharged home with home hospice. DISCHARGE INSTRUCTIONS: Patient to followup with hospice providers and with primary care provider.
== END 2017-01-08 12:15 | disposition hospice, home (50) | DRG 56 ==
LOC: M ICU 19:15 → M PCU 12-03 12:58 → M MSPAV 12-05 14:26 → M ICU 12-23 22:03 → M PCU 12-29 15:10
PROVIDERS: ADMIT Internal Medicine; ATTEND Internal Medicine Nephrology
PROC: 009U3ZX Drainage of Spinal Canal, Percutaneous Approach, Diagnostic (ICD-10-PCS; 2016-11-21)
PROC: 30253K1 (ICD-10-PCS; 2016-11-21)
PROC: 30253N1 (ICD-10-PCS; 2016-11-23)
PROC: 009U3ZZ Drainage of Spinal Canal, Percutaneous Approach (ICD-10-PCS; principal; 2016-12-01)
PROC: 009U3ZX Drainage of Spinal Canal, Percutaneous Approach, Diagnostic (ICD-10-PCS; 2016-12-24)
DX: G91.1 Obstructive hydrocephalus (principal); G04.90 Encephalitis and encephalomyelitis, unspecified; I61.5 Nontraumatic intracerebral hemorrhage, intraventricular; I46.9 Cardiac arrest, cause unspecified; J69.0 Pneumonitis due to inhalation of food and vomit; E43 Unspecified severe protein-calorie malnutrition; G82.50 Quadriplegia, unspecified; T82.817A Embolism due to cardiac prosthetic devices, implants and grafts, initial encounter; K92.2 Gastrointestinal hemorrhage, unspecified; T83.518A Infection and inflammatory reaction due to other urinary catheter, initial encounter; I50.9 Heart failure, unspecified; I48.2 Chronic atrial fibrillation; I44.7 Left bundle-branch block, unspecified; E78.5 Hyperlipidemia, unspecified; Y95 Nosocomial condition; G93.2 Benign intracranial hypertension; E05.90 Thyrotoxicosis, unspecified without thyrotoxic crisis or storm; Z66 Do not resuscitate; R13.10 Dysphagia, unspecified; K52.9 Noninfective gastroenteritis and colitis, unspecified; F80.1 Expressive language disorder; F32.9 Major depressive disorder, single episode, unspecified; I25.10 Atherosclerotic heart disease of native coronary artery without angina pectoris; D64.9 Anemia, unspecified; I11.0 Hypertensive heart disease with heart failure; D72.819 Decreased white blood cell count, unspecified; T36.95XA Adverse effect of unspecified systemic antibiotic, initial encounter; Z95.1 Presence of aortocoronary bypass graft; Z79.01 Long term (current) use of anticoagulants; Z79.899 Other long term (current) drug therapy; Z88.8 Allergy status to other drugs, medicaments and biological substances; Y84.6 Urinary catheterization as the cause of abnormal reaction of the patient, or of later complication, without mention of misadventure at the time of the procedure